=== PATIENT | female | born 1995 | race Caucasian/White ===

== ENCOUNTER 2019-02-20 16:07 | Emergency (ER) | payer SELFPAY ==
[2019-02-20 16:08] VITALS: BP 140/97; PULSE 94; RESP 16; TEMP 36.7; O2SAT 100; BMI 24.7
[2019-02-20] MEDS: MethylPREDNISolone 125 MG/2 ML Vial IV (16:44)
[2019-02-20] MEDS: DiphenhydrAMINE 50 MG/ML Syringe 25 MG IV (16:44)
--- NOTE | 2019-02-20 17:07 | ED.VISSUMM ---
- ER Visit Summary Date of Service: 02/20/19 Chief Complaint: Rash History of Present Illness: The patient is a 24 F presenting with rash. She states she noticed a rash that started on her face this morning. She complains of a burning and itching sensation. She was started on Lamictal 3 weeks ago. She states initially she was on 25 mg once a day. A week ago it was increased to 50 mg once a day. She called her psychiatrist and was advised to discontinue the medication. She was advised to come to the ED for evaluation. She has no sores in her mouth. No difficulty breathing or swallowing. No fever. No other complaints. Physical Examination: Vitals are stable. Patient is afebrile. Alert no acute distress. HEENT exam maculopapular and petechial rash of face. No mucous membrane involvement Neck is supple. No meningismus Lungs are clear and equal bilaterally. Heart is regular rate and rhythm. Abdomen is soft nontender nondistended. Extremities are unremarkable. Skin is warm and dry. No focal neurologic deficit. Remainder of exam is unremarkable. Emergency Department Course and Treatment: Patient was given Solu-Medrol, Benadryl IV. CBC, chemistries unremarkable. Due to concern for Winston-Ricco syndrome, discussed with the hospitalist for observation. Hospitalist feels patient should be transferred to tertiary care center for admission. Discussed with [facility] for transfer. 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 It may contain incorrect words, spelling, and punctuation that were not noted in review of the chart prior to signing ED Disposition - Plan for ED Patient: Referrals: Marta Souza MD [Primary Care Provider] -
[2019-02-20 17:08] LABS: Absolute Neutrophil Count 5.6 X10^3/uL (2.0-7.7); Basophil# 0.02 X10^3/uL; Basophil% 0.3 % (0-1); Eosinophil# 0.11 X10^3/uL; Eosinophils% 1.4 % (0-5); Hematocrit 41.1 % (37-47); Lymphocyte % 19.5 % (19-41); Mean Corp Hgb Conc 34.1 g/gl (32-36); Mean Corpuscular Hgb 27.7 pg (27.0-32.0); Mean Corpuscular Volume 81.2 fL (81-99); Mean Platelet Vol. 11.2 fl (6.2-12.0); Monocyte# 0.42 X10^3/uL; Monocyte% 5.5 % (0-10); Neutrophil # 5.62 X10^3/uL (2.7-7.7); Platelet Count 401 K/mm3 (150-450); RBC Distribution Width CV 13.4 % (11.6-14.6); RBC Distribution Width SD 38.6 fl (35.1-43.9); Red Blood Count 5.06 M/mm3 (4.2-5.4); White Blood Count 7.7 K/mm3 (4.4-11.0)
[2019-02-20 17:10] LABS: POSITIVE COUNT NO; POSITIVE DIFFERENTIAL NO; POSITIVE MORPHOLOGY NO
[2019-02-20 17:11] LABS: Anion Gap 8 (5-15); BUN 6 mg/dL (7-18); Calcium,Total 9.4 mg/dL (8.5-10.1); Chloride 110 mmol/L (98-107); Creatinine, Serum 0.86 mg/dL (0.55-1.02); EST Glomerular Filtration Rate 86 mL/min (>60); Est Glom Filt Rate - Afr Amer 104 mL/min (>60); Estimated Creatinine Clearance 79.78 ml/min; Glucose 98 mg/dL (74-106); Potassium 3.6 mmol/L (3.5-5.1); Sodium Level 141 mmol/L (136-145)
--- NOTE | 2019-02-20 17:11 | ED.DCSUM_ITS ---
- ER Visit Summary Date of Service: 02/20/19 Chief Complaint: Rash History of Present Illness: The patient is a 24 F presenting with rash. She states she noticed a rash that started on her face this morning. She complains of a burning and itching sensation. She was started on Lamictal 3 weeks ago. She states initially she was on 25 mg once a day. A week ago it was increased to 50 mg once a day. She called her psychiatrist and was advised to discontinue the medication. She was advised to come to the ED for evaluation. She has no sores in her mouth. No difficulty breathing or swallowing. No fever. No other complaints. Physical Examination: Vitals are stable. Patient is afebrile. Alert no acute distress. HEENT exam maculopapular and petechial rash of face. No mucous membrane involvement Neck is supple. No meningismus Lungs are clear and equal bilaterally. Heart is regular rate and rhythm. Abdomen is soft nontender nondistended. Extremities are unremarkable. Skin is warm and dry. No focal neurologic deficit. Remainder of exam is unremarkable. Emergency Department Course and Treatment: Patient was given Solu-Medrol, Benadryl IV. CBC, chemistries unremarkable. Due to concern for Winston-Ricco syndrome, discussed with the hospitalist for observation. Hospitalist feels patient should be transferred to tertiary care center for admission. Discussed with [facility] for transfer. 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 It may contain incorrect words, spelling, and punctuation that were not noted in review of the chart prior to signing ED Disposition - Plan for ED Patient: Referrals: Marta Souza MD [Primary Care Provider] -
[2019-02-20 19:16] VITALS: BP 136/71; PULSE 81; RESP 16; O2SAT 98
== END 2019-02-20 19:17 | disposition home or self-care (01) ==
LOC: ED 16:55
PROVIDERS: Emergency Provider Emergency Medicine; Family Provider Internal Medicine; PCP Internal Medicine
DX: R21 Rash and other nonspecific skin eruption (principal)
CPT/HCPCS: 80048; 85025; 96374; 96375; 99285; A4216

== ENCOUNTER → 2019-06-26 | Outpatient (CLI) | payer OTHER, SELFPAY | END | disposition home or self-care (01) | LOC: PSN 08:39 | PROVIDERS: Family Provider Internal Medicine; PCP Internal Medicine; Referring Provider Nurse Practitioner; Visit Provider Nurse Practitioner | DX: R00.2 Palpitations (principal); Z86.79 Personal history of other diseases of the circulatory system | CPT/HCPCS: 93225; 93226 ==

== ENCOUNTER → 2019-10-21 14:49 | Outpatient (CLI) | payer OTHER, SELFPAY ==
[2019-10-21 14:29] VITALS: BMI 24.7
[2019-10-21 15:23] LABS: Basophil% 0.4 % (0-1); Hematocrit 36.9 % (37-47); Hemoglobin 12.2 g/dL (12.0-15.0); Lymphocyte % 24.6 % (19-41); Mean Corp Hgb Conc 33.1 g/dL (32-36); Mean Corpuscular Volume 84.8 fL (81-99); Mean Platelet Vol. 10.6 fl (6.2-12.0); Monocyte% 5.9 % (0-10); Neutrophil % 65.9 % (47-70); Platelet Count 346 K/mm3 (150-450); RBC Distribution Width CV 13.5 % (11.6-14.6); Red Blood Count 4.35 M/mm3 (4.2-5.4); White Blood Count 8.1 K/mm3 (4.4-11.0)
[2019-10-21 15:24] LABS: Absolute Lymphocyte Count 1.99 X10^3/uL (0.83-4.51); Absolute Neutrophil Count 5.3 X10^3/uL (2.0-7.7); Basophil# 0.03 X10^3/uL; Eosinophil# 0.24 X10^3/uL; Lymphocyte # 1.99 X10^3/ul (4.0); Monocyte# 0.48 X10^3/uL; NRBC Flagged by Analyzer 0 % (0-5); Neutrophil # 5.33 X10^3/uL (2.7-7.7)
[2019-10-21 15:54] LABS: Thyroid Stim Hormone (TSH) 2.11 uIU/mL (0.358-3.74)
== END ==
PROVIDERS: PCP Internal Medicine; Referring Provider Nurse Practitioner Women's Health; Visit Provider Nurse Practitioner Women's Health
DX: N92.6 Irregular menstruation, unspecified (principal)
CPT/HCPCS: 36415; 84443; 85025

== ENCOUNTER → 2019-10-30 | Outpatient (CLI) | payer OTHER, SELFPAY ==
[2019-10-21 14:29] VITALS: BMI 24.7
--- NOTE | 2019-10-30 11:09 | US_ITS ---
STUDY: ULTRASOUND OF THE FEMALE PELVIS - COMPLETE REASON FOR EXAM: Female, 24 years old. IUD CHECK, SPOTTING ALL THE TIME, IUD PLACED 8 MO AGO LMP: October 30, 2019. TECHNIQUE: Transabdominal and Transvaginal TECHNICAL QUALITY: Adequate. COMPARISON: None. FINDINGS: The uterus is anteverted and is in a midline position. The uterus measures 6.2 cm x 4.3 cm x 3.4 cm. Normal uterine cervix. The endometrium measures 3.3 mm in thickness, and is hyperechoic. There is no demonstrated endometrial mass. There is no demonstrated myometrial mass. I.U.D. - The patient does have an I.U.D. The right ovary is visualized. The right ovary measures 3 cm x 2.1 cm x 2.0 cm. There is no right ovarian cyst or ovarian mass. There is no visualized right adnexal mass or complex lesion. There is normal arterial and normal venous vascularity. The left ovary is visualized. The left ovary measures 2.7 cm x 2 cm x 1.8 cm. There is no left ovarian cyst or ovarian mass. There is no visualized left adnexal mass or complex lesion. There is normal arterial and normal venous vascularity. There is no fluid in the cul-de-sac. The pre void volume of the bladder was 234 ml. Polycystic ovary disease: No. US/Transvaginal Non- IMPRESSION: The IUD is seen within the endometrium. Electronically Signed: Damion Smith, at 14:04 EST , Service support ,
--- NOTE | 2019-10-30 11:09 | US_ITS ---
STUDY: ULTRASOUND OF THE FEMALE PELVIS - COMPLETE REASON FOR EXAM: Female, 24 years old. IUD CHECK, SPOTTING ALL THE TIME, IUD PLACED 8 MO AGO LMP: October 30, 2019. TECHNIQUE: Transabdominal and Transvaginal TECHNICAL QUALITY: Adequate. COMPARISON: None. FINDINGS: The uterus is anteverted and is in a midline position. The uterus measures 6.2 cm x 4.3 cm x 3.4 cm. Normal uterine cervix. The endometrium measures 3.3 mm in thickness, and is hyperechoic. There is no demonstrated endometrial mass. There is no demonstrated myometrial mass. I.U.D. - The patient does have an I.U.D. The right ovary is visualized. The right ovary measures 3 cm x 2.1 cm x 2.0 cm. There is no right ovarian cyst or ovarian mass. There is no visualized right adnexal mass or complex lesion. There is normal arterial and normal venous vascularity. The left ovary is visualized. The left ovary measures 2.7 cm x 2 cm x 1.8 cm. There is no left ovarian cyst or ovarian mass. There is no visualized left adnexal mass or complex lesion. There is normal arterial and normal venous vascularity. There is no fluid in the cul-de-sac. The pre void volume of the bladder was 234 ml. Polycystic ovary disease: No. US/Pelvic (Non ) IMPRESSION: The IUD is seen within the endometrium. Electronically Signed: Damion Smith, at 14:04 EST , Service support ,
== END | disposition home or self-care (01) ==
PROVIDERS: PCP Internal Medicine; Referring Provider Nurse Practitioner Women's Health; Visit Provider Nurse Practitioner Women's Health
DX: N92.6 Irregular menstruation, unspecified (principal); Z30.431 Encounter for routine checking of intrauterine contraceptive device
CPT/HCPCS: 76830; 76856

== ENCOUNTER 2020-04-06 08:27 | Emergency (ER) | payer OTHER, SELFPAY ==
[2020-01-09 14:32] VITALS: BMI 24.7
[2020-04-06 08:28] VITALS: BP 131/86; PULSE 85; RESP 16; TEMP 36.6; O2SAT 100; BMI 26.5
--- NOTE | 2020-04-06 08:56 | ED.DCSUM_ITS ---
History of Present Illness Chief Complaint: Complaint Informant: Patient Onset: Days - 3 Narrative: Presents for worsening of flank pain with dysuria and frequency. Started 3 days ago. Seen [facility] urgent care yesterday were told she had a UTI started on Bactrim status post 2 doses. States today symptoms worsening. Nausea vomiting x1 today. States had a fever yesterday. Allergy to Augmentin. Took Tylenol last night. Last menstrual period on the 15th of last month. No history of gastric ulcers or kidney injury. Prior similar symptoms: Yes Past Medical History - Allergies and Home Meds Allergies/Adverse Reactions: Allergies lamotrigine [From Lamictal] Allergy (Unknown, Verified 04/06/20 08:30) Unknown montelukast sodium [From Singulair] Allergy (Unknown, Verified 04/06/20 08:30) Unknown pt states she had reaction when she was young and is unsure amoxicillin trihydrate [From Augmentin] Allergy (Verified 04/06/20 08:30) Hives potassium clavulanate [From Augmentin] Allergy (Verified 04/06/20 08:30) Hives fluticasone propionate [From Flonase] Adverse Reaction (Verified 04/06/20 08:30) Other bloody noses and headaches TAPE Allergy (Mild, Uncoded 04/06/20 08:30) Rash Primary Care Physician: Marta Souza MD [Primary Care Provider] - Past Medical History: None Smoking Status: Never smoker Review of Systems General: Reports: Fever. Denies: Chills, Sweats Eyes: Denies: Visual changes - bilaterally, Diplopia ENT: Denies: Rhinorrhea, Sore throat Cardiovascular: Denies: Chest pain, Palpitations Respiratory: Denies: Dyspnea, Cough, Dyspnea on exertion Gastrointestinal: Reports: Nausea, Vomiting. Denies: Abdominal pain, Diarrhea, Melena, Hematochezia Genitourinary: Reports: Dysuria, Frequency. Denies: Hematuria Musculoskeletal: Reports: Back pain. Denies: Extremity Pain Skin: Denies: Rash, Wounds Neurological: Denies: Headache, Weakness, Numbness Physical Exam Vital Signs/Narrative: Vital Signs Temp Pulse Resp BP Pulse Ox 04/06/20 08:28 97.8 F 85 16 131/86 H 100 Inital Vital Signs reviewed: Yes General: Well nourished, Well developed, No Acute Distress, - - Nontoxic Head: Normocephalic, Atraumatic Eyes: Perrl, EOMI ENT: Moist mucous membranes, No rhinorrhea Neck: Supple, Nontender Cardiovascular: Regular rate, Regular rhythm, No murmurs Respiratory: No distress, CTA bilaterally, Chest nontender Abdomen: Soft, Nontender, Nondistended, Normal bowel sounds Back: Nontender, Normal Inspection, CVA tenderness, - - Mild left CVA tenderness. Extremities: Nontender, No edema Skin: Normal color, No rash Neurological: Alert, Oriented x3, Cranial nerves II-XII grossly intact, Normal Strength, Normal Sensation Psychological: Normal affect, Normal Mood Diagnostic/Tx/Re-eval Abnormal Lab Results 04/06/20 04/06/20 09:05 09:05 Urine Color Yellow Urine Clarity Sl. Cloudy Urine pH 7.0 Ur Specific [place] 1.005 Urine Protein Negative Urine Glucose (UA) Normal Urine Ketones Negative Urine Occult Blood Negative Urine Nitrite Negative Urine Bilirubin Negative Urine Urobilinogen Normal Ur Leukocyte Esterase Negative Urine RBC 0 SEEN Urine WBC 0 SEEN Ur Squamous Epith Cells 0-5 SEEN Urine Bacteria RARE Urine Mucus 0 SEEN Urine Test Negative - Medical Decision Making Patient nontoxic, nonsurgical abdomen. Unable to obtain labs from urgent care at this time. Recheck urine and hCG which was normal. Culture was sent with her history. Patient reported worsening symptoms, she was given Motrin and Pyridium initially. Discussed with patient potentially partially treated UTI with symptoms versus other etiologies but she pelvic and vaginal. She denies any vaginal discharge is abnormal. States she is sexually active with single partner with protection each time. 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 Skaggs. She has had ovarian cyst in the past. She states she is prefers to see her document image technician for her pelvic exam. I did send for urine GC and chlamydia for further screening. She will finish her antibiotics, Tylenol Motrin as needed. Signs of discussed return. All questions were answered. ED Disposition - Plan for ED Patient: Disposition: Home or Assisted Living Diagnosis: Dysuria, Pelvic pain, Recent urinary tract infection Instructions: ED Dysuria Uncertain Cause, ED Pelvic Pain [facility] Prescriptions: Phenazopyridine HCl [Pyridium] 200 mg PO TID PRN #6 tab PRN Reason: dysuria Transmission Status: [id number] Referrals: Marta Souza MD [Primary Care Provider] - Tara Skaggs MD [STAFF PHYSICIAN] - 3-5 Days
[2020-04-06] MEDS: Phenazopyridine 95 MG Tablet 190 MG PO (09:02)
[2020-04-06] MEDS: Ibuprofen 600 MG Tablet PO (09:02)
[2020-04-06 09:10] LABS: Mucous, Urine 0 SEEN /hpf (<or=2+); Red Blood Cells-Urine 0 SEEN /hpf (0-5); White Blood Cells 0 SEEN /hpf (0-5)
[2020-04-06 09:11] VITALS: BP 131/86; PULSE 85; RESP 16; TEMP 36.6; O2SAT 100
[2020-04-06 09:12] LABS: Color, Urine Yellow (Yellow); Glucose, Dipstick Normal (Normal); Ketone-Dipstick Negative (Negative); Leukocyte Esterase-Dipstick Negative /ul (Negative); Nitrite-Dipstick Negative (Negative); Occult Blood-Urine Negative /ul (Negative); Protein-Dipstick Negative (Negative); Specific Gravity, Urine 1.005 (1.002-1.030); Urine Bilirubin Dipstick Negative (Negative); Urine Clarity Sl. Cloudy (Clear); Urine Urobilinogen Normal (Normal)
[2020-04-06 09:13] LABS: Internal QC Validated? YES +Cl - CLEAR BKGD; Pregnancy, Urine Negative Negative
[2020-04-06 09:16] LABS: Bacteria RARE /hpf (None Seen); Squamous Epithelial Cells - UA 0-5 SEEN /hpf (5-10)
[2020-04-06 12:33] LABS: Chlamydia Trachomatis by PCR Negative (Negative); Neisserai gonorrhoeae by PCR Negative (Negative); Probe Check PASS; Sample Adequacy Control PASS; Specimen Processing Control PASS
== END 2020-04-06 09:39 | disposition home or self-care (01) ==
PROVIDERS: Emergency Provider Emergency Medicine; PCP Internal Medicine
DX: R30.0 Dysuria (principal); R10.2 Pelvic and perineal pain
CPT/HCPCS: 81001; 81025; 87086; 87088; 87491; 87591; 99283

== ENCOUNTER 2020-06-14 17:09 | Emergency (ER) | payer OTHER, SELFPAY ==
[2020-06-14 17:10] VITALS: BP 122/87; PULSE 80; RESP 18; TEMP 36.6; O2SAT 100; BMI 26.5
--- NOTE | 2020-06-14 17:39 | US_ITS ---
PROCEDURE: ULTRASOUND OF THE FEMALE PELVIS - COMPLETE REASON FOR EXAM: Female, 25 years old. PAIN AFTER INTERCOURSE,, IUD TECHNIQUE: Transabdominal and Transvaginal TECHNICAL QUALITY: Adequate. COMPARISON: Pelvic ultrasound dated October 30, 2019 FINDINGS: The uterus is anteverted and is in a midline position. The uterus measures 7.9 x 4.9 x 3.0 cm. There is no demonstrated myometrial mass. The intrauterine device is present in the fundal and body portion of endometrial cavity. The endometrium measures 2 mm in thickness, and is hyperechoic. There is no demonstrated endometrial mass. Normal uterine cervix. The right ovary is visualized. The right ovary measures 2.1 x 2.2 x 1.4 cm. There is no right ovarian cyst or ovarian mass. There is no visualized right adnexal mass or complex lesion. The left ovary is visualized. The left ovary measures 4.7 x 2.8 x 2.5 cm. A simple 2.4 cm follicular cyst is present requiring no further evaluation. There is no visualized left adnexal mass or complex lesion. Normal color vascular flow and Doppler signal is demonstrated in both ovaries. A small to moderate amount of free fluid is present in the pelvic cul-de-sac. A small amount of debris is seen in the bladder lumen. US/Transvaginal Non- IMPRESSION: 1. A small to moderate amount of free fluid is present in the pelvic cul-de-sac. A small amount of debris is seen in the bladder lumen. Electronically Signed: Ortiz Garcia MD at 19:32 EDT , Service support ,
--- NOTE | 2020-06-14 17:40 | ED.VIS.GEN ---
History of Present Illness Chief Complaint: Abd Pain Informant: Patient Onset: Yesterday Context: Gradual Onset Timing: Waxes and wanes Current Severity: Mild Maximum Severity: Moderate Narrative: Patient presents secondary to severe pelvic cramping that started after intercourse. She reports after intercourse last night she started getting heavy pelvic cramping. She has not had any bleeding or spotting. She been taking Tylenol ibuprofen throughout the day today. She called her HOME CARE PHYSICAL THERAPIST who recommended she come in. Patient does note that she has ParaGard IUD. - Past Medical History (1) Bipolar disorder Status: Chronic Past Medical History - Allergies and Home Meds Allergies/Adverse Reactions: Allergies lamotrigine [From Lamictal] Allergy (Unknown, Verified 06/14/20 17:12) Unknown montelukast sodium [From Singulair] Allergy (Unknown, Verified 06/14/20 17:12) Unknown pt states she had reaction when she was young and is unsure amoxicillin trihydrate [From Augmentin] Allergy (Verified 06/14/20 17:12) Hives potassium clavulanate [From Augmentin] Allergy (Verified 06/14/20 17:12) Hives fluticasone propionate [From Flonase] Adverse Reaction (Verified 06/14/20 17:12) Other bloody noses and headaches TAPE Allergy (Mild, Uncoded 06/14/20 17:12) Rash Primary Care Physician: Marta Souza MD [Primary Care Provider] - 1 Week if not improving Doctors: Dr. Skaggs Prior records reviewed: Yes Lives: With Family Smoking Status: Never smoker Review of Systems General: Denies: Chills, Fever Eyes: Denies: Visual changes - bilaterally ENT: Denies: Bilateral ear pain Cardiovascular: Denies: Chest pain Respiratory: Denies: Dyspnea, Cough Gastrointestinal: Reports: Abdominal pain. Denies: Vomiting, Diarrhea Genitourinary: Denies: Dysuria Musculoskeletal: Denies: Swelling, Extremity Pain Skin: Denies: Rash Hematologic: Denies: Easy bruising, Easy bleeding Allergy: Denies: Uticaria Physical Exam Vital Signs/Narrative: Vital Signs Temp Pulse Resp BP Pulse Ox 06/14/20 17:10 97.9 F 80 18 122/87 H 100 Inital Vital Signs reviewed: Yes General: Well nourished, Well developed Head: Normocephalic ENT: Moist mucous membranes Neck: Supple Cardiovascular: Regular rate, Regular rhythm Respiratory: No distress, CTA bilaterally Abdomen: Soft, Nontender, Normal bowel sounds Skin: Normal color Neurological: Alert, Oriented x3 Psychological: Normal affect Diagnostic/Tx/Re-eval Impressions Transvaginal US 06/14/20 17:39 IMPRESSION: 1. A small to moderate amount of free fluid is present in the pelvic cul-de-sac. A small amount of debris is seen in the bladder lumen. Electronically Signed: Ortiz Garcia MD at 19:32 EDT , Service support , 06/14/20 17:39 Transvaginal Non- [US] Stat Laboratory Results 06/14/20 06/14/20 17:45 17:45 Urine Color Yellow Urine Clarity Cloudy Urine pH 8.0 Ur Specific [place] 1.010 Urine Protein 15 H Urine Glucose (UA) Normal Urine Ketones Negative Urine Occult Blood 10 H Urine Nitrite Positive H Urine Bilirubin Negative Urine Urobilinogen 1 H Ur Leukocyte Esterase 500 H Urine RBC 0-5 SEEN Urine WBC 10-25 SEEN Ur Squamous Epith Cells 0-5 SEEN Amorphous Sediment 2+ Urine Bacteria 3+ Urine Mucus 0 SEEN Urine Test Negative - Medical Decision Making Patient was given ibuprofen on arrival. Urine does return with sign of infection and she was given Azo and Bactrim. Urine culture was sent. Test results discussed with the patient at bedside. She will be given prescription for Bactrim and Pyridium. She is to follow-up with her PCP and/or Dr. Skaggs if not improving. ED Disposition - Plan for ED Patient: Disposition: Home or Assisted Living Diagnosis: Cystitis Instructions: ED CYSTITIS Female Adult Prescriptions: Smz/Tmp Ds [Bactrim Ds] 1 tab PO BID #6 tab Transmission Status: [id number] Phenazopyridine HCl [Pyridium] 200 mg PO BID PRN PRN #10 tab PRN Reason: Pain Transmission Status: Re[id number] Referrals: Marta Souza MD [Primary Care Provider] - 1 Week if not improving
[2020-06-14 17:59] LABS: Mucous, Urine 0 SEEN /hpf (<or=2+)
[2020-06-14 18:01] LABS: Color, Urine Yellow (Yellow); Glucose, Dipstick Normal (Normal); Ketone-Dipstick Negative (Negative); Leukocyte Esterase-Dipstick 500 /ul (Negative); Nitrite-Dipstick Positive (Negative); Occult Blood-Urine 10 /ul (Negative); Protein-Dipstick 15 mg/dl (Negative); Urine Bilirubin Dipstick Negative (Negative); Urine Clarity Cloudy (Clear); Urine Urobilinogen 1 mg/dl (Normal)
[2020-06-14 18:08] LABS: Internal QC Validated? YES +Cl - CLEAR BKGD; Pregnancy, Urine Negative Negative
[2020-06-14 18:22] LABS: Amorphous Sediment 2+; Bacteria 3+ /hpf (None Seen); Red Blood Cells-Urine 0-5 SEEN /hpf (0-5); Squamous Epithelial Cells - UA 0-5 SEEN /hpf (5-10); White Blood Cells 10-25 SEEN /hpf (0-5)
[2020-06-14] MEDS: Ibuprofen 600 MG Tablet PO (18:25)
[2020-06-14] MEDS: Smz/Tmp Ds Tablet 1 TABLET PO (19:20)
[2020-06-14 19:21] VITALS: RESP 16
[2020-06-14] MEDS: Phenazopyridine 95 MG Tablet 190 MG PO (19:21)
[2020-06-14 20:11] VITALS: PULSE 80; RESP 15; O2SAT 98
== END 2020-06-14 20:12 | disposition home or self-care (01) ==
PROVIDERS: Emergency Provider Emergency Medicine; PCP Internal Medicine
DX: N30.90 Cystitis, unspecified without hematuria (principal); F31.9 Bipolar disorder, unspecified; Z79.899 Other long term (current) drug therapy
CPT/HCPCS: 76830; 81001; 81025; 87086; 87088; 87186; 93976; 99284

== ENCOUNTER 2020-08-05 18:16 | Emergency (ER) | payer OTHER, SELFPAY ==
[2020-08-05 18:17] VITALS: BP 125/83; PULSE 83; RESP 14; TEMP 36.2; O2SAT 100; BMI 26.5
--- NOTE | 2020-08-05 18:41 | ED.DCSUM_ITS ---
- ER Visit Summary Date of Service: 08/05/20 Chief Complaint: Headache History of Present Illness: The patient is a 25 F who presents with a headache that has been constant for the past couple days. Patient states it is gradually gotten worse. Patient states this feels similar to prior migraine headaches. Patient states she has not had a migraine in a while. Patient states her headache is over the frontal area. Patient states it is worse with light. Patient admits to nausea but denies any vomiting. Patient denies any preceding aura or scotoma. Patient denies any paresthesias or weakness. Physical Examination: Vital signs are stable. Patient is afebrile. Patient is in no acute distress. Oral mucosa is pink and moist. Neck is supple. Trachea is midline. There is no JVD noted. Heart was regular rate and rhythm. Lungs are clear and equal bilaterally. Abdomen is soft. Bowel sounds are normal. There is no tenderness. There is no rebound or guarding noted. Skin is warm dry. Cranial nerves II through XII are intact. There are no focal motor or sensory deficits noted. Extremities are intact. There is no calf tenderness or edema. Emergency Department Course and Treatment: Patient was given IV fluids, Reglan, Benadryl, and Toradol. Patient is feeling better on reevaluation. Patient was instructed to rest in a dark quiet room. Patient was instructed to follow-up with her primary care physician in 5 to 7 days. Patient understood and was agreeable with the plan. All questions were answered. Disposition: Discharge home Impression: Migraine headache This note was generated with [employer] dictation software. It may contain incorrect words, spelling, and punctuation that were not noted in review of the chart prior to signing ED Disposition - Plan for ED Patient: Disposition: Home or Assisted Living Diagnosis: Migraine headache Instructions: ED, Migraine (Classical) Referrals: Marta Souza MD [Primary Care Provider] - 5-7 Days
[2020-08-05] MEDS: 0.9% Normal Saline 1,000 ML 999 ML IV (18:47)
[2020-08-05] MEDS: DiphenhydrAMINE 50 MG/ML Syringe 25 MG IV (18:51)
[2020-08-05] MEDS: Ketorolac 30 MG/ML Syringe IV (18:51)
[2020-08-05] MEDS: Metoclopramide 10 MG/2 ML Vial IV (18:52)
[2020-08-05 20:33] VITALS: BP 112/60; PULSE 66; RESP 18; O2SAT 100
== END 2020-08-05 20:33 | disposition home or self-care (01) ==
PROVIDERS: Emergency Provider Emergency Medicine; PCP Internal Medicine
DX: G43.909 Migraine, unspecified, not intractable, without status migrainosus (principal)
CPT/HCPCS: 96361; 96374; 96375; 99283; J7030; A4216

== ENCOUNTER 2020-09-23 13:34 | Emergency (ER) | payer OTHER, SELFPAY ==
[2020-09-23 13:34] VITALS: BP 131/73; PULSE 105; RESP 18; TEMP 36.6; O2SAT 100; BMI 27.4
--- NOTE | 2020-09-23 13:52 | ED.VIS.GEN ---
History of Present Illness Chief Complaint: Eye Problem Informant: Patient Onset: Today Current Severity: Moderate Maximum Severity: Moderate Narrative: Patient presents secondary to hazy vision bilaterally. She states she woke this morning and her eyes were slightly hazy and irritated. She put her contacts in but symptoms seem to get worse. She took her contacts out but symptoms have continued to progress. She does report a stinging sensation in her eyes. No discharge. She does wear contacts monthly and states this pair was last changed on the first of the month. She did thoroughly cleanse them before placing them in her eyes today. - Past Medical History (1) Bipolar disorder Status: Chronic Past Medical History - Allergies and Home Meds Allergies/Adverse Reactions: Allergies lamotrigine [From Lamictal] Allergy (Unknown, Verified 09/23/20 13:36) Unknown montelukast sodium [From Singulair] Allergy (Unknown, Verified 09/23/20 13:36) Unknown pt states she had reaction when she was young and is unsure amoxicillin trihydrate [From Augmentin] Allergy (Verified 09/23/20 13:36) Hives potassium clavulanate [From Augmentin] Allergy (Verified 09/23/20 13:36) Hives fluticasone propionate [From Flonase] Adverse Reaction (Verified 09/23/20 13:36) Other bloody noses and headaches TAPE Allergy (Mild, Uncoded 09/23/20 13:36) Rash Primary Care Physician: Marta Souza MD [Primary Care Provider] - Prior records reviewed: Yes Smoking Status: Never smoker Review of Systems General: Denies: Chills, Fever Eyes: Reports: Visual changes - bilaterally. Denies: Diplopia ENT: Denies: Bilateral ear pain Cardiovascular: Denies: Chest pain Respiratory: Denies: Dyspnea, Cough Gastrointestinal: Denies: Abdominal pain, Nausea, Vomiting, Diarrhea Musculoskeletal: Denies: Extremity Pain Skin: Denies: Rash, Wounds Neurological: Denies: Headache Hematologic: Denies: Easy bruising, Easy bleeding Allergy: Denies: Uticaria Physical Exam Vital Signs/Narrative: Vital Signs Temp Pulse Resp BP Pulse Ox 09/23/20 13:34 98 F 105 H 18 131/73 H 100 Inital Vital Signs reviewed: Yes General: Well nourished, Well developed Head: Normocephalic Eyes: Perrl, EOMI, - - No conjunctival injection. No discharge. No periorbital edema or cellulitis. ENT: Moist mucous membranes Neck: Supple Cardiovascular: Regular rate, Regular rhythm Respiratory: No distress, CTA bilaterally Abdomen: Soft, Nontender Extremities: Nontender Skin: Normal color Neurological: Alert, Oriented x3 Psychological: Normal affect Diagnostic/Tx/Re-eval - Medical Decision Making Tetracaine drops were applied to each eye. She did have improvement in her pain with this. Slit-lamp examination is performed that reveals no ulcerations or lesions. Unfortunately there is a shortage of fluorescein and I am unable to stain her eyes. My suspicion is that the patient likely did not have her eyes completely closed when she slept and therefore woke up with irritated dry eyes. This has worsened over the next several hours. Patient will be given prescription for [place] and advised to use cool washcloths to her eyes. She will be given gentamicin eyedrops. She is referred to Dr. Baker, on-call for ophthalmology if not improving. Patient understands plan and agrees. ED Disposition - Plan for ED Patient: Disposition: Home or Assisted Living Diagnosis: Corneal abrasion Instructions: ED Corneal Abrasion Prescriptions: Hydrocodone Bitart/Apap 5-325 [[place] 5MG-325MG] 1 tablet PO Q6H PRN PRN 3 Days #10 tablet PRN Reason: Pain Referrals: Jose Baker MD [STAFF PHYSICIAN] - 3-5 Days if not improving Additional Instructions: Gentamicin eye drops - one drop to each eye every 6 hours while awake for the next 3 days.
[2020-09-23] MEDS: Tetracaine 0.5% Ophthalmic Bottle 1 DRP EACH EYE (13:57)
[2020-09-23] MEDS: HYDROcodone Bitartrate/Apap 5/325 Tablet PO (15:00)
[2020-09-23] MEDS: Gentamicin Sulfate 1 OPTH.BTL 1 DRP EACH EYE (15:01)
[2020-09-23 15:04] VITALS: BP 122/85; PULSE 79; RESP 18; O2SAT 100
== END 2020-09-23 15:06 | disposition home or self-care (01) ==
PROVIDERS: Emergency Provider Emergency Medicine; PCP Internal Medicine
DX: S05.02XA Injury of conjunctiva and corneal abrasion without foreign body, left eye, initial encounter (principal); S05.01XA Injury of conjunctiva and corneal abrasion without foreign body, right eye, initial encounter; F31.9 Bipolar disorder, unspecified; Z79.899 Other long term (current) drug therapy; X58.XXXA Exposure to other specified factors, initial encounter; Y93.89 Activity, other specified; Y92.89 Other specified places as the place of occurrence of the external cause; Y99.8 Other external cause status
CPT/HCPCS: 99283

== ENCOUNTER 2021-02-25 14:01 | Emergency (ER) | payer SELFPAY ==
[2021-02-25 14:02] VITALS: BP 118/76; PULSE 86; RESP 15; TEMP 36.4; O2SAT 100; BMI 26.5
--- NOTE | 2021-02-25 14:35 | US_ITS ---
STUDY: ULTRASOUND TRANSVAGINAL CLINICAL: Female, 26 years old. atypical bleeding TECHNIQUE: Transvaginal COMPARISON: None. FINDINGS: The uterus is anteverted and is in a midline position. The uterus measures 7.3 x 4.2 x 3.6 cm. There is no demonstrated myometrial mass. The endometrium measures 4.6 mm in thickness, and is hyperechoic. There is no demonstrated endometrial mass. The IUD is in the central/fundal portion of the endometrial cavity. Normal uterine cervix. The right ovary is visualized. The right ovary measures 3.0 x 2.1 x 1.6 cm. There is no right ovarian cyst or ovarian mass. There is no visualized right adnexal mass or complex lesion. The left ovary is visualized. The left ovary measures 2.5 x 2.4 x 1.6 cm. There is no left ovarian cyst or ovarian mass. There is no visualized left adnexal mass or complex lesion. Normal color vascular flow and Doppler signal is demonstrated in both ovaries. There is no fluid in the cul-de-sac. US/Transvaginal Non- IMPRESSION: Normal female pelvis. Electronically Signed: Ortiz Garcia MD at 16:28 EDT , Service support ,
--- NOTE | 2021-02-25 14:36 | EDS_ITS ---
HPI HPI - Female History of Present Illness Chief Complaint: Vag Bleeding Narrative Narrative: 26-year-old female presenting with vaginal bleeding for the last couple of days. She states this has been fairly heavy. Today she states she is soaking through 1 pad every hour. She admits to lightheadedness. Patient states she tried to call Dr. Skaggs however she was unable to get an office visit. Patient states she is currently on oral control to help regulate her menstrual cycles. She has talked to her MEDICAID BUSINESS ANALYST in the past regarding changing this however due to her other medications that she is unable to switch to different control. Patient does state that her menstrual cycles have been irregular for at least a year. She denies abdominal pain or pelvic pain. She has no concern for or STD as she states she is not sexually active. PFSH PFSH Home Medications risperidone 1 mg tablet 2 mg PO DAILY 10/21/19 [History Last Taken Unknown] carbamazepine 200 mg PO DAILY 06/14/20 [History Last Taken Unknown] Allergy/AdvReac Type Severity Reaction Status Date / Time lamotrigine [From Lamictal] Allergy Unknown Unknown Verified 02/25/21 14:04 montelukast sodium Allergy Unknown Unknown Verified 02/25/21 14:04 [From Singulair] amoxicillin trihydrate Allergy Hives Verified 02/25/21 14:04 [From Augmentin] potassium clavulanate Allergy Hives Verified 02/25/21 14:04 [From Augmentin] fluticasone propionate AdvReac Other Verified 02/25/21 14:04 [From Flonase] TAPE Allergy Mild Rash Uncoded 02/25/21 14:04 Family History Aunt Non-Hodgkins lymphoma Other Diabetes Surgical History History of placement of ear tubes S/P tonsillectomy Social History Smoking Status: Never smoker alcohol intake: current details: occasionally substance use type: does not use caffeine: Yes what type of physical activity do you participate in: walking frequency: 3-4 times per week seatbelt use: always do you feel safe at home: Yes additional social history: Ilda Lawrence 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[employer] [facility] ED Constitutional Constitutional ED: Denies chills, fever(s) or sweats Eyes Eyes: Denies blurry vision or change in vision ENT ENT ED: Denies ear pain, rhinorrhea or sore throat Cardiovascular Cardiovascular: Reports other Details: Lightheadedness with standing ; Denies chest pain, palpitations or racing heartbeat Respiratory/Chest Respiratory/Chest: Denies cough, dyspnea or sputum Gastrointestinal Gastrointestinal: Denies abdominal pain, constipation, diarrhea or vomiting Genitourinary Genitourinary ED: Denies dysuria, hematuria or urinary frequency Musculoskeletal Musculoskeletal: Denies arthralgias, myalgias or neck pain Integumentary Denies abscess, Abrasions or rash Neurologic Neurologic: Reports headache(s); Denies paresthesias or weakness Psychiatric Psychiatric: Denies anxiety, depression, suicidal ideation or suicidal thoughts Endocrine Endocrinology: Denies polydipsia or polyuria EXAM Physical Exam Const Vital Signs: 02/25/21 14:02 02/25/21 15:13 Temperature 97.5 F L Temperature Source Temporal Pulse Rate 86 Pulse Rate [Lying] 87 Pulse Rate [Sitting] 86 Pulse Rate [Standing] 88 Respiratory Rate 15 Blood Pressure 118/76 Blood Pressure [Lying] 122/75 H Blood Pressure [Sitting] 121/85 H Blood Pressure [Standing] 127/93 H Blood Pressure Mean 90 Blood Pressure Mean [Lying] 90 Blood Pressure Mean [Sitting] 97 Blood Pressure Mean [Standing] 104 Pulse Ox 100 Oxygen Delivery Method Room Air Positive well nourished General Appearance ED: NAD; Negative for pallor HEENT Reports normocephalic, head/scalp atraumatic and moist mucous membranes Negative for trauma Eyes PERRL and EOMs intact bilaterally Neck no lymphadenopathy and supple Chest Wall inspection of chest normal and palpation of chest normal Resp normal respiratory effort and clear to auscultation bilaterally Auscultation: Negative for rales, rhonchi or wheezes Cardio regular rate and regular rhythm GI normal to inspection, nondistended, normoactive bowel sounds and non-distended Auscultation: normoactive bowel sounds Palpation: soft Narrative: Deferred Back/Spine General Back: Negative for CVA tenderness Cervical Spine: Negative for cervical spine tenderness Extremity normal to inspection General Extremety ED: Negative for edema or tenderness General Extremity: Negative for edema Neuro oriented x3 and CN's II-XII intact bilaterally Sensorium / Orientation: alert Motor Exam: strength 5/5 throughout Psych mental status grossly normal Attitude: No agitated Skin no rashes or lesions noted and no wounds General Skin Exam: Negative for jaundice or pallor MDM MDM MDM Narrative Medical decision making narrative: Patient presenting with irregular uterine bleeding. She states he has a history of this. She states it cannot be controlled by her control however she was concerned about the how much she had been bleeding today she states she felt a little lightheaded although she is not orthostatic. Her hemoglobin is stable at 12.1. Platelets normal at 365. Renal function electrolytes are normal. Urinalysis has blood in it which is likely contamination as she has no urinary symptoms. Transvaginal ultrasound finds no abnormalities. Patient counseled she will need to follow-up with her MEDICAID BUSINESS ANALYST for further treatment. Impression: 1. Dysfunctional uterine bleeding Lab Data Labs: Laboratory Results - last 24 hr 02/25/21 02/25/21 02/25/21 15:00 15:00 15:25 WBC 5.0 RBC 4.23 Hgb 12.1 Hct 36.8 L MCV 87.0 MCH 28.6 MCHC 32.9 RDW Std Deviation 40.6 RDW Coeff of Abiodun 12.8 Plt Count 365 MPV 10.2 Immature Gran % (Auto) 0.200 Neut % (Auto) 56.5 Lymph % (Auto) 28.9 [place] % (Auto) 8.0 Eos % (Auto) 6.0 H Baso % (Auto) 0.4 Absolute Neuts (auto) 2.8 Absolute Lymphs (auto) 1.45 Nucleated RBC % 0 Sodium 139 Potassium 3.8 Chloride 109 H Carbon Dioxide 24.0 Anion Gap 6 BUN 8 Creatinine 0.73 Estim Creat Clear Calc 96.61 Est GFR (MDRD) Af Amer 124 Est GFR (MDRD) Non-Af 103 BUN/Creatinine Ratio 11.0 Glucose 99 Calcium 9.1 Urine Color Straw Urine Clarity Clear Urine pH 8.0 Ur Specific [place] 1.015 Urine Protein Negative Urine Glucose (UA) Normal Urine Ketones Negative Urine Occult Blood 250 H Urine Nitrite Negative Urine Bilirubin Negative Urine Urobilinogen Normal Ur Leukocyte Esterase Negative Urine RBC 0-5 SEEN Urine WBC 0-5 SEEN Ur Squamous Epith Cells 5-10 SEEN Urine Bacteria 1+ Urine Mucus 0 SEEN Urine Test Negative Radiography Diagnostic Testing: Radiology Impression Transvaginal US 02/25/21 14:35 IMPRESSION: Normal female pelvis. Electronically Signed: Ortiz Garcia MD at 16:28 EDT , Service support , Discharge Plan Triage Chief Complaint: Vag Bleeding ED Provider: Donnell Bowman Dx/Rx/DC Orders Prescriptions: No Action risperidone [Risperdal] 1 mg tablet 2 mg PO DAILY RF: 0 carbamazepine 200 MG tablet 200 mg PO DAILY RF: 0 Primary Care Provider: Marta Souza Referrals: Marta Souza MD [Primary Care Provider] - Tara Skaggs MD [STAFF PHYSICIAN] - As soon as possible Disposition Disposition: Home, self care
[2021-02-25 15:12] LABS: Absolute Lymphocyte Count 1.45 X10^3/uL (0.83-4.51); Absolute Neutrophil Count 2.8 X10^3/uL (2.0-7.7); Basophil# 0.02 X10^3/uL; Basophil% 0.4 % (0-1); Hematocrit 36.8 % (37-47); Hemoglobin 12.1 g/dL (12.0-15.0); Lymphocyte # 1.45 X10^3/ul (0.83-4.51); Lymphocyte % 28.9 % (19-41); Mean Corp Hgb Conc 32.9 g/dL (32-36); Mean Corpuscular Hgb 28.6 pg (27.0-32.0); Mean Platelet Vol. 10.2 fl (6.2-12.0); NRBC Flagged by Analyzer 0 % (0-5); Neutrophil # 2.84 X10^3/uL (2.7-7.7); Neutrophil % 56.5 % (47-70); Platelet Count 365 K/mm3 (150-450); RBC Distribution Width CV 12.8 % (11.6-14.6); RBC Distribution Width SD 40.6 fl (35.1-43.9); Red Blood Count 4.23 M/mm3 (4.2-5.4)
[2021-02-25 15:13] VITALS: BP 121/85; BP 122/75; BP 127/93; PULSE 86; PULSE 87; PULSE 88
[2021-02-25 15:25] LABS: Anion Gap 6 (5-15); BUN 8 mg/dL (7-18); Calcium,Total 9.1 mg/dL (8.5-10.1); Chloride 109 mmol/L (98-107); Creatinine, Serum 0.73 mg/dL (0.55-1.02); EST Glomerular Filtration Rate 103 mL/min (>60); Est Glom Filt Rate - Afr Amer 124 mL/min (>60); Estimated Creatinine Clearance 96.61 ml/min; Glucose 99 mg/dL (74-106); Potassium 3.8 mmol/L (3.5-5.1); Sodium Level 139 mmol/L (136-145)
[2021-02-25 15:38] LABS: Mucous, Urine 0 SEEN /hpf (<or=2+)
[2021-02-25 15:53] LABS: Color, Urine Straw (Yellow); Glucose, Dipstick Normal (Normal); Ketone-Dipstick Negative (Negative); Leukocyte Esterase-Dipstick Negative /ul (Negative); Nitrite-Dipstick Negative (Negative); Occult Blood-Urine 250 /ul (Negative); Protein-Dipstick Negative (Negative); Specific Gravity, Urine 1.015 (1.002-1.030); Urine Bilirubin Dipstick Negative (Negative); Urine Clarity Clear (Clear); Urine Urobilinogen Normal (Normal)
[2021-02-25 16:06] LABS: White Blood Cells 0-5 SEEN /hpf (0-5)
[2021-02-25 16:07] LABS: Bacteria 1+ /hpf (None Seen); Internal QC Validated? YES +Cl - CLEAR BKGD; Pregnancy, Urine Negative Negative; Red Blood Cells-Urine 0-5 SEEN /hpf (0-5); Squamous Epithelial Cells - UA 5-10 SEEN /hpf (5-10)
== END 2021-02-25 17:15 | disposition home or self-care (01) ==
PROVIDERS: Emergency Provider Student in an Organized Health Care Education/Training Program; PCP Internal Medicine
DX: N93.8 Other specified abnormal uterine and vaginal bleeding (principal)
CPT/HCPCS: 76830; 80048; 81001; 81025; 85025; 99284

== ENCOUNTER 2021-05-30 20:10 | Emergency (ER) | payer BC, SELFPAY ==
[2021-05-30 20:10] VITALS: BP 146/99; PULSE 97; RESP 16; TEMP 36.4; O2SAT 100; BMI 25.6
[2021-05-30 21:57] LABS: Mucous, Urine 0 SEEN /hpf (<or=2+)
--- NOTE | 2021-05-30 22:01 | EDS_ITS ---
HPI HPI - GI History of Present Illness Chief Complaint: Abd Pain Detail of Chief Complaint: Pelvic pain vaginal bleeding Informant: patient Abdominal Pain/Flank Pain Onset: Days Context: Gradual Onset Quality: Cramping Current Severity: Mild Maximum Severity: Mild Nausea/Vomiting/Emesis GI Symptom: Negative for Nausea and Vomiting Diarrhea/Melena/Hematochezia GI Symptom: Negative for Diarrhea Associated Symptoms Associated Symptoms: Negative for Dysuria, Frequency, Hematuria and Urgency LMP: Around May 03. Narrative Narrative: 26-year-old female recently diagnosed with endometriosis. She had vaginal bleeding last 4 days. Last menstrual period was around May 03. She complaining of cramping. Denies any dysuria. No fever. Believes she has bled a significant amount. Said at times she feels lightheaded. She is on no blood thinners. She is a history of seizure disorder. Ab0. Both vaginal deliveries. No prior history of heavy bleeding. Prior similar symptoms: No Recent Illness/Hospitalization: No PFSH PFSH Medical History Endometriosis Home Medications risperidone 1 mg tablet 2 mg PO DAILY 10/21/19 [History Last Taken Unknown] carbamazepine 200 mg PO DAILY 06/14/20 [History Last Taken Unknown] copper 380 square mm intrauterine device 1 device INTRAUTERINE ONCE 05/25/21 [History Last Taken Unknown] oxcarbazepine 150 mg tablet 150 mg PO DAILY 05/25/21 [History Last Taken Unknown] cephalexin 500 mg PO Q6H 7 Days #28 cap 05/30/21 [Rx Last Taken Unknown] Allergy/AdvReac Type Severity Reaction Status Date / Time lamotrigine [From Lamictal] Allergy Unknown Unknown Verified 05/30/21 20:13 montelukast sodium Allergy Unknown Unknown Verified 05/30/21 20:13 [From Singulair] amoxicillin trihydrate Allergy Hives Verified 05/30/21 20:13 [From Augmentin] potassium clavulanate Allergy Hives Verified 05/30/21 20:13 [From Augmentin] fluticasone propionate AdvReac Other Verified 05/30/21 20:13 [From Flonase] TAPE Allergy Mild Rash Uncoded 02/25/21 14:04 Family History Aunt Non-Hodgkins lymphoma Other Diabetes Surgical History History of placement of ear tubes S/P tonsillectomy Social History Smoking Status: Never smoker alcohol intake: current details: occasionally substance use type: does not use caffeine: Yes what type of physical activity do you participate in: walking frequency: 3-4 times per week seatbelt use: always do you feel safe at home: Yes additional social history: Engaged- Agata Lawrence 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 Vaginal bleeding. Pelvic cramping. No discharge. No dysuria. Review of Systems ROS Unobtainable: Denies due to encephalopathy Constitutional Constitutional ED: Denies chills or fever(s) ENT ENT ED: Denies ear pain or sore throat Cardiovascular Cardiovascular: Denies chest pain Respiratory/Chest Respiratory/Chest: Denies cough or dyspnea Gastrointestinal Gastrointestinal: Reports abdominal pain; Denies diarrhea, nausea or vomiting Genitourinary Genitourinary ED: Denies dysuria or hematuria Musculoskeletal Musculoskeletal: Denies arthralgias or myalgias Integumentary Denies rash Neurologic Neurologic: Denies headache(s) Psychiatric Psychiatric: Denies depression Endocrine Endocrinology: Denies polyuria Hematologic/Lymphatic Hematologic/Lymphatic: Denies easy bruising Allergic/Immunologic Allergic/Immunologic ED: Denies urticaria EXAM Physical Exam Narrative Exam Narrative: Well-appearing young female. Vital signs stable afebrile. Initial blood pressure 146/99. Heart rate 97. No distress. HEENT exam normal. Neck normal. Lungs are clear. Heart regular rhythm. Abdomen soft. Nondistended normal bowel sounds no peritoneal signs. Mild suprapubic tenderness. No organomegaly or masses. Moving all 4 extremities. No edema. Back nontender. Neurologically awake alert. Const Vital Signs: 05/30/21 20:10 Temperature 97.6 F L Temperature Source Temporal Pulse Rate 97 Respiratory Rate 16 Blood Pressure 146/99 H Blood Pressure Mean 114 Pulse Ox 100 Oxygen Delivery Method Room Air Positive well nourished and well developed General Appearance ED: well developed and NAD HEENT Reports moist mucous membranes normocephalic and atraumatic Eyes PERRL and EOMs intact bilaterally Neck no lymphadenopathy, supple and no JVD General: Negative for tenderness Resp normal respiratory effort and clear to auscultation bilaterally Auscultation: Negative for rales, rhonchi or wheezes Cardio regular rate, regular rhythm, S1 normal heart sound, S2 normal heart sound and no murmurs GI non-distended and no masses; Negative for non-tender GI Narrative: Mild suprapubic tenderness. Auscultation: normoactive bowel sounds Palpation: soft and tender; Negative for guarding, rigid or rebound tenderness present Back/Spine no CVA tenderness General Back: Negative for CVA tenderness Cervical Spine: Negative for cervical spine tenderness Extremity full ROM General Extremety ED: Negative for edema or tenderness General Extremity: Negative for edema Neuro moves all extremities Sensorium / Orientation: alert, oriented to person, oriented to place and oriented to time; Negative for orientation impaired Psych mental status grossly normal Skin Lesions: no lesions Rashes: no rashes MDM MDM MDM Narrative Medical decision making narrative: Young female recent diagnosis of endometriosis with vaginal bleeding. Blood cannot be obtained see if she has become anemic. Also check a test and urinalysis. She will be given morphine for pain. Repeat exam at 1130 patient doing well be discharged home. We discussed all test results. She will be given a dose of Keflex here prior to discharge. A culture will be sent. Lab Data Attestation: I reviewed the patient's lab results. Lab results narrative: CBC shows a normal white count of 7. Hemoglobin 11.8. test negative. Both serum and urine I canceled the urine but they were already running it. UA shows blood positive nitrites 10-25 red cells and 10-25 white cells with 2+ bacteria insistent with a UTI. A culture also be sent. Labs: Laboratory Results - last 24 hr 05/30/21 05/30/21 05/30/21 21:50 22:30 22:30 WBC 7.8 RBC 4.18 L Hgb 11.8 L Hct 36.5 L MCV 87.3 MCH 28.2 MCHC 32.3 RDW Std Deviation 41.5 RDW Coeff of Abiodun 13.1 Plt Count 403 MPV 10.5 Serum , Qual NEGATIVE Urine Color Yellow Urine Clarity Sl. Cloudy Urine pH 7.0 Ur Specific [place] 1.010 Urine Protein Negative Urine Glucose (UA) Normal Urine Ketones Negative Urine Occult Blood 250 H Urine Nitrite Positive H Urine Bilirubin Negative Urine Urobilinogen Normal Ur Leukocyte Esterase 100 H Urine RBC 10-25 SEEN Urine WBC 10-25 SEEN Ur Squamous Epith Cells 0-5 SEEN Urine Bacteria 2+ Urine Mucus 0 SEEN Urine Test Negative Discharge Plan Triage Chief Complaint: Abd Pain ED Provider: Jus Britt Dx/Rx/DC Orders Clinical Impression: Dysmenorrhea, UTI (urinary tract infection) Instructions: ED Dysfunctional Uterine Bleeding, ED CYSTITIS Female Adult Prescriptions: New cephalexin 500 mg capsule 500 mg PO Q6H 7 Days Qty: 28 RF: 0 No Action risperidone [Risperdal] 1 mg tablet 2 mg PO DAILY RF: 0 ParaGard T 380A 380 square mm intrauterine device 1 device intrauterine ONCE RF: 0 oxcarbazepine [Trileptal] 150 mg tablet 150 mg PO DAILY RF: 0 carbamazepine 200 MG tablet 200 mg PO DAILY RF: 0 Primary Care Provider: Marta Souza Referrals: Marta Souza MD [Primary Care Provider] - Activity Restrictions/Additional Instructions: Motrin and Tylenol for pain. Plenty of fluids and rest. He will be started on antibiotic Keflex 1 pill 4 times a day for a week for the UTI. Urine cultures been sent. Follow-up with your FAMILY PRACTICE DOCTOR. Return if you are feeling worse. Disposition Disposition: Home, Self Care
[2021-05-30 22:03] LABS: Color, Urine Yellow (Yellow); Glucose, Dipstick Normal (Normal); Ketone-Dipstick Negative (Negative); Leukocyte Esterase-Dipstick 100 /ul (Negative); Nitrite-Dipstick Positive (Negative); Occult Blood-Urine 250 /ul (Negative); Protein-Dipstick Negative (Negative); Urine Bilirubin Dipstick Negative (Negative); Urine Clarity Sl. Cloudy (Clear); Urine Urobilinogen Normal (Normal)
[2021-05-30 22:04] LABS: Internal QC Validated? YES +Cl - CLEAR BKGD; Pregnancy, Urine Negative Negative
[2021-05-30 22:09] LABS: Red Blood Cells-Urine 10-25 SEEN /hpf (0-5); Squamous Epithelial Cells - UA 0-5 SEEN /hpf (5-10); White Blood Cells 10-25 SEEN /hpf (0-5)
[2021-05-30 22:10] LABS: Bacteria 2+ /hpf (None Seen)
[2021-05-30] MEDS: morphine 8 MG/ML Syringe IV (22:25)
[2021-05-30] MEDS: Ondansetron 4 MG/2 ML Vial IV (22:26)
[2021-05-30 22:35] LABS: Hematocrit 36.5 % (37-47); Hemoglobin 11.8 g/dL (12.0-15.0); Mean Corp Hgb Conc 32.3 g/dL (32-36); Mean Corpuscular Hgb 28.2 pg (27.0-32.0); Mean Corpuscular Volume 87.3 fL (81-99); Mean Platelet Vol. 10.5 fl (6.2-12.0); Platelet Count 403 K/mm3 (150-450); RBC Distribution Width CV 13.1 % (11.6-14.6); RBC Distribution Width SD 41.5 fl (35.1-43.9); Red Blood Count 4.18 M/mm3 (4.2-5.4); White Blood Count 7.8 K/mm3 (4.4-11.0)
[2021-05-30 22:46] LABS: Internal QC Validated? YES +Cl - CLEAR BKGD; Pregnancy, Serum, hCG Quali. NEGATIVE Negative
[2021-05-30] MEDS: Cephalexin 250 MG Capsule 500 MG PO (23:44)
[2021-05-30 23:47] VITALS: PULSE 71; RESP 14; O2SAT 99
== END 2021-05-30 23:47 | disposition home or self-care (01) ==
PROVIDERS: Emergency Provider Emergency Medicine; PCP Internal Medicine
DX: N39.0 Urinary tract infection, site not specified (principal); N94.6 Dysmenorrhea, unspecified
CPT/HCPCS: 81001; 81025; 84703; 85027; 87077; 87086; 87088; 87186; 96374; 96375; 99282; J7030; A4216; J2405

== ENCOUNTER 2021-11-17 10:40 | Emergency (ER) | payer SELFPAY ==
[2021-11-17 10:41] VITALS: BP 140/97; PULSE 100; RESP 16; TEMP 36.4; O2SAT 100; BMI 28.3
--- NOTE | 2021-11-17 10:56 | US_ITS ---
STUDY: ULTRASOUND OF THE FEMALE PELVIS - COMPLETE REASON FOR EXAM: Female, 26 years old. Left pelvic pain. LMP: 10/24/2021. TECHNIQUE: Transvaginal TECHNICAL QUALITY: Adequate. COMPARISON: Comparison is made with prior study dated 02/25/2021. FINDINGS: The uterus is anteverted and is in a midline position. The uterus measures 6 cm x 4 cm x 3.2 cm. Normal uterine cervix. The endometrium measures 4.9 mm in thickness, and is hyperechoic. There is no demonstrated endometrial mass. There is no demonstrated myometrial mass. I.U.D. - The patient does have an I.U.D. The right ovary is visualized. The right ovary measures 2.8 cm x 2.5 cm x 1.7 cm. Small follicles are seen within the ovary. There is no visualized right adnexal mass or complex lesion. There is normal arterial and normal venous vascularity. The left ovary is visualized. The left ovary measures 2.9 cm x 2.5 cm x 1.8 cm. Small follicles are seen within the ovary. There is no visualized left adnexal mass or complex lesion. There is normal arterial and normal venous vascularity. There is no fluid in the cul-de-sac. US/Transvaginal Non- IMPRESSION: Normal female pelvis. Electronically Signed: Damion Smith MD at 13:21 EST ,
--- NOTE | 2021-11-17 11:00 | EX.ED.DYSGE1 ---
HPI <DILMA Mariano - Last Filed: 11/17/21 14:19> History of Present Illness Chief Complaint: Abd Pain Narrative Narrative: 26-year-old female presents with left-sided pelvic pain x3 days. She states she has a cramping pain and light vaginal spotting. She has had intermittent pain and is being worked up for endometriosis with her [facility]. They trialed a hormonal IUD that was placed 8 months ago. She has an appointment with them on November 29 to discuss an ex lap. She denies fever, chills, vomiting, flank pain, or urinary or bowel symptoms. Denies vaginal discharge. No abdominal surgical history. PFSH <DILMA Mariano - Last Filed: 11/17/21 14:19> [facility] Medical History Endometriosis Home Medications risperidone 1 mg tablet 2 mg PO DAILY 10/21/19 [History Last Taken Unknown] carbamazepine 200 mg PO DAILY 06/14/20 [History Last Taken Unknown] oxcarbazepine 150 mg tablet 150 mg PO DAILY 05/25/21 [History Last Taken Unknown] levonorgestrel [Liletta] 20.1 mcg INTRAUTERINE DAILY 11/17/21 [History Last Taken Unknown] naproxen 500 mg PO BID #14 tab 11/17/21 [Rx Last Taken Unknown] Allergy/AdvReac Type Severity Reaction Status Date / Time lamotrigine [From Lamictal] Allergy Unknown Unknown Verified 11/17/21 10:42 montelukast sodium Allergy Unknown Unknown Verified 11/17/21 10:42 [From Singulair] amoxicillin trihydrate Allergy Hives Verified 11/17/21 10:42 [From Augmentin] potassium clavulanate Allergy Hives Verified 11/17/21 10:42 [From Augmentin] fluticasone propionate AdvReac Other Verified 11/17/21 10:42 [From Flonase] TAPE Allergy Mild Rash Uncoded 11/17/21 10:42 Family History Aunt Non-Hodgkins lymphoma Other Diabetes Surgical History History of placement of ear tubes S/P tonsillectomy Social History Smoking Status: Never smoker alcohol intake: current details: occasionally substance use type: does not use caffeine: Yes what type of physical activity do you participate in: walking frequency: 3-4 times per week seatbelt use: always do you feel safe at home: Yes additional social history: Engaged- Agata Lawrence 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 Eyes: Negative for visual change. ENT: Negative for sore throat, ear pain, rhinorrhea. CVS: Negative for palpitations, chest pain, syncope. Respiratory: Negative for shortness of breath, cough, orthopnea. GI: Positive for abdominal pain, nausea. Negative for vomiting, diarrhea, constipation, melena, hematochezia. : Negative for dysuria, hematuria or frequency. Neuro: Negative for headache, motor/sensory dysfunction. Skin: Negative for rash, abscess, or wound. Musc: Negative for joint pain, swelling, trauma. Heme: Negative for easy bruising, bleeding, lymphadenopathy. EXAM <DILMA Mariano - Last Filed: 11/17/21 14:19> Physical Exam Narrative Exam Narrative: CONST: Patient sitting in no acute distress. EYES: Normal inspection. ENT: Normal inspection, moist mucous membranes. NECK: Normal inspection. RESP: No respiratory distress, CTAB. CVS: Regular rate and rhythm, no murmur, no gallop. ABD: Soft with tenderness in lower left pelvic region, no guarding or rebound, nondistended. Back: Normal inspection, no CVA tenderness. SKIN: Color normal, no rash, warm, dry, intact. EXTREMITIES: Normal appearance, no pedal edema. NEURO: Oriented x4. PSYCH: Normal affect. Const Vital Signs: 11/17/21 10:41 11/17/21 13:09 11/17/21 13:41 Temperature 97.5 F L 98.0 F Temperature Source Temporal Oral Pulse Rate 100 86 92 Respiratory Rate 16 16 18 Blood Pressure 140/97 H 115/73 138/84 H Blood Pressure Mean 111 87 Pulse Ox 100 100 98 Oxygen Delivery Method Room Air Room Air <John Ding MD - Last Filed: 11/17/21 15:07> Physical Exam Const Vital Signs: 11/17/21 10:41 11/17/21 13:09 11/17/21 13:41 Temperature 97.5 F L 98.0 F Temperature Source Temporal Oral Pulse Rate 100 86 92 Respiratory Rate 16 16 18 Blood Pressure 140/97 H 115/73 138/84 H Blood Pressure Mean 111 87 Pulse Ox 100 100 98 Oxygen Delivery Method Room Air Room Air [facility] <DILMA Mariano - Last Filed: 11/17/21 14:19> [facility] Narrative Medical decision making narrative: Patient presents with left-sided pelvic pain and light vaginal spotting. She appears well nontoxic. Vital signs are within normal limits. She has left lower pelvic tenderness. Abdomen is soft with no peritoneal signs. There is no CVA tenderness. Her cardiopulmonary exam is within normal limits. Basic labs are normal. Urinalysis and hCG are negative. Pelvic ultrasound shows no acute findings. Patient had some improvement after IV analgesia and will be discharged home to follow-up with her [employer] [employer] as scheduled. She was counseled on symptoms that would warrant return and was discharged in stable condition. Diagnosis 1. Abdominal pain of unknown etiology Lab Data Labs: Laboratory Results - last 24 hr 11/17/21 11/17/21 11/17/21 10:55 11:45 11:45 WBC 7.7 RBC 4.53 Hgb 13.0 Hct 39.1 MCV 86.3 MCH 28.7 MCHC 33.2 RDW Std Deviation 42.5 RDW Coeff of Abiodun 13.7 Plt Count 395 MPV 10.4 Immature Gran % (Auto) 0.300 Neut % (Auto) 67.4 Lymph % (Auto) 22.0 [place] % (Auto) 4.0 Eos % (Auto) 5.7 H Baso % (Auto) 0.6 Absolute Neuts (auto) 5.2 Absolute Lymphs (auto) 1.70 Nucleated RBC % 0 Sodium 139 Potassium 3.7 Chloride 109 H Carbon Dioxide 26.0 Anion Gap 4 L BUN 7 Creatinine 0.87 Estim Creat Clear Calc 81.06 Est GFR (MDRD) Af Amer 101 Est GFR (MDRD) Non-Af 83 BUN/Creatinine Ratio 8.1 L Glucose 93 Calcium 9.1 Urine Color Straw Urine Clarity Clear Urine pH 8.0 Ur Specific [place] 1.010 Urine Protein Negative Urine Glucose (UA) Normal Urine Ketones Negative Urine Occult Blood Negative Urine Nitrite Negative Urine Bilirubin Negative Urine Urobilinogen Normal Ur Leukocyte Esterase 100 H Urine RBC 0 SEEN Urine WBC 0 SEEN Ur Squamous Epith Cells 0-5 SEEN Urine Bacteria 1+ Urine Mucus 0 SEEN Urine Test Negative Radiography Diagnostic Testing: Clinical Impression(s) from Imaging Studies Transvaginal US 11/17/21 10:56 IMPRESSION: Normal female pelvis. Electronically Signed: Damion Smith MD at 13:21 EST , <John Ding MD - Last Filed: 11/17/21 15:07> MDM MDM Narrative Medical decision making narrative: ATTENDING NOTE: Dr. Ding: The patient was seen in conjunction with the PA-C/nurse practitioner. I performed a history and physical, and agree with the management of this patient. I agree with noted documentation and plan. I discussed the plan of care and final disposition with the physician associate/nurse practitioner. Left-sided pelvic pain. Afebrile. Vital signs noted. Regular rate and rhythm. Lungs clear to auscultation bilaterally. Abdomen soft with minimal tenderness to palpation left pelvic area. Check labs. Check ultrasound. Follow-up [facility] [employer] [employer]. Discharge. Lab Data Labs: Laboratory Results - last 24 hr 11/17/21 11/17/21 11/17/21 10:55 11:45 11:45 WBC 7.7 RBC 4.53 Hgb 13.0 Hct 39.1 MCV 86.3 MCH 28.7 MCHC 33.2 RDW Std Deviation 42.5 RDW Coeff of Abiodun 13.7 Plt Count 395 MPV 10.4 Immature Gran % (Auto) 0.300 Neut % (Auto) 67.4 Lymph % (Auto) 22.0 [place] % (Auto) 4.0 Eos % (Auto) 5.7 H Baso % (Auto) 0.6 Absolute Neuts (auto) 5.2 Absolute Lymphs (auto) 1.70 Nucleated RBC % 0 Sodium 139 Potassium 3.7 Chloride 109 H Carbon Dioxide 26.0 Anion Gap 4 L BUN 7 Creatinine 0.87 Estim Creat Clear Calc 81.06 Est GFR (MDRD) Af Amer 101 Est GFR (MDRD) Non-Af 83 BUN/Creatinine Ratio 8.1 L Glucose 93 Calcium 9.1 Urine Color Straw Urine Clarity Clear Urine pH 8.0 Ur Specific [place] 1.010 Urine Protein Negative Urine Glucose (UA) Normal Urine Ketones Negative Urine Occult Blood Negative Urine Nitrite Negative Urine Bilirubin Negative Urine Urobilinogen Normal Ur Leukocyte Esterase 100 H Urine RBC 0 SEEN Urine WBC 0 SEEN Ur Squamous Epith Cells 0-5 SEEN Urine Bacteria 1+ Urine Mucus 0 SEEN Urine Test Negative Radiography Diagnostic Testing: Clinical Impression(s) from Imaging Studies Transvaginal US 11/17/21 10:56 IMPRESSION: Normal female pelvis. Electronically Signed: Damion Smith MD at 13:21 EST , Discharge Plan Triage Chief Complaint: Abd Pain ED Provider: Emeli To Dx/Rx/DC Orders Clinical Impression: Pelvic pain Instructions: ED Pelvic Pain, Unknown Cause Prescriptions: New naproxen 500 mg tablet 500 mg PO BID Qty: 14 RF: 0 No Action risperidone [Risperdal] 1 mg tablet 2 mg PO DAILY RF: 0 oxcarbazepine [Trileptal] 150 mg tablet 150 mg PO DAILY RF: 0 carbamazepine 200 MG tablet 200 mg PO DAILY RF: 0 Liletta 20.1 mcg/24 hrs (6 yrs) 52 mg Intrauterine Device 20.1 mcg INTRAUTERINE DAILY RF: 0 Primary Care Provider: Marta Souza Referrals: Marta Souza MD [Primary Care Provider] - Activity Restrictions/Additional Instructions: Today your blood work looks normal. Your urine showed no infection. Your test is negative. The ultrasound showed nothing abnormal?the ovaries and uterus appeared normal. At this time the cause of your pain is unknown. Please follow-up with your MAIL [employer] DELIVERY and take Tylenol ibuprofen as needed Disposition Disposition: Home, Self Care Discharge Date/Time: 11/17/21 13:42
[2021-11-17 11:16] LABS: Mucous, Urine 0 SEEN /hpf (<or=2+); Red Blood Cells-Urine 0 SEEN /hpf (0-5); White Blood Cells 0 SEEN /hpf (0-5)
[2021-11-17 11:17] LABS: Color, Urine Straw (Yellow); Glucose, Dipstick Normal (Normal); Ketone-Dipstick Negative (Negative); Leukocyte Esterase-Dipstick 100 /ul (Negative); Nitrite-Dipstick Negative (Negative); Occult Blood-Urine Negative /ul (Negative); Protein-Dipstick Negative (Negative); Urine Bilirubin Dipstick Negative (Negative); Urine Clarity Clear (Clear); Urine Urobilinogen Normal (Normal)
[2021-11-17 11:24] LABS: Bacteria 1+ /hpf (None Seen); Squamous Epithelial Cells - UA 0-5 SEEN /hpf (5-10)
[2021-11-17 11:25] LABS: Internal QC Validated? YES +Cl - CLEAR BKGD; Pregnancy, Urine Negative Negative
[2021-11-17] MEDS: Ondansetron 4 MG/2 ML Vial IV (11:25)
[2021-11-17] MEDS: Morphine 4 MG/ML Syringe IV (11:26)
[2021-11-17 12:00] LABS: Absolute Neutrophil Count 5.2 X10^3/uL (2.0-7.7); Basophil# 0.05 X10^3/uL; Basophil% 0.6 % (0-1); Eosinophil# 0.44 X10^3/uL; Eosinophils% 5.7 % (0-5); Hematocrit 39.1 % (37-47); Mean Corp Hgb Conc 33.2 g/dL (32-36); Mean Corpuscular Hgb 28.7 pg (27.0-32.0); Mean Corpuscular Volume 86.3 fL (81-99); Mean Platelet Vol. 10.4 fl (6.2-12.0); Monocyte# 0.31 X10^3/uL; NRBC Flagged by Analyzer 0 % (0-5); Neutrophil # 5.19 X10^3/uL (2.7-7.7); Neutrophil % 67.4 % (47-70); Platelet Count 395 K/mm3 (150-450); RBC Distribution Width CV 13.7 % (11.6-14.6); RBC Distribution Width SD 42.5 fl (35.1-43.9); Red Blood Count 4.53 M/mm3 (4.2-5.4); White Blood Count 7.7 K/mm3 (4.4-11.0)
[2021-11-17 12:12] LABS: Anion Gap 4 (5-15); BUN 7 mg/dL (7-18); BUN/Creat Ratio 8.1 RATIO (10-20); Calcium,Total 9.1 mg/dL (8.5-10.1); Chloride 109 mmol/L (98-107); Creatinine, Serum 0.87 mg/dL (0.55-1.02); EST Glomerular Filtration Rate 83 mL/min (>60); Est Glom Filt Rate - Afr Amer 101 mL/min (>60); Estimated Creatinine Clearance 81.06 ml/min; Glucose 93 mg/dL (74-106); Potassium 3.7 mmol/L (3.5-5.1); Sodium Level 139 mmol/L (136-145)
[2021-11-17 13:09] VITALS: BP 115/73; PULSE 86; RESP 16; TEMP 36.7; O2SAT 100
[2021-11-17 13:41] VITALS: BP 138/84; PULSE 92; RESP 18; O2SAT 98
== END 2021-11-17 13:42 | disposition home or self-care (01) ==
PROVIDERS: Emergency Provider Physician Assistant; PCP Internal Medicine; Visit Provider Physician Assistant
DX: R10.2 Pelvic and perineal pain (principal)
CPT/HCPCS: 76830; 80048; 81001; 81025; 85025; 96361; 96374; 96375; 99285; J7030; A4216; J2405

== ENCOUNTER 2022-01-24 08:04 | Day surgery (SDC) | payer OTHER, SELFPAY ==
[2022-01-19 08:32] LABS: Magnesium 2.1 mg/dL (1.6-2.6)
--- NOTE | 2022-01-23 20:00 | HP.PCM_ITS ---
History and Physical Date of Admission: 01/24/22 MR#:[id number]:[id number]: MICHELLE BETH #:[id number] Provider:Dr. Kenyatta Jacobs, DOAge/Sex: 26/F [facility] Int[facility] Vital Signs 01/11/22 14:16 Height 5 ft 3 in Weight: 172 lb 2 oz BMI 30.4 BP 110/88 H Intake Visit Reasons: LAVHBS possible cysto Tax Form Preparer Required: No Is patient in pain?: No Allergies lamotrigine [From Lamictal] Allergy (Unknown, Verified 01/11/22 14:15) Unknown montelukast sodium [From Singulair] Allergy (Unknown, Verified 01/11/22 14:15) Unknown amoxicillin trihydrate [From Augmentin] Allergy (Verified 01/11/22 14:15) Hives potassium clavulanate [From Augmentin] Allergy (Verified 01/11/22 14:15) Hives fluticasone propionate [From Flonase] Adverse Reaction (Verified 01/11/22 14:15) Other TAPE Allergy (Mild, Uncoded 01/11/22 14:15) Rash Medications carbamazepine 200 mg PO DAILY 06/14/20 [History Confirmed 01/11/22] levonorgestrel [Liletta] 20.1 mcg INTRAUTERINE DAILY 11/17/21 [History Confirmed 01/11/22] Post menopausal: No Patient : No : No PFSH Medical History Endometriosis Surgical History History of placement of ear tubes S/P tonsillectomy Family History Aunt Non-Hodgkins lymphoma Other Diabetes Social History Smoking Status: Never smoker alcohol intake: current details: occasionally substance use type: does not use caffeine: Yes what type of physical activity do you participate in: walking frequency: 3-4 times per week seatbelt use: always do you feel safe at home: Yes additional social history: Engaged- Agata Lawrence 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 Date Name GA/Weeks Outcome Route Bth Weight Infant Gen Labor Lgth Anesthesia Del Locatn Provider FOB 01/21/13 Hussain 39 live - full term [facility] 10/18/15 Lisette 37 live - full term [facility] Dr. Sharifa MURCIA Const ROS Unobtainable: All systems reviewed & are unremarkable except as noted in H Resp Resp: Reports system reviewed and no additional complaints, except as documented; Denies cough GI GI: Reports as per HPI Psych Psych: Reports system reviewed and no additional complaints, except as documented Exam Const General: cooperative, healthy appearing, comfortable and no acute distress Resp Effort & Inspection: normal respiratory effort Skin General: no rashes or lesions noted Psych Appearance: grossly normal Speech and Movement: speech and movement normal Coding Level of Care Code Off vis,est,level 3 Diagnoses Dysmenorrhea N94.6 Assessment and Plan Assessment and Plan (1) Dysmenorrhea: Status: Acute Plan - Dr. Kenyatta Jacobs, : likely secondary to endometriosis. pt is no longer interested in conservative therapy. She has not wanted children now for 6 years and is marrying a man that is sterile. She would like to proceed with a hysterectomy for management of her painful cycles that are debilitating despite use of a mirena IUD and h/o use with OCPs plan for LAVH, bilateral salpingectomy, possible cystocopy. SHe has a severe fear of vomiting and is requesting zofran for home. After discussing the patient's diagnosis and treatment plan options, patient wishes to proceed with surgical management. I have discussed with the patient the risks, benefits, and alternatives of the procedure which include but are not limited to risks of anesthesia, bleeding, infection, possible damage to bowel, bladder, or surrounding vasculature which could lead to additional surgery to evaluate any complications. Patient agrees to procedure and wishes to proceed. ACOG/uptodate references given for additional information regarding procedure. 01/11/22 8802<Electronically signed by Kenyatta Vande Velde DO>Date Kenyatta Jacobs DO UPDATE- I have seen the patient and performed any clinically relevant updates to the history and physical exam. Kenyatta Jacobs, DO
[2022-01-24] VITALS (7 sets, daily range): BP systolic 98–131; BP diastolic 63–78; PULSE 66–86; RESP 15–18; TEMP 35.9–36.9; O2SAT 99–100; BMI 30.8
--- NOTE | 2022-01-24 | HYST_PTH ---
PATIENT: MICHELLE BETH [place] [facility] [id number] AGE/SX: ROOM: RE01/24/[address]: Dr. Kenyatta Jacobs DO : 1995 BED: DIS: 01/24/2022 SPEC #: [id number] RECD: 01/24/22 12:37 STATUS: PASCUAL RODGERS #: [id number] KAROLINE: 01/24/22 00:[address]: Kenyatta Jacobs DEPT: SURGICAL PATHOLOGY RECD BY: Lencho Alexandra ENTERED: 01/24/22 12:46 SP TYPE: HYSTERECT OTHR DR: Dr. Marta Souza MD Tissues: Uterus, NOS Procedures: Surgery Specimen Level V HEADER OPERATION: ERAS, hysterectomy, LAVH, salpingectomy, cysto PRE-OP DIAGNOSIS: Dysmenorrhea TISSUE SUBMITTED: Cervix, bilateral fallopian tubes, uterus MICROSCOPIC DIAGNOSIS Cervix, bilateral fallopian tubes and uterus, hysterectomy and bilateral salpingectomy: Cervix ? chronic inflammation. Endometrium ? consistent with exogenous hormone effect. Myometrium - no pathologic diagnosis. Bilateral fallopian tube - no pathologic diagnosis. SJ:anni 01/25/2022 MICROSCOPIC DESCRIPTION Slides are reviewed. GROSS DESCRIPTION Received in fixative is one container labeled with the patient's name and designated cervix, bilateral fallopian tubes and uterus. The specimen consists of a hysterectomy specimen consisting of uterus with cervix and attached bilateral fallopian tubes. The uterus with cervix weighs 46 gm and measures 7.5 x 4 x 3 cm. The serosal surface is stark, glistening. The ectocervical mucosa is unremarkable. The external os is oval in contour. The endocervical canal measures 2.5 cm in length and the endocervical mucosa is stark, glistening and unremarkable. The triangular endometrial cavity measures 4 cm in length and up to 2 cm in width. The endometrium is stark, glistening without any mass lesion and measures 0.2 cm in thickness. Sections of the uterine wall do not reveal any mass lesion and it measures 1.5 cm in thickness. The right fallopian tube measures 7 cm in length and 0.5 cm in diameter. The fimbrial end is identified. Sections reveal unremarkable cut surfaces. The left fallopian tube is similar appearance to right and measures 6.5 cm in length and 0.5 cm in diameter. Local Coordinator sections are submitted in eight cassettes as follows: 1 - anterior cervix, 2 - posterior cervix, 3 & 4 - anterior uterine wall, 5 & 6 - posterior uterine wall, 7 - right fallopian tube, 8 - left fallopian tube. / LITA:anni 01/24/2022 TC:3 CPT: 43974
[2022-01-24 08:45] LABS: Internal QC Validated? YES +Cl - CLEAR BKGD; Pregnancy, Urine Negative Negative
[2022-01-24] MEDS: Gabapentin 600 MG Tablet PO (08:49)
[2022-01-24] MEDS: Celecoxib 200 MG Capsule 400 MG PO (08:49)
[2022-01-24] MEDS: Acetaminophen 500 MG Tablet 1000 MG PO (08:49)
[2022-01-24] MEDS: Lactated Ringers 1,000 ML 15 ML IV (08:58)
[2022-01-24 09:16] LABS: Bedside Glucose 83 mg/dL (74-106)
--- NOTE | 2022-01-24 10:07 | PCM.DC ---
Discharge Instructions Diet Discharge Diet: No restrictions Activity May resume sexual activity in: 6 weeks Weight Bearing Status: Full weight bearing Dressing / Incision Call your doctor if your incision/area has: Continuous Slow Oozing, Sudden Increased Bleeding, Increased Pain/ Swelling, Increased Redness and Foul Smelling Discharge Call your doctor if you observe: Fever of 101 or Higher, Using more than 1 pad per hour, Shortness of breath, Chest pain and Uncontrolled pain Suture Line Care: Avoid Pulling/Pushing and Avoid Pinching/Bending Remove Dressing in: 1 week (if present) Cleanse incision/area with: Soap & Water and Keep Dressing Clean & Dry Follow Up Care Please Follow Up With: Kenyatta Jacobs DO When: Call to make an appointment with your doctor for a postop visit in 2 and 6 weeks Test Results: Test results from this visit will be discussed in further detail at your follow-up appointment, if applicable. Discharge Plan Admission Primary Reason for Your Visit: hysterectomy Attending Provider: Kenyatta Jacobs Primary Care Provider: Marta Souza Instructions Patient Instructions: Laparoscopic Hysterectomy Your ..., After Laparoscopic ... Discharge Orders/Prescriptions Prescriptions: New ibuprofen 600 mg tablet 600 mg PO Q6H PRN (Reason: pain) 7 Days Qty: 30 RF: 0 oxycodone-acetaminophen [Percocet] 5-325 mg tablet 1 tab PO Q4H PRN (Reason: pain) 7 Days Qty: 30 RF: 0 ondansetron 4 mg tablet,disintegrating 4 mg PO Q6H PRN (Reason: nausea) 10 Days Qty: 30 RF: 0 Continued trazodone 50 mg tablet 50 mg PO QHS RF: 0 risperidone 3 mg tablet 1 mg PO BID RF: 0 Discontinued Liletta 20.1 mcg/24 hrs (6 yrs) 52 mg Intrauterine Device 20.1 mcg INTRAUTERINE DAILY RF: 0 Referrals / Follow Up: Marta Souza MD [Primary Care Provider] - Disposition Disposition (needs filled in before D/C Order can be placed): Home, Self Care
[2022-01-24] MEDS: Cefazolin 2 GM in 0.9% Normal Saline 100 ML IV (10:11)
[2022-01-24] MEDS: Lubricating Jelly 60 GM Tube 30 GM (10:26)
[2022-01-24] MEDS: 0.9% Normal Saline (Pres. free 10 ML Vial (10:58)
[2022-01-24] MEDS: Lactated Ringers 1,000 ML 100 ML IV (12:31)
--- NOTE | 2022-01-24 13:24 | PCM.OPRPT ---
Problems Associated Problem List Diagnoses (1) Bipolar disorder: (2) Dysmenorrhea: Report of Operation Date of Procedure: 01/24/22 Pre-Operative Diagnosis: dysmenorrhea, menorrhagia, failed conservative therapy Post-Operative Diagnosis: dysmenorrhea, menorrhagia, failed conservative therapy Surgery/Procedure Performed:: laparoscopic assisted vaginal hysterectomy, bilateral salpingectomy, cystoscopy Description of Surgical Findings:: normal uterus, fallopian tubes, and ovaries. the bladder showed some areas of possible ulceration and hyperpigmentation throughout. + ureteral jets were seen from both ureters and no suture material was seen in the bladder. Surgeon: Kenyatta Jacobs exceptional needs teacher: Lelo Grullon Type of Anesthesia: General Specimen's removed: uterus, fallopian tubes, and ovaries Drains: none Estimated Blood Loss (mL): 100cc Fluids Replaced: 1000cc Description of Procedure: Patient received preoperative antibiotics and SCDs were on preoperatively. Patient was taken back to the operating room and placed in the dorsal lithotomy position. General anesthesia was induced and patient was prepped and draped in normal sterile fashion. Uterine manipulator was placed inside the uterus and James catheter placed in the bladder. The umbilicus was grasped with towel clamps and an intraumbilical incision was made after injecting with quarter percent Marcaine and a 5mm incision was made and a 5 mm trocar was inserted into the abdomen with direct visualization using the laparoscope. A a left upper quadrant 5 mm incsion was made and a 5 mm trocar was inerted, next the lower quadrant was transilluminated and injected with quarter percent Marcaine and 5 mm port placed under direct visualization. Pelvis was well visualized see operative findings for additional information. Bilateral fallopian tubes were identified and transected with the LigaSure device across the mesosalpinx to the level of the utero-ovarian ligament which was also transected with the LigaSure device. The broad ligament was opened up by transecting the round ligament bilaterally and skeletonizing the uterine vessels bilaterally and creating a bladder flap using the LigaSure device. The uterine arteries were transected bilaterally with good visualization of the bladder and the ureters were seen to be inferior lateral to the operative area. Attention was then paid to the vaginal portion of the procedure and the cervix was grasped with Jose clamps and circumferentially injected with dilute 0.75% marcaine. A circumferential incision was made and the vaginal mucosa was mobilized off posteriorly and the cul-de-sac entered into sharply and a longneck speculum placed. The anterior cul-de-sac was then identified and entered into sharply. The uterosacral ligaments were clamped cut and suture ligated with 0 Monocryl bilaterally followed by the cardinal ligaments which were clamped cut and suture ligated bilaterally with 0 vicryl. The uterus serially descended and was removed without difficulty with minimal morcellation. Pelvic sidewall pedicles were checked and noted to have excellent hemostasis. The vaginal mucosa was reapproximated incorporating the posterior peritoneum. This was reapproximated using 0 Vicryl [id number] sutures. Excellent hemostasis was noted. The cystoscopy was then performed and bilateral ureteral strong spray was noted and the bladder was noted to have no abnormality or lesions seen. James catheter was replaced and then attention paid to the abdominal portion of the procedure again. The pelvis and cul-de-sac was well visualized and no significant active bleeding noted but some raw areas were seen on the peritoneum and therefore Akira was applied. Pressure was taken down and the areas visualized and noted of excellent hemostasis. All ports were removed under direct visualization without complication and the abdomen was desufflated of air. The instruments removed from the abdomen and the vagina vaginal sweep was negative. Port sites on the abdomen were closed with 4-0 Monocryl interrupted sutures and Steri's and windows were applied. She was awoken and taken recovery in stable condition. Complications none Admit VTE Documentation VTE Present on Admission: Yes VTE Mechan Device Prophylaxis: SCD's VTE Pharm Prophylaxis ordered?: No Reason prophylaxis not ordered:: Procedure Not Indicated Multi Select Codes Urinary/Genital Urinary/Genital CPT Codes: 28420 LAVH+BS/O <250gr Uterus
== END 2022-01-24 14:32 | disposition home or self-care (01) ==
LOC: SDC 08:07 → AC 08:08
PROVIDERS: Anesthesiology; PCP Internal Medicine; Referring Provider Obstetrics & Gynecology; Visit Provider Obstetrics & Gynecology
PROC: 0UT9FZZ Resection of Uterus, Via Natural or Artificial Opening With Percutaneous Endoscopic Assistance (ICD-10-PCS; CPT 58552; principal; 2022-01-24 09:50)
DX: N94.6 Dysmenorrhea, unspecified (principal); F31.9 Bipolar disorder, unspecified; N92.0 Excessive and frequent menstruation with regular cycle; N72 Inflammatory disease of cervix uteri; Z79.899 Other long term (current) drug therapy
CPT/HCPCS: 58552; 00840; 36415; 81025; 82962; 83735; 88307; J7120; J2405; J3475; J3490

== ENCOUNTER → 2022-01-31 | Outpatient (CLI) | payer OTHER, SELFPAY | END | disposition home or self-care (01) | LOC: LABSPEC 16:02 | PROVIDERS: PCP Internal Medicine; Visit Provider Obstetrics & Gynecology | DX: R30.9 Painful micturition, unspecified (principal) | CPT/HCPCS: 87077; 87086; 87088; 87186 ==

== ENCOUNTER 2022-07-20 18:23 | Emergency (ER) | payer SELFPAY ==
[2022-07-20 18:24] VITALS: BP 113/90; PULSE 74; RESP 16; TEMP 36.6; O2SAT 100; BMI 29.2
[2022-07-20 19:21] LABS: Mucous, Urine 0 SEEN /hpf (<or=2+); Red Blood Cells-Urine 0 SEEN /hpf (0-5)
[2022-07-20 19:26] LABS: Color, Urine Straw (Yellow); Glucose, Dipstick Normal (Normal); Ketone-Dipstick Negative (Negative); Leukocyte Esterase-Dipstick Negative /ul (Negative); Nitrite-Dipstick Negative (Negative); Occult Blood-Urine Negative /ul (Negative); Protein-Dipstick Negative (Negative); Urine Bilirubin Dipstick Negative (Negative); Urine Clarity Clear (Clear); Urine Urobilinogen Normal (Normal)
[2022-07-20 19:37] LABS: Bacteria 3+ /hpf (None Seen); Squamous Epithelial Cells - UA 5-10 SEEN /hpf (5-10); White Blood Cells 0-5 SEEN /hpf (0-5)
[2022-07-20 19:38] LABS: Internal QC Validated? YES +Cl - CLEAR BKGD; Pregnancy, Urine Negative Negative
[2022-07-20] MEDS: Acetaminophen 325 MG Tablet 650 MG PO (20:37)
--- NOTE | 2022-07-20 20:41 | ED.VIS.GI ---
HPI HPI - GI History of Present Illness Chief Complaint: Abd Pain Informant: patient Narrative Narrative: Patient is a 27-year-old female presenting with worsening epigastric abdominal pain. She states it radiates to her back. She been having pain for about 2 weeks but initially attributed to stress that she was recently . She notes the pain is worse after eating approximately 15 minutes afterwards. It does really matter what she eats. Pain radiates to her back. Tums and Pepcid do seem to help. She had 1 dose of Pepcid yesterday. Denies using nausea, vomiting, diarrhea or constipation. Notes her stools been darker in color but they are not black and she denies any bright red blood per rectum. Has had chills but no fever. Has had a prior hysterectomy due to endometriosis. Denies any known history of ulcers or stomach problems. No other complaints at this time. [facility] Medical History Bipolar disorder Endometriosis Wears contact lenses Home Medications risperidone 3 mg tablet 1 mg PO BID 01/17/22 [History Last Taken Unknown] trazodone 50 mg tablet 50 mg PO QHS 01/17/22 [History Last Taken Unknown] famotidine 20 mg tablet (Pepcid) 20 mg PO BID #30 tabs 07/20/22 [Rx Last Taken Unknown] Allergy/AdvReac Type Severity Reaction Status Date / Time lamotrigine [From Lamictal] Allergy Unknown Unknown Verified 07/20/22 18:25 montelukast sodium Allergy Unknown Unknown Verified 07/20/22 18:25 [From Singulair] amoxicillin trihydrate Allergy Hives Verified 07/20/22 18:25 [From Augmentin] potassium clavulanate Allergy Hives Verified 07/20/22 18:25 [From Augmentin] fluticasone propionate AdvReac Other Verified 07/20/22 18:25 [From Flonase] tramadol AdvReac Vomiting Verified 07/20/22 18:25 TAPE Allergy Mild Rash Uncoded 07/20/22 18:25 Family History Aunt Non-Hodgkins lymphoma Other Diabetes Surgical History History of placement of ear tubes S/P laparoscopic assisted vaginal hysterectomy (LAVH) S/P tonsillectomy Social History Smoking Status: Never smoker alcohol intake: current details: occasionally substance use type: does not use caffeine: Yes what type of physical activity do you participate in: walking frequency: 3-4 times per week seatbelt use: always do you feel safe at home: Yes additional social history: [employer]- [employer] 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 ROS ROS ED Constitutional Constitutional ED: Reports chills; Denies fever(s) or sweats ENT ENT ED: Denies rhinorrhea or sore throat Cardiovascular Cardiovascular: Denies chest pain or palpitations Respiratory/Chest Respiratory/Chest: Denies cough Gastrointestinal Gastrointestinal: Reports abdominal pain; Denies constipation, diarrhea, melena, nausea or vomiting Genitourinary Genitourinary ED: Denies dysuria or hematuria Musculoskeletal Musculoskeletal: Denies arthralgias or myalgias Neurologic Neurologic: Denies headache(s) or paresthesias Hematologic/Lymphatic Hematologic/Lymphatic: Denies easy bleeding or easy bruising EXAM Physical Exam Const Vital Signs: 07/20/22 18:24 07/20/22 21:19 Temperature 98 F Temperature Source Temporal Pulse Rate 74 76 Respiratory Rate 16 18 Blood Pressure 113/90 H 122/90 H Blood Pressure Mean 97 100 Pulse Ox 100 100 Oxygen Delivery Method Room Air Room Air Positive well nourished and well developed General Appearance ED: well developed and NAD; Negative for pallor HEENT Reports moist mucous membranes normocephalic and atraumatic Eyes PERRL and EOMs intact bilaterally Neck no lymphadenopathy and supple Resp normal respiratory effort and clear to auscultation bilaterally Cardio regular rate, regular rhythm and no murmurs GI non-tender GI Narrative: Negative Vincent sign. Tenderness in the epigastric region. No guarding or rigidity appreciated. Inspection: Negative for abdominal distention Auscultation: normoactive bowel sounds Back/Spine no CVA tenderness Extremity full ROM General Extremety ED: Negative for edema or tenderness General Extremity: Negative for edema Neuro moves all extremities and no sensory deficits noted Motor Exam: Negative for general weakness Psych mental status grossly normal and thought process normal Skin no wounds General Skin Exam: Negative for jaundice or pallor MDM MDM MDM Narrative Medical decision making narrative: Patient is evaluated for 2 weeks of intermittent epigastric pain. Urine is negative. Urinalysis consistent with contamination. She not having urinary symptoms. Presentation is most consistent with peptic ulcer disease versus duodenal ulcer disease versus some type of gastritis. Will check labs including CBC, CMP and lipase. Patient is given IV Pepcid and a GI cocktail in the ER for symptom control. She is also given IV fluids. Repeat evaluation patient feels better. She remains hemodynamically stable. CBC, CMP and lipase are largely unremarkable. No signs of anemia, pancreatitis, DEDRICK or transaminitis. I do not think imaging is indicated at this time. Patient is given referral for GI and started on Pepcid twice a day. Counseled on low acid diet. She verbalizes agreement understands plan. Discharged home in stable improved condition. Lab Data Labs: Laboratory Results - last 24 hr 07/20/22 07/20/22 07/20/22 19:08 20:45 20:45 WBC 9.8 RBC 4.47 Hgb 12.2 Hct 37.9 MCV 84.8 MCH 27.3 MCHC 32.2 RDW Std Deviation 42.4 RDW Coeff of Abiodun 13.8 Plt Count 399 MPV 10.9 Immature Gran % (Auto) 0.300 Neut % (Auto) 55.1 Lymph % (Auto) 21.3 [place] % (Auto) 5.1 Eos % (Auto) 17.8 H Baso % (Auto) 0.4 Absolute Neuts (auto) 5.4 Absolute Lymphs (auto) 2.09 Nucleated RBC % 0 Sodium 141 Potassium 3.6 Chloride 108 H Carbon Dioxide 27.0 Anion Gap 6 BUN 6 L Creatinine 0.72 Estim Creat Clear Calc 92.83 Est GFR (MDRD) Af Amer 125 Est GFR (MDRD) Non-Af 104 BUN/Creatinine Ratio 8.4 L Glucose 92 Calcium 9.0 Total Bilirubin 0.50 AST 23 ALT 42 Alkaline Phosphatase 68 Total Protein 7.2 Albumin 3.9 Globulin 3.3 Albumin/Globulin Ratio 1.2 Lipase 144 Urine Color Straw Urine Clarity Clear Urine pH 8.0 Ur Specific [place] 1.010 Urine Protein Negative Urine Glucose (UA) Normal Urine Ketones Negative Urine Occult Blood Negative Urine Nitrite Negative Urine Bilirubin Negative Urine Urobilinogen Normal Ur Leukocyte Esterase Negative Urine RBC 0 SEEN Urine WBC 0-5 SEEN Ur Squamous Epith Cells 5-10 SEEN Urine Bacteria 3+ Urine Mucus 0 SEEN Urine Test Negative Discharge Plan Triage Chief Complaint: Abd Pain ED Provider: Dixie Roblero Dx/Rx/DC Orders Clinical Impression: Abdominal pain, epigastric Instructions: Tips to Control Acid Reflux, ED Epigastric Pain Uncertain Cause Prescriptions: New famotidine [Pepcid] 20 mg tablet 20 mg PO BID Qty: 30 0RF No Action trazodone 50 mg tablet 50 mg PO QHS Label Comments: Take 1 Tablet By Oral Route 1 time per day at bedtime as needed. risperidone 3 mg tablet 1 mg PO BID Label Comments: TAKE 1/2 (ONE-HALF) OF A TABLET BY MOUTH TWICE DAILY Primary Care Provider: Marta Souza Referrals: Marta Souza MD [Primary Care Provider] - Friend,DO Ho [Med Staff - Active Staff] - As soon as possible Activity Restrictions/Additional Instructions: I suspect your pain is coming from your stomach. This could be an ulcer, inflammation of the stomach or an infection from H. pylori. This needs to follow-up further with GI doctor. Please follow-up with your primary care doctor in the meantime. Adhere to a low acid diet and take antacid as prescribed. Disposition Disposition: Home, Self Care
[2022-07-20] MEDS: Famotidine 200 MG/20 ML MDV 20 MG in 0.9% Normal Saline (Pres. free 8 ML 300 MG IV (20:43)
[2022-07-20] MEDS: Mag Hydrox/Al Hydrox/Simeth 30 ML UDC PO (20:43)
[2022-07-20] MEDS: 0.9% Normal Saline 1,000 ML 1000 ML IV (20:43)
[2022-07-20 21:02] LABS: Absolute Lymphocyte Count 2.09 X10^3/uL (0.83-4.51); Absolute Neutrophil Count 5.4 X10^3/uL (2.0-7.7); Basophil# 0.04 X10^3/uL; Basophil% 0.4 % (0-1); Eosinophil# 1.75 X10^3/uL; Eosinophils% 17.8 % (0-5); Hematocrit 37.9 % (37-47); Hemoglobin 12.2 g/dL (12.0-15.0); Lymphocyte # 2.09 X10^3/ul (0.83-4.51); Lymphocyte % 21.3 % (19-41); Mean Corp Hgb Conc 32.2 g/dL (32-36); Mean Corpuscular Hgb 27.3 pg (27.0-32.0); Mean Corpuscular Volume 84.8 fL (81-99); Mean Platelet Vol. 10.9 fl (6.2-12.0); Monocyte% 5.1 % (0-10); NRBC Flagged by Analyzer 0 % (0-5); Neutrophil # 5.41 X10^3/uL (2.7-7.7); Neutrophil % 55.1 % (47-70); Platelet Count 399 K/mm3 (150-450); RBC Distribution Width CV 13.8 % (11.6-14.6); RBC Distribution Width SD 42.4 fl (35.1-43.9); Red Blood Count 4.47 M/mm3 (4.2-5.4); White Blood Count 9.8 K/mm3 (4.4-11.0)
[2022-07-20 21:16] LABS: ALB/GLOB Ratio 1.2 RATIO (0.9-2.4); AST(SGOT) 23 U/L (15-37); Alanine Aminotransfer ALT/SGPT 42 U/L (13-56); Albumin, Serum 3.9 g/dL (3.2-5.0); Alkaline Phosphatase 68 U/L (45-117); Anion Gap 6 (5-15); BUN 6 mg/dL (7-18); BUN/Creat Ratio 8.4 RATIO (10-20); Chloride 108 mmol/L (98-107); Creatinine, Serum 0.72 mg/dL (0.55-1.02); EST Glomerular Filtration Rate 104 mL/min (>60); Est Glom Filt Rate - Afr Amer 125 mL/min (>60); Estimated Creatinine Clearance 92.83 ml/min; Globulin 3.3 g/dL (2.2-4.2); Glucose 92 mg/dL (74-106); Lipase 144 U/L (73-393); Potassium 3.6 mmol/L (3.5-5.1); Protein, Total 7.2 g/dL (6.4-8.2); Sodium Level 141 mmol/L (136-145)
[2022-07-20 21:19] VITALS: BP 122/90; PULSE 76; RESP 18; O2SAT 100
== END 2022-07-20 21:46 | disposition home or self-care (01) ==
PROVIDERS: Emergency Provider Emergency Medicine; PCP Internal Medicine; Visit Provider Emergency Medicine
DX: R10.13 Epigastric pain (principal); R68.83 Chills (without fever)
CPT/HCPCS: 80053; 81001; 81025; 83690; 85025; 96361; 96374; 99284; A4216; J3490

== ENCOUNTER → 2022-12-18 | Outpatient (CLI) | payer BC, SELFPAY ==
[2022-12-18 15:33] LABS: EXAGEN MAILED SPECIMEN
[2022-12-18 17:35] LABS: Absolute Lymphocyte Count 1.94 X10^3/uL (0.83-4.51); Absolute Neutrophil Count 7.9 X10^3/uL (2.0-7.7); Basophil# 0.04 X10^3/uL; Basophil% 0.4 % (0-1); Eosinophil# 0.17 X10^3/uL; Eosinophils% 1.6 % (0-5); Hemoglobin 12.6 g/dL (12.0-15.0); Lymphocyte # 1.94 X10^3/ul (0.83-4.51); Lymphocyte % 18.7 % (19-41); Mean Corp Hgb Conc 32.3 g/dL (32-36); Mean Corpuscular Hgb 28.3 pg (27.0-32.0); Mean Corpuscular Volume 87.4 fL (81-99); Mean Platelet Vol. 10.7 fl (6.2-12.0); Monocyte# 0.28 X10^3/uL; Monocyte% 2.7 % (0-10); NRBC Flagged by Analyzer 0 % (0-5); Neutrophil # 7.89 X10^3/uL (2.7-7.7); Neutrophil % 76.3 % (47-70); Platelet Count 459 K/mm3 (150-450); RBC Distribution Width CV 13.7 % (11.6-14.6); RBC Distribution Width SD 43.8 fl (35.1-43.9); Red Blood Count 4.46 M/mm3 (4.2-5.4); White Blood Count 10.4 K/mm3 (4.4-11.0)
[2022-12-18 17:39] LABS: International Normalized Ratio 1.1; Prothrombin Time (Protime)PT. 13.7 SECONDS (11.7-14.9)
[2022-12-18 17:40] LABS: Partial Thromboplast Time 28.8 Seconds (24.1-36.2)
[2022-12-18 17:59] LABS: ALB/GLOB Ratio 1.2 RATIO (0.9-2.4); AST(SGOT) 16 U/L (15-37); Alanine Aminotransfer ALT/SGPT 23 U/L (13-56); Alkaline Phosphatase 60 U/L (45-117); Anion Gap 10 (5-15); BUN 8 mg/dL (7-18); BUN/Creat Ratio 10.6 RATIO (10-20); Calcium,Total 9.1 mg/dL (8.5-10.1); Chloride 108 mmol/L (98-107); Creatinine, Serum 0.75 mg/dL (0.55-1.02); EST Glomerular Filtration Rate 97 mL/min (>60); Est Glom Filt Rate - Afr Amer 118 mL/min (>60); Globulin 3.4 g/dL (2.2-4.2); Glucose 85 mg/dL (74-106); Potassium 3.3 mmol/L (3.5-5.1); Protein, Total 7.4 g/dL (6.4-8.2); Sodium Level 140 mmol/L (136-145)
[2022-12-18 18:02] LABS: Color, Urine Yellow (Yellow); Glucose, Dipstick Normal (Normal); Ketone-Dipstick 5 mg/dl (Negative); Leukocyte Esterase-Dipstick 100 /ul (Negative); Nitrite-Dipstick Positive (Negative); Occult Blood-Urine 10 /ul (Negative); Protein-Dipstick Negative (Negative); Specific Gravity, Urine 1.025 (1.002-1.030); Urine Bilirubin Dipstick Negative (Negative); Urine Clarity Cloudy (Clear); Urine Urobilinogen Normal (Normal)
[2022-12-18 18:17] LABS: Protein, Urine (Random) 16.7 mg/dL (<11.9); Protein:Creat Ratio 119 mg/g CRE (0-200)
[2022-12-18 18:37] LABS: Hepatitis B Surface Antibody Reactive; Hepatitis B Surface Antigen Non-Reactive (Nonreactive); Hepatitis C Antibody Non-Reactive (Nonreactive)
[2022-12-21 07:08] LABS: Dilute Prothrombin Time (dPT) 38.9 sec (0.0-47.6); Dilute Russell Viper Venom 43.6 sec (0.0-47.0); Hexagonal Phase Phospholipid 5 sec (0-11); PTT-LA 37.1 sec (0.0-43.5); Thrombin Time 16.7 sec (0.0-23.0); dPT Confirm Ratio 1.12 Ratio (0.00-1.34)
[2022-12-21 13:05] LABS: Interpretation Comment: (.); Thrombin Time 19.4 sec (0.0-23.0)
== END | disposition home or self-care (01) ==
PROVIDERS: PCP Physician Assistant; Referring Provider Internal Medicine Rheumatology; Visit Provider Internal Medicine Rheumatology
DX: M06.4 Inflammatory polyarthropathy (principal); R76.8 Other specified abnormal immunological findings in serum
CPT/HCPCS: 36415; 80053; 81002; 82570; 84156; 85025; 85598; 85610; 85670; 85730; 86706; 86803; 87340

== ENCOUNTER → 2023-04-16 | Outpatient (CLI) | payer BC, SELFPAY ==
[2023-04-16 10:11] LABS: Absolute Neutrophil Count 2.9 X10^3/uL (2.0-7.7); Basophil# 0.05 X10^3/uL; Basophil% 0.9 % (0-1); Eosinophil# 0.23 X10^3/uL; Eosinophils% 4.3 % (0-5); Hematocrit 38.6 % (37-47); Hemoglobin 12.4 g/dL (12.0-15.0); Lymphocyte % 33.9 % (19-41); Mean Corp Hgb Conc 32.1 g/dL (32-36); Mean Corpuscular Hgb 28.4 pg (27.0-32.0); Mean Corpuscular Volume 88.3 fL (81-99); Mean Platelet Vol. 10.5 fl (6.2-12.0); Monocyte# 0.31 X10^3/uL; Monocyte% 5.8 % (0-10); NRBC Flagged by Analyzer 0 % (0-5); Neutrophil # 2.91 X10^3/uL (2.7-7.7); Neutrophil % 54.9 % (47-70); Platelet Count 422 K/mm3 (150-450); RBC Distribution Width CV 13.8 % (11.6-14.6); RBC Distribution Width SD 44.4 fl (35.1-43.9); Red Blood Count 4.37 M/mm3 (4.2-5.4); White Blood Count 5.3 K/mm3 (4.4-11.0)
[2023-04-16 10:42] LABS: ALB/GLOB Ratio 1.2 RATIO (0.9-2.4); AST(SGOT) 13 U/L (15-37); Alanine Aminotransfer ALT/SGPT 18 U/L (13-56); Albumin, Serum 3.8 g/dL (3.2-5.0); Alkaline Phosphatase 54 U/L (45-117); Anion Gap 5 (5-15); BUN 11 mg/dL (7-18); BUN/Creat Ratio 13.3 RATIO (10-20); Calcium,Total 8.7 mg/dL (8.5-10.1); Chloride 107 mmol/L (98-107); Creatinine, Serum 0.83 mg/dL (0.55-1.02); EST Glomerular Filtration Rate 87 mL/min (>60); Est Glom Filt Rate - Afr Amer 105 mL/min (>60); Globulin 3.3 g/dL (2.2-4.2); Glucose 89 mg/dL (74-106); Potassium 3.9 mmol/L (3.5-5.1); Protein, Total 7.1 g/dL (6.4-8.2); Sodium Level 138 mmol/L (136-145)
== END | disposition home or self-care (01) ==
PROVIDERS: PCP Physician Assistant; Referring Provider Internal Medicine Rheumatology; Visit Provider Internal Medicine Rheumatology
DX: M06.4 Inflammatory polyarthropathy (principal); R76.8 Other specified abnormal immunological findings in serum; Z79.899 Other long term (current) drug therapy
CPT/HCPCS: 36415; 80053; 85025

== ENCOUNTER → 2023-07-17 | Outpatient (CLI) | payer BC, SELFPAY ==
[2023-07-17 10:16] LABS: Absolute Lymphocyte Count 1.84 X10^3/uL (0.83-4.51); Absolute Neutrophil Count 4.5 X10^3/uL (2.0-7.7); Basophil# 0.04 X10^3/uL; Basophil% 0.6 % (0-1); Eosinophil# 0.22 X10^3/uL; Eosinophils% 3.1 % (0-5); Hematocrit 39.2 % (37-47); Hemoglobin 12.4 g/dL (12.0-15.0); Lymphocyte # 1.84 X10^3/ul (0.83-4.51); Lymphocyte % 26.1 % (19-41); Mean Corp Hgb Conc 31.6 g/dL (32-36); Mean Corpuscular Hgb 27.5 pg (27.0-32.0); Mean Corpuscular Volume 86.9 fL (81-99); Mean Platelet Vol. 10.6 fl (6.2-12.0); Monocyte# 0.41 X10^3/uL; Monocyte% 5.8 % (0-10); NRBC Flagged by Analyzer 0 % (0-5); Neutrophil # 4.51 X10^3/uL (2.7-7.7); Neutrophil % 64.1 % (47-70); Platelet Count 404 K/mm3 (150-450); RBC Distribution Width CV 13.2 % (11.6-14.6); RBC Distribution Width SD 41.6 fl (35.1-43.9); Red Blood Count 4.51 M/mm3 (4.2-5.4)
[2023-07-17 10:57] LABS: ALB/GLOB Ratio 1.1 RATIO (0.9-2.4); AST(SGOT) 9 U/L (15-37); Alanine Aminotransfer ALT/SGPT 18 U/L (13-56); Albumin, Serum 3.9 g/dL (3.2-5.0); Alkaline Phosphatase 54 U/L (45-117); Anion Gap 7 (5-15); BUN 11 mg/dL (7-18); BUN/Creat Ratio 14.2 RATIO (10-20); Calcium,Total 8.9 mg/dL (8.5-10.1); Chloride 110 mmol/L (98-107); Creatinine, Serum 0.78 mg/dL (0.55-1.02); EST Glomerular Filtration Rate 94 mL/min (>60); Est Glom Filt Rate - Afr Amer 113 mL/min (>60); Globulin 3.5 g/dL (2.2-4.2); Glucose 103 mg/dL (74-106); Protein, Total 7.4 g/dL (6.4-8.2); Sodium Level 138 mmol/L (136-145)
== END | disposition home or self-care (01) ==
PROVIDERS: PCP Physician Assistant; Referring Provider Internal Medicine Rheumatology; Visit Provider Internal Medicine Rheumatology
DX: M06.4 Inflammatory polyarthropathy (principal); R76.8 Other specified abnormal immunological findings in serum; G43.909 Migraine, unspecified, not intractable, without status migrainosus; Z79.899 Other long term (current) drug therapy
CPT/HCPCS: 36415; 80053; 85025

== ENCOUNTER → 2025-05-13 | Outpatient (CLI) | payer BC, SELFPAY ==
[2025-05-13 18:11] LABS: Hematocrit 39.0 % (37-47); Hemoglobin 13.3 g/dL (12.0-15.0); Immature Granulocytes Count 0.030 X10^3/uL (0.0-0.0); Mean Corp Hgb Conc 34.1 g/dL (32-36); Mean Corpuscular Volume 86.3 fL (81-99); Mean Platelet Vol. 10.9 fl (6.2-12.0); NRBC Flagged by Analyzer 0 % (0-5); Platelet Count 423 K/mm3 (150-450); RBC Distribution Width CV 13.0 % (11.6-14.6); RBC Distribution Width SD 40.7 fl (35.1-43.9); Red Blood Count 4.52 M/mm3 (4.2-5.4); White Blood Count 9.2 K/mm3 (4.4-11.0)
[2025-05-13 18:18] LABS: Color, Urine Yellow (Yellow); Glucose, Dipstick Normal (Normal); Ketone-Dipstick Negative (Negative); Leukocyte Esterase-Dipstick 25 /ul (Negative); Nitrite-Dipstick Positive (Negative); Occult Blood-Urine 25 /ul (Negative); Protein-Dipstick 30 mg/dl (Negative); Specific Gravity, Urine 1.010 (1.002-1.030); Urine Bilirubin Dipstick Negative (Negative)
[2025-05-13 18:37] LABS: AST(SGOT) 19 U/L (<=31); Alanine Aminotransfer ALT/SGPT 15 U/L (<=34); Albumin, Serum 4.9 g/dL (3.5-5.0); Alkaline Phosphatase 56 U/L (35-104); Anion Gap 14 (5-15); BUN 8 mg/dL (4-19); BUN/Creat Ratio 10.2 RATIO (10-20); CRP < 3.00 mg/L (0.0-3.0); Calcium,Total 9.5 mg/dL (7.6-11.0); Carbon Dioxide 22.4 mmol/L (21.0-32.0); Chloride 103 mmol/L (98-108); Globulin 2.8 g/dL (2.2-4.2); Glucose 106 mg/dL (70-99); Hepatitis B Surface Antigen Nonreactive (Nonreactive); Hepatitis C Antibody Nonreactive (Nonreactive); Potassium 3.4 mmol/L (3.3-5.1)
[2025-05-13 18:41] LABS: Creatinine, Urine (random) 156.00 mg/dL (28.00-217.00); Protein, Urine (Random) 11.5 mg/dL (0.0-12.0); Protein:Creat Ratio 74 mg/g CRE (0-200)
== END | disposition home or self-care (01) ==
LOC: MTLAB 16:18
PROVIDERS: PCP Physician Assistant; Referring Provider Internal Medicine Rheumatology; Visit Provider Internal Medicine Rheumatology
DX: M06.4 Inflammatory polyarthropathy (principal); R76.8 Other specified abnormal immunological findings in serum; Z79.899 Other long term (current) drug therapy
CPT/HCPCS: 36415; 80053; 81002; 82570; 84156; 85025; 85652; 86140; 86200; 86431; 86706; 86803; 87340

== ENCOUNTER → 2025-09-11 | Outpatient (CLI) | payer OTHER, SELFPAY ==
--- OUTSIDE RECORDS SUMMARY | 2025-09-11 16:56 | XMS RPT_ITS | CCD ---
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 12-14-2011 Resolved: 03-19-2013 09-26-2021 Chronic Headache; including migraine (2 sources) Headache; Translations: [Headache] Onset: 10-24-2007 Resolved: 03-19-2015 08-12-2012 Episodic Immunizations and screening for infectious disease (3 sources) Anti-nuclear factor positive; Translations: [Other specified abnormal immunological findings in serum] Onset: 11-07-2022 Episodic Intracranial injury (1 source) Concussion injury of body structure; Translations: [Concussion] Onset: 12-14-2011 Resolved: 08-12-2012 08-12-2012 Episodic Malaise and fatigue (7 sources) Malaise and fatigue; Translations: [Other malaise] Onset: 11-07-2022 Episodic Other complications of ; puerperium affecting management of mother (1 source) Teenage ; Translations: [Teen ] Onset: 07-30-2012 Resolved: 03-19-2013 03-19-2013 Episodic Other complications of (17 sources) Urinary tract infection in ; Translations: [Unspecified infection of urinary tract in , unspecified trimester] Onset: 05-17-2015 09-26-2021 Episodic Other complications of (1 source) Backache; Translations: [Back pain in ] Onset: 07-30-2012 Resolved: 03-19-2013 09-26-2021 Episodic Other complications of (1 source) High risk ; Translations: [Supervision of high risk , unspecified, unspecified trimester] Onset: 12-30-2012 Resolved: 03-19-2013 09-26-2021 Episodic Other congenital anomalies (1 source) Congenital pes planus; Translations: [Congenital pes planus, unspecified foot] Onset: 07-22-2006 Resolved: 08-12-2012 08-12-2012 Chronic Other connective tissue disease (1 source) Tenosynovitis; Translations: [Synovitis and tenosynovitis, unspecified] Onset: 10-29-2006 Resolved: 08-12-2012 08-12-2012 Episodic Other injuries and conditions due to external causes (1 source) Injury of left knee; Translations: [Unspecified injury of left lower leg, initial encounter] Onset: 2012 Resolved: 08-12-2012 08-12-2012 Episodic Other non-traumatic joint disorders (5 sources) Pain in unspecified joint; Translations: [Pain in unspecified joint] Onset: 11-07-2022 Episodic Other non-traumatic joint disorders (1 source) Stiffness of unspecified joint, not elsewhere classified; Translations: [Stiffness in joint] Onset: 10-12-2022 Episodic Other nutritional; endocrine; and metabolic disorders (1 source) Weight loss; Translations: [Abnormal weight loss] Onset: 12-14-2011 Resolved: 08-12-2012 08-12-2012 Episodic Other and delivery including normal (18 sources) Normal ; Translations: [Encounter for supervision of normal , unspecified, unspecified trimester] Onset: 07-30-2012 Resolved: 08-28-2012 03-19-2015 Episodic Other skin disorders (2 sources) Rash and other nonspecific skin eruption; Translations: [Facial rash] Onset: 10-12-2022 Episodic Other upper respiratory infections (1 source) Sore throat symptom; Translations: [Acute pharyngitis, unspecified] Onset: 08-04-2013 Resolved: 03-19-2015 03-19-2015 Episodic Residual codes; unclassified (1 source) Disturbance in sleep behavior; Translations: [Sleep disorder, unspecified] Onset: 06-30-2011 Resolved: 08-12-2012 08-12-2012 Episodic Short gestation; low weight; and growth retardation (1 source) growth restriction; Translations: [IUGR (intrauterine growth restriction)] Onset: 12-30-2012 Resolved: 03-19-2013 09-26-2021 Episodic Sprains and strains (1 source) Sprain of ankle; Translations: [Sprain of unspecified ligament of unspecified ankle, initial encounter] Onset: 05-03-2007 Resolved: 08-12-2012 08-12-2012 Episodic Unclassified (2 sources) Onset: 03-01-2023 03-01-2023 Results Test Name Value Interpretation Reference Range Facility CCP IgG Antibodieson 025 CCP IgG Ab. 6 units Normal 0-19 [facility] Comment on above: Result Comment: Nega tive <20 Weak positive 20 - 39 Moderate positive 40 - 59 Strong positive >59 Performed at: [facility] [id number] Brief Writer: Dustin Luz PhD, Phone: [phone] Performed By: #### L 3890.6202, L500.4050, L3890.6102, L101.9900, L3890.6301, L501.0900, L501.6710, L100.0100, L505.7010, L4600.0100, L400.2010 #### [facility] [address] [place], [address] Absolute lymphocyte countOrd ered By: Imelda Lemon on 05-13-2025 Lymphocytes Auto (Unsp spec) [#/Vol] 2.02 10*3/uL 0.83-4.51 [facility] Absolute neutrophil countOrd ered By: Imelda Lemon on 05-13-2025 Neutrophils (Bld) [#/Vol] 6.5 10*3/uL 2.0-7.7 [facility] Anion gap in Serum or Plasma Ordered By: Imelda Lemon on 05-13-2025 Anion gap [Moles/Vol] 14 mmol/L 5-15 [facility] Automated lymphocyte count a s percentage of total leukocytesOrdered By: Imelda Lemon on 05-13-2025 Lymphocytes/100 WBC Auto (Unsp spec) 22.0 % 19-41 [facility] BUN/creatinine ratioOrdered By: Imelda Lemon on 05-13-2025 Urea nitrogen/Creatinine [Mass ratio] 10.2 mg/mg 10-20 [facility] Basophil percentageOrdered B y: Imelda Lemon on 05-13-2025 Basophils/100 WBC (Bld) 0.3 % 0-1 [facility] Bilirubin Test strip Ql (U)O rdered By: Imelda Lemon on 05-13-2025 Bilirubin Ql (U) Negative Negative [facility] Bilirubin, totalOrdered By: Imelda Lemon on 05-13-2025 Bilirubin [Mass/Vol] 0.41 mg/dL 0.00-1.30 [facility] CBC W/Diff, Automatedon 05-01 Absolute Lymph 2.02 X10 3/uL Normal 0.83-4.51 [facility] Comment on above: Performed By: #### L 3890.6202, L500.4050, L3890.6102, L101.9900, L3890.6301, L501.0900, L501.6710, L100.0100, L505.7010, L4600.0100, L400.2010 #### [facility] [address] [place] [address]. [place], [place], [address] Absolute Neut 6.5 X10 3/uL Normal 2.0-7.7 [facility] Comment on above: Performed By: #### L 3890.6202, L500.4050, L3890.6102, L101.9900, L3890.6301, L501.0900, L501.6710, L100.0100, L505.7010, L4600.0100, L400.2010 #### [facility] [address] [place], [address] Basophils/100 WBC (Bld) 0.3 % Normal 0-1 [facility] Comment on above: Performed By: #### L 3890.6202, L500.4050, L3890.6102, L101.9900, L3890.6301, L501.0900, L501.6710, L100.0100, L505.7010, L4600.0100, L400.2010 #### [facility] [address] [place], [place], [id number] (164) Eosinophils/100 WBC (Bld) 2.6 % Normal 0-5 [facility] Comment on above: Performed By: #### L 3890.6202, L500.4050, L3890.6102, L101.9900, L3890.6301, L501.0900, L501.6710, L100.0100, L505.7010, L4600.0100, L400.2010 #### [facility] [address] [place], [address] Erythrocyte distribution width (RBC) [Ratio] 13.0 % Normal 11.6-14.6 [facility] Comment on above: Performed By: #### L 3890.6202, L500.4050, L3890.6102, L101.9900, L3890.6301, L501.0900, L501.6710, L100.0100, L505.7010, L4600.0100, L400.2010 #### [facility] [address] [place], [address] Hematocrit (Bld) [Volume fraction] 39.0 % Normal 37-47 [facility] Comment on above: Performed By: #### L 3890.6202, L500.4050, L3890.6102, L101.9900, L3890.6301, L501.0900, L501.6710, L100.0100, L505.7010, L4600.0100, L400.2010 #### [facility] [address] [place], [address] Hemoglobin (Bld) [Mass/Vol] 13.3 g/dL Normal 12.0-15.0 [facility] Comment on above: Performed By: #### L 3890.6202, L500.4050, L3890.6102, L101.9900, L3890.6301, L501.0900, L501.6710, L100.0100, L505.7010, L4600.0100, L400.2010 #### [facility] [address] [place], [address] IG% 0.300 Normal 0.0-0.9 [facility] Comment on above: Result Comment: IG% - Immature Granulocytes (promyelocytes, myelocytes and metamyelocytes) > 1% indicates that a LEFT SHIFT is Present. Performed By: #### L 3890.6202, L500.4050, L3890.6102, L101.9900, L3890.6301, L501.0900, L501.6710, L100.0100, L505.7010, L4600.0100, L400.2010 #### [facility] [address] [place], [address] Lymphocytes/100 WBC (Bld) 22.0 % Normal 19-41 [facility] Comment on above: Performed By: #### L 3890.6202, L500.4050, L3890.6102, L101.9900, L3890.6301, L501.0900, L501.6710, L100.0100, L505.7010, L4600.0100, L400.2010 #### [facility] [address] [place], [address] MCH (RBC) [Entitic mass] 29.4 pg Normal 27.0-32.0 [facility] Comment on above: Performed By: #### L 3890.6202, L500.4050, L3890.6102, L101.9900, L3890.6301, L501.0900, L501.6710, L100.0100, L505.7010, L4600.0100, L400.2010 #### [facility] [address] [place], [address] MCHC (RBC) [Mass/Vol] 34.1 g/dL Normal 32-36 [facility] Comment on above: Performed By: #### L 3890.6202, L500.4050, L3890.6102, L101.9900, L3890.6301, L501.0900, L501.6710, L100.0100, L505.7010, L4600.0100, L400.2010 #### [facility] [address] [place], [address] MCV (RBC) [Entitic vol] 86.3 fL Normal 81-99 [facility] Comment on above: Performed By: #### L 3890.6202, L500.4050, L3890.6102, L101.9900, L3890.6301, L501.0900, L501.6710, L100.0100, L505.7010, L4600.0100, L400.2010 #### [facility] [address] [place], [address] Monocytes/100 WBC (Bld) 4.1 % Normal 0-10 [facility] Comment on above: Performed By: #### L 3890.6202, L500.4050, L3890.6102, L101.9900, L3890.6301, L501.0900, L501.6710, L100.0100, L505.7010, L4600.0100, L400.2010 #### [facility] [address] [place], [address] Neutrophils/100 WBC (Bld) 70.7 % High 47-70 [facility] Comment on above: Performed By: #### L 3890.6202, L500.4050, L3890.6102, L101.9900, L3890.6301, L501.0900, L501.6710, L100.0100, L505.7010, L4600.0100, L400.2010 #### [facility] [address] [place], [address] Nucleated RBC (Bld) [#/Vol] 0 10*3/uL Normal 0-5 [facility] Comment on above: Performed By: #### L 3890.6202, L500.4050, L3890.6102, L101.9900, L3890.6301, L501.0900, L501.6710, L100.0100, L505.7010, L4600.0100, L400.2010 #### [facility] [address] [place], [address] Platelet mean volume (Bld) [Entitic vol] 10.9 fL Normal 6.2-12.0 [facility] Comment on above: Performed By: #### L 3890.6202, L500.4050, L3890.6102, L101.9900, L3890.6301, L501.0900, L501.6710, L100.0100, L505.7010, L4600.0100, L400.2010 #### [facility] [address] [place], [address] Platelets (Bld) [#/Vol] 423 10*3/uL Normal 150-450 [facility] Comment on above: Performed By: #### L 3890.6202, L500.4050, L3890.6102, L101.9900, L3890.6301, L501.0900, L501.6710, L100.0100, L505.7010, L4600.0100, L400.2010 #### [facility] [address] [place], [address] RBC (Bld) [#/Vol] 4.52 10*6/uL Normal 4.2-5.4 [facility] Comment on above: Performed By: #### L 3890.6202, L500.4050, L3890.6102, L101.9900, L3890.6301, L501.0900, L501.6710, L100.0100, L505.7010, L4600.0100, L400.2010 #### [facility] [address] [place], [address] RDW SD 40.7 fl Normal 35.1-43.9 [facility] Comment on above: Performed By: #### L 3890.6202, L500.4050, L3890.6102, L101.9900, L3890.6301, L501.0900, L501.6710, L100.0100, L505.7010, L4600.0100, L400.2010 #### [facility] [address] [place], [place], [id number] WBC (Bld) [#/Vol] 9.2 10*3/uL Normal 4.4-11.0 [facility] Comment on above: Performed By: #### L 3890.6202, L500.4050, L3890.6102, L101.9900, L3890.6301, L501.0900, L501.6710, L100.0100, L505.7010, L4600.0100, L400.2010 #### [facility] [address] [place], [address] CRPon 05-13-2025 C-REACTIVE PROT < 3.00 Normal 0.0-3.0 [facility] Comment on above: Performed By: #### L 3890.6202, L500.4050, L3890.6102, L101.9900, L3890.6301, L501.0900, L501.6710, L100.0100, L505.7010, L4600.0100, L400.2010 #### [facility] [address] [place], [place], [id number] (238) Carbon dioxide, total [Moles /volume] in Central venous bloodOrdered By: Imelda Lemon on 05-13-2025 CO2 [Moles/Vol] 22.4 mmol/L 21.0-32.0 [facility] Chloride assayOrdered By: Dilma Lemon on 05-13-2025 Chloride [Moles/Vol] 103 mmol/L 98-108 [facility] Comprehensive Metabolic Prof ilon 05-13-2025 Albumin [Mass/Vol] 4.9 g/dL Normal 3.5-5.0 [facility] Comment on above: Performed By: #### L 3890.6202, L500.4050, L3890.6102, L101.9900, L3890.6301, L501.0900, L501.6710, L100.0100, L505.7010, L4600.0100, L400.2010 #### [facility] [address] [place], [address] Albumin/Globulin [Mass ratio] 1.8 {ratio} Normal 0.9-2.4 [facility] Comment on above: Performed By: #### L 3890.6202, L500.4050, L3890.6102, L101.9900, L3890.6301, L501.0900, L501.6710, L100.0100, L505.7010, L4600.0100, L400.2010 #### [facility] [address] [place], [address] ALK PHOS 56 U/L Normal 35-104 [facility] Comment on above: Performed By: #### L 3890.6202, L500.4050, L3890.6102, L101.9900, L3890.6301, L501.0900, L501.6710, L100.0100, L505.7010, L4600.0100, L400.2010 #### [facility] [address] [place], [address] ALT [Catalytic activity/Vol] 15 U/L Normal <=34 [facility] Comment on above: Performed By: #### L 3890.6202, L500.4050, L3890.6102, L101.9900, L3890.6301, L501.0900, L501.6710, L100.0100, L505.7010, L4600.0100, L400.2010 #### [facility] [address] [place], [address] AST [Catalytic activity/Vol] 19 U/L Normal <=31 [facility] Comment on above: Performed By: #### L 3890.6202, L500.4050, L3890.6102, L101.9900, L3890.6301, L501.0900, L501.6710, L100.0100, L505.7010, L4600.0100, L400.2010 #### [facility] [address] [place], [place], [id number] Bilirubin [Mass/Vol] 0.41 mg/dL Normal 0.00-1.30 [facility] Comment on above: Performed By: #### L 3890.6202, L500.4050, L3890.6102, L101.9900, L3890.6301, L501.0900, L501.6710, L100.0100, L505.7010, L4600.0100, L400.2010 #### [facility] [address] [place], [place], [id number] BUN/CRE 10.2 RATIO Normal 10-20 [facility] Comment on above: Performed By: #### L 3890.6202, L500.4050, L3890.6102, L101.9900, L3890.6301, L501.0900, L501.6710, L100.0100, L505.7010, L4600.0100, L400.2010 #### [facility] [address] [place], [address] Calcium [Mass/Vol] 9.5 mg/dL Normal 7.6-11.0 [facility] Comment on above: Performed By: #### L 3890.6202, L500.4050, L3890.6102, L101.9900, L3890.6301, L501.0900, L501.6710, L100.0100, L505.7010, L4600.0100, L400.2010 #### [facility] [address] [place], [address] Chloride [Moles/Vol] 103 mmol/L Normal 98-108 [facility] Comment on above: Performed By: #### L 3890.6202, L500.4050, L3890.6102, L101.9900, L3890.6301, L501.0900, L501.6710, L100.0100, L505.7010, L4600.0100, L400.2010 #### [facility] [address] [place], [address] CO2 [Moles/Vol] 22.4 mmol/L Normal 21.0-32.0 [facility] Comment on above: Performed By: #### L 3890.6202, L500.4050, L3890.6102, L101.9900, L3890.6301, L501.0900, L501.6710, L100.0100, L505.7010, L4600.0100, L400.2010 #### [facility] [address] [place], [address] Creatinine [Mass/Vol] 0.80 mg/dL Normal 0.70-1.20 [facility] Comment on above: Performed By: #### L 3890.6202, L500.4050, L3890.6102, L101.9900, L3890.6301, L501.0900, L501.6710, L100.0100, L505.7010, L4600.0100, L400.2010 #### [facility] [address] [place], [address] GAP 14 Normal 5-15 [facility] Comment on above: Performed By: #### L 3890.6202, L500.4050, L3890.6102, L101.9900, L3890.6301, L501.0900, L501.6710, L100.0100, L505.7010, L4600.0100, L400.2010 #### [facility] [address] [place], [address] GFR/1.73 sq M.predicted among non-blacks MDRD (S/P/Bld) [Vol rate/Area] 101 mL/min/{1.73_m2} Normal >60 [facility] Comment on above: Result Comment: mL/m in/1.73m2 CKD-EPI Creatinine Equation (2020) Performed By: #### L 3890.6202, L500.4050, L3890.6102, L101.9900, L3890.6301, L501.0900, L501.6710, L100.0100, L505.7010, L4600.0100, L400.2010 #### [facility] [address] [place], [place], [id number] Globulin (S) [Mass/Vol] 2.8 g/dL Normal 2.2-4.2 [facility] Comment on above: Performed By: #### L 3890.6202, L500.4050, L3890.6102, L101.9900, L3890.6301, L501.0900, L501.6710, L100.0100, L505.7010, L4600.0100, L400.2010 #### [facility] [address] [place], [address] Glucose [Mass/Vol] 106 mg/dL High 70-99 [facility] Comment on above: Performed By: #### L 3890.6202, L500.4050, L3890.6102, L101.9900, L3890.6301, L501.0900, L501.6710, L100.0100, L505.7010, L4600.0100, L400.2010 #### [facility] [address] [place], [address] Potassium [Moles/Vol] 3.4 mmol/L Normal 3.3-5.1 [facility] Comment on above: Performed By: #### L 3890.6202, L500.4050, L3890.6102, L101.9900, L3890.6301, L501.0900, L501.6710, L100.0100, L505.7010, L4600.0100, L400.2010 #### [facility] [address] [place], [address] Sodium [Moles/Vol] 140 mmol/L Normal 133-145 [facility] Comment on above: Performed By: #### L 3890.6202, L500.4050, L3890.6102, L101.9900, L3890.6301, L501.0900, L501.6710, L100.0100, L505.7010, L4600.0100, L400.2010 #### [facility] [address] [place], [address] T PROT 7.6 g/dL Normal 5.9-8.4 [facility] Comment on above: Performed By: #### L 3890.6202, L500.4050, L3890.6102, L101.9900, L3890.6301, L501.0900, L501.6710, L100.0100, L505.7010, L4600.0100, L400.2010 #### [facility] [address] [place], [place], [id number] Urea nitrogen [Mass/Vol] 8 mg/dL Normal 4-19 [facility] Comment on above: Performed By: #### L 3890.6202, L500.4050, L3890.6102, L101.9900, L3890.6301, L501.0900, L501.6710, L100.0100, L505.7010, L4600.0100, L400.2010 #### [facility] [address] [facility] [place], [address] Eosinophil percentageOrdered By: Imelda Lemon on 05-13-2025 Eosinophils/100 WBC (Bld) 2.6 % 0-5 [facility] Erythrocyte Sed Rateon 05-13 SED RATE 2 mm/hr Normal 0-30 [facility] Comment on above: Performed By: #### L 3890.6202, L500.4050, L3890.6102, L101.9900, L3890.6301, L501.0900, L501.6710, L100.0100, L505.7010, L4600.0100, L400.2010 #### [facility] [address] [facility] [place], [address] Erythrocyte distribution wid th ratioOrdered By: Imelda Lemon on 05-13-2025 Erythrocyte distribution width (RBC) [Ratio] 13.0 % 11.6-14.6 [facility] Erythrocyte distribution wid th standard deviationOrdered By: Imelda Lemon on 05-13-2025 Erythrocyte distribution width (RBC) [Ratio] 40.7 fl 35.1-43.9 [facility] Erythrocyte sedimentation ra teOrdered By: Imelda Lemon on 05-13-2025 ESR (Bld) [Velocity] 2 mm/h 0-30 [facility] Glomerular filtration rate ( GFR) estimation/1.73 sq m using serum, plasma, or whole bOrdered By: Imelda Lemon on 05-13-2025 GFR/1.73 sq M.predicted among non-blacks MDRD (S/P/Bld) [Vol rate/Area] 101 mL/min/{1.73_m2} >60 [facility] Comment on above: mL/min/1.73m2 CKD-EP I Creatinine Equation (2020) Hematocrit Auto (Bld) [Volum e fraction]Ordered By: Imelda Lemon on 05-13-2025 Hematocrit (Bld) [Volume fraction] 39.0 % 37-47 [facility] Hemoglobin measurementOrdere d By: Imelda Lemon on 05-13-2025 Hemoglobin (Bld) [Mass/Vol] 13.3 g/dL 12.0-15.0 [facility] Hepatitis B Surface Antibody on 05-13-2025 HEP B Surf Ab REAC Normal [facility] Comment on above: Result Comment: <8.5 mIU/mL: Non-Reactive 8.5<= x <11.5 mIU/mL: Indeterminate >=11.5 mIU/mL: Reactive Non Reactive: Inconsistent with immunity less than <10 mIU/mL Reactive: Consistent with immunity greater than or equal to 10 mIU/mL Performed By: #### L 3890.6202, L500.4050, L3890.6102, L101.9900, L3890.6301, L501.0900, L501.6710, L100.0100, L505.7010, L4600.0100, L400.2010 #### [facility] [address] [place], [place], [id number] Hepatitis C Antibodyon 05-13 Hepatitis C Ab Non-Reactive Normal Nonreactive [facility] Comment on above: Result Comment: Reac tive: Presumptive evidence of antibodies to HCV. Follow CDC recommendations for supplemental testing. Non-Reactive: Antibodies to HCV were not detected; does not exclude the possibility of exposure to HCV Reactive Results are presumptive evidence of antibodies to HCV. Follow CDC recommendations for supplemental testing. Order confirmation testing: HCV Quant by PCR testing - HCVPCR #[id number] Non Reactive: < 0.8 Equivocal: >/= 0.8 to < 1.0 Reactive: >/= 1.0 The CDC requires that a reactive/equivocal HCV antibody result be sent out for confirmation. HCV Quant by PCR testing. Performed By: #### L 3890.6202, L500.4050, L3890.6102, L101.9900, L3890.6301, L501.0900, L501.6710, L100.0100, L505.7010, L4600.0100, L400.2010 #### [facility] [address] [facility] [place], [address] Immature granulocytes/100 WB C Auto (Bld)Ordered By: Imelda Lemon on 05-13-2025 Immature granulocytes/100 WBC (Bld) 0.300 % 0.0-0.9 [facility] Comment on above: IG% - Immature Granu locytes (promyelocytes, myelocytes and metamyelocytes) > 1% indicates that a LEFT SHIFT is Present. Ketones Test strip Ql (U)Ord ered By: Imelda Lemon on 05-13-2025 Ketones Ql (U) Negative Negative [facility] L3890.6102on 05-13-2025 HEP B Surf Ag Non-Reactive Normal Nonreactive [facility] Comment on above: Result Comment: Reac tive: Presumptive evidence of HBV. Repeatedly reactive samples must be confirmed using a neutralization test ([employer] HBsAg Confirmatory Test) Non-Reactive: HBsAg not detected; does not exclude the possibility of exposure to HBV Performed By: #### L 3890.6202, L500.4050, L3890.6102, L101.9900, L3890.6301, L501.0900, L501.6710, L100.0100, L505.7010, L4600.0100, L400.2010 #### [facility] [address] [place], [place], [id number] Laboratory - Chemistry and C hemistry - challengeOrdered By: Imelda Lemon on 05-13-2025 AST [Catalytic activity/Vol] 19 U/L <32 [facility] Laboratory - Microbiology an d Antimicrobial susceptibilityOrdered By: Imelda Lemon on 05-13-2025 HBV surface Ag Ql (S) Non-Reactive Nonreactive [facility] Comment on above: Reactive: Presumptiv e evidence of HBV. Repeatedly reactive samples must be confirmed using a neutralization test ([employer] HBsAg Confirmatory Test)Non-Reactive: HBsAg not detected; does not exclude the possibility of exposure to HBV MCV (mean corpuscular volume ) determinationOrdered By: Imelda Lemon on 05-13-2025 MCV (RBC) [Entitic vol] 86.3 fL 81-99 [facility] Mean corpuscular hemoglobin (MCH) determinationOrdered By: Imelda Lemon on 05-13-2025 MCH (RBC) [Entitic mass] 29.4 pg 27.0-32.0 [facility] Mean corpuscular hemoglobin concentration (MCHC) determinationOrdered By: Imelda Lemon on 05-13-2025 MCHC (RBC) [Mass/Vol] 34.1 g/dL 32-36 [facility] Mean platelet volume determi nationOrdered By: Imelda Lemon on 05-13-2025 Platelet mean volume (Bld) [Entitic vol] 10.9 fL 6.2-12.0 [facility] Monocyte percentageOrdered B y: Imelda Lemon on 05-13-2025 Monocytes/100 WBC (Bld) 4.1 % 0-10 [facility] Neutrophil percentageOrdered By: Imelda Lemon on 05-13-2025 Neutrophils/100 WBC (Bld) 70.7 % High 47-70 [facility] Nitrite Test strip Ql (U)Ord ered By: Imelda Lemon on 05-13-2025 Nitrite Ql (U) Positive High Negative [facility] Nucleated red blood cell per centageOrdered By: Imelda Lemon on 05-13-2025 Nucleated RBC/100 WBC (Bld) [Ratio] 0 % 0-5 [facility] Platelet countOrdered By: Dilma Lemon on 05-13-2025 Platelets (Bld) [#/Vol] 423 10*3/uL 150-450 [facility] Potassium measurement (mass/ volume)Ordered By: Imelda Lemon on 05-13-2025 Potassium (Unsp spec) [Mass/Vol] 3.4 mmol/L 3.3-5.1 [facility] Protein Test strip Ql (U)Ord ered By: Imelda Lemon on 05-13-2025 Protein Ql (U) 30 mg/dl High Negative [facility] Protein+Creatinine Ratio,Uri neon 05-13-2025 PROT:CRE RATIO 74 mg/g CRE Normal 0-200 [facility] Comment on above: Performed By: #### L 3890.6202, L500.4050, L3890.6102, L101.9900, L3890.6301, L501.0900, L501.6710, L100.0100, L505.7010, L4600.0100, L400.2010 #### [facility] [address] [place], [address] (954) Protein (U) [Mass/Vol] 11.5 mg/dL Normal 0.0-12.0 [facility] Comment on above: Performed By: #### L 3890.6202, L500.4050, L3890.6102, L101.9900, L3890.6301, L501.0900, L501.6710, L100.0100, L505.7010, L4600.0100, L400.2010 #### [facility] [address] [place], [address] (155) UR CREAT 156.00 mg/dL Normal 28.00-217.00 [facility] Comment on above: Performed By: #### L 3890.6202, L500.4050, L3890.6102, L101.9900, L3890.6301, L501.0900, L501.6710, L100.0100, L505.7010, L4600.0100, L400.2010 #### [facility] [address] [place], [address] (306) RBC Auto (Bld) [#/Vol]Ordere d By: Imelda Lemon on 05-13-2025 RBC (Bld) [#/Vol] 4.52 10*6/uL 4.2-5.4 [facility] Random urine creatinine estrellita urement (mass/volume)Ordered By: Imelda Lemon on 05-13-2025 Creatinine Unsp time (U) [Mass/Vol] 156.00 mg/dL 28.00-217.00 [facility] Rheumatoid Factoron 05-13-20 25 RHEUMATOID FAC < 10.0 Normal <15 [facility] Comment on above: Performed By: #### L 3890.6202, L500.4050, L3890.6102, L101.9900, L3890.6301, L501.0900, L501.6710, L100.0100, L505.7010, L4600.0100, L400.2010 #### [facility] [address] [place], [address] Serum creatinine measurement (mass/volume)Ordered By: Imelda Lemon on 05-13-2025 Creatinine [Mass/Vol] 0.80 mg/dL 0.70-1.20 [facility] Serum globulin measurementOr dered By: Imelda Lemon on 05-13-2025 Globulin (S) [Mass/Vol] 2.8 g/dL 2.2-4.2 [facility] Serum glucose measurement (m ass/volume)Ordered By: Imelda Lemon on 05-13-2025 Glucose [Mass/Vol] 106 mg/dL High 70-99 [facility] Serum hepatitis B virus surf mojgan antibody detectionOrdered By: Imelda Lemon on 05-13-2025 HBV surface Ab Ql (S) REAC [facility] Comment on above: <8.5 mIU/mL: Non-Chelsea ctive8.5<= x <11.5 mIU/mL: Indeterminate>=11.5 mIU/mL: Reactive Non Reactive: Inconsistent with immunity less than <10 mIU/mL Reactive: Consistent with immunity greater than or equal to 10 mIU/mL Serum or plasma C reactive p rotein measurement (mass/volume)Ordered By: Imelda Lemon on 05-13-2025 CRP [Mass/Vol] mg/L 0.0-3.0 [facility] Serum or plasma alanine rick otransferase (ALT) measurementOrdered By: Imelda Lemon on 05-13-2025 ALT [Catalytic activity/Vol] 15 U/L <35 [facility] Serum or plasma albumin estrellita urement (mass/volume)Ordered By: Imelda Lemon on 05-13-2025 Albumin [Mass/Vol] 4.9 g/dL 3.5-5.0 [facility] Serum or plasma albumin/glob ulin mass ratioOrdered By: Imelda Lemon on 05-13-2025 Albumin/Globulin [Mass ratio] 1.8 {ratio} 0.9-2.4 [facility] Serum or plasma alkaline marietta sphatase measurementOrdered By: Imelda Lemon on 05-13-2025 ALP [Catalytic activity/Vol] 56 U/L 35-104 [facility] Serum or plasma calcium estrellita urement (mass/volume)Ordered By: Imelda Lemon on 05-13-2025 Calcium [Mass/Vol] 9.5 mg/dL 7.6-11.0 [facility] Serum or plasma cyclic citru llinated peptide IgG antibody assay (units/volume)Ordered By: Imelda Lemon on 05-13-2025 Cyclic citrullinated peptide IgG Qn 6 units 0-19 [facility] Comment on above: Negative <20 Weak po sitive 20 - 39 Moderate positive 40 - 59 Strong positive >59Performed at: [facility] [id number] Director: Dustin Luz PhD, Phone: [phone] Serum or plasma urea nitroge n measurement (mass/volume)Ordered By: Imelda Lemon on 05-13-2025 Urea nitrogen [Mass/Vol] 8 mg/dL 4-19 [facility] Serum rheumatoid factor dete ctionOrdered By: Imelda Lemon on 05-13-2025 Rheumatoid factor Ql (S) < 10.0 IU/mL <15 [facility] Sodium levelOrdered By: Jaylin Lemon on 05-13-2025 Sodium [Moles/Vol] 140 mmol/L 133-145 [facility] Total proteinOrdered By: Angelica willard Lemon on 05-13-2025 Protein [Mass/Vol] 7.6 g/dL 5.9-8.4 [facility] Urinalysis, Routine (Dipstic k)on 05-13-2025 BILIRUBIN URINE Negative Normal Negative [facility] Comment on above: Order Comment: CLEAN CATCH Performed By: #### L 3890.6202, L500.4050, L3890.6102, L101.9900, L3890.6301, L501.0900, L501.6710, L100.0100, L505.7010, L4600.0100, L400.2010 #### [facility] [address] [place], [place], [id number] Clarity (U) Cloudy Normal Clear [facility] Comment on above: Order Comment: CLEAN CATCH Performed By: #### L 3890.6202, L500.4050, L3890.6102, L101.9900, L3890.6301, L501.0900, L501.6710, L100.0100, L505.7010, L4600.0100, L400.2010 #### [facility] [address] [place], [place], [id number] Color (U) Yellow Normal Yellow [facility] Comment on above: Order Comment: CLEAN CATCH Performed By: #### L 3890.6202, L500.4050, L3890.6102, L101.9900, L3890.6301, L501.0900, L501.6710, L100.0100, L505.7010, L4600.0100, L400.2010 #### [facility] [address] [place], [place], [id number] GLUCOSE, UR Normal Normal Normal [facility] Comment on above: Order Comment: CLEAN CATCH Performed By: #### L 3890.6202, L500.4050, L3890.6102, L101.9900, L3890.6301, L501.0900, L501.6710, L100.0100, L505.7010, L4600.0100, L400.2010 #### [facility] [address] [place], [place], [id number] KETONE UR Negative Normal Negative [facility] Comment on above: Order Comment: CLEAN CATCH Performed By: #### L 3890.6202, L500.4050, L3890.6102, L101.9900, L3890.6301, L501.0900, L501.6710, L100.0100, L505.7010, L4600.0100, L400.2010 #### [facility] [address] [place], [place], [id number] LEUK ESTERASE 25 /ul Abnormal Negative [facility] Comment on above: Order Comment: CLEAN CATCH Performed By: #### L 3890.6202, L500.4050, L3890.6102, L101.9900, L3890.6301, L501.0900, L501.6710, L100.0100, L505.7010, L4600.0100, L400.2010 #### [facility] [address] [place], [address] Nitrite Ql (U) Positive Abnormal Negative [facility] Comment on above: Order Comment: CLEAN CATCH Performed By: #### L 3890.6202, L500.4050, L3890.6102, L101.9900, L3890.6301, L501.0900, L501.6710, L100.0100, L505.7010, L4600.0100, L400.2010 #### [facility] [address] [place], [address] OCCULT BLOOD-UR 25 /ul Abnormal Negative [facility] Comment on above: Order Comment: CLEAN CATCH Performed By: #### L 3890.6202, L500.4050, L3890.6102, L101.9900, L3890.6301, L501.0900, L501.6710, L100.0100, L505.7010, L4600.0100, L400.2010 #### [facility] [address] [place], [address] pH UR 7.0 Normal 5.0 - 8.0 [facility] Comment on above: Order Comment: CLEAN CATCH Performed By: #### L 3890.6202, L500.4050, L3890.6102, L101.9900, L3890.6301, L501.0900, L501.6710, L100.0100, L505.7010, L4600.0100, L400.2010 #### [facility] [address] [place], [address] PROT DIPSTX 30 mg/dl Abnormal Negative [facility] Comment on above: Order Comment: CLEAN CATCH Performed By: #### L 3890.6202, L500.4050, L3890.6102, L101.9900, L3890.6301, L501.0900, L501.6710, L100.0100, L505.7010, L4600.0100, L400.2010 #### [facility] [address] [place], [address] SP.GR. DIPSTX 1.010 Normal 1.002-1.030 [facility] Comment on above: Order Comment: CLEAN CATCH Performed By: #### L 3890.6202, L500.4050, L3890.6102, L101.9900, L3890.6301, L501.0900, L501.6710, L100.0100, L505.7010, L4600.0100, L400.2010 #### [facility] [address] [place], [address] UROBILI Normal Normal Normal [facility] Comment on above: Order Comment: CLEAN CATCH Performed By: #### L 3890.6202, L500.4050, L3890.6102, L101.9900, L3890.6301, L501.0900, L501.6710, L100.0100, L505.7010, L4600.0100, L400.2010 #### [facility] [place], [address] Urine clarityOrdered By: Angelica Lemon on 05-13-2025 Clarity (U) Cloudy Clear [facility] Urine color determinationOrd ered By: Imelda Lemon on 05-13-2025 Color (U) Yellow Yellow [facility] Urine glucose detectionOrder ed By: Imelda Lemon on 05-13-2025 Glucose Ql (U) Normal mg/dl Normal [facility] Urine leukocyte esterase det ection by dipstickOrdered By: Imelda Lemon on 05-13-2025 Leukocyte esterase Test strip Ql (U) 25 /ul High Negative [facility] Urine pHOrdered By: Imelda edwards on 05-13-2025 pH (U) 7.0 [pH] 5.0 - 8.0 [facility] Urine protein measurement (m ass/volume)Ordered By: Imelda Lemon on 05-13-2025 Protein (U) [Mass/Vol] 11.5 mg/dL 0.0-12.0 [facility] Urine protein/creatinine mas s ratioOrdered By: Imelda Lemon on 05-13-2025 Protein/Creatinine (U) [Mass ratio] 74 mg/g CRE 0-200 [facility] Urine specific gravity measu rementOrdered By: Imelda Lemon on 05-13-2025 Specific gravity (U) [Rel density] 1.010 1.002-1.030 [facility] Urine urobilinogen measureme ntOrdered By: Imelda Lemon on 05-13-2025 Urobilinogen Ql (U) Normal mg/dl Normal [facility] White blood cell (WBC) count Ordered By: Imelda Lemon on 05-13-2025 WBC (Bld) [#/Vol] 9.2 10*3/uL 4.4-11.0 [facility] ED Prov Noteon 03-23-2025 ED Prov Note ED PROVIDER NOTE [facility] EM[facility]ENCY [facility] NAME: Michelle Beth AGE: 30 y.o. : 1995 VISIT DATE: 03/23/2025 CSN: [id number] PCP: No, Physician Chief Complaint Patient presents with Migraine Shortness of Breath Dizziness Fatigue Chief complaint dizziness History of present illness 30-year-old female with history of lupus today developed tachycardia heart rate was about 150 she felt dizziness weakness. She has a past history of arrhythmia. As a child. In addition to this she started to develop headache very typical of a migraine with photosensitivity and phono/sensitivity with nausea vomiting bifrontal. She denies any neurologic symptoms denies any chest pain chest pressure history of pulmonary embolus DVT denies hypertension diabetes or smoking. She was told she had an arrhythmia as a child had a Holter monitor at that time. Past Medical History: Diagnosis Date Bipolar disorder (HCC) Connective tissue disease (HCC) Endometriosis Lupus (systemic lupus erythematosus) (HCC) Migraines Past Surgical History: Procedure Laterality Date PARTIAL HYSTERECTOMY History reviewed. No pertinent family history. Social History [1] Previous Medications Medication Sig hydroxychloroquine (PLAQUENIL) 200 mg tablet Take 0.5 (one-half) tablet (100 mg total) by mouth 2 (two) times a day . lamoTRIgine (LAMICTAL) 100 MG tablet Take 0.5 (one-half) tablet (50 mg total) by mouth daily . Allergies[2] Review of Systems Constitutional: Positive for fatigue. All other systems reviewed and are negative. No data found. Physical Exam Vitals and nursing note reviewed. Constitutional: General: She is in acute distress. Appearance: She is normal weight. HENT: Head: Normocephalic and atraumatic. Eyes: Extraocular Movements: Extraocular movements intact. Pupils: Pupils are equal, round, and reactive to light. Cardiovascular: Rate and Rhythm: Normal rate and regular rhythm. Musculoskeletal: General: Normal range of motion. Cervical back: Normal range of motion and neck supple. Pulmonary: Effort: Pulmonary effort is normal. Breath sounds: Normal breath sounds. Skin: General: Skin is dry. Capillary Refill: Capillary refill takes 2 to 3 seconds. Neurological: General: No focal deficit present. Mental Status: She is alert. She is disoriented. Laboratory & Radiographic Imaging (if done): Results for orders placed or performed during the hospital encounter of 03/23/25 POC CBC and Differential Result Value Ref Range WBC 10.45 4.50 - 11.00 K/mcL RBC 4.61 4.00 - 5.20 M/mcL Hemoglobin 13.7 12.0 - 16.0 g/dL Hematocrit 39.8 36.0 - 46.0 % MCV 86.3 80.0 - 100.0 fL MCH 29.7 26.0 - 34.0 pg MCHC 34.4 31.0 - 37.0 g/dL RDW - CV 13.1 11.6 - 14.8 % Platelets 363 150 - 400 K/mcL MPV 10.5 9.4 - 12.4 fL Neutrophils 65.1 % Lymphocytes 23.8 % Monocytes 6.1 % Eosinophils 4.3 % Basophils 0.5 % IG Percent 0.20 % Neutrophils Abs 6.80 1.70 - 7.00 K/mcL Lymphocytes Abs 2.49 0.90 - 4.00 K/mcL Monocytes Abs 0.64 0.30 - 0.90 K/mcL Eosinophils Abs 0.45 0.00 - 0.50 K/mcL Basophils Abs 0.05 0.00 - 0.30 K/mcL IG Absolute 0.02 0.00 - 0.30 K/mcL EKG 12-lead Result Value Ref Range Ventricular Rate 68 BPM Atrial Rate 68 BPM P-R Interval 120 ms QRS Duration 86 ms Q-T Interval 412 ms QTC Calculation (Bezet) 438 ms P [place] 71 degrees R [place] 60 degrees T [place] 51 degrees POC Basic Metabolic Panel Result Value Ref Range Glucose 98 65 - 99 mg/dL BUN 11 8 - 25 mg/dL Creatinine 0.75 0.40 - 1.10 mg/dL GFR 110 >=60 mL/min/1.73 m2 Sodium 141 135 - 145 mmol/L Potassium 3.4 (L) 3.5 - 5.1 mmol/L Chloride 108 98 - 108 mmol/L TCO2 21 21 - 32 mmol/L Ionized Calcium 4.7 4.5 - 5.3 mg/dL No orders to display EKG 12-lead Date/Time: 03/23/2025 11:25 AM Performed by: Radha Henry MD Authorized by: Radha Henry MD Interpreted by ED attending physician Rhythm: sinus rhythm BPM: 68 Conduction: conduction normal ST Segments: ST segments normal T Waves: T waves normal normal DC interval normal QRS interval normal QT interval Clinical impression: normal ECG Medical Decision Making Differential diagnosis SVT Atrial fibrillation Dehydration Reentrant arrhythmia or Ventricular tachycardia Migraine headache Tension headache Cluster headache Ocular migraine With shared decision making here patient was placed on awake overnight monitor EKG and routine blood work was done IV fluids was given IV Toradol IV magnesium IV Zofran Amount and/or Complexity of Data Reviewed Labs: ordered. Decision-making details documented in ED Course. Details: Labs improved Discussion of management or test interpretation with external provider(s): Patient remained hemodynamically stable here with improvement of headache recommended follow-up with cardiology for arrhythmia, significant other was at the (more content not included)... Normal [facility] POC BASIC METABOLIC PANEL - [facility] 03-23-2025 Chloride [Moles/Vol] 108 mmol/L Normal 98-108 [facility] Comment on above: Order Comment: [facility] has implemented the eGFR calculation approach that does not have a coefficient for race that conforms to the NKF-ASN Task Force Recommendations. CO2 [Moles/Vol] 21 mmol/L Normal 21-32 [facility] Comment on above: Order Comment: [facility] has implemented the eGFR calculation approach that does not have a coefficient for race that conforms to the NKF-ASN Task Force Recommendations. Creatinine [Mass/Vol] 0.75 mg/dL Normal 0.40-1.10 [facility] Comment on above: Order Comment: [facility] has implemented the eGFR calculation approach that does not have a coefficient for race that conforms to the NKF-ASN Task Force Recommendations. Glucose [Mass/Vol] 98 mg/dL Normal 65-99 [facility] Comment on above: Order Comment: [facility] has implemented the eGFR calculation approach that does not have a coefficient for race that conforms to the NKF-ASN Task Force Recommendations. POC GFR 110 mL/min/1.73 m2 Normal >=60 [facility] Comment on above: Order Comment: [facility] has implemented the eGFR calculation approach that does not have a coefficient for race that conforms to the NKF-ASN Task Force Recommendations. Result Comment: Ashley mated GFR was calculated using the 2020 CKD-EPI creatinine equation. POC IONIZED CALCIUM 4.7 mg/dL Normal 4.5-5.3 [facility] Comment on above: Order Comment: [facility] has implemented the eGFR calculation approach that does not have a coefficient for race that conforms to the NKF-ASN Task Force Recommendations. Potassium [Moles/Vol] 3.4 mmol/L Low 3.5-5.1 [facility] Comment on above: Order Comment: [facility] has implemented the eGFR calculation approach that does not have a coefficient for race that conforms to the NKF-ASN Task Force Recommendations. Sodium [Moles/Vol] 141 mmol/L Normal 135-145 [facility] Comment on above: Order Comment: [facility] has implemented the eGFR calculation approach that does not have a coefficient for race that conforms to the NKF-ASN Task Force Recommendations. Urea nitrogen [Mass/Vol] 11 mg/dL Normal 8-25 [facility] Comment on above: Order Comment: [facility] has implemented the eGFR calculation approach that does not have a coefficient for race that conforms to the NKF-ASN Task Force Recommendations. POC CBC AND DIFFERENTIALon 0 03-23-2025 BASOPHILS ABSOLUTE COUNT 0.05 K/mcL Normal 0.00-0.30 [facility] Basophils/100 WBC (Bld) 0.5 % Normal [facility] Eosinophils (Bld) [#/Vol] 0.45 10*3/uL Normal 0.00-0.50 [facility] Eosinophils/100 WBC (Bld) 4.3 % Normal [facility] Erythrocyte distribution width (RBC) [Ratio] 13.1 % Normal 11.6-14.8 [facility] Hematocrit (Bld) [Volume fraction] 39.8 % Normal 36.0-46.0 [facility] Hemoglobin (Bld) [Mass/Vol] 13.7 g/dL Normal 12.0-16.0 [facility] IG ABSOLUTE 0.02 K/mcL Normal 0.00-0.30 [facility] IG PERCENT 0.20 % Normal [facility] Comment on above: Result Comment: The IG parameter is the percentage of metamyelocytes, myelocytes and promyelocytes. An immature granulocyte count (IG) of 1% or more suggests the possibility of infection, an IG count of 3% is very likely related to an infection. Lymphocytes (Bld) [#/Vol] 2.49 10*3/uL Normal 0.90-4.00 [facility] Lymphocytes/100 WBC (Bld) 23.8 % Normal [facility] MCH (RBC) [Entitic mass] 29.7 pg Normal 26.0-34.0 [facility] MCV (RBC) [Entitic vol] 86.3 fL Normal 80.0-100.0 [facility] MEAN CORPUSCULAR HEMOGLOBIN CONC 34.4 g/dL Normal 31.0-37.0 [facility] Monocytes (Bld) [#/Vol] 0.64 10*3/uL Normal 0.30-0.90 [facility] Monocytes/100 WBC (Bld) 6.1 % Normal [facility] NEUTROPHILS ABSOLUTE COUNT 6.80 K/mcL Normal 1.70-7.00 [facility] Neutrophils/100 WBC (Bld) 65.1 % Normal [facility] Platelet mean volume (Bld) [Entitic vol] 10.5 fL Normal 9.4-12.4 [facility] Platelets (Bld) [#/Vol] 363 10*3/uL Normal 150-400 [facility] RBC (Bld) [#/Vol] 4.61 10*6/uL Normal 4.00-5.20 [facility] WBC (Bld) [#/Vol] 10.45 10*3/uL Normal 4.50-11.00 [facility] 08-20-2023 [facility] Telephone ([facility]) MICHELLE BETH ([id number]) 1995 F Date Time Provider Department 08/20/23 [facility] [facility] During your visit today, we recorded the following information about you: Chayo Teixeira PA-C 08/20/2023 1:06 PM Signed This call and let patient know she was positive for an infection on her urine culture. I did send an antibiotic to treat this. Follow-up with PCP if symptoms are not improving. La Arenas LPN 08/20/2023 1:10 PM Signed TC to pt. LM to call office, ask for triage nurse to get results. AUDELIA Borrero Laurie Lynn LPN 08/21/2023 4:13 PM Signed Left a message for pt to call the office and ask to speak to a nurse. Clarissa Emmanuel LPN, LPN 08/22/2023 9:17 AM Signed Still unable to reach patient-she did review her results on my chart but uncertain if she got the message to cotton picker operator the antibiotic-left another message for her to call us back! .Chayo Kim LPN, PA-C 08/22/2023 9:30 AM Signed At this point, just send her a letter letting her know. Walter Valencia MA 08/22/2023 4:46 PM Signed Confirmed with MARTIN Gamboa patient picked up antibiotic 08/20/23. Will close TE at this time as patient also reviewed results via MyChart. Walter Valencia MA Allergies As of Date: 08/20/2023 Noted Allergy Reaction AMOXICILLIN-POT CLAVULANATE 05/30/2005 4 - Hives Comments: Hives AMOXICILLIN 02/20/2019 4 - Hives FLONASE (FLUTICASONE PROPIONATE) 11/02/2011 2 - Rash Comments: rash, bloody noses LAMICTAL (LAMOTRIGINE) 07/06/2019 2 - Rash medical tape [Other] 04/16/2008 2 - Rash SINGULAIR (MONTELUKAST SODIUM) 05/03/2007 4 - Hives Comments: Headaches ADHESIVE TAPE-SILICONES 02/20/2019 2 - Rash Date Reviewed: 08/18/2023 Reviewed by: Hilary Portillo LPN - Fully Assessed Reason for Visit: Results [95] Order(s):nitrofuranto in monohydrate and macrocrystal (MACROBID) 100 mg capsuleTake 1 capsule by mouth two times a day with meals for 5 days.Disp: 10 capsuleRfl: 0 Prescriptions as of 08/22/2023 - nitrofurantoin monohydrate and macrocrystal (MACROBID) 100 mg capsule Take 1 capsule by mouth two times a day with meals for 5 days. - lamoTRIgine (LAMICTAL) 25 mg tablet Take 1 tablet by mouth every afternoon. - methotrexate 2.5 mg tablet TAKE 6 TABLETS BY MOUTH once weekly - ondansetron (ZOFRAN) 4 mg tablet Take 1 tablet by mouth every 8 hours as needed for nausea/vomiting. - ergocalciferol 50,000 unit capsule (VITAMIN D2, DRISDOL) Take 1 capsule by mouth two times a week. TO BE TAKEN ORALLY DIRECTED. Take 1 tablet by mouth twice weekly [id number], then decrease to 1 tablet weekly. - topiramate (TOPAMAX) 25 mg tablet Take 1 tablet by mouth daily at bedtime. For a couple weeks and then increase to 1 pill 2 times a day - rizatriptan (MAXALT-MANAGER HELPDESK) 10 mg disintegrating tablet Take 1 tablet by mouth as needed. May repeat in 2 hours if needed. Problem List As Of Date 08/20/2023 Noted Resolved Congenital pes planus [Q66.50] 07/22/2006 08/12/2012 Equinus deformity of foot, acquired [M21.6X9] 07/23/2006 08/12/2012 Tenosynovitis of foot and ankle [M65.9] 10/29/2006 08/12/2012 Sprain of ankle, unspecified site [S93.409A] 05/03/2007 08/12/2012 Headache [R51] 10/24/2007 08/12/2012 Migraine, unspecified, without mention of intra*11/14/2007 08/12/2012 Sleep disturbance [G47.9] 06/30/2011 08/12/2012 Asthma, exercise induced [J45.990] 12/14/2011 03/19/2013 Concussion [S06.0XAA] 12/14/2011 08/12/2012 Weight loss [R63.4] 12/14/2011 08/12/2012 Left knee injury [S89.92XA] 2012 08/12/2012 Dysmenorrhea [N94.6] 04/30/2012 08/12/2012 Teen [WMT1006] 07/30/2012 03/19/2013 Back pain in [O99.891, M54.9] 07/30/2012 03/19/2013 with uncertain dates [Z34.90] 07/30/2012 08/28/2012 Patient requested diagnostic testing [Z01.89] 07/30/2012 03/19/2013 IUGR (intrauterine growth restriction) [UOR2917]12/30/2012 03/19/2013 High-risk supervision [O09.90] 12/30/2012 03/19/2013 Sore throat [J02.9] 08/04/2013 03/19/2015 Headache [R51] 09/19/2013 03/19/2015 Supervision of normal [Z34.90] 03/19/2015 Recurrent UTI (urinary tract infection) complic*05/17/2015 Generalized anxiety disorder [F41.1] 06/11/2019 Depressive disorder [F32.A] 06/11/2019 Prescriptions ordered this encounter Disp Refills Start End NITROFURANTOIN MONOHYDRATE AND MACROCR* 10 c* 0 08/20/2023 08/25/2023 Route: ORAL Sig: Take 1 capsule by mouth two times a day with meals for 5 days. Encounter Status:Closed by WALTER VALENCIA on 08/22/23 [facility] Bacteria Culton 3 Bacteria identified Cx Nom (U) ORGANISM ID: 1 >=100,000 CFU/ml Escherichia coli ORGANISM ID: 1 (ESCHERICHIA COLI) ------ ANTIBIOTIC INTERPRETATION [place] STATUS REFERENCE RANGE ------ Ampicillin R >=32 F Susceptible <=8 , Intermediate >8 , Resistant >16 Cefazolin S <=4 F Susceptible 0-16 , Intermediate <0 or >16 , Resistant >16 For uncomplicated urinary tract infections, cefazolin results can be used to predict susceptibility or resistance to cephalexin. Ceftriaxone S <=1 F Susceptible <=1 , Intermediate >1 , Resistant >=4 Cefepime S <=1 F Susceptible <=2 , Susceptible-Dose Dependent >2 , Resistant >=16 Ertapenem S <=0.5 F Susceptible <=0.5 , Intermediate >.5 , Resistant >1 Meropenem S <=0.25 F Susceptible <=1 , Intermediate >1 , Resistant >2 Ampicillin/Sulbact I 16 F Susceptible <=8 , Intermediate >8 , Resistant >16 Piperacillin/Tazobac S <=4 F Susceptible <=16 , Intermediate >16 , Resistant >64 Gentamicin S <=1 F Susceptible <=4 , Intermediate >4 , Resistant >8 Tobramycin S <=1 F Susceptible <=4 , Intermediate >4 , Resistant >8 Trimeth sulfameth R >=320 F Susceptible <=40 , Resistant >40 Ciprofloxacin S <=0.25 F Susceptible <0.5 , Intermediate >=.5 , Resistant >=1 Nitrofurantoin S <=16 F Susceptible <=32 , Intermediate >32 , Resistant >64 Abnormal [facility] Comment on above: Performed By: #### 6 30-4 ####[facility] [id number] [address] [place] CNOVsteven 08-18-2023 CNOV Office Visit (UCWSTR ) MICHELLE BETH ([id number]) 1995 F Date Time Provider Department 08/18/23 2:30 PM ADELAIDE [facility]UDDLESTON[facility] During your visit today, we recorded the following information about you: Temperature Pulse Respiration Blood pressure 99.1 degrees 88/minute 16/minute 100/72 Weight 64.4 kg Adelaide Huddleston APRN.CNP 08/18/2023 3:02 PM Signed This note was created using NoteWriter. Subjective Michelle Beth is a 28 year old female. 28 year old female with PMH anxiety presents for complaints of possible UTI. Acute onset this morning Endorses pink tinged urine noted. +frequency +lower left back pain Denies burning Denies urgency Denies abdominal pain. Denies N/V/D Denies vaginal bleeding Denies vaginal discharge Hx: partial hysterectomy December 2021 The history is provided by the patient. No exhaust emissions inspector was used. Hematuria This is a new problem. The current episode started today. The problem is unchanged. She describes the hematuria as gross hematuria. The hematuria occurs during the initial portion of her urinary stream. She reports no clotting in her urine stream. Her pain is at a severity of 0/10. She is experiencing no pain. She describes her urine color as light pink. Irritative symptoms include frequency. Irritative symptoms do not include nocturia or urgency. Obstructive symptoms do not include dribbling, incomplete emptying, an intermittent stream, a slower stream, straining or a weak stream. Pertinent negatives include no abdominal pain, bladder pain, bone pain, chills, dysuria, facial swelling, fever, flank pain, genital pain, hesitancy, inability to urinate, nausea, urinary retention, vomiting or weight loss. She is not sexually active. There is no history of trauma, hypertension, kidney stones, recent infection, STDs or tobacco use. PAST MEDICAL HISTORY Diagnosis Date Abnormal electrocardiogram Allergy, unspecified not elsewhere classified Anemia AGE 16 Asthma, exercise induced 12/14/2011 Concussion 12/14/2011 (1) 5th grade (2) 2010 Dizziness Generalized anxiety disorder 06/11/2019 Left knee injury 2012 Migraine Paroxysmal tachycardia (HCC) PMH - PAST MEDICAL HISTORY OF 01/2000 normal color vision PMH - PAST MEDICAL HISTORY OF 2001 right arm fracture Precocious sexual development and puberty, not elsewhere classified 2005 end of the year sometime Syncope and collapse Unspecified asthma(493.90) exercise induced, NO ATTACKS SONCE 2006 Weight loss 12/14/2011 PAST SURGICAL HISTORY Procedure Laterality Date ECHO 12/18/14 [facility] TONSILLECTOMY AND ADENOIDECTOMY TYMPANOSTOMY LOCAL/TOPICAL ANESTHESIA ALLERGIES Amoxicillin-Pot Clavulanate, Amoxicillin, Flonase [Fluticasone Propionate], Lamictal [Lamotrigine], Medical Tape [Other], Singulair [Montelukast Sodium], and Adhesive Tape-Silicones MEDICATIONS ondansetron (ZOFRAN) 4 mg tablet Take 1 tablet by mouth every 8 hours as needed for nausea/vomiting. ergocalciferol 50,000 unit capsule (VITAMIN D2, DRISDOL) Take 1 capsule by mouth two times a week. TO BE TAKEN ORALLY DIRECTED. Take 1 tablet by mouth twice weekly [id number], then decrease to 1 tablet weekly. lamoTRIgine (LAMICTAL) 25 mg tablet Take 1 tablet by mouth every afternoon. methotrexate 2.5 mg tablet TAKE 6 TABLETS BY MOUTH once weekly topiramate (TOPAMAX) 25 mg tablet Take 1 tablet by mouth daily at bedtime. For a couple weeks and then increase to 1 pill 2 times a day (Patient not taking: Reported on 08/18/2023) rizatriptan (MAXALT-MANAGER HELPDESK) 10 mg disintegrating tablet Take 1 tablet by mouth as needed. May repeat in 2 hours if needed. (Patient not taking: Reported on 08/18/2023) FAMILY HISTORY Problem Relation Age of Onset other (rheumatoid arthritis) Mother Thyroid Mother Alcohol/Drug Father alcoholic Emphysema Father Heart Father Hypertension Father Lipids Father Diabetes Maternal Grandmother Emphysema Maternal Grandfather Heart Paternal Grandfather Diabetes Maternal Aunt other (sjogren's syndrome) Maternal Aunt Social History Tobacco Use Smoking status: Never Smokeless tobacco: Never Substance Use Topics Alcohol use: Yes Comment: rare social use Drug use: No Review of Systems Constitutional: Negative for chills, fever and weight loss. HENT: Negative for facial swelling. Eyes: Negative for photophobia, pain, discharge, redness, itching and visual disturbance. Respiratory: Negative for apnea, cough, choking and chest tightness. Cardiovascular: Negative for chest pain, palpitations and leg swelling. Gastrointestinal: Negative for abdominal pain, nausea and vomiting. Genitourinary: Positive for frequency and hematuria. Negative for dysuria, flank pain, hesitancy, incomplete emptying, nocturia and urgency. Musculoskeletal: Positive for back pain. Negative for arthralg (more content not included)... Normal [facility] UA DIP, URINE (POC)on 2022 BILIRUBIN UA (POCT) Negative Negative [facility] CLARITY UA (POCT) Cloudy [facility] COLOR UA (POCT) Yellow [facility] GLUCOSE UA (POCT) Negative Negative mg/dL [facility] Hemoglobin Ql (U) Negative Negative [facility] KETONE UA (POCT) Negative Negative mg/dL [facility] LEUKOCYTES UA (POCT) Trace Abnormal Negative [facility] NITRITE UA (POCT) Negative Negative [facility] PH UA (POCT) 6.0 4.5 - 8.0 [facility] Protein Ql (U) Negative Negative mg/dL [facility] SPECIFIC GRAVITY UA (POCT) 1.020 1.005 - 1.030 [facility] UROBILINOGEN UA (POCT) 0.2 E.U./dL Hannah l E.U./dL [facility] Absolute lymphocyte countOrd ered By: Imelda Lemon on 04-16-2023 Lymphocytes Auto (Unsp spec) [#/Vol] 1.80 10*3/uL 0.83-4.51 [facility] Basophil percentageOrdered B y: Imelda Lemon on 04-16-2023 Basophils/100 WBC (Bld) 0.9 % 0-1 [facility] Bilirubin [Mass/Vol] 0.50 mg/dL 0.20-1.00 [facility] Comment on above: For patients on eltr ombopag therapy, use of Dimension Jenkins TBIL is not recommended. Chloride [Moles/Vol] 107 mmol/L 98-107 [facility] Eosinophils/100 WBC (Bld) 4.3 % 0-5 [facility] Glucose [Mass/Vol] 89 mg/dL 74-106 [facility] Neutrophils (Bld) [#/Vol] 2.9 10*3/uL 2.0-7.7 [facility] Neutrophils/100 WBC (Bld) 54.9 % 47-70 [facility] Potassium [Moles/Vol] 3.9 mmol/L 3.5-5.1 [facility] Protein [Mass/Vol] 7.1 g/dL 6.4-8.2 [facility] Sodium [Moles/Vol] 138 mmol/L 136-145 [facility] WBC (Bld) [#/Vol] 5.3 10*3/uL 4.4-11.0 [facility] Blood erythrocytes count (nu mber/volume)Ordered By: Imelda Lemon on 04-16-2023 RBC (Bld) [#/Vol] 4.37 10*6/uL 4.2-5.4 [facility] Blood hemoglobin measurement (mass/volume)Ordered By: Imelda Lemon on 04-16-2023 Hemoglobin (Bld) [Mass/Vol] 12.4 g/dL 12.0-15.0 [facility] Blood lymphocytes/100 leukoc ytesOrdered By: Imeldawillard Lemon on 04-16-2023 Lymphocytes/100 WBC (Bld) 33.9 % 19-41 [facility] Blood monocytes/100 leukocyt esOrdered By: [facility] Ion on 04-16-2023 Monocytes/100 WBC (Bld) 5.8 % 0-10 [facility] Blood platelet mean volumeOr dered By: Imelda Ion on 04-16-2023 Platelet mean volume (Bld) [Entitic vol] 10.5 fL 6.2-12.0 [facility] Determination of erythrocyte mean corpuscular volume (MCV)Ordered By: Imelda Lemon on 04-16-2023 MCV (RBC) [Entitic vol] 88.3 fL 81-99 [facility] Hematocrit Auto (Bld) [Volum e fraction]Ordered By: [facility] Ion on 04-16-2023 Hematocrit (Bld) [Volume fraction] 38.6 % 37-47 [facility] Laboratory - Chemistry and C hemistry - challengeOrdered By: [facility] Ion on 04-16-2023 ALP [Catalytic activity/Vol] 54 U/L 45-117 [facility] ALT [Catalytic activity/Vol] 18 U/L 13-56 [facility] CO2 [Moles/Vol] 26.0 mmol/L 21.0-32.0 [facility] Globulin (S) [Mass/Vol] 3.3 g/dL 2.2-4.2 [facility] Urea nitrogen/Creatinine [Mass ratio] 13.3 mg/mg 10-20 [facility] Laboratory - Hematology and Cell countsOrdered By: Imelda Lemon on 04-16-2023 Erythrocyte distribution width (RBC) [Entitic vol] 44.4 fL 35.1-43.9 [facility] Erythrocyte distribution width (RBC) [Ratio] 13.8 % 11.6-14.6 [facility] Immature granulocytes/100 WBC (Bld) 0.200 % 0.0-0.9 [facility] Comment on above: IG% - Immature Granu locytes (promyelocytes, myelocytes and metamyelocytes) > 1% indicates that a LEFT SHIFT is Present. MCH (RBC) [Entitic mass] 28.4 pg 27.0-32.0 [facility] Nucleated RBC/100 WBC (Bld) [Ratio] 0 % 0-5 [facility] MCHC Auto (RBC) [Mass/Vol]Or dered By: Imelda Lemon on 04-16-2023 MCHC (RBC) [Mass/Vol] 32.1 g/dL 32-36 [facility] No Panel InformationOrdered By: Imelda Lemon on 04-16-2023 Estimated GFR (MDRD) Amer 105 mL/min >60 [facility] Comment on above: GFR Calc Estimated GFR (MDRD) Non-Af Amer 87 mL/min >60 [facility] Comment on above: Non- GFR Calc Platelets bldOrdered By: Angelica Lemon on 04-16-2023 Platelets (Bld) [#/Vol] 422 10*3/uL 150-450 [facility] Serum or plasma albumin estrellita urement (mass/volume)Ordered By: Imelda Lemon on 04-16-2023 Albumin [Mass/Vol] 3.8 g/dL 3.2-5.0 [facility] Serum or plasma albumin/glob ulin mass ratioOrdered By: Imelda Lemon on 04-16-2023 Albumin/Globulin [Mass ratio] 1.2 {ratio} 0.9-2.4 [facility] Serum or plasma calcium estrellita urement (mass/volume)Ordered By: Imelda Lemon on 04-16-2023 Calcium [Mass/Vol] 8.7 mg/dL 8.5-10.1 [facility] Serum or plasma creatinine m easurement (mass/volume)Ordered By: Imelda Lemon on 04-16-2023 Creatinine [Mass/Vol] 0.83 mg/dL 0.55-1.02 [facility] Comment on above: The validity of the calculated GFR & GFRAA in patients over 70 years has not been determined. Clinical correlation is essential. Serum or plasma urea nitroge n measurement (mass/volume)Ordered By: Imelda Lemon on 04-16-2023 Urea nitrogen [Mass/Vol] 11 mg/dL 7-18 [facility] Thin prep Papanicolaou smear with manual screeningOrdered By: Imeldawillard Lemon on 04-16-2023 Thin prep Papanicolaou smear with manual screening 13 U/L 15-37 [facility] Thin prep Papanicolaou smear with manual screening 5 5-15 [facility] Clinical Event Note-ED Post Discharge Result Follow Up: Atteon 02-05-2023 Clinical Event Note-ED Post Discharge Result Follow Up: Atte Clinical Event: Clinical Event Note: TopicED Post Discharge Result Follow Up: Attempt # 1, Complete : Bacterial Urine Culture: E. coli Details Pharmacist Name: Christie Jean Date: 02/05/2023 Time: 1336 Number Called: [phone] Spoke With: Michelle Beth Patient contacted in regards to a positive urine culture. Spoke with patient who stated that they are not feeling better since being seen in the emergency department, despite being on proper treatment. I advised the patient that they should seek additional treatment at the nearest emergency department or call 911, if necessary. The patient understood these instructions and had no further questions at this time. If there are any other questions for the ED Post-Discharge Culture Follow Up Team, please contact [phone]. . Christie Jean, PharmD PGY1 [facility] Electronic Signatures: Christie Jean ([facility]) (Signed 05-Feb-2023 13:37) Authored: Clinical Event Note Erika Irving ([facility]) (Signed 06-Feb-2023 08:55) Co-Signer: Clinical Event Note Last Updated: 06-Feb-2023 08:55 by Erika Irving ([facility]) Normal [facility] BASIC METABOLIC PANELon 05-0 Anion gap [Moles/Vol] 11 mmol/L Normal 10 - 20 [facility] Comment on above: Performed By: #### B MP #### [address] [address] Calcium [Mass/Vol] 8.5 mg/dL Low 8.6 - 10.3 [facility] Comment on above: Performed By: #### B MP #### [address] [address] Chloride [Moles/Vol] 107 mmol/L Normal 98 - 107 [facility] Comment on above: Performed By: #### B MP #### [address] [address] Creatinine [Mass/Vol] 0.89 mg/dL Normal 0.50 - 1.05 [facility] Comment on above: Performed By: #### B MP #### [address] [address] eGFR FEMALE >90 Normal >90 [facility] Comment on above: Result Comment: CALC ULATIONS OF ESTIMATED GFR ARE PERFORMED USING THE 2020 CKD-EPI STUDY REFIT EQUATION WITHOUT THE RACE VARIABLE FOR THE IDMS-TRACEABLE CREATININE METHODS. https://jasn.asnjournals.org/content//ASN.017 5948612 Performed By: #### B MP #### [address] [address] Glucose [Mass/Vol] 95 mg/dL Normal 74 - 99 [facility] Comment on above: Performed By: #### B MP #### [address] [address] HCO3 (Bld) [Moles/Vol] 22 mmol/L Normal 21 - 32 [facility] Comment on above: Performed By: #### B MP #### [address] [address] Potassium [Moles/Vol] 3.7 mmol/L Normal 3.5 - 5.3 [facility] Comment on above: Performed By: #### B MP #### [address] [address] Sodium [Moles/Vol] 136 mmol/L Normal 136 - 145 [facility] Comment on above: Performed By: #### B MP #### [address] [address] Urea nitrogen [Mass/Vol] 8 mg/dL Normal 6 - 23 [facility] Comment on above: Performed By: #### B MP #### [address] [address] CBC AND DIFFERENTIALon 01-31 % AUTOMATED IMMATURE GRAN 0.3 % Normal 0.0 - 0.9 [facility] Comment on above: Result Comment: Jerilyn ture Granulocyte Count (IG) includes promyelocytes, myelocytes and metamyelocytes but does not include bands. Percent differential counts (%) should be interpreted in the context of the absolute cell counts (cells/L). Performed By: #### C BCDF ####[address] [address] Basophils (Bld) [#/Vol] 0.03 10*3/uL Normal 0.00 - 0.1 0 [facility] Comment on above: Performed By: #### C BCDF ####[address] [address] Basophils/100 WBC (Bld) 0.2 % Normal 0.0 - 2.0 [facility] Comment on above: Performed By: #### C BCDF ####[address] [address] Eosinophils (Bld) [#/Vol] 0.10 10*3/uL Normal 0.00 - 0.70 [facility] Comment on above: Performed By: #### C BCDF ####[address] [address] Eosinophils/100 WBC (Bld) 0.8 % Normal 0.0 - 6.0 [facility] Comment on above: Performed By: #### C BCDF ####[address] [address] Erythrocyte distribution width (RBC) [Ratio] 13.2 % Normal 11.5 - 14.5 [facility] Comment on above: Performed By: #### C BCDF ####[address] [address] Hematocrit (Bld) [Volume fraction] 34.4 % Low 36.0 - 46.0 [facility] Comment on above: Performed By: #### C BCDF ####[address] [address] Hemoglobin (Bld) [Mass/Vol] 11.3 g/dL Low 12.0 - 16.0 [facility] Comment on above: Performed By: #### C BCDF ####[address] [address] Lymphocytes (Bld) [#/Vol] 1.25 10*3/uL Normal 1.20 - 4.80 [facility] Comment on above: Performed By: #### C BCDF ####[address] [address] Lymphocytes/100 WBC (Bld) 10.1 % Normal 13.0 - 44.0 [facility] Comment on above: Performed By: #### C BCDF ####[address] [address] MCHC (RBC) [Mass/Vol] 32.8 g/dL Normal 32.0 - 36.0 [facility] Comment on above: Performed By: #### C BCDF ####[address] [address] MCV (RBC) [Entitic vol] 85 fL Normal 80 - 100 [facility] Comment on above: Performed By: #### C BCDF ####[address] [address] Monocytes (Bld) [#/Vol] 0.72 10*3/uL Normal 0.10 - 1.0 0 [facility] Comment on above: Performed By: #### C BCDF ####[address] [address] Monocytes/100 WBC (Bld) 5.8 % Normal 2.0 - 10.0 [facility] Comment on above: Performed By: #### C BCDF ####[address] [address] Neutrophils (Bld) [#/Vol] 10.22 10*3/uL High 1.20 - 7.70 [facility] Comment on above: Result Comment: Perc ent differential counts (%) should be interpreted in the context of the absolute cell counts (cells/L). Performed By: #### C BCDF ####[address] [address] Neutrophils/100 WBC (Bld) 82.8 % Normal 40.0 - 80.0 [facility] Comment on above: Performed By: #### C BCDF ####[address] [address] Platelets (Bld) [#/Vol] 335 10*3/uL Normal 150 - 450 [facility] Comment on above: Performed By: #### C BCDF ####[address] [address] RBC 4.05 x10E12/L Normal 4.00 - 5.20 [facility] Comment on above: Performed By: #### C BCDF ####[address] [address] WBC (Bld) [#/Vol] 12.4 10*3/uL High 4.4 - 11.3 [facility] Comment on above: Performed By: #### C BCDF ####[address] [address] CORONAVIRUS 2019 BY PCRon Lab Specimen Source Nasal, Nasopharyngeal Normal [facility] Comment on above: Performed By: #### C OV19 #### [address] [address] SARS-CoV-2 (COVID-19) RNA NINA+probe Ql (Unsp spec) Not detected Normal Not Detected [facility] Comment on above: Result Comment: . This test has received FDA Emergency Use Authorization (EUA) and has been verified by [facility]. This test is only authorized for the duration of time that circumstances exist to justify the authorization of the emergency use of in vitro diagnostic tests for the detection of SARS-CoV-2 virus and/or diagnosis of COVID-19 infection under section 564(b)(1) of the Act, 21 U.S.C. 360bbb-3(b)(1), unless the authorization is terminated or revoked sooner. [facility] is certified under CLIA-88 as qualified to perform high complexity testing. Testing is performed in the [place] [facility] laboratory located at [address] [place] [address]. SARS-CoV-2/Flu/RSV Multiplex Test: Fact sheet for providers: https://www.fda.gov/media/333542/download Fact sheet for patients: https://www.fda.gov/media/738274/download Performed By: #### C OV19 #### [place] [address] Covid 19 Resultson 3 SARS-CoV-2 (COVID-19) RNA NINA+probe Ql (Unsp spec) NEGATIVE COVID-19 Test Coronaviruses are common world-wide and are the cause of many common colds. SARS-COV2 is a new coronavirus that began circulating worldwide in 2019 so we are calling it COVID-19. It has been estimated that four out of five patients with COVID-19 will recover at home without the need for medical attention. Symptoms of COVID-19 may include cough, fever, shortness of breath, loss of taste or smell and other flu-like symptoms including chills, sore muscles, sore throat, and headache. Severe illness is more common in older people and people with other health problems such as high blood pressure, obesity, and immune system problems. If the test is positive, you have COVID-19. You will be contacted by the ordering physicians office and instructed to remain on home isolation, in accordance with CDC guidelines. You may also be contacted by the [facility] to see if any of your close contacts may have been exposed to the virus and need to quarantine. If the test is negative, you likely do not have COVID-19 at this time, but you still may have a different illness that can spread to other people (like Influenza, or the Flu) and could still be at risk for getting COVID-19. We recommend that you stay away from other people to limit the spread of illness until your symptoms are improving and you are fever-free for 24 hours without the use of fever lowering medications such as acetaminophen or ibuprofen. No test is 100% accurate so if you are still concerned you may have COVID-19, talk to your doctor about the need to continue to stay away from others. Medicines Unless your provider told you not to use the following: Acetaminophen (Tylenol and others) is generally safe. Anti-inflammatory medications, such as Ibuprofen (Advil or Motrin) or Naproxen (Aleve) can also be used. Evxt-zxj-uomgtgu cough and cold medicines can be used according to the instructions on the package. Some nker-hpj-pxikphe medicines also contain acetaminophen. Make sure you are not taking more than your recommended dose. For those not hospitalized, there is no specific treatment available for this illness. Antibiotics do not treat Coronaviruses. Follow-Up Follow up with your doctor by scheduling a virtual visit or consider follow-up at one of our urgent care fever clinics. If you are having difficulty breathing, or are very weak and having difficulty standing, this is a medical emergency. Call 911 or have someone take you to the nearest emergency room immediately. If possible, wear a facemask. Additional guidance from the CDC for patients who tested POSITIVE for COVID-19 How to isolate: Isolate yourself in a specific room at home and limit your contact with others. Use a separate bathroom from other members of the household, when possible. Leave home only to get essential medical care. Do not go to work, school or public areas. Avoid using public transportation, ride-sharing, or taxis. Restrict contact with pets and other animals. If you must care for your pet or be around animals while you are sick, wash your hands before and after your interaction and wear a facemask. Make sure that shared spaces in the home have good airflow, such as by an air conditioner or an opened window, weather permitting. Personal Hygiene Procedures: Wear a face mask when in the same room as other people or pets. If a face mask interferes with your breathing, others should wear a mask when sharing space with you. Frequent hand-washing: wash your hands with soap and water for at least 20 seconds. If soap and water are not available, use alcohol-based hand bar machine operator multiple spindle. Avoid touching your eyes, nose, and mouth with unwashed hands. Household Hygiene Procedures: Avoid sharing personal household items such as dishes, glassware, cups, eating utensils, towels or bedding with other people or pets in your home. After use, these items should be washed with soap and hot water. Disinfect all high-touch surfaces every day with antibacterial cleaning solutions such as Lysol wipes, bleach, cleansers, etc. High-touch surfaces include tabletops, doorknobs, bathroom fixtures, toilets, phones, keyboards, tablets and bedside tables. Immediately clean any surfaces that may have blood, poop or body fluids on them, using antibacterial cleaning solutions such as Lysol wipes, bleach, cleansers, etc. If clothing or bedding come into contact with blood, poop or body fluids, they should be washed immediately. Follow the directions on the laundry detergent and clothing labels but hot water is recommended when possible. Stopping home isolation precautions: If possible, consult your doctor before stopping home isolation precautions. According to the CDC, you can discontinue home isolation precautions when you have met both of these criteria: Your fever and respiratory symptoms have been gone for 24 armida (more content not included)... Normal [facility] HCG,URINEon 01-31-2023 Beta HCG ( test) Ql (U) Negative Normal Negative [facility] Comment on above: Performed By: #### H U #### [place] [address] Provider Note - ED v3on 05 Provider Note - ED v3 Provider Note: Chart Review: ED NOTES ED NOTES: ====HPI==== Patient presents with multiple medical complaints. Patient complains of generalized body aches, flank pain pain, and painful urination for a few days. She states that she recently was started on hydroxychoroquine and prednisone. She states that she feels that she may have a UTI as she gets frequent UTIs. She denies chest pain, shortness of breath, or abdominal pain PMHX: lupus Social HX: Never smoker TOBACCO Occasionally ETOH Denies DRUGS ====Review of Systems==== 10 point system review is negative except for those specifically mentioned in history of present illness ====Physical Exam==== Constitutional/Genera l: Alert and oriented x3, well appearing, nontoxic, and in NAD. Head: Normocephalic and atraumatic. Eyes: PERRL, EOMI, conjunctive normal, sclera nonicteric, subconjunctival layer is pink. Mouth: Oropharynx clear, handling secretions, no trismus, no asymmetry of the posterior oropharynx or uvular edema Neck: Supple, full ROM, non tender to palpation in the midline, no stridor, no crepitus, no meningeal signs. Trachea at midline. Respiratory: Lungs clear to auscultation bilaterally, no wheezes, rales, or rhonchi, not in respiratory distress. Cardiovascular: Regular rate, regular rhythm, no murmurs, gallops, or rubs, 2+ distal pulses. Chest: normal chest wall movement GI: Abdomen soft, nontender, nondistended, no organomegaly, no palpable masses, no rebound, guarding, or rigidity. Musculoskeletal: Moves all extremities x4, warm and well perfused, no clubbing, cyanosis, or edema, cap refill <3 seconds Integument: Skin warm and dry, no rashes. Neurologic: GCS 15, no focal deficits, symmetric strength 5/5 in the upper and lower extremities bilaterally. Psychiatric: Normal affect. ====ED Course and Medical Decision Making==== See MDM section for review of findings & plan of care. Portions of this note were dictated by speech recognition. An attempt at proof reading was made to minimize errors. Minor errors in entry level lab technician may be present. Please call if questions.. HISTORY OF PRESENTING ILLNESS MICHELLE is a 28 year old Female and was seen by me at 31-Jan-2023 19:20 for a chief complaint of multiple medical complaints (Patient states she was diagnosed with Lupus one month ago, states she was started on hydrochloroquine and predisone, complains of nausea, lightheadedness, joint pain, possible fever, right flank pain and painful urination for three days) . Triage Information: Most recent Vital Sign Value Date Temp (F): 97.9 01-31-2023 19:22 Temp (C): 36.6 01-31-2023 19:22 Heart Rate (beats/min): 117 01-31-2023 19:22 Respirations (breaths/min): 17 01-31-2023 19:22 SpO2 (%): 98 01-31-2023 19:22 BP Systolic (mm Hg): 123 01-31-2023 19:22 BP Diastolic (mm Hg): 88 01-31-2023 19:22 PAST MEDICAL HISTORY ALLERGIES/INTOLERANCE S: Allergy Allergen: Singulair Type: Drug Reaction: Unknown Allergen: Augmentin Type: Drug Reaction: Unknown Allergen: Flonase Type: Drug Reaction: Unknown Allergen: Tape - Adhesive, Bandaids, Paper Type: Environment Reaction: Other HEALTH HISTORY: No documented data. OUTPATIENT MEDICATIONS: Home Medications Review Status for Reconciliation: N/A Med Status: N/A No documented data. SIGNIFICANT EVENTS: Past Medical History Description:Lupus Past Surgical History Description:Partial hysterectomy CRITICAL CARE RESULTS: Recent Lab Results: I have reviewed these laboratory results: Complete Blood Count + Differential 31-Jan-2023 20:13:00 ResultValue White Blood Cell Count 12.4 H Red Blood Cell Count 4.05 HGB 11.3 L HCT 34.4 L MCV 85 MCHC 32.8 PLT 335 RDW-CV 13.2 Neutrophil % 82.8 Immature Granulocytes % 0.3 Lymphocyte % 10.1 Monocyte % 5.8 Eosinophil % 0.8 Basophil % 0.2 Neutrophil Count 10.22 H Lymphocyte Count 1.25 Monocyte Count 0.72 Eosinophil Count 0.10 Basophil Count 0.03 Basic Metabolic Panel 31-Jan-2023 20:13:00 ResultValue Glucose, Serum 95 NA 136 K 3.7 CL 107 Bicarbonate, Serum 22 Anion Gap, Serum 11 BUN 8 CREAT 0.89 GFR Female >90 Calcium, Serum 8.5 L Coronavirus 2019 by PCR 31-Jan-2023 20:13:00 ResultValue Fluid Source Nasal, Nasopharyngeal Coronavirus 2019,PCR NOT DETECTED Reference Range: Not Detected .This test has received FDA Emergency Use Authorization (EUA) and has been verified by [facility]. This test is only authorized for the duration of time that circum Urinalysis with Culture if Indicated 31-Jan-2023 20:13:00 ResultValue Color, Urine Katelyn Reference Range: STRAW,YELLOW Appearance, Urine HAZY Specific [place], Urine 1.024 pH, Urine 6.0 Protein, Urine >=500(3+) A Glucose, Urine NEGATIVE Blood, Urine NEGATIVE Ketones, Urine 5(TRACE) A Bilirubin, Uri (more content not included)... [facility] Risk Screen - Adult Emergenc yon 01-31-2023 Risk Screen - Adult Emergency Preferred Language: Preferred Language: Preferred Language for Discussing Health Care (patient/designee)Mellisa cathy Patient Preferred Pharmacy: Patient Preferred Pharmacy Statement: I have reviewed and updated the patient's preferred pharmacy selection for today's visit. Advanced Directives: Advance Directive/DNRno Advance Directive Information Givenpatient/family declined Family Violence Adult: Abuse Screen: Are you or have you been threatened or abused physically, emotionally, or sexually by anyoneno Learning Assessment (Patient): Learning Assessment (Patient): Patient is Able to be Assessed for Learningyes Factors Influencing Readiness to Learninterest in learning Factors that Impact Ability to Learnnone Devices/Methods Used to Communicatenone Learning Preferencesverbal instruction Cultural Considerationsnone Developmental Considerationsnone Bahai Considerationsnone Learning Assessment (Other Learner): Learning Assessment (Other Learner): Other learner availableyes... Learnerspouse Factors Influencing Readiness to Learninterest in learning Factors that Impact Ability to Learnnone Devices/Methods Used to Communicatenone Learning Preferencesverbal instruction Cultural Considerationsnone Developmental Considerationsnone Bahai Considerationsnone Pressure Injury/TB/Substance: Pressure Injury: Pressure Injury Present on Admissionno Do you have a coughno Smoking Statusnever smoker Alcohol Useoccasionally Drug Usedenies Admission Risk Screen: Significant IndicatorsComplete CAGE: CAGE: Is this an injured patient at a Trauma Center ([facility]/[place]/[facility]/[place]): no Electronic Signatures: Alice Abraham (NICKIE) (Signed 31-Jan-2023 19:28) Authored: Preferred Language, Patient Preferred Pharmacy, Advanced Directives, Family Violence Adult, Learning Assessment (Patient), Learning Assessment (Other Learner), Pressure Injury/TB/Substance, Pressure Injury, CAGE Last Updated: 31-Jan-2023 19:28 by Alice Abraham (NICKIE) Normal [facility] Triage - EDon 01-31-2023 Triage - ED Quick Triage: Are You no Have You Given In The Last 6 Weeksno Are You Currently Breastfeedingno Chart Review: PRIMARY ASSESSMENT MICHELLE BETH's primary assessment is Within Defined Limits. The airway is open and patent. Breathing spontaneous and unlabored with clear breath sounds bilaterally. Circulation is normal with good peripheral pulses. Skin is warm and dry and color is normal for race. ARRIVAL INFORMATION Means of Arrival: Ambulatory Mode of Arrival: private vehicle Arrival From: home Accompanied By: self Language: Spoken Language Preferred: Estonian CHIEF COMPLAINT MICHELLE BETH is a Female patient with a chief complaint of multiple medical complaints (Patient states she was diagnosed with Lupus one month ago, states she was started on hydrochloroquine and predisone, complains of nausea, lightheadedness, joint pain, possible fever, right flank pain and painful urination for three days). Triage Date/Time: 31-Jan-2023 19:20 KALA: 3V Pain Rating (0-10): 7 = Severe Vital Signs: Temperature: 97.9F ( 36.6C) taken temporal Blood Pressure: 123/88 Mean: Heart Rate: 117 Respiratory Rate: 17 Pulse Oximetry: 98% on room air, no respiratory support. Height: 5 feet 2.00 inches. 157.4 CM Weight: 141.0 pounds. Calculated 64.0 kg. 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 Patient has homicidal thoughts: no Risk Screens Suicide Risk Screen In the Past Month: Have you wished you were or wished you could go to sleep and not wake up no In the Past Month: Have you had any actual thoughts of killing yourself no In Your Lifetime: Have you ever done anything, started to do anything, or prepared to do anything to end your life no Interventions: Tyler Fall Interventions: LOW INTERVENTIONS: *patient oriented to surroundings and call system, * patient/family falls education completed and documented, *patients fall status communicated during bedside handoff, *whiteboard updated, *mode of toileting discussed with patient, *bed in low position with brakes locked, *call light in reach, * non-skid footwear TRAVEL HISTORY Travel History Coronavirus Screening: no exposure or symptoms Travel Exposure History: NO travel to International locations in the past 30 days PAIN Pain Scale Used: ANGELICA Pain Rating (0-10): 7 = Severe Past Medical History: Past Medical History Reviewedyes Partial hysterectomy: Past Surgical History, Active Lupus: Past Medical History, Active Electronic Signatures: Alice Abraham (RN) (Signed 31-Jan-2023 19:27) Entered: Risk Screens, Pain, Arrival, ABCD, Travel History, Chart Review, Scores, Past Medical History Authored: Quick Triage, Risk Screens, Pain, Arrival, ABCD, Travel History, Chart Review, Scores, Past Medical History Last Updated: 31-Jan-2023 19:27 by Alice Abraham (RN) Normal [facility] UA MICROSCOPICon 01-31-2023 BACTERIA 3+ /HPF Abnormal [facility] Comment on above: Performed By: #### U AMIC #### [place] [address] Mucus Ql (Urine sed) 4+ /LPF Normal [facility] Comment on above: Performed By: #### U AMIC #### [place] [address] RBC 28 /HPF Abnormal 0-5 [facility] Comment on above: Performed By: #### U AMIC #### [place] [address] SQUAMOUS EPITH. CELLS 7 /HPF Normal [facility] Comment on above: Performed By: #### U AMIC #### [place] [address] WBC (U) [#/Vol] /uL Abnormal 0-5 [facility] Comment on above: Performed By: #### U AMIC #### [place] [address] URINALYSIS WITH CULTURE IF I NDICATEDon 01-31-2023 Appearance (U) HAZY Normal CLEAR [facility] Comment on above: Performed By: #### U ARFX #### [place] [address] Bilirubin Ql (U) Negative Normal NEGATIVE [facility] Comment on above: Performed By: #### U ARFX #### [place] [address] Color (U) Katelyn Normal STRAW,YELLOW [facility] Comment on above: Performed By: #### U ARFX #### [place] [address] Glucose Ql (U) Negative Normal NEGATIVE [facility] Comment on above: Performed By: #### U ARFX #### [place] [address] Hemoglobin Ql (U) Negative Normal NEGATIVE [facility] Comment on above: Performed By: #### U ARFX #### [place] [address] Ketones Ql (U) 5(TRACE) Abnormal NEGATIVE [facility] Comment on above: Performed By: #### U ARFX #### [place] [address] Leukocyte esterase Test strip Ql (U) LARGE(3+) Abnormal NEGATIVE [facility] Comment on above: Performed By: #### U ARFX #### [place] [address] Nitrite Ql (U) Positive Abnormal NEGATIVE [facility] Comment on above: Performed By: #### U ARFX #### [place] [address] pH (U) 6.0 [pH] Normal 5.0 - 8.0 [facility] Comment on above: Performed By: #### U ARFX #### [place] [address] Protein Ql (U) >=500(3+) Abnormal NEGATIVE [facility] Comment on above: Performed By: #### U ARFX #### [place] [address] Specific gravity (U) [Rel density] 1.024 Normal 1.005 - 1.035 [facility] Comment on above: Performed By: #### U ARFX #### [place] [address] Urobilinogen (U) [Mass/Vol] 4.0 mg/dL High 0.0 - 1.9 [facility] Comment on above: Result Comment: SOME PIGMENTS AND MEDICATIONS MAY CAUSE A FALSE POSITIVE UROBILINOGEN Performed By: #### U ARFX #### [facility] [address] [place] [address] URINE CULTURE,BACTERIALon URINE CULTURE,BACTERIAL PATIENT: MICHELLE BETH LOCATION: [facility]#: [id number] : 89 AGE: SEX: F ORDERED BY: JULIET NOE SOURCE: URINE COLLECTED: 01/31/23 20:13 ANTIBIOTICS AT [facility].: RECEIVED : 02/01/23 17:28 SITE: [facility] S URINE CULTURE,BACTERIAL FINAL 02/03/23 11:52 ISOLATE1 : Escherichia coli >100,000 CFU/ML __ Organism E coli Antibiotic BP INTRP __ Ampicillin R Amox/Clavulanate I Ceftriaxone S Cefazolin S Ciprofloxacin S Nitrofurantoin S Gentamicin S Levofloxacin S Piperc/Tazobact S Trimeth/Sulfa R S=SUSCEPTIBLE I=INTERMEDIATE R=RESISTANT SDD=SUSCEPTIBLE DOSE DEPENDENT NS=NONSUSCEPTIBLE X=REPORTED IN ERROR Normal [facility] Comment on above: Performed By: #### U [facility] #### [facility] [address] [place] [address] Absolute lymphocyte countOrd ered By: Dr. Lemon on 12-18-2022 Lymphocytes Auto (Unsp spec) [#/Vol] 1.94 10*3/uL 0.83-4.51 [facility] Basophil percentageOrdered B y: Dr. Lemon on 12-18-2022 Basophils/100 WBC (Bld) 0.4 % 0-1 [facility] Bilirubin [Mass/Vol] 0.30 mg/dL 0.20-1.00 [facility] Comment on above: For patients on eltr ombopag therapy, use of Dimension Jenkins TBIL is not recommended. Chloride [Moles/Vol] 108 mmol/L 98-107 [facility] Eosinophils/100 WBC (Bld) 1.6 % 0-5 [facility] Glucose [Mass/Vol] 85 mg/dL 74-106 [facility] Neutrophils (Bld) [#/Vol] 7.9 10*3/uL 2.0-7.7 [facility] Neutrophils/100 WBC (Bld) 76.3 % 47-70 [facility] Potassium [Moles/Vol] 3.3 mmol/L 3.5-5.1 [facility] Protein [Mass/Vol] 7.4 g/dL 6.4-8.2 [facility] Sodium [Moles/Vol] 140 mmol/L 136-145 [facility] WBC (Bld) [#/Vol] 10.4 10*3/uL 4.4-11.0 [facility] Bilirubin Test strip Ql (U)O rdered By: Dr. Lemon on 12-18-2022 Bilirubin Ql (U) Negative Negative [facility] Blood erythrocytes count (nu mber/volume)Ordered By: Dr. Lemon on 12-18-2022 RBC (Bld) [#/Vol] 4.46 10*6/uL 4.2-5.4 [facility] Blood hemoglobin measurement (mass/volume)Ordered By: Dr. Lemon on 12-18-2022 Hemoglobin (Bld) [Mass/Vol] 12.6 g/dL 12.0-15.0 [facility] Blood lymphocytes/100 leukoc ytesOrdered By: Dr. Lemon on 12-18-2022 Lymphocytes/100 WBC (Bld) 18.7 % 19-41 [facility] Blood monocytes/100 leukocyt esOrdered By: Dr. Lemon on 12-18-2022 Monocytes/100 WBC (Bld) 2.7 % 0-10 [facility] Blood platelet mean volumeOr dered By: Dr. Lemon on 12-18-2022 Platelet mean volume (Bld) [Entitic vol] 10.7 fL 6.2-12.0 [facility] Determination of erythrocyte mean corpuscular volume (MCV)Ordered By: Dr. Lemon on 12-18-2022 MCV (RBC) [Entitic vol] 87.4 fL 81-99 [facility] Dilute Tyler's viper venom timeOrdered By: Dr. Lemon on 12-18-2022 dRVVT Coag (PPP) [Time] 43.6 s 0.0-47.0 [facility] Hematocrit Auto (Bld) [Volum e fraction]Ordered By: Dr. Lemon on 12-18-2022 Hematocrit (Bld) [Volume fraction] 39.0 % 37-47 [facility] INR in Blood by Coagulation assayOrdered By: Dr. Lemon on 12-18-2022 INR Coag (Bld) [Relative time] 1.1 {INR} [facility] Ketones Test strip Ql (U)Ord ered By: Dr. Lemon on 12-18-2022 Ketones Ql (U) 5 mg/dl Negative [facility] Laboratory - Chemistry and C hemistry - challengeOrdered By: Dr. Lemon on 12-18-2022 ALP [Catalytic activity/Vol] 60 U/L 45-117 [facility] ALT [Catalytic activity/Vol] 23 U/L 13-56 [facility] CO2 [Moles/Vol] 22.0 mmol/L 21.0-32.0 [facility] Globulin (S) [Mass/Vol] 3.4 g/dL 2.2-4.2 [facility] Urea nitrogen/Creatinine [Mass ratio] 10.6 mg/mg 07-20 [facility] Laboratory - CoagulationOrde red By: Dr. Lemon on 12-18-2022 aPTT Coag (Bld) [Time] 28.8 s 24.1-36.2 [facility] PT Coag (PPP) [Time] 13.7 s 11.7-14.9 [facility] Laboratory - Hematology and Cell countsOrdered By: Dr. Lemon on 12-18-2022 Erythrocyte distribution width (RBC) [Entitic vol] 43.8 fL 35.1-43.9 [facility] Erythrocyte distribution width (RBC) [Ratio] 13.7 % 11.6-14.6 [facility] Immature granulocytes/100 WBC (Bld) 0.300 % 0.0-0.9 [facility] Comment on above: IG% - Immature Granu locytes (promyelocytes, myelocytes and metamyelocytes) > 1% indicates that a LEFT SHIFT is Present. MCH (RBC) [Entitic mass] 28.3 pg 27.0-32.0 [facility] Nucleated RBC/100 WBC (Bld) [Ratio] 0 % 0-5 [facility] Laboratory - Miscellaneous t estsOrdered By: Dr. Lemon on 12-18-2022 Service comment (Unsp spec) [Interp] Comment . [facility] Comment on above: Results do not indic ate the presence of a LupusAnticoagulant: abnormal high screening results (PTT-LA,dRVVT, mixing studies), may be due to medication (heparin,warfarin, aspirin), Factor inhibitors, anticardiolipinantibodies, or poor specimen integrity.Performed at: [facility] [id number] Director: Colin Estrada MD, Phone: [phone] MCHC Auto (RBC) [Mass/Vol]Or dered By: Dr. Lemon on 12-18-2022 MCHC (RBC) [Mass/Vol] 32.3 g/dL [facility] Nitrite Test strip Ql (U)Ord ered By: Dr. Lemon on 12-18-2022 Nitrite Ql (U) Positive Negative [facility] No Panel InformationOrdered By: Dr. Lemon on 12-18-2022 Miscellaneous Test Comment MAILED SPECIMEN [facility] Estimated GFR (MDRD) Amer 118 mL/min >60 [facility] Comment on above: GFR Calc Estimated GFR (MDRD) Non-Af Amer 97 mL/min >60 [facility] Comment on above: Non- GFR Calc Hepatitis B Surface Antigen Non-Reactive Nonreactive [facility] Hepatitis C Antibody Non-Reactive Nonreactive [facility] Comment on above: Non Reactive: < 0.8 Equivocal: >/= 0.8 to < 1.0 Reactive: >/= 1.0The CDC recommends that a reactive/equivocal HCV antibody result be followed up by the HCV Nucleic Acid Amplificationtest (123075) Platelets bldOrdered By: Dr. Lemon on 12-18-2022 Platelets (Bld) [#/Vol] 459 10*3/uL 150-450 [facility] Protein Test strip Ql (U)Ord ered By: Dr. Lemon on 12-18-2022 Protein Ql (U) Negative Negative [facility] Serum hepatitis B virus surf mojgan antibody IgG detectionOrdered By: Dr. Lemon on 12-18-2022 HBV surface IgG Ql (S) Reactive [facility] Comment on above: Non Reactive: Incons istent with immunity less than <10 mIU/mL Reactive: Consistent with immunity greater than or equal to 10 mIU/mL Serum or plasma albumin estrellita urement (mass/volume)Ordered By: Dr. Lemon on 12-18-2022 Albumin [Mass/Vol] 4.0 g/dL 3.2-5.0 [facility] Serum or plasma albumin/glob ulin mass ratioOrdered By: Dr. Lemon on 12-18-2022 Albumin/Globulin [Mass ratio] 1.2 {ratio} 0.9-2.4 [facility] Serum or plasma calcium estrellita urement (mass/volume)Ordered By: Dr. Lemon on 12-18-2022 Calcium [Mass/Vol] 9.1 mg/dL 8.5-10.1 [facility] Serum or plasma creatinine m easurement (mass/volume)Ordered By: Dr. Lemon on 12-18-2022 Creatinine [Mass/Vol] 0.75 mg/dL 0.55-1.02 [facility] Comment on above: The validity of the calculated GFR & GFRAA in patients over 70 years has not been determined. Clinical correlation is essential. Serum or plasma urea nitroge n measurement (mass/volume)Ordered By: Dr. Lemon on 12-18-2022 Urea nitrogen [Mass/Vol] 8 mg/dL 7-18 [facility] Thin prep Papanicolaou smear with manual screeningOrdered By: Dr. Lemon on 12-18-2022 Thin prep Papanicolaou smear with manual screening 16 U/L 15-37 [facility] Thin prep Papanicolaou smear with manual screening 10 5-15 [facility] Thin prep Papanicolaou smear with manual screening 38.9 sec 0.0-47.6 [facility] Thin prep Papanicolaou smear with manual screening 1.12 Ratio 0.00-1.34 [facility] Thin prep Papanicolaou smear with manual screening 37.1 sec 0.0-43.5 [facility] Thin prep Papanicolaou smear with manual screening Comment: . [facility] Comment on above: No lupus anticoagula nt was detected. Thrombin time in platelet po or plasmaOrdered By: Dr. Lemon on 12-18-2022 Thrombin time Coag (PPP) [Time] 19.4 sec 0.0-23.0 [facility] Comment on above: Performed at: [address] [id number] Director: Colin Estrada MD, Phone: [phone] Urine blood detectionOrdered By: Dr. Lemon on 12-18-2022 RBC Ql (U) 10 /ul Negative [facility] Urine clarityOrdered By: Dr. Lemon on 12-18-2022 Clarity (U) Cloudy Clear [facility] Urine color determinationOrd ered By: Dr. Lemon on 12-18-2022 Color (U) Yellow Yellow [facility] Urine creatinine measurement (mass/volume)Ordered By: Dr. Lemon on 12-18-2022 Creatinine (U) [Mass/Vol] 140.00 mg/dL NO RANGE EST. [facility] Urine glucose detectionOrder ed By: Dr. Lemon on 12-18-2022 Glucose Ql (U) Normal mg/dl Normal [facility] Urine leukocyte esterase det ection by dipstickOrdered By: Dr. Lemon on 12-18-2022 Leukocyte esterase Test strip Ql (U) 100 /ul Negative [facility] Urine pHOrdered By: Dr. Tej davis on 12-18-2022 pH (U) 5.0 [pH] 5.0 - 8.0 [facility] Urine protein measurement (m ass/volume)Ordered By: Dr. Lemon on 12-18-2022 Protein (U) [Mass/Vol] 16.7 mg/dL 0.0-11.8 [facility] Urine protein/creatinine mas s ratioOrdered By: Dr. Lemon on 12-18-2022 Protein/Creatinine (U) [Mass ratio] 119 mg/g CRE 0-200 [facility] Urine specific gravity measu rementOrdered By: Dr. Lemon on 12-18-2022 Specific gravity (U) [Rel density] 1.025 1.002-1.030 [facility] Urobilinogen Auto test strip Ql (U)Ordered By: Dr. Lemon on 12-18-2022 Urobilinogen Ql (U) Normal mg/dl Normal [facility] JUNG PANELon 12-02-2022 ANTI-CENTROMERE <0.2 Normal [facility] Comment on above: Result Comment: REF VALUES < 1.0 = NEGATIVE >=1.0 = POSITIVE Performed By: #### E NA2 #### [facility] [address] [place] [address] ANTI-CHROMATIN <0.2 Normal [facility] Comment on above: Result Comment: REF VALUES < 1.0 = NEGATIVE >=1.0 = POSITIVE Performed By: #### E NA2 #### [facility] [address] [place] [address] ANTI-DNA [DS] <1.0 Normal [facility] Comment on above: Result Comment: REF VALUES NEGATIVE: <= 4 IU/ML EQUIVOCAL: 5- 9 IU/ML POSITIVE: >=10 IU/ML Performed By: #### E NA2 #### [facility] [address] [place] [address] ANTI-YESI-1 <0.2 Normal [facility] Comment on above: Result Comment: REF VALUES < 1.0 = NEGATIVE >=1.0 = POSITIVE Performed By: #### E NA2 #### [facility] [address] [place] [address] ANTI-RIBOSOMAL P <0.2 Normal [facility] Comment on above: Result Comment: REF VALUES < 1.0 = NEGATIVE >=1.0 = POSITIVE Performed By: #### E NA2 #### [facility] [address] [place] [address] ANTI-LORRY WEIGHER <0.2 Normal [facility] Comment on above: Result Comment: REF VALUES < 1.0 = NEGATIVE >=1.0 = POSITIVE Performed By: #### E NA2 #### [facility] [address] [place] [address] ANTI-SCL-70 <0.2 Normal [facility] Comment on above: Result Comment: REF VALUES < 1.0 = NEGATIVE >=1.0 = POSITIVE Performed By: #### E NA2 #### [facility] [address] [place] [address] ANTI-SM <0.2 Normal [facility] Comment on above: Result Comment: REF VALUES < 1.0 = NEGATIVE >=1.0 = POSITIVE Performed By: #### E NA2 #### [facility] [address] [place] [address] ANTI-SM/LORRY WEIGHER <0.2 Normal [facility] Comment on above: Result Comment: REF VALUES < 1.0 = NEGATIVE >=1.0 = POSITIVE Performed By: #### E NA2 #### [facility] [address] [place] [address] ANTI-SSA <0.2 Normal [facility] Comment on above: Result Comment: REF VALUES < 1.0 = NEGATIVE >=1.0 = POSITIVE Performed By: #### E NA2 #### [facility] [address] [place] [address] ANTI-SSB <0.2 Normal [facility] Comment on above: Result Comment: REF VALUES < 1.0 = NEGATIVE >=1.0 = POSITIVE Performed By: #### E NA2 #### [facility] [address] [place] [address] SHANTANU-WITH REFLEX TO ENAon SHANTANU PATTERN HOMOGENEOUS Normal [facility] Comment on above: Performed By: #### A NA2 #### [facility] [address] [place] [address] SHANTANU TITER 1:320 Normal <1:80 [facility] Comment on above: Performed By: #### A NA2 #### [facility] [address] [place] [address] Nuclear Ab IF (S) [Titer] Positive Abnormal NEGATIVE [facility] Comment on above: Result Comment: The Antinuclear Antibody (SHANTANU) test was performed using indirect immunofluorescence assay with HEp-2 cells slide. Performed By: #### A NA2 #### [facility] [address] [place] [address] CRP, HIGH SENSITIVITYon CRP, HIGH SENSITIVITY 3.5 mg/L Abnormal [facility] Comment on above: Result Comment: hsCR P INTERPRETATION mg/L < 1.0 LOW RELATIVE RISK OF CVD 1.0-3.0 AVERAGE RELATIVE RISK OF CVD > 3.0 HIGH RELATIVE RISK OF CVD Source: JOHNSON, T. A. et al. CIRCULATION 2003; 107:499-511. Performed By: #### C RPH2 #### [facility] [address] [place] [address] RHEUMATOID FACTORon 12-02-19 RHEUMATOID FACTOR <10 Normal 0 - 15 [facility] Comment on above: Performed By: #### R F #### [facility] [address] [place] [address] CBCon 11-30-2022 Erythrocyte distribution width (RBC) [Ratio] 13.5 % Normal 11.5 - 14.5 [facility] Comment on above: Performed By: #### C BC #### [address] [address] Hematocrit (Bld) [Volume fraction] 37.1 % Normal 36.0 - 46.0 [facility] Comment on above: Performed By: #### C BC #### [address] [address] Hemoglobin (Bld) [Mass/Vol] 11.9 g/dL Low 12.0 - 16.0 [facility] Comment on above: Performed By: #### C BC #### [address] [address] MCHC (RBC) [Mass/Vol] 32.1 g/dL Normal 32.0 - 36.0 [facility] Comment on above: Performed By: #### C BC #### [address] [address] MCV (RBC) [Entitic vol] 88 fL Normal 80 - 100 [facility] Comment on above: Performed By: #### C BC #### [address] [address] Platelets (Bld) [#/Vol] 454 10*3/uL High 150 - 450 [facility] Comment on above: Performed By: #### C BC #### [address] [address] RBC 4.22 x10E12/L Normal 4.00 - 5.20 [facility] Comment on above: Performed By: #### C BC #### [address] [address] WBC (Bld) [#/Vol] 8.5 10*3/uL Normal 4.4 - 11.3 [facility] Comment on above: Performed By: #### C BC #### [address] [address] COMPREHENSIVE PANELon 2022 Albumin [Mass/Vol] 4.3 g/dL Normal 3.4 - 5.0 [facility] Comment on above: Performed By: #### C MP #### [address] [address] ALP [Catalytic activity/Vol] 53 U/L Normal 33 - 110 [facility] Comment on above: Performed By: #### C MP #### [address] [address] ALT [Catalytic activity/Vol] 23 U/L Normal 7 - 45 [facility] Comment on above: Result Comment: Tonia ents treated with Sulfasalazine may generate falsely decreased results for ALT. Performed By: #### C MP #### [address] [address] Anion gap [Moles/Vol] 13 mmol/L Normal 10 - 20 [facility] Comment on above: Performed By: #### C MP #### [address] [address] AST [Catalytic activity/Vol] 20 U/L Normal 9 - 39 [facility] Comment on above: Performed By: #### C MP #### [address] [address] Bilirubin [Mass/Vol] 0.4 mg/dL Normal 0.0 - 1.2 [facility] Comment on above: Performed By: #### C MP #### [address] [address] Calcium [Mass/Vol] 9.7 mg/dL Normal 8.6 - 10.3 [facility] Comment on above: Performed By: #### C MP #### [address] [address] Chloride [Moles/Vol] 106 mmol/L Normal 98 - 107 [facility] Comment on above: Performed By: #### C MP #### [address] [address] Creatinine [Mass/Vol] 0.72 mg/dL Normal 0.50 - 1.05 [facility] Comment on above: Performed By: #### C MP #### [address] [address] eGFR FEMALE >90 Normal >90 [facility] Comment on above: Result Comment: CALC ULATIONS OF ESTIMATED GFR ARE PERFORMED USING THE 2020 CKD-EPI STUDY REFIT EQUATION WITHOUT THE RACE VARIABLE FOR THE IDMS-TRACEABLE CREATININE METHODS. https://jasn.asnjournals.org/content//ASN.767 5428987 Performed By: #### C MP #### [address] [address] Glucose [Mass/Vol] 99 mg/dL Normal 74 - 99 [facility] Comment on above: Performed By: #### C MP #### [address] [address] HCO3 (Bld) [Moles/Vol] 24 mmol/L Normal 21 - 32 [facility] Comment on above: Performed By: #### C MP #### [address] [address] Potassium [Moles/Vol] 3.7 mmol/L Normal 3.5 - 5.3 [facility] Comment on above: Performed By: #### C MP #### [address] [address] Protein [Mass/Vol] 6.7 g/dL Normal 6.4 - 8.2 [facility] Comment on above: Performed By: #### C MP #### [address] [address] Sodium [Moles/Vol] 139 mmol/L Normal 136 - 145 [facility] Comment on above: Performed By: #### C MP #### [address] [address] Urea nitrogen [Mass/Vol] 9 mg/dL Normal 6 - 23 [facility] Comment on above: Performed By: #### C MP #### [address] [address] CRP, High Sensitivityon 03-0 CRP High sensitivity method [Mass/Vol] 3.5 mg/L Abnormal [facility] Work Phone: Comment on above: hsCRP INTERPRETATION mg/L < 1.0 LOW RELATIVE RISK OF CVD 1.0-3.0 AVERAGE RELATIVE RISK OF CVD > 3.0 HIGH RELATIVE RISK OF CVD Source:ELIZABETH TChris A. et al. CIRCULATION 2003;107:499-511. Laboratory - Chemistry and C hemistry - challengeon 11-30-2022 Albumin BCP dye [Mass/Vol] 4.3 g/dL 3.4 - 5.0 [facility] Work Phone: [phone] ALP [Catalytic activity/Vol] 53 U/L 33 - 110 [facility] Work Phone: [phone] ALT With P-5'-P [Catalytic activity/Vol] 23 U/L 7 - 45 [facility] Work Phone: [phone] Comment on above: Patients treated wit h Sulfasalazine may generate falsely decreased results for ALT. Anion gap [Moles/Vol] 13 mmol/L 10 - 20 [facility] Work Phone: [phone] AST With P-5'-P [Catalytic activity/Vol] 20 U/L 9 - 39 [facility] Work Phone: [phone] Bilirubin [Mass/Vol] 0.4 mg/dL 0.0 - 1.2 [facility] Work Phone: [phone] Calcium [Mass/Vol] 9.7 mg/dL 8.6 - 10.3 [facility] Work Phone: [phone] Chloride [Moles/Vol] 106 mmol/L 98 - 107 [facility] Work Phone: [phone] CO2 [Moles/Vol] 24 mmol/L 21 - 32 [facility] Work Phone: [phone] Creatinine [Mass/Vol] 0.72 mg/dL See Below [facility] Work Phone: [phone] Comment on above: Reference Range: 0.5 0 - 1.05 Glucose [Mass/Vol] 99 mg/dL 74 - 99 [facility] Work Phone: [phone] Potassium [Moles/Vol] 3.7 mmol/L 3.5 - 5.3 [facility] Work Phone: [phone] Protein [Mass/Vol] 6.7 g/dL 6.4 - 8.2 [facility] Work Phone: [phone] Sodium [Moles/Vol] 139 mmol/L 136 - 145 [facility] Work Phone: [phone] TSH Qn 2.32 m[IU]/L See Below [facility] Work Phone: [phone] Comment on above: Reference Range: 0.4 4 - 3.98 TSH testing is performed using different testing methodology at [facility]3] than at other [facility] [place] [facility]. Direct result comparisons should only be made within the same method. Urea nitrogen [Mass/Vol] 9 mg/dL 6 - 23 [facility] Work Phone: [phone] Laboratory - Hematology and Cell countson 11-30-2022 Erythrocyte distribution width (RBC) [Ratio] 13.5 % See Below [facility] Work Phone: [phone] Comment on above: Reference Range: 11. 5 - 14.5 Hematocrit (Bld) [Volume fraction] 37.1 % See Below [facility] Work Phone: [phone] Comment on above: Reference Range: 36. 0 - 46.0 Hemoglobin (Bld) [Mass/Vol] 11.9 g/dL below low threshold See Below [facility] Work Phone: [phone] Comment on above: Reference Range: 12. 0 - 16.0 MCHC (RBC) [Mass/Vol] 32.1 g/dL See Below [facility] Work Phone: [phone] Comment on above: Reference Range: 32. 0 - 36.0 MCV (RBC) [Entitic vol] 88 fL 80 - 100 [facility] Work Phone: [phone] Platelets (Bld) [#/Vol] 454 10*3/uL above la gh threshold 150 - 450 [facility] Work Phone: RBC (Bld) [#/Vol] 4.22 {x10E12/L} See Below [facility] Work Phone: Comment on above: Reference Range: 4.0 0 - 5.20 WBC (Bld) [#/Vol] 8.5 10*3/uL 4.4 - 11.3 [facility] Work Phone: Laboratory - Serology - non- microon 11-30-2022 Centromere protein B Ab Qn (S) <0.2 [facility] Work Phone: Comment on above: REF VALUES < 1.0 = N EGATIVE >=1.0 = POSITIVE Chromatin Ab Qn <0.2 [facility] Work Phone: Comment on above: REF VALUES < 1.0 = N EGATIVE >=1.0 = POSITIVE DNA double strand Ab Qn (S) [IU]/mL [facility] Work Phone: Comment on above: REF VALUESNEGATIVE: <= 4 IU/MLEQUIVOCAL: 5- 9 IU/MLPOSITIVE: >=10 IU/ML Yesi-1 extractable nuclear Ab IA Ql (S) <0.2 [facility] Work Phone: Comment on above: REF VALUES < 1.0 = N EGATIVE >=1.0 = POSITIVE Nuclear Ab Hep2 substrate Ql (S) Positive Abnormal NEGATIVE [facility] Work Phone: Comment on above: The Antinuclear Anti body (SHANTANU) test was performed using indirect immunofluorescence assay with HEp-2 cells slide. Nuclear Ab IF (S) [Titer] 1:320 <1:80 [facility] Work Phone: Nuclear Ab pattern (S) [Interp] HOMOGENEOUS [facility] Work Phone: Ribonucleoprotein extractable nuclear Ab IA Qn (S) <0.2 [facility] Work Phone: Comment on above: REF VALUES < 1.0 = N EGATIVE >=1.0 = POSITIVE Ribosomal P Ab Qn (S) <0.2 [facility] Work Phone: Comment on above: REF VALUES < 1.0 = N EGATIVE >=1.0 = POSITIVE SCL-70 extractable nuclear Ab IA Ql (S) <0.2 [facility] Work Phone: Comment on above: REF VALUES < 1.0 = N EGATIVE >=1.0 = POSITIVE Sjogrens syndrome-A extractable nuclear Ab IA Qn (S) <0.2 [facility] Work Phone: Comment on above: REF VALUES < 1.0 = N EGATIVE >=1.0 = POSITIVE Sjogrens syndrome-B extractable nuclear Ab IA Qn (S) <0.2 [facility] Work Phone: Comment on above: REF VALUES < 1.0 = N EGATIVE >=1.0 = POSITIVE [place] extractable nuclear Ab IA Qn (S) <0.2 [facility] Work Phone: Comment on above: REF VALUES < 1.0 = N EGATIVE >=1.0 = POSITIVE [place] extractable nuclear Ab+Ribonucleoprotein extractable nuclear Ab IA Ql (S) <0.2 [facility] Work Phone: Comment on above: REF VALUES < 1.0 = N EGATIVE >=1.0 = POSITIVE No Panel Informationon 11-30 >90 >90 [facility] Work Phone: Comment on above: CALCULATIONS OF ASHLEY MATED GFR ARE PERFORMED USING THE 2020 CKD-EPI STUDY REFIT EQUATION WITHOUT THE RACE VARIABLE FOR THE IDMS-TRACEABLE CREATININE METHODS.https://jasn.asnjournals.org/content/ /ASN.5183735860 Rheumatoid Factor, Serum or Plasmaon 11-30-2022 Rheumatoid factor Nephelometry Qn (S) <10 0 - 15 [facility] Work Phone: SEDIMENTATION RATE, ERYTHROC YTEon 11-30-2022 SEDIMENTATION RATE, ERYTHROCYTE 3 mm/h Normal 0 - 20 [facility] Comment on above: Performed By: #### E SRWS #### [address] [address] Sedimentation Rate, Erythroc yteon 11-30-2022 ESR (Bld) [Velocity] 3 mm/h 0 - 20 [facility] Work Phone: TSH WITH REFLEX TO FREE T4 I F ABNORMALon 11-30-2022 TSH Qn 2.32 m[IU]/L Normal 0.44 - 3.98 [facility] Comment on above: Result Comment: TSH testing is performed using different testing methodology at [facility]3] than at other [facility] [place] [facility]. Direct result comparisons should only be made within the same method. Performed By: #### T HYDS #### [address] [address] Absolute lymphocyte countOrd ered By: Dr. Leavitt on 11-28-2022 Lymphocytes Auto (Unsp spec) [#/Vol] 2.24 10*3/uL 0.83-4.51 [facility] Basophil percentageOrdered B y: Dr. Leavitt on 11-28-2022 Basophil percentage 0-5 SEEN /hpf 0-5 [facility] Basophils/100 WBC (Bld) 0.8 % 0-1 [facility] Bilirubin [Mass/Vol] 0.40 mg/dL 0.20-1.00 [facility] Comment on above: For patients on eltr ombopag therapy, use of Dimension Jenkins TBIL is not recommended. Chloride [Moles/Vol] 107 mmol/L 98-107 [facility] Eosinophils/100 WBC (Bld) 3.8 % 0-5 [facility] Glucose [Mass/Vol] 92 mg/dL 74-106 [facility] Neutrophils (Bld) [#/Vol] 3.6 10*3/uL 2.0-7.7 [facility] Neutrophils/100 WBC (Bld) 54.6 % 47-70 [facility] Potassium [Moles/Vol] 3.9 mmol/L 3.5-5.1 [facility] Protein [Mass/Vol] 7.5 g/dL 6.4-8.2 [facility] Sodium [Moles/Vol] 139 mmol/L 136-145 [facility] WBC (Bld) [#/Vol] 6.5 10*3/uL 4.4-11.0 [facility] Bilirubin Test strip Ql (U)O rdered By: Dr. Leavitt on 11-28-2022 Bilirubin Ql (U) Negative Negative [facility] Blood erythrocytes count (nu mber/volume)Ordered By: Dr. Leavitt on 11-28-2022 RBC (Bld) [#/Vol] 4.28 10*6/uL 4.2-5.4 [facility] Blood hemoglobin measurement (mass/volume)Ordered By: Dr. Leavitt on 11-28-2022 Hemoglobin (Bld) [Mass/Vol] 11.9 g/dL 12.0-15.0 [facility] Blood lymphocytes/100 leukoc ytesOrdered By: Dr. Leavitt on 11-28-2022 Lymphocytes/100 WBC (Bld) 34.5 % 19-41 [facility] Blood monocytes/100 leukocyt esOrdered By: Dr. Leavitt on 11-28-2022 Monocytes/100 WBC (Bld) 6.0 % 0-10 [facility] Blood platelet mean volumeOr dered By: Dr. Leavitt on 11-28-2022 Platelet mean volume (Bld) [Entitic vol] 10.3 fL 6.2-12.0 [facility] Determination of erythrocyte mean corpuscular volume (MCV)Ordered By: Dr. Leavitt on 11-28-2022 MCV (RBC) [Entitic vol] 87.1 fL 81-99 [facility] HIV 1 and HIV-2 antibody ass ay with HIV-1 p24 antigen detectionOrdered By: Dr. Leavitt on 11-28-2022 HIV 1+2 Ab+HIV1 p24 Ag IA Ql Non-Reactive Nonreactive [facility] Hematocrit Auto (Bld) [Volum e fraction]Ordered By: Dr. Leavitt on 11-28-2022 Hematocrit (Bld) [Volume fraction] 37.3 % 37-47 [facility] Ketones Test strip Ql (U)Ord ered By: Dr. Leavitt on 11-28-2022 Ketones Ql (U) Negative Negative [facility] Laboratory - Chemistry and C hemistry - challengeOrdered By: Dr. Leavitt on 11-28-2022 ALP [Catalytic activity/Vol] 60 U/L 45-117 [facility] ALT [Catalytic activity/Vol] 28 U/L 13-56 [facility] CO2 [Moles/Vol] 26.0 mmol/L 21.0-32.0 [facility] Free T4 [Mass/Vol] 1.11 ng/dL 0.76-1.46 [facility] Globulin (S) [Mass/Vol] 3.4 g/dL 2.2-4.2 [facility] Urea nitrogen/Creatinine [Mass ratio] 10.9 mg/mg 10-20 [facility] Laboratory - Hematology and Cell countsOrdered By: Dr. Leavitt on 11-28-2022 Erythrocyte distribution width (RBC) [Entitic vol] 42.2 fL 35.1-43.9 [facility] Erythrocyte distribution width (RBC) [Ratio] 13.3 % 11.6-14.6 [facility] Immature granulocytes/100 WBC (Bld) 0.300 % 0.0-0.9 [facility] Comment on above: IG% - Immature Granu locytes (promyelocytes, myelocytes and metamyelocytes) > 1% indicates that a LEFT SHIFT is Present. MCH (RBC) [Entitic mass] 27.8 pg 27.0-32.0 [facility] [facility] Nucleated RBC/100 WBC (Bld) [Ratio] 0 % 0-5 [facility] MCHC Auto (RBC) [Mass/Vol]Or dered By: Dr. Leavitt on 11-28-2022 MCHC (RBC) [Mass/Vol] 31.9 g/dL 32-36 [facility] Mucus LM Ql (Urine sed)Order ed By: Dr. Leavitt on 11-28-2022 Mucus Ql (Urine sed) 0 SEEN /hpf [facility] Nitrite Test strip Ql (U)Ord ered By: Dr. Leavitt on 11-28-2022 Nitrite Ql (U) Negative Negative [facility] No Panel InformationOrdered By: Dr. Leavitt on 11-28-2022 Estimated GFR (MDRD) Amer 121 mL/min >60 [facility] Comment on above: GFR Calc Estimated GFR (MDRD) Non-Af Amer 100 mL/min >60 [facility] Comment on above: Non- GFR Calc Thyroid Stimulating Hormone (TSH) 1.78 uIU/mL 0.358-3.74 [facility] Platelets bldOrdered By: Dr. Leavitt on 11-28-2022 Platelets (Bld) [#/Vol] 445 10*3/uL 150-450 [facility] Protein Test strip Ql (U)Ord ered By: Dr. Leavitt on 11-28-2022 Protein Ql (U) Negative Negative [facility] Serum or plasma C reactive p rotein measurement (mass/volume)Ordered By: Dr. Leavitt on 11-28-2022 CRP [Mass/Vol] 3.78 mg/L 0.0-3.0 [facility] Comment on above: C-Reactive Protein ( CRP) provides useful information for thediagnosis, therapy and monitoring of inflammatory processesand associated diseases. For the evaluation of Relative Riskfor Cardiovascular Disease, a High Sensitivity CRP (HSCRP)should be ordered. Serum or plasma albumin estrellita urement (mass/volume)Ordered By: Dr. Leavitt on 11-28-2022 Albumin [Mass/Vol] 4.1 g/dL 3.2-5.0 [facility] Serum or plasma albumin/glob ulin mass ratioOrdered By: Dr. Leavitt on 11-28-2022 Albumin/Globulin [Mass ratio] 1.2 {ratio} 0.9-2.4 [facility] Serum or plasma calcium estrellita urement (mass/volume)Ordered By: Dr. Leavitt on 11-28-2022 Calcium [Mass/Vol] 9.3 mg/dL 8.5-10.1 [facility] Serum or plasma creatinine m easurement (mass/volume)Ordered By: Dr. Leavitt on 11-28-2022 Creatinine [Mass/Vol] 0.74 mg/dL 0.55-1.02 [facility] Comment on above: The validity of the calculated GFR & GFRAA in patients over 70 years has not been determined. Clinical correlation is essential. Serum or plasma urea nitroge n measurement (mass/volume)Ordered By: Dr. Leavitt on 11-28-2022 Urea nitrogen [Mass/Vol] 8 mg/dL 7-18 [facility] Squamous epithelial cells de tection in urine sediment by light microscopyOrdered By: Dr. Leavitt on 11-28-2022 Epithelial cells.squamous LM Ql (Urine sed) 0-5 SEEN /hpf 5-10 [facility] Thin prep Papanicolaou smear with manual screeningOrdered By: Dr. Leavitt on 11-28-2022 Thin prep Papanicolaou smear with manual screening 18 U/L 15-37 [facility] Thin prep Papanicolaou smear with manual screening 6 5-15 [facility] Urine blood detectionOrdered By: Dr. Leavitt on 11-28-2022 RBC Ql (U) Negative Negative [facility] RBC Ql (U) 0 SEEN /hpf 0-5 [facility] Urine clarityOrdered By: Dr. Leavitt on 11-28-2022 Clarity (U) Sl. Cloudy Clear [facility] Urine color determinationOrd ered By: Dr. Leavitt on 11-28-2022 Color (U) Yellow Yellow [facility] Urine glucose detectionOrder ed By: Dr. Leavitt on 11-28-2022 Glucose Ql (U) Normal mg/dl Normal [facility] Urine leukocyte esterase det ection by dipstickOrdered By: Dr. Leavitt on 11-28-2022 Leukocyte esterase Test strip Ql (U) 25 /ul Negative [facility] Urine pHOrdered By: Dr. Guero webber on 11-28-2022 pH (U) 6.5 [pH] 5.0 - 8.0 [facility] Urine sediment bacteria coun t by microscopy (number/high power field)Ordered By: Dr. Leavitt on 11-28-2022 Bacteria LM.HPF (Urine sed) [#/Area] 1 /[HPF] None Seen [facility] Urine specific gravity measu rementOrdered By: Dr. Leavitt on 11-28-2022 Specific gravity (U) [Rel density] 1.010 1.002-1.030 [facility] Urobilinogen Auto test strip Ql (U)Ordered By: Dr. Leavitt on 11-28-2022 Urobilinogen Ql (U) Normal mg/dl Normal [facility] BILATERAL HAND MIN 3 VIEWSon 11-13-2022 BILATERAL HAND MIN 3 VIEWS Patient Name: MICHELLE BETH STUDY: BILATERAL HAND; MIN 3 VIEWS; ; 11/13/2022 9:32 am INDICATION: polyarthragia M25.50: Polyarthralgia. COMPARISON: None. ACCESSION NUMBER(S): [id number] ORDERING CLINICIAN: BARNEY BORJAS FINDINGS: BILATERAL HANDS-AP, LATERAL AND OBLIQUE VIEWS The bone density is normal. No soft tissue swelling or calcification on either side. The radiocarpal, intercarpal, carpometacarpal, MCP, PIP and DIP joint spaces are maintained. No erosions at any of the joints. No periosteal reaction. IMPRESSION: Normal examination. Electronically signed by: TARAN MACKEY MD [facility] BILATERAL KNEE 3 VIEWSon BILATERAL KNEE 3 VIEWS Patient Name: MICHELLE BETH STUDY: BILATERAL KNEE; 3 VIEWS; ; 11/13/2022 9:32 am INDICATION: polyarthragia M25.50: Polyarthralgia. COMPARISON: None. ACCESSION NUMBER(S): [id number] ORDERING CLINICIAN: BARNEY BORJAS FINDINGS: BILATERAL KNEES-EXTERNAL AND INTERNAL OBLIQUE AND LATERAL VIEWS The tibiofemoral and patellofemoral joint spaces are preserved bilaterally. No osteophytes are seen. There is no joint effusion on either side. No soft tissue calcification. No erosions. The bone density is normal. No soft tissue swelling around either knee. IMPRESSION: No acute disease. Electronically signed by: TARAN MACKEY MD [facility] Radiologyon 11-13-2022 XR Hand - bilateral 3 Views Normal [facility] Work Phone: XR Knee - bilateral 3 Views Normal [facility] Work Phone: Tobacco Screening.on 023 Adult depression screening assessment No [facility] Work Phone: Fall risk assessment a) No falls within the last year [facility] Work Phone: Tobacco use status CP b) No M [facility] Work Phone: CNPNon 11-09-2022 CNPN Telephone (INTMWS) MICHELLE BETH ([id number]) 1995 F Date Time Provider Department 11/09/22 ROLAND RODRIGUEZ INTMary KayWS During your visit today, we recorded the following information about you: Roland Rodriguez MD 11/09/2022 2:25 PM Signed Michelle, Are you taking yorur vit d with food? Because your vit d numbers are lower than before. Can you bring your vit d bottles so I can see what they look like? Regards, Roland Bassett Ma 11/09/2022 3:05 PM Signed Left message for return call. Karlee Birmingham RN 11/09/2022 3:27 PM Signed Patient returns call and reports that she is taking Vitamin D supplement daily with food. Patient will bring Vitamin D bottle to appointment on 11/23/2022. NICKIE Hoff APRN.PRISCILLA 11/09/2022 3:28 PM Signed Noted. Will be reviewed at upcoming appointment. 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 Allergies As of Date: 11/09/2022 Noted Allergy Reaction AMOXICILLIN-POT CLAVULANATE 05/30/2005 4 - Hives Comments: Hives AMOXICILLIN 02/20/2019 4 - Hives FLONASE (FLUTICASONE PROPIONATE) 11/02/2011 2 - Rash Comments: rash, bloody noses LAMICTAL (LAMOTRIGINE) 07/06/2019 2 - Rash medical tape [Other] 04/16/2008 2 - Rash SINGULAIR (MONTELUKAST SODIUM) 05/03/2007 4 - Hives Comments: Headaches ADHESIVE TAPE-SILICONES 02/20/2019 2 - Rash Date Reviewed: 11/07/2022 Reviewed by: Carlos Pantoja MA - Fully Assessed Reason for Visit: Results [95] Prescriptions as of 11/09/2022 - traZODone (DESYREL) 50 mg tablet Take 1 tablet by mouth at bedtime as needed. - ondansetron (ZOFRAN) 4 mg tablet Take 1 tablet by mouth every 8 hours as needed for nausea/vomiting. - ergocalciferol 50,000 unit capsule (VITAMIN D2, DRISDOL) Take 1 capsule by mouth two times a week. TO BE TAKEN ORALLY DIRECTED. Take 1 tablet by mouth twice weekly [id number], then decrease to 1 tablet weekly. - topiramate (TOPAMAX) 25 mg tablet Take 1 tablet by mouth daily at bedtime. For a couple weeks and then increase to 1 pill 2 times a day - rizatriptan (MAXALT-MANAGER HELPDESK) 10 mg disintegrating tablet Take 1 tablet by mouth as needed. May repeat in 2 hours if needed. Problem List As Of Date 11/09/2022 Noted Resolved Congenital pes planus [Q66.50] 07/22/2006 08/12/2012 Equinus deformity of foot, acquired [M21.6X9] 07/23/2006 08/12/2012 Tenosynovitis of foot and ankle [M65.9] 10/29/2006 08/12/2012 Sprain of ankle, unspecified site [S93.409A] 05/03/2007 08/12/2012 Headache [R51] 10/24/2007 08/12/2012 Migraine, unspecified, without mention of intra*11/14/2007 08/12/2012 Sleep disturbance [G47.9] 06/30/2011 08/12/2012 Asthma, exercise induced [J45.990] 12/14/2011 03/19/2013 Concussion [S06.0XAA] 12/14/2011 08/12/2012 Weight loss [R63.4] 12/14/2011 08/12/2012 Left knee injury [S89.92XA] 2012 08/12/2012 Dysmenorrhea [N94.6] 04/30/2012 08/12/2012 Teen [[id number]] 07/30/2012 03/19/2013 Back pain in [O99.891, M54.9] 07/30/2012 03/19/2013 with uncertain dates [Z34.90] 07/30/2012 08/28/2012 Patient requested diagnostic testing [Z01.89] 07/30/2012 03/19/2013 IUGR (intrauterine growth restriction) [KUN1739]12/30/2012 03/19/2013 High-risk supervision [O09.90] 12/30/2012 03/19/2013 Sore throat [J02.9] 08/04/2013 03/19/2015 Headache [R51] 09/19/2013 03/19/2015 Supervision of normal [Z34.90] 03/19/2015 Recurrent UTI (urinary tract infection) complic*05/17/2015 Generalized anxiety disorder [F41.1] 06/11/2019 Depressive disorder [F32.A] 06/11/2019 Encounter Status:Closed by SALMA NOEL on 11/09/22 Normal [facility] 25([place])[facility] 25-hydroxyvitamin D3 [Mass/Vol] 9.5 ng/mL Low 31.0-80.0 [facility] Comment on above: Order Comment: Speci men Type: BLOOD SPECIMEN Ordering Facility: [facility] Address: [address] [place] [address] Result Comment: Clas sification of 25 [place] Vitamin D status: Deficiency/Insufficiency: < or = 30 ng/ml. Sufficiency/Optimal Levels: 31-80 ng/mL Toxicity: > 100 ng/mL. Test performed by chemiluminescent immunoassay. Performed By: #### 4 537-7 #### [facility] CLIA [id number] [address] [facility] [place] [address] [place] BETA 2 GLYCOPROTEIN, IGGon 0 11-07-2022 Beta 2 glycoprotein 1 IgG IA Qn <9 Normal <20 [facility] Comment on above: Order Comment: Speci men Type: BLOOD SPECIMENOrdering Facility: [facility] Address: [address] [place] [address] Result Comment: <20 SGU Negative 20-80 SGU Low Positive >80 SGU High Positive These results were obtained with the Inova QUANTA Lite B2 GPI IgG OKSANA. B2 GPI IgG values obtained with different manufacturers' assay methods may not be used interchangeably. The magnitude of the reported IgG levels cannot be correlated to an endpoint titer. Performed By: #### 5 076-5, CARDIG, CARDIM, BETA2G, BETA2M ####[facility] [id number] [address] [place] BETA 2 GLYCOPROTEIN, IGMon 0 11-07-2022 Beta 2 glycoprotein 1 IgM IA Qn <9 Normal <20 [facility] Comment on above: Order Comment: Speci men Type: BLOOD SPECIMENOrdering Facility: [facility] Address: [address] [place] [address] Result Comment: <20 SMU Negative 20-80 SMU Low Positive >80 [facility]U High positive These results were obtained with the Inova QUANTA Lite B2 GPI IgM OKSANA. B2 GPI IgM values obtained with different manufacturers' assay methods may not be used interchangeably. The magnitude of the reported IgM levels cannot be correlated to an endpoint titer. Performed By: #### 5 076-5, CARDIG, CARDIM, BETA2G, BETA2M ####[facility] [id number] [address] OF [facility] BLOOD TB SCREENon 11-07-2022 M. tuberculosis tuberculin stim IFN-g Ql (Bld) Negative Normal [facility] Comment on above: Order Comment: Speci men Type: BLOOD SPECIMEN Ordering Facility: [facility] Address: [address] [address] Performed By: #### 4 537-7 #### [facility] CLIA [id number] [address] [place] MITOGEN MINUS NIL >10.00 Normal >=0.50 [facility] Comment on above: Order Comment: Speci men Type: BLOOD SPECIMEN Ordering Facility: [facility] Address: [address] Performed By: #### 4 537-7 #### [facility] CLIA [id number] [address] [place] [address] [place] TB GAMMA INTERPRETATION Infection with M . tuberculosis complex is unlikely. If latent tuberculosis infection is highly suspected, a negative result does not rule out the infection. Specimens from immunocompromised patients and those <5 years of age may show false negative results. In case of a contact investigation, please repeat 8-12 weeks after a known exposure. Normal [facility] Comment on above: Order Comment: Speci men Type: BLOOD SPECIMEN Ordering Facility: [facility] Address: [address] [place] [address] Performed By: #### 4 537-7 #### [facility] CLIA [id number] [address] [place] [address] [place] TB NIL <0.00 Normal <=8.00 [facility] Comment on above: Order Comment: Speci men Type: BLOOD SPECIMEN Ordering Facility: [facility] Address: [address] [place] [address] Performed By: #### 4 537-7 #### [facility] CLIA [id number] [facility] [place] TB1 AG MINUS NIL 0.00 IU/mL Normal <0.35 [facility] Comment on above: Order Comment: Speci men Type: BLOOD SPECIMEN Ordering Facility: [facility] Address: [address] Performed By: #### 4 537-7 #### [facility] CLIA [id number] [address] [place] [address] [place] TB2 AG MINUS NIL 0.01 IU/mL Normal <0.35 [facility] Comment on above: Order Comment: Speci men Type: BLOOD SPECIMEN Ordering Facility: [facility] Address: [address] [place], [place] [address] Performed By: #### 4 537-7 #### [facility] CLIA [id number] [address] [place] [address] [place] Bilirub Conj SerPl-mCncon Bilirubin.conjugated [Mass/Vol] mg/dL Normal <0.2 [facility] Comment on above: Order Comment: Speci men Type: BLOOD SPECIMENOrdering Facility: [facility] Address: [address] [place] [address] Performed By: #### 4 485-9, 4498-2, 90248-8, 80236-6 ####[facility] [id number] [address] [place] C3 SerPl-mCncon 11-07-2022 Complement C3 [Mass/Vol] 149 mg/dL Normal 86-166 [facility] Comment on above: Order Comment: Speci men Type: BLOOD SPECIMENOrdering Facility: [facility] Address: [address] [place] [address] Performed By: #### 4 485-9, 4498-2, 55588-6, 52835-5 ####[facility] [id number] [address] [place] C4 SerPl-mCncon 11-07-2022 Complement C4 [Mass/Vol] 37 mg/dL Normal 13-46 [facility] Comment on above: Order Comment: Speci men Type: BLOOD SPECIMENOrdering Facility: [facility] Address: [address] [place], [place] [address] Performed By: #### 4 485-9, 4498-2, 01530-8, 38656-0 ####[facility] [id number] [place] [address] [place] CARDIOLIPIN IGG ABSon 2022 Cardiolipin IgG IA Qn (S) <9.0 Normal <15.0 [facility] Comment on above: Order Comment: Philippe hinds Type: BLOOD SPECIMEN Ordering Facility: [facility] Address: [address] [place] [address] Result Comment: <15 GPL Negative 15-20 GPL Indeterminate >20 GPL Positive The following results were obtained with the Inova QUANTA Lite LINDSAY IgG III OKSANA. Cardiolipin IgG values obtained with the different manufacturers' assay methods may not be used interchangeably. The magnitude of the reported IgG levels cannot be correlated to an endpoint titer. Performed By: #### 4 537-7 #### [facility] CLIA [id number] [facility] [address] [place] CARDIOLIPIN IGM ABSon 2022 Cardiolipin IgM IA Qn (S) 11.5 MPL Normal <12.5 [facility] Comment on above: Order Comment: Philippe [facility] Type: BLOOD SPECIMENOrdering Facility: [facility] Address: [address] [place] [address] Result Comment: <12. 5 MPL Negative 12.5-20 MPL Indeterminate >20 MPL Positive The following results were obtained with the Inova QUANTA Lite LINDSAY IgM III OKSANA. Cardiolipin IgM values obtained with the different manufacturers' assay methods may not be used interchangeably. The magnitude of the reported IgM levels cannot be correlated to an endpoint titer. ??? Performed By: #### 5 076-5, CARDIG, CARDIM, BETA2G, BETA2M ####[facility] [id number] [place] [address] [place] CBC W Auto Differential pane l (Bld)on 11-07-2022 Basophils (Bld) [#/Vol] 0.04 10*3/uL Normal <0.11 [facility] Comment on above: Order Comment: Philippe [facility] Type: BLOOD SPECIMEN Ordering Facility: [facility] Address: [address] [place] [address] Performed By: #### 2 157-6, 2276-4 #### [facility] CLIA [id number] [address] [place] [address] [place] Basophils/100 WBC (Bld) 0.5 % Normal [facility] Comment on above: Order Comment: Speci men Type: BLOOD SPECIMEN Ordering Facility: [facility] Address: [address] [place] [address] Performed By: #### 2 157-6, 2275-12 #### [facility] CLIA [id number] [address] [place] [address] [place] Differential cell count method Nom (Bld) Auto Normal [facility] Comment on above: Order Comment: Speci men Type: BLOOD SPECIMEN Ordering Facility: [facility] Address: [address] [place], [place] [address] Performed By: #### 2 157-6, 2275-12 #### [facility] CLIA [id number] [address] [place] [address] [place] Eosinophils (Bld) [#/Vol] 0.19 10*3/uL Normal <0.46 [facility] Comment on above: Order Comment: Speci men Type: BLOOD SPECIMEN Ordering Facility: [facility] Address: [address] [place], [place] [address] Performed By: #### 2 157-6, 2275-12 #### [facility] CLIA [id number] [address] [place] [address] [place] Eosinophils/100 WBC (Bld) 2.4 % Normal [facility] Comment on above: Order Comment: Speci men Type: BLOOD SPECIMEN Ordering Facility: [facility] Address: [address] [place], [place] [address] Performed By: #### 2 157-6, 2275-12 #### [facility] CLIA [id number] [address] [place] [address] [place] Erythrocyte distribution width (RBC) [Ratio] 13.5 % Normal 11.5-15.0 [facility] Comment on above: Order Comment: Speci men Type: BLOOD SPECIMEN Ordering Facility: [facility] Address: [address] Performed By: #### 2 157-6, 2275-4 #### [facility] CLIA [id number] [address] [place] [address] [place] Hematocrit (Bld) [Volume fraction] 37.7 % Normal 36.0-46.0 [facility] Comment on above: Order Comment: Speci men Type: BLOOD SPECIMEN Ordering Facility: [facility] Address: [address] Performed By: #### 2 157-6, 2275-4 #### [facility] CLIA [id number] [address] [place] [address] [place] Hemoglobin (Bld) [Mass/Vol] 12.7 g/dL Normal 11.5-15.5 [facility] Comment on above: Order Comment: Speci men Type: BLOOD SPECIMEN Ordering Facility: [facility] Address: [address] [place], [place] [address] Performed By: #### 2 157-6, 2275-12 #### [facility] CLIA [id number] [address] [place] [address] [place] Immature granulocytes (Bld) [#/Vol] 10*3/uL Normal <0.10 [facility] Comment on above: Order Comment: Speci men Type: BLOOD SPECIMEN Ordering Facility: [facility] Address: [address] Performed By: #### 2 157-6, 2275-4 #### [facility] CLIA [id number] [address] [place] [address] [place] Immature granulocytes/100 WBC (Bld) 0.3 % Normal [facility] Comment on above: Order Comment: Speci men Type: BLOOD SPECIMEN Ordering Facility: [facility] Address: [address] [place], [place] [address] Performed By: #### 2 157-6, 2275- #### [facility] CLIA [id number] [address] [place] [address] [place] Lymphocytes (Bld) [#/Vol] 1.88 10*3/uL Normal 1.00-4.00 [facility] Comment on above: Order Comment: Speci men Type: BLOOD SPECIMEN Ordering Facility: [facility] Address: [address] [place] [address] Performed By: #### 2 157-6, 2275-12 #### [facility] CLIA [id number] [address] [place] [address] [place] Lymphocytes/100 WBC (Bld) 23.8 % Normal [facility] Comment on above: Order Comment: Speci men Type: BLOOD SPECIMEN Ordering Facility: [facility] Address: [address] [place] [address] Performed By: #### 2 157-6, 2275-12 #### [facility] CLIA [id number] [address] [place] [address] [place] MCH (RBC) [Entitic mass] 28.3 pg Normal 26.0-34.0 [facility] Comment on above: Order Comment: Speci men Type: BLOOD SPECIMEN Ordering Facility: [facility] Address: [address] [place], [place] [address] Performed By: #### 2 157-6, 2275-12 #### [facility] CLIA [id number] [address] [place] [address] [place] MCHC (RBC) [Mass/Vol] 33.7 g/dL Normal 30.5-36.0 [facility] Comment on above: Order Comment: Speci men Type: BLOOD SPECIMEN Ordering Facility: [facility] Address: [address] [place] [address] Performed By: #### 2 157-6, 2275-4 #### [facility] CLIA [id number] [address] [place] [address] [place] MCV (RBC) [Entitic vol] 84.2 fL Normal 80.0-100.0 [facility] Comment on above: Order Comment: Speci men Type: BLOOD SPECIMEN Ordering Facility: [facility] Address: [address] [place] [address] Performed By: #### 2 157-6, 2275-4 #### [facility] CLIA [id number] [address] [place] [address] [place] Monocytes (Bld) [#/Vol] 0.32 10*3/uL Normal <0.87 [facility] Comment on above: Order Comment: Speci men Type: BLOOD SPECIMEN Ordering Facility: [facility] Address: [address] [place] [address] Performed By: #### 2 157-6, 2275-12 #### [facility] CLIA [id number] [address] [place] [address] [place] Monocytes/100 WBC (Bld) 4.1 % Normal [facility] Comment on above: Order Comment: Speci men Type: BLOOD SPECIMEN Ordering Facility: [facility] Address: [address] [place] [address] Performed By: #### 2 157-6, 2275-4 #### [facility] CLIA [id number] [address] [place] [address] [place] Neutrophils (Bld) [#/Vol] 5.45 10*3/uL Normal 1.45-7.50 [facility] Comment on above: Order Comment: Speci men Type: BLOOD SPECIMEN Ordering Facility: [facility] Address: [address] [place], [place] [address] Performed By: #### 2 157-6, 2275- #### [facility] CLIA [id number] [address] [place] [address] [place] Neutrophils/100 WBC (Bld) 68.9 % Normal [facility] Comment on above: Order Comment: Speci men Type: BLOOD SPECIMEN Ordering Facility: [facility] Address: [address] [place], [place] [address] Performed By: #### 2 157-6, 2275- #### [facility] CLIA [id number] [address] [place] [address] [place] Nucleated RBC (Bld) [#/Vol] 10*3/uL Normal <0.01 [facility] Comment on above: Order Comment: Speci men Type: BLOOD SPECIMEN Ordering Facility: [facility] Address: [address] [place], [place] [address] Performed By: #### 2 157-6, 2275-12 #### [facility] CLIA [id number] [address] [place] [address] [place] Nucleated RBC/100 WBC (Bld) [Ratio] 0.0 /100 WBC Normal [facility] Comment on above: Order Comment: Speci men Type: BLOOD SPECIMEN Ordering Facility: [facility] Address: [address] [place], [place] [address] Performed By: #### 2 157-6, 2275-12 #### [facility] CLIA [id number] [address] [place] [address] [place] Platelet mean volume (Bld) [Entitic vol] 11.1 fL Normal 9.0-12.7 [facility] Comment on above: Order Comment: Speci men Type: BLOOD SPECIMEN Ordering Facility: [facility] Address: [address] [place] [address] Performed By: #### 2 157-6, 2275-12 #### [facility] CLIA [id number] [address] [place] [address] [place] Platelets (Bld) [#/Vol] 415 10*3/uL High 150-400 [facility] Comment on above: Order Comment: Speci men Type: BLOOD SPECIMEN Ordering Facility: [facility] Address: [address] [place] [address] Performed By: #### 2 157-6, 6-4 #### [facility] CLIA [id number] [address] [place] [address] [place] RBC (Bld) [#/Vol] 4.48 10*6/uL Normal 3.90-5.20 [facility] Comment on above: Order Comment: Speci men Type: BLOOD SPECIMEN Ordering Facility: [facility] Address: [address] [place] [address] Performed By: #### 2 157-6, 2275-4 #### [facility] CLIA [id number] [address] [place] [address] [place] WBC (Bld) [#/Vol] 7.90 10*3/uL Normal 3.70-11.00 [facility] Comment on above: Order Comment: Speci men Type: BLOOD SPECIMEN Ordering Facility: [facility] Address: [address] [place] [address] Performed By: #### 2 157-6, 2275-4 #### [facility] CLIA [id number] [address] [place] [address] [place] Basophils (Bld) [#/Vol] 0.04 10*3/uL <0.11 k/uL [facility] Basophils/100 WBC (Bld) 0.5 % [facility] Differential cell count method Nom (Bld) Auto [facility] Eosinophils (Bld) [#/Vol] 0.19 10*3/uL <0.46 k/uL [facility] Eosinophils/100 WBC (Bld) 2.4 % [facility] Erythrocyte distribution width (RBC) [Ratio] 13.5 % 11.5 - 15.0 % [facility] Hematocrit (Bld) [Volume fraction] 37.7 % 36.0 - 46.0 % [facility] Hemoglobin (Bld) [Mass/Vol] 12.7 g/dL 11.5 - 15.5 g/dL [facility] Immature granulocytes (Bld) [#/Vol] <0.10 k/uL [facility] Immature granulocytes/100 WBC (Bld) 0.3 % [facility] Lymphocytes (Bld) [#/Vol] 1.88 10*3/uL 1.00 - 4.00 k/uL [facility] Lymphocytes/100 WBC (Bld) 23.8 % [facility] MCH (RBC) [Entitic mass] 28.3 pg 26. 0 - 34.0 pg [facility] MCHC (RBC) [Mass/Vol] 33.7 g/dL 30.5 - 36.0 g/dL [facility] MCV (RBC) [Entitic vol] 84.2 fL 80.0 - 100.0 fL [facility] Monocytes (Bld) [#/Vol] 0.32 10*3/uL <0.87 k/uL [facility] Monocytes/100 WBC (Bld) 4.1 % [facility] Neutrophils (Bld) [#/Vol] 5.45 10*3/uL 1.45 - 7.50 k/uL [facility] Neutrophils/100 WBC (Bld) 68.9 % [facility] Nucleated RBC (Bld) [#/Vol] <0.01 k/uL [facility] Nucleated RBC/100 WBC (Bld) [Ratio] 0.0 /100 WBC [facility] Platelet mean volume (Bld) [Entitic vol] 11.1 fL 9.0 - 12.7 fL [facility] Platelets (Bld) [#/Vol] 415 10*3/uL High 150 - 400 k/uL [facility] RBC (Bld) [#/Vol] 4.48 10*6/uL 3.90 - 5.2 0 m/uL [facility] WBC (Bld) [#/Vol] 7.90 10*3/uL 3.70 - 11. 00 k/uL [facility] CELIAC SCREENon 11-07-2022 GLIAD DEAMIDATED IGA QUAL Negative Normal Negative, Test not Indicated [facility] Comment on above: Order Comment: Speci men Type: BLOOD SPECIMEN Ordering Facility: [facility] Address: [address] [place] [id number] Result Comment: This is used as an aid in diagnosis of celiac disease. Clinical correlation is required. The following results were obtained with an Inova QUANTA Lite Gliadin IgA OKSANA Gliadin. Gliadin IgA values obtained with different manufacturers' assay methods may not be used interchangeably. The magnitude of the reported IgA levels cannot be correlated to an endpoint titer. Performed By: #### 4 537-7 #### [facility] CLIA [id number] [address] [place] Gliadin peptide IgA Qn (S) 2 Units Normal <20 [facility] Comment on above: Order Comment: Speci men Type: BLOOD SPECIMEN Ordering Facility: [facility] Address: [address] [place] [address] Performed By: #### 4 537-7 #### [facility] CLIA [id number] [address] [place] [address] [place] INTERPRETATION No serological evidence of celiac disease, however, if celiac disease is clinically suspected and patient is not on gluten-free diet, histological diagnosis may be considered. HLA testing may help with risk assessment. Normal [facility] Comment on above: Order Comment: Speci [facility] Type: BLOOD SPECIMEN Ordering Facility: [facility] Address: [address] [place] [address] Performed By: #### 4 537-7 #### [facility] CLIA [id number] [address] [place] [address] TRANSGLUTAMINASE IGA QUAL Negative Normal Negative, Test not Indicated [facility] Comment on above: Order Comment: Speci men Type: BLOOD SPECIMEN Ordering Facility: [facility] Address: [address] [place] [address] Result Comment: The following results were obtained with the Inova QAUNTA Lite h-tTG IgA OKSANA. h-tTG IgA values obtained with different manufacturers' assay methods may not be used interchangeable. The magnitude of the reported IgA levels cannot be correlated to an endpoint titer. This is used as an aid in diagnosis of celiac disease. Clinical correlation is required. Performed By: #### 4 537-7 #### [facility] CLIA [id number] [address] [place] [address] [place] tTG IgA Qn (S) 4 Units Normal <20 [facility] Comment on above: Order Comment: Speci men Type: BLOOD SPECIMEN Ordering Facility: [facility] Address: [address] [place] [address] Performed By: #### 4 537-7 #### [facility] CLIA [id number] [address] [place] [address] [place] CK SerPl-cCncon 11-07-2022 CK [Catalytic activity/Vol] 77 U/L Normal 42-196 [facility] Comment on above: Order Comment: Speci men Type: BLOOD SPECIMEN Ordering Facility: [facility] Address: [address] [place] [address] Performed By: #### 2 157-6, 2276-4 #### [facility] CLIA [id number] [address] [place] [address] [place] CNOVon 11-07-2022 CNOV Office Visit (RHEUMN ) MICHELLE BETH ([id number]) 1995 F Date Time Provider Department 11/07/22 2:30 PM KATHLEEN BRUSH RHEUMRhonda During your visit today, we recorded the following information about you: Temperature Pulse Blood pressure Weight 98.8 degrees 84/minute 138/75 75.6 kg Height 1.6 m Kathleen Brush DO 11/07/2022 3:46 PM Signed Rheumatology CONSULTATION Date of Service: 11/07/2022 Patient: Michelle Mary Kay Beth Medical Record: [id number] Primary Care Physician: Roland Rodriguez MD Last Rheumatology visit: None at [facility] No referring provider defined for this encounter: Roland Rodriguez MD Internal Medicine [address] [facility] [address] Sexual Orientation: Bisexual Gender Identity: Female Sex Assigned at : Female Reason for visit: positive SHANTANU, arthralgia My final recommendations will be communicated back to the requesting provider by way of shared Medical record or letter to requesting physician via US mail. History of Present Illness Michelle Beth is a 27 year old White female with PMHx of vitamin D deficiency (vitamin D level 13.5 on 10/12/2022), overweight, MDD, JULIO, and migraine, who presents on 11/07/2022 for an in-person visit for evaluation of positive SHANTANU, arthralgia AND joint stiffness, malar rash (not sparing nasolabial fold), hair loss, No chief complaint on file.. Michelle reports a current pain level of 6 . The pain is Continuous . Michelle is both RF - 9 (09/09/2021) and CCP - 13.5 (09/09/2021) negative. Her most recent SHANTANU was positive, 1:640 in nuclear dense fine speckled pattern and normal ESR (10/12/2022). CBC and CMP (07/25/2022) were both normal. JUNG from 09/09/2021 was negative. Patient says symptoms started with extreme bruising and fatigue. Patient was told she is okay by her PCP. She has felt awful for some time. She has brain fog, fatigue. Patient has has symptoms for the past year. Patient was told initially that she had a malar rash and then was told it might be rosacea. Patient has not had any steroids. She says the skin on her face is warmer than her regular temperature and sometimes is swollen. She has been experiencing temperatures up to 99.8 F at night. Patient knows she has depression, but she feels something else is going on. SHNATANU ROS: Endorses low-grade fevers Denies lymphadenopathy Endorses occasional oral ulcers; denies nasal ulcers Endorses dry eye (wears contacts); endorses mild dry mouth. Endorses cavities - went to the dentist two months ago and had two cavities; brushes twice per day and flosses Endorses photosensitive rashes Endorses heat and sun intolerance Denies gross hematuria Endorses frothy urine Endorses swelling in the fingers (hard to put rings on), knees, hips, wrists. Joint pain does not get better with activity. Has not taken prednisone. Has taken ibuprofen and Tylenol without much relief. No cytopenias; last CBC checked 08/2021. Denies pleural or pericardial disease. Endorses some pain with a deep breath two weeks ago, missed 3 days of work. Got better on it's own. Used an inhaler. Denies history of VTE Denies stroke or seizure Endorses hair thinning AM stiffness: 2 hours Facial rash gets worse with stress. Pain Evaluation Pain Evaluation 04/05/2020 11/11/2020 07/10/2022 10/12/2022 11/07/2022 Pain Score 6 7 9 6 6 Location Back-Lower Other: See Comment Ankle-Right Head (No Data) Location Comment - - - - Over all joint pain Description Sharp Throbbing Shooting;Radiating Aching - Duration (#) 2 - 2 3 - Duration (Timeframe) Days - Days Months - Frequency Continuous Intermittent Continuous Intermittent Continuous Intervention Medication Medication Cold Medication - Patient-Entered Data RAPID 3: DISEASE ACTIVITY: Over the last week, were you able to: 10/31/2022 Dress yourself With SOME difficulty In/out of bed Without ANY difficulty Lift cup Without ANY difficulty Walk outdoors Without ANY difficulty Wash and dry body Without ANY difficulty Pick clothing from floor With SOME difficulty Turn faucets on and off Without ANY difficulty Get in and out of car With SOME difficulty Walk 2 to 3 km With SOME difficulty Recreational activities UNABLE to do Good night's sleep With MUCH difficulty Deal with anxiety Without ANY difficulty Deal with depression Without ANY difficulty Past Week Pain level 7.5 How Doing Overall 6 Functional Status Score 2.33 Pain Level Score 7.5 PTGE Subscore 6 Weighed Score 5.28 (High Severity (HS)) Weighed Score % Change Incomplete% Weighed Score Levels: 0 - 1: Near Remission 1.3 - 2.0: Low Severity 2.3 - 4.0: Moderate Severity 4.3 - 10.0: High Severity RAPID-3 Weighed Score 10/31/2022 RAPID 3 Weighed Score 5.28 (High Severity (HS)) Review of Systems ROS are negative except if bolded below: Constitutional: +subjective fevers, +chills, -swea (more content not included)... Normal [facility] Cardiolipin IgA Ser IA-aCnco n 11-07-2022 Cardiolipin IgA IA Qn (S) <9.0 Normal <12.0 [facility] Comment on above: Order Comment: Philippe hinds Type: BLOOD SPECIMEN Ordering Facility: [facility] Address: [address] [id number] Result Comment: <12 APL Negative 12-20 APL Indeterminate >20 APL Positive The following results were obtained with the [employer]pex[employer] QUANTA Lite LINDSAY IgA III [place]. Cardiolipin IgA values obtained with the different manufacturers' assay methods may not be used interchangeably. The magnitude of the reported IgA levels cannot be correlated to an endpoint titer. Performed By: #### 4 537-7 #### [facility] CLIA [id number] [address] [place] Centromere Ab IF Ql (S)on Centromere Ab Qn (S) <0.2 Normal <1.0 [facility] Comment on above: Order Comment: Philippe hinds Type: BLOOD SPECIMENOrdering Facility: [facility] Address: [address] [place] [address] Result Comment: Anti -centromere antibody is used as in aid in diagnosis of systemic sclerosis. Clinical correlation is required. Test Methodology: Multiplex flow immunoassay. Performed By: #### 2 9374-6, 75507-3, 19355-5, 69319-2, 57442-8, 28742-0, 38330-9, 35840-0 ####[facility] [id number] [place] [address] [place] CENTROMERE AB QUAL Negative Normal Negative [facility] Comment on above: Order Comment: Philippe hinds Type: BLOOD SPECIMENOrdering Facility: [facility] Address: [address] [id number] Performed By: #### 2 9374-6, 79455-1, 30604-7, 55705-4, 61493-7, 19801-3, 24553-3, 41556-6 ####[facility] [id number] [place] [address] [place] Chromatin Ab Qnon 11-07-2022 CHROMATIN AB QUAL Negative Normal Negative [facility] Comment on above: Order Comment: Speci men Type: BLOOD SPECIMENOrdering Facility: [facility] Address: [address] [place] [address] Performed By: #### 2 9374-6, 21556-7, 87014-5, 50780-6, 20790-6, 17195-6, 87461-8, 80425-6 ####[facility] [id number] [address] [place] Chromatin Ab SerPl-aCncon Chromatin Ab Qn <0.2 Normal <1.0 [facility] Comment on above: Order Comment: Speci men Type: BLOOD SPECIMENOrdering Facility: [facility] Address: [address] [place] [address] Result Comment: Test Methodology: Multiplex flow immunoassay. Performed By: #### 2 9374-6, 35383-4, 35934-4, 83848-5, 60509-5, 24264-1, 41779-0, 90651-6 ####[facility] [id number] [place] [address] [place] Comprehensive metabolic 2000 panelon 11-07-2022 Albumin [Mass/Vol] 4.8 g/dL Normal 3.9-4.9 [facility] Comment on above: Order Comment: Speci men Type: BLOOD SPECIMENOrdering Facility: [facility] Address: [address] [place] [address] Performed By: #### 4 485-9, 4498-2, 46794-5, 97788-4 ####[facility] [id number] [address] [place] ALP [Catalytic activity/Vol] 65 U/L Normal 34-123 [facility] Comment on above: Order Comment: Speci men Type: BLOOD SPECIMENOrdering Facility: [facility] Address: [address] [place], [place] [address] Performed By: #### 4 485-9, 4498-2, 71114-4, 17446-6 ####[facility] [id number] [place] [address] [place] ALT [Catalytic activity/Vol] 40 U/L High 7-38 [facility] Comment on above: Order Comment: Speci men Type: BLOOD SPECIMENOrdering Facility: [facility] Address: [address] Performed By: #### 4 485-9, 4498-2, 68587-1, 28536-8 ####[facility] [id number] [place] [address] [place] Anion gap [Moles/Vol] 14 mmol/L Normal 9-18 [facility] Comment on above: Order Comment: Speci men Type: BLOOD SPECIMENOrdering Facility: [facility] Address: [address] [place] [address] Performed By: #### 4 485-9, 4498-2, 62838-9, 59384-5 ####[facility] [id number] [place] [address] [place] AST [Catalytic activity/Vol] 29 U/L Normal 13-35 [facility] Comment on above: Order Comment: Speci men Type: BLOOD SPECIMENOrdering Facility: [facility] Address: [address] [place], [place] [address] Performed By: #### 4 485-9, 4498-2, 49382-7, 42574-1 ####[facility] [id number] [place] [address] [place] Bilirubin [Mass/Vol] 0.3 mg/dL Normal 0.2-1.3 [facility] Comment on above: Order Comment: Speci men Type: BLOOD SPECIMENOrdering Facility: [facility] Address: [address] [place], [place] [phone] Performed By: #### 4 485-9, 4498-2, 33321-6, 77839-1 ####[facility] [id number] [place] [address] [place] Calcium [Mass/Vol] 9.3 mg/dL Normal 8.5-10.2 [facility] Comment on above: Order Comment: Speci men Type: BLOOD SPECIMENOrdering Facility: [facility] Address: [address] [address] Performed By: #### 4 485-9, 4498-2, 80398-0, 51005-4 ####[facility] [id number] [place] [address] [place] Chloride [Moles/Vol] 107 mmol/L High 97-105 [facility] Comment on above: Order Comment: Speci men Type: BLOOD SPECIMENOrdering Facility: [facility] Address: [address] [place] [address] Performed By: #### 4 485-9, 4498-2, 65983-9, 31520-8 ####[facility] [id number] [place] [address] [place] CO2 [Moles/Vol] 20 mmol/L Low 22-30 [facility] Comment on above: Order Comment: Speci men Type: BLOOD SPECIMENOrdering Facility: [facility] Address: [address] [place], [place] [address] Performed By: #### 4 485-9, 4498-2, 39394-9, 20378-9 ####[facility] [id number] [place] [address] [place] Creatinine [Mass/Vol] 0.75 mg/dL Normal 0.58-0.96 [facility] Comment on above: Order Comment: Speci men Type: BLOOD SPECIMENOrdering Facility: [facility] Address: [address] [id number] Performed By: #### 4 485-9, 4498-2, 42212-1, 03874-4 ####[facility] [id number] [place] [address] [place] ESTIMATED GLOMERULAR FILTRATION RATE 112 mL/min/1.73m??? Normal >=60 [facility] Comment on above: Order Comment: Philippe hinds Type: BLOOD SPECIMENOrdering Facility: [facility] Address: [address] [address] Result Comment: Ashley mated Glomerular Filtration Rate (eGFR) is calculated using the 2020 CKD-EPI creatinine equation. This equation utilizes serum creatinine, sex, and age as parameters. The creatinine assay has traceable calibration to isotope dilution-mass spectrometry. Refer to KDIGO guidelines for clinical interpretation. In patients with unstable renal function, e.g. those with acute kidney injury, the eGFR may not accurately reflect actual GFR. Performed By: #### 4 485-9, 4498-2, 74239-2, 93284-0 ####[facility] [id number] [place] [address] [place] Glucose [Mass/Vol] 99 mg/dL Normal 74-99 [facility] Comment on above: Order Comment: Philippe hinds Type: BLOOD SPECIMENOrdering Facility: [facility] Address: [address] [place] [address] Result Comment: The [place] Diabetes Association (ADA) provides guidance for cutoff values for fasting glucose and random glucose. The ADA defines fasting as no caloric intake for at least 8 hours. Fasting plasma glucose results between 100 to 125 mg/dL indicate increased risk for diabetes (prediabetes). Fasting plasma glucose results greater than or equal to 126 mg/dL meet the criteria for diagnosis of diabetes. In the absence of unequivocal hyperglycemia, results should be confirmed by repeat testing. In a patient with classic symptoms of hyperglycemia or hyperglycemic crisis, random plasma glucose results greater than or equal to 200 mg/dL meet the criteria for diagnosis of diabetes. Reference: Standards of Medical Care in Diabetes 2016, [place] Diabetes Association. Diabetes Care. 2016.39(Suppl 1). Performed By: #### 4 485-9, 4498-2, 78567-6, 75828-0 ####[facility] [id number] [address] [id number] [place] Potassium [Moles/Vol] 3.9 mmol/L Normal 3.7-5.1 [facility] Comment on above: Order Comment: Speci men Type: BLOOD SPECIMENOrdering Facility: [facility] Address: [address] [place], [place] [address] Performed By: #### 4 485-9, 4498-2, 91827-1, 86834-3 ####[facility] [id number] [place] [address] [place] Protein [Mass/Vol] 7.1 g/dL Normal 6.3-8.0 [facility] Comment on above: Order Comment: Speci men Type: BLOOD SPECIMENOrdering Facility: [facility] Address: [address] [place] [address] Performed By: #### 4 485-9, 4498-2, 80589-7, 92744-5 ####[facility] [id number] [place] [address] [place] Sodium [Moles/Vol] 141 mmol/L Normal 136-144 [facility] Comment on above: Order Comment: Speci men Type: BLOOD SPECIMENOrdering Facility: [facility] Address: [address] [place] [address] Performed By: #### 4 485-9, 4498-2, 09077-9, 81704-6 ####[facility] [id number] [place] [address] [place] Urea nitrogen [Mass/Vol] 8 mg/dL Normal 7-21 [facility] Comment on above: Order Comment: Speci men Type: BLOOD SPECIMENOrdering Facility: [facility] Address: [address] [place], [place] [address] Performed By: #### 4 485-9, 4498-2, 16307-4, 12730-3 ####[facility] [id number] [place] [address] [place] Cyclic citrullinated peptide IgG Qnon 11-07-2022 CCP ANTIBODY IGG QUALITATIVE Negative Normal Negative [facility] Comment on above: Order Comment: Speci men Type: BLOOD SPECIMEN [facility] Address: [address] [place] [address] Performed By: #### 4 537-7 #### [facility] CLIA [id number] [address] [place] [address] [place] JUNG Jo1 Ab Ser-aCncon 2022 Yesi-1 extractable nuclear Ab Qn (S) <0.2 Normal <1.0 [facility] Comment on above: Order Comment: Speci men Type: BLOOD SPECIMENOrdering Facility: [facility] Address: [address] [place], [place] [address] Performed By: #### 2 9374-6, 82065-6, 61952-5, 23491-3, 33682-7, 24600-4, 45953-5, 42747-5 ####[facility] [id number] [address] [place] JUNG LORRY WEIGHER Ab Ser-aCncon 2022 Ribonucleoprotein extractable nuclear Ab Qn (S) <0.2 Normal <1.0 [facility] Comment on above: Order Comment: Speci men Type: BLOOD SPECIMENOrdering Facility: [facility] Address: [address] [place], [place] [address] Performed By: #### 2 9374-6, 61952-6, 42953-2, 71073-8, 89237-9, 03942-3, 88022-6, 18678-9 ####[facility] [id number] [place] [address] [place] JUNG SM IgG Ser-aCncon 2022 [place] extractable nuclear IgG Qn (S) <0.2 Normal <1.0 [facility] Comment on above: Order Comment: Speci men Type: BLOOD SPECIMENOrdering Facility: [facility] Address: [address] [place] [address] Performed By: #### 2 9374-6, 22000-0, 85969-5, 74510-5, 27647-8, 21353-6, 70157-7, 74290-1 ####[facility] [id number] [address] [place] JUNG SS-A Ab Ser-aCncon 11-07 Sjogrens syndrome-A extractable nuclear Ab Qn (S) <0.2 Normal <1.0 [facility] Comment on above: Order Comment: Speci men Type: BLOOD SPECIMENOrdering Facility: [facility] Address: [address] [place] [address] Result Comment: Test Methodology: Multiplex flow immunoassay. Performed By: #### 2 9374-6, 05097-3, 70126-5, 31244-4, 42403-5, 32788-7, 68964-5, 06965-7 ####[facility] [id number] [place] [address] [place] JUNG SS-B Ab Ser-aCncon 11-07 Sjogrens syndrome-B extractable nuclear Ab Qn (S) <0.2 Normal <1.0 [facility] Comment on above: Order Comment: Speci [facility] Type: BLOOD SPECIMENOrdering Facility: [facility] Address: [address] [place] [address] Result Comment: Anti -SSB (anti-La) antibody is used as an aid in diagnosis of a variety of systemic autoimmune diseases, especially for Sjogren's syndrome and systemic lupus erythematosus. Clinical correlation is required. Test Methodology: Multiplex flow immunoassay. Performed By: #### 2 9374-6, 81994-7, 82863-2, 96646-1, 89111-7, 51499-4, 21160-1, 80252-8 ####[facility] [id number] [place] [address] [place] Ferritin SerPl-mCncon 2022 Ferritin [Mass/Vol] 31.6 ng/mL Normal 14.7-205.1 [facility] Comment on above: Order Comment: Speci men Type: BLOOD SPECIMEN [facility] Address: [address] [place] [address] Performed By: #### 2 157-6, 6-4 #### [facility] CLIA [id number] [address] [place] [address] [place] Heteroph Ab Ser Ql LAon Heterophile Ab LA Ql (S) Negative Normal Negative [facility] Comment on above: Order Comment: Speci [facility] Type: BLOOD SPECIMEN [facility] Address: [address] [place] [address] Result Comment: Infe ctious Mononucleosis rapid test is used as an aid in diagnosis of acute infection with Cory-Mo virus (EBV). The antibody levels may occasionally remain elevated up to several months after a primary EBV infection. Final interpretation should be done in conjunction with EBV-specific serology and clinical correlation. False positive results may occasionally be seen with other infectious agents such as Cytomegalovirus, Toxoplasma, and HIV among others as well as non-infectious conditions such as lymphoma. Clinical correlation is required. Performed By: #### 2 157-6, 2275-4 #### [facility] CLIA [id number] [address] [place] [address] [place] IgA SerPl-mCncon 11-07-2022 IgA [Mass/Vol] 180 mg/dL Normal 70-400 [facility] Comment on above: Order Comment: Speci men Type: BLOOD SPECIMENOrdering Facility: [facility] Address: [address] [place] [address] Performed By: #### 2 458-8 ####[facility] [id number] [place] [address] [place] Iron and Iron binding capaci ty panelon 11-07-2022 Iron [Mass/Vol] 72 ug/dL Normal 41-186 [facility] Comment on above: Order Comment: Speci men Type: BLOOD SPECIMENOrdering Facility: [facility] Address: [address] [place] [address] Performed By: #### 5 0190-8, 62180-2, 3024-7, 3016-3 ####[facility] [id number] [place] [address] [place] Iron binding capacity [Mass/Vol] 291 ug/dL Normal 232-386 [facility] Comment on above: Order Comment: Speci men Type: BLOOD SPECIMENOrdering Facility: [facility] Address: [address] [place] [address] Performed By: #### 5 0190-8, 46809-7, 3024-7, 3016-3 ####[facility] [id number] [place] [address] [place] Iron/TIBC [Molar ratio] 24.7 % Normal 15.0-57.0 [facility] Comment on above: Order Comment: Speci men Type: BLOOD SPECIMENOrdering Facility: [facility] Address: [address] [place] [address] Performed By: #### 5 0190-8, 82336-6, 3024-7, 3016-3 ####[facility] [id number] [place] [address] [place] Yesi-1 extractable nuclear Ab Qn (S)on 11-07-2022 YESI 1 ANTIBODY QUAL Negative Normal Negative [facility] Comment on above: Order Comment: Speci men Type: BLOOD SPECIMENOrdering Facility: [facility] Address: [address] [place] [address] Result Comment: Anti -YESI-1 antibody is used as an aid in diagnosis of polymyositis and dermatomyositis especially with pulmonary involvement. A negative result cannot rule out polymyositis or dermatomyositis. Clinical correlation is required. Test Methodology: Multiplex flow immunoassay. Performed By: #### 2 9374-6, 64010-1, 18490-8, 12263-3, 64464-8, 25347-9, 50459-3, 35603-3 ####[facility] [id number] [place] [address] [place] LUPUS PANELon 11-07-2022 aPTT Coag (Bld) [Time] 29.5 s Normal 24.0-35.1 [facility] Comment on above: Order Comment: Speci men Type: BLOOD SPECIMEN [facility] Address: [address] [place] [address] Performed By: #### 2 157-6, 2275-4 #### [facility] CLIA [id number] [address] [place] [address] [place] aPTT W excess hexagonal phase phospholipid Coag (PPP) [Time] 46.6 seconds Normal 34.0-51.8 [facility] Comment on above: Order Comment: Speci guzman Type: BLOOD SPECIMEN [facility] Address: [address] [place] [address] Performed By: #### 2 157-6, 2275-4 #### [facility] CLIA [id number] [address] [place] [address] [place] Delta dRVVT Coag (PPP) [Time diff] 4.6 delta seconds Normal <7.1 [facility] Comment on above: Order Comment: Speci men Type: BLOOD SPECIMEN [facility] Address: [address] [place] [address] Performed By: #### 2 157-6, 2275-4 #### [facility] CLIA [id number] [facility] [place] [address] [place] dRVVT Coag (PPP) [Time] 38.7 s Normal 32.0-45.7 [facility] Comment on above: Order Comment: Speci men Type: BLOOD SPECIMEN [facility] Address: [address] [place] [address] Performed By: #### 2 157-6, 6-4 #### [facility] CLIA [id number] [address] [place] [address] [place] dRVVT factor substitution immediately after 1:2 addition of normal plasma Coag (PPP) [Time] 37.9 seconds Normal 32.0-45.7 [facility] Comment on above: Order Comment: Speci men Type: BLOOD SPECIMEN [facility] Address: [address] [place] [address] Performed By: #### 2 157-6, 2275-4 #### [facility] CLIA [id number] [address] [place] [address] [place] dRVVT W excess hexagonal phase phospholipid actual/normal Coag (PPP) [Relative time] 42.0 seconds Normal 34.2-47.9 [facility] Comment on above: Order Comment: Speci men Type: BLOOD SPECIMEN [facility] Address: [address] [place] [address] Performed By: #### 2 157-6, 2275-4 #### [facility] CLIA [id number] [address] [place] [address] [place] dRVVT/dRVVT.excess phospholipid Coag (PPP) [Ratio] 1.07 Normal <1.32 [facility] Comment on above: Order Comment: Speci men Type: BLOOD SPECIMEN [facility] Address: [address] [place] [address] Performed By: #### 2 157-6, 2275-4 #### [facility] CLIA [id number] [address] [place] Lupus anticoagulant neutralization platelet Coag Ql (PPP) Negative Normal Negative [facility] Comment on above: Order Comment: Philippe hinds Type: BLOOD SPECIMEN [facility] Address: [address] [place] [address] Performed By: #### 2 157-6, 2276-4 #### [facility] CLIA [id number] [address] [place] [address] [place] Thrombin time Coag (PPP) [Time] <16.8 Normal <18.6 [facility] Comment on above: Order Comment: Philippe hinds Type: BLOOD SPECIMEN [facility] Address: [address] [place] [address] Performed By: #### 2 157-6, 6-4 #### [facility] CLIA [id number] [address] [place] [address] [place] PROTEIN CREATININE RATIOon 0 11-07-2022 Protein/Creatinine (U) [Mass ratio] 0.17 mg/mg High <0.15 mg/mg [facility] PT panel Coag (PPP)on 2022 INR Coag (PPP) [Relative time] 1.0 {INR} Normal 0.9-1.3 [facility] Comment on above: Order Comment: Philippe hinds Type: BLOOD SPECIMENOrdering Facility: [facility] Address: [address] [place] [address] Result Comment: Rosario min K Antagonist (VKA) Therapeutic Range: INR 2 to 3 (Target INR of 2.5) Note: For patients treated with VKA drugs, such as warfarin, the [place] [employer] 2012 Guideline recommends a therapeutic INR range of 2 to 3 (target INR of 2.5). This recommendation includes high-risk patients with antiphospholipid syndrome with previous arterial or venous thromboembolism, current-generation mechanical or bioprosthetic aortic heart valve replacement. Note: Patients with mechanical aortic valve replacement and additional risk factors for thromboembolic events (atrial fibrillation, previous thromboembolism, LV dysfunction, hypercoagulable conditions) or an older generation mechanical AVR (i.e., ball in-Cage) or any mechanical MVR should have a INR therapeutic range of 2.5 to 3.5 (target INR of 3). Luz GH, et al. Chest 2012, 141:7S-47S Jolie RA, et al. [facility] 2017, 70: 252-289 Performed By: #### 3 4528-0, 21724-8 ####[facility] [id number] [address] [place] PT Coag (PPP) [Time] 10.3 s Normal 9.7-13.0 [facility] Comment on above: Order Comment: Speci men Type: BLOOD SPECIMENOrdering Facility: [facility] Address: [address] [place] [address] Performed By: #### 3 4528-0, 86372-7 ####[facility] [id number] [address] STATES OF [facility] Prot/Creat Uron 11-07-2022 Protein/Creatinine (U) [Mass ratio] 0.17 mg/mg High <0.15 [facility] Comment on above: Order Comment: Speci men Type: BLOOD SPECIMEN [facility] Address: [address] [place] [address] Result Comment: Adul t Proteinuria Categories: <0.15 mg/mg is considered normal to mildly increased 0.15 - 0.50 mg/mg is considered moderately increased >0.50 mg/mg is considered severely increased KDIGO. (2013). KDIGO 2012 Clinical Practice Guideline for the Evaluation and Management of Chronic Kidney Disease. Official Journal of the International Society of Nephrology, 3(1), 1-150. Performed By: #### 2 157-6, 2276-4 #### [facility] CLIA [id number] [address] [place] Protein/Creatinine (U) [Mass ratio]on 11-07-2022 Creatinine (U) [Mass/Vol] 134.1 mg/dL 20.0 - 300.0 mg/dL [facility] Protein (U) [Mass/Vol] 23 mg/dL High 0 - 20 mg/dL [facility] Creatinine (U) [Mass/Vol] 134.1 mg/dL Normal 20.0-300.0 [facility] Comment on above: Order Comment: Speci men Type: BLOOD SPECIMEN [facility] Address: [address] [place] [address] Performed By: #### 2 157-6, 2276-4 #### [facility] CLIA [id number] [address] [place] [address] [place] Protein (U) [Mass/Vol] 23 mg/dL High 0-20 [facility] Comment on above: Order Comment: Speci men Type: BLOOD SPECIMEN [facility] Address: [address] [place] [address] Performed By: #### 2 157-6, 2276-4 #### [facility] CLIA [id number] [address] [place] [address] [place] Rheumatoid fact SerPl-aCncon 11-07-2022 Rheumatoid factor Qn [IU]/mL Normal <16 [facility] Comment on above: Order Comment: Speci men Type: BLOOD SPECIMENOrdering Facility: [facility] Address: [address] [place] [address] Performed By: #### 5 0190-8, 81242-8, 3024-7, 3016-3 ####[facility] [id number] [place] [address] [place] Ribonucleoprotein extractabl e nuclear Ab Qn (S)on 11-07-2022 ANTI-LORRY WEIGHER QUAL Negative Normal Negative [facility] Comment on above: Order Comment: Speci men Type: BLOOD SPECIMENOrdering Facility: [facility] Address: [address] [place] [address] Performed By: #### 2 9374-6, 41555-2, 45685-7, 70569-2, 60742-4, 72728-5, 23376-6, 65858-5 ####[facility] [id number] [place] [address] [place] RIBOSOMAL LORRY WEIGHER QUAL Negative Normal Negative [facility] Comment on above: Order Comment: Philippe hinds Type: BLOOD SPECIMENOrdering Facility: [facility] Address: [address] [place] [address] Result Comment: Anti -Ribosomal RNA (Ribosomal P) antibody is used as an aid in diagnosis of systemic autoimmune diseases especially systemic lupus erythematosus and mixed connective tissue disease. Cross-reactivity with Anti-wh[place]field antibody is not uncommon. Clinical correlation is required. Test Methodology: Multiplex flow immunoassay. Performed By: #### 2 9374-6, 31301-8, 30481-6, 23825-7, 16706-0, 95528-6, 26145-0, 77600-4 ####[facility] [id number] [place] [address] [place] SCL-70 extractable nuclear I gG IA Qn (S)on 11-07-2022 SCLERODERMA AB QUAL Negative Normal Negative [facility] Comment on above: Order Comment: Philippe hinds Type: BLOOD SPECIMENOrdering Facility: [facility] Address: [address] [place] [address] Performed By: #### 2 9374-6, 07342-8, 96716-0, 48357-6, 86092-8, 10359-0, 26407-5, 47323-4 ####[facility] [id number] [place] [address] [place] SCLERODERMA IGG AB <0.2 Normal <1.0 [facility] Comment on above: Order Comment: Philippe hinds Type: BLOOD SPECIMENOrdering Facility: [facility] Address: [address] [place] [address] Result Comment: Scl- 70/Scleroderma antibody test is used as an aid in diagnosis of systemic sclerosis especially the diffuse cutaneous form. A negative result cannot rule out systemic sclerosis. The final interpretation should consider clinical picture and other test results such as anti-centromere antibody. Test Methodology: Multiplex flow immunoassay. Performed By: #### 2 9374-6, 24373-2, 76785-5, 97387-3, 03320-8, 46045-7, 64649-6, 93980-6 ####[facility] [id number] [place] [address] [place] Sjogrens syndrome-A extracta ble nuclear Ab Qn (S)on 11-07-2022 SSA ANTIBODY QUAL Negative Normal Negative [facility] Comment on above: Order Comment: Speci men Type: BLOOD SPECIMENOrdering Facility: [facility] Address: [address] [place] [address] Performed By: #### 2 9374-6, 24122-0, 86917-4, 11084-3, 51456-1, 57062-3, 89548-8, 50576-9 ####[facility] [id number] [place] [address] [place] Sjogrens syndrome-B extracta ble nuclear Ab Qn (S)on 11-07-2022 SSB ANTIBODY QUAL Negative Normal Negative [facility] Comment on above: Order Comment: Speci men Type: BLOOD SPECIMENOrdering Facility: [facility] Address: [address] [place] [address] Performed By: #### 2 9374-6, 24738-2, 24298-2, 87587-4, 77735-8, 91047-9, 93888-4, 01255-7 ####[facility] [id number] [place] [address] [place] extractable nuclear Ig G Qn (S)on 11-07-2022 SM ANTIBODY QUAL Negative Normal Negative [facility] Comment on above: Order Comment: Speci men Type: BLOOD SPECIMENOrdering Facility: [facility] Address: [address] [place] [address] Result Comment: Anti -Sm ([place]) antibody is used as an aid in diagnosis of systemic lupus erythematosus and its presence is associated with renal disease. A negative result cannot rule out systemic lupus erythematosus. Clinical correlation is required. Test Methodology: Multiplex flow immunoassay. Performed By: #### 2 9374-6, 01854-8, 10564-1, 01388-8, 75631-1, 45393-4, 23537-2, 67489-6 ####[facility] [id number] [place] [address] [place] T4 Free SerPl-mCncon 023 Free T4 [Mass/Vol] 1.0 ng/dL Normal 0.9-1.7 [facility] Comment on above: Order Comment: Philippe hinds Type: BLOOD SPECIMENOrdering Facility: [facility] Address: [address] [place] [address] Performed By: #### 5 0190-8, 54392-8, 3024-7, 3016-3 ####[facility] [id number] [address] [place] THYROGLOBULIN ABon Thyroglobulin Ab Qn 4.2 [IU]/mL Normal <14.4 [facility] Comment on above: Order Comment: Philippe hinds Type: BLOOD SPECIMEN [facility] Address: [address] [place] [address] Performed By: #### 2 157-6, 2276-4 #### [facility] CLIA [id number] [address] [place] THYROID PEROXIDASE ANTIBODY BLOODon 11-07-2022 TPO Ab Qn [IU]/mL Normal <5.6 [facility] Comment on above: Order Comment: Philippe hinds Type: BLOOD SPECIMEN [facility] Address: [address] [place] [address] Result Comment: Thyr oid Peroxidase Antibody test is used as an aid in diagnosis of autoimmune thyroid disease. Clinical correlation is required. Performed By: #### 2 157-6, 2276-4 #### [facility] CLIA [id number] [address] [place] [address] [place] TSH SerPl-aCncon 11-07-2022 TSH Qn 1.550 m[IU]/L Normal 0.270-4.200 [facility] Comment on above: Order Comment: Speci men Type: BLOOD SPECIMENOrdering Facility: [facility] Address: [address] [place] [address] Result Comment: If t he patient is , TSH reference range varies by gestational period: First Trimester (weeks 9-12): 0.180-2.990 mIU/L Second Trimester: 0.110-3.980 mIU/L Third Trimester: 0.480-4.710 mIU/L Nehemias Bowles et al. A Practical Approach for the Verifications and Determination of Site- and Trimester-Specific Reference Intervals for Thyroid Function tests in . Thyroid, 2019:29:3:412-420. Jose Brar, et al. 2017 Guidelines of the [place] Thyroid Association for the Diagnosis and Management of Thyroid Disease during and the . Thyroid, 2017:27:3:315-389. Performed By: #### 5 0190-8, 20038-7, 3024-7, 3016-3 ####[facility] [id number] [place] [address] [place] Urinalysis complete panel (U )on 11-07-2022 Bilirubin Ql (U) Negative Negative [facility] Clarity (Unsp spec) Cloudy Abnormal Clear [facility] Color (U) Yellow Yellow [facility] Epithelial cells LM.HPF (Urine sed) [#/Area] Few [facility] Glucose Test strip (U) [Mass/Vol] Negative Trace, Negative [facility] Hemoglobin Ql (U) Negative Negative, Trace [facility] Ketones Ql (U) Negative Trace, [facility] Leukocyte esterase Test strip Ql (U) Negative Negative, 25 Jessica/mL [facility] Nitrite Ql (U) Negative Negative [facility] pH (U) 6.5 [pH] 5.0 - 8.0 [facility] Protein (U) [Mass/Vol] Negative Trace , Negative [facility] RBC LM.HPF (Urine sed) [#/Area] 0-3 /HPF 0-3 /HPF [facility] Specific gravity (U) [Rel density] 1.016 1.005 - 1.030 [facility] Urobilinogen Ql (U) Negative Negative [facility] WBC LM.HPF (Urine sed) [#/Area] 0-5 /HPF 0-5 /HPF [facility] Bilirubin Ql (U) Negative Normal Negative [facility] Comment on above: Order Comment: Speci men Type: BLOOD SPECIMEN [facility] Address: [address] [place] [address] Performed By: #### 4 537-7 #### [facility] CLIA [id number] [address] [place] [address] [place] Clarity (Unsp spec) Cloudy Abnormal Clear [facility] Comment on above: Order Comment: Speci men Type: BLOOD SPECIMEN [facility] Address: [address] Performed By: #### 4 537-7 #### [facility] CLIA [id number] [address] [place] [address] [place] Color (U) Yellow Normal Yellow [facility] Comment on above: Order Comment: Speci men Type: BLOOD SPECIMEN [facility] Address: [address] Performed By: #### 4 537-7 #### [facility] CLIA [id number] [address] [place] [address] [place] Epithelial cells LM.HPF (Urine sed) [#/Area] Few Normal [facility] Comment on above: Order Comment: Speci men Type: BLOOD SPECIMEN [facility] Address: [address] Performed By: #### 4 537-7 #### [facility] CLIA [id number] [address] [place] Glucose Test strip (U) [Mass/Vol] Negative Normal Trace, Negative [facility] Comment on above: Order Comment: Speci men Type: BLOOD SPECIMEN [facility] Address: [address] [place] [place] [address] Performed By: #### 4 537-7 #### [facility] CLIA [id number] [address] OF [facility] Hemoglobin Ql (U) Negative Normal Negative, Trace [facility] Comment on above: Order Comment: Speci men Type: BLOOD SPECIMEN [facility] Address: [address] [place] [place] [address] Performed By: #### 4 537-7 #### [facility] CLIA [id number] [address] Ketones Ql (U) Negative Normal Trace, Negative [facility] Comment on above: Order Comment: Speci men Type: BLOOD SPECIMEN [facility] Address: [address] Performed By: #### 4 537-7 #### [facility] CLIA [id number] [address] [place] Leukocyte esterase Test strip Ql (U) Negative Normal Negative, 25 Jessica/mL [facility] Comment on above: Order Comment: Speci men Type: BLOOD SPECIMEN [facility] Address: [address] Performed By: #### 4 537-7 #### [facility] CLIA [id number] [address] [place] [address] [place] Nitrite Ql (U) Negative Normal Negative [facility] Comment on above: Order Comment: Speci men Type: BLOOD SPECIMEN [facility] Address: [address] Performed By: #### 4 537-7 #### [facility] CLIA [id number] [address] [place] [address] [place] pH (U) 6.5 [pH] Normal 5.0-8.0 [facility] Comment on above: Order Comment: Speci men Type: BLOOD SPECIMEN [facility] Address: [address] [place] [address] Performed By: #### 4 537-7 #### [facility] CLIA [id number] [address] [place] [address] [place] Protein (U) [Mass/Vol] Negative Normal Trace , Negative [facility] Comment on above: Order Comment: Speci men Type: BLOOD SPECIMEN [facility] Address: [address] [place] [address] Performed By: #### 4 537-7 #### [facility] CLIA [id number] [address] [place] [address] [place] RBC LM.HPF (Urine sed) [#/Area] 0-3 /HPF Normal 0-3 /HPF [facility] Comment on above: Order Comment: Speci men Type: BLOOD SPECIMEN [facility] Address: [address] [place] [address] Performed By: #### 4 537-7 #### [facility] CLIA [id number] [address] [place] [address] [place] Specific gravity (U) [Rel density] 1.016 Normal 1.005-1.030 [facility] Comment on above: Order Comment: Speci men Type: BLOOD SPECIMEN [facility] Address: [address] [place] [address] Performed By: #### 4 537-7 #### [facility] CLIA [id number] [address] [place] [address] [place] Urobilinogen Ql (U) Negative Normal Negative [facility] Comment on above: Order Comment: Speci men Type: BLOOD SPECIMEN Ordering Facility: [facility] Address: [address] [place], [place] [address] Performed By: #### 4 537-7 #### [facility] CLIA [id number] [address] [place] [address] [place] WBC LM.HPF (Urine sed) [#/Area] 0-5 /HPF Normal 0-5 /HPF [facility] Comment on above: Order Comment: Speci men Type: BLOOD SPECIMEN Ordering Facility: [facility] Address: [address] [place] [address] Performed By: #### 4 537-7 #### [facility] CLIA [id number] [address] [place] [address] [place] aPTT PPPon 11-07-2022 aPTT Coag (PPP) [Time] 26.8 s Normal 23.0-32.4 [facility] Comment on above: Order Comment: Speci men Type: BLOOD SPECIMENOrdering Facility: [facility] Address: [address] [place] [address] Performed By: #### 3 4528-0, 76053-4 ####[facility] [id number] [place] [address] [place] cCP IgG SerPl-aCncon 023 Cyclic citrullinated peptide IgG Qn <15 Normal <20 [facility] Comment on above: Order Comment: Speci men Type: BLOOD SPECIMEN Ordering Facility: [facility] Address: [address] [place], [place] [address] Performed By: #### 4 537-7 #### [facility] CLIA [id number] [address] [place] [address] [place] dsDNA Ab Ser IA-aCncon 11-07 DNA double strand Ab IA Qn (S) <12 Normal <30 [facility] Comment on above: Order Comment: Speci men Type: BLOOD SPECIMEN Ordering Facility: [facility] Address: [address] [place] [address] Result Comment: Nega tive for ds DNA Antibodies. <30 IU/mL Negative 30-74 IU/mL Equivocal >74 IU/mL Positive Performed By: #### 4 537-7 #### [facility] CLIA [id number] [address] [facility] [id number] [address] [facility] CNPNon 10-13-2022 CNPN Telephone (INTMWS) MICHELLE BETH ([id number]) 1995 F Date Time Provider Department 10/13/22 ROLAND RODRIGUEZ INTWS During your visit today, we recorded the following information about you: Roland Rodriguez MD 10/13/2022 5:52 PM Signed Please inform patient of very low vitamin d levels, We are giving her replacement doses, sent to her regular pharmacy. This might help in the overall mood and energy. He needs to take it immediately after eating. Allergies As of Date: 10/13/2022 Noted Allergy Reaction AMOXICILLIN-POT CLAVULANATE 05/30/2005 4 - Hives Comments: Hives AMOXICILLIN 02/20/2019 4 - Hives FLONASE (FLUTICASONE PROPIONATE) 11/02/2011 2 - Rash Comments: rash, bloody noses LAMICTAL (LAMOTRIGINE) 07/06/2019 2 - Rash medical tape [Other] 04/16/2008 2 - Rash SINGULAIR (MONTELUKAST SODIUM) 05/03/2007 4 - Hives Comments: Headaches ADHESIVE TAPE-SILICONES 02/20/2019 2 - Rash Date Reviewed: 10/12/2022 Reviewed by: Hilary Portillo LPN - Fully Assessed Reason for Visit: Results [95] Primary Visit Diagnosis:Vitamin D deficiency [E55.9] Order(s):VITAMIN D 25 HYDROXY [SQVITD] Order #: [id number] FUTURE Prescriptions as of 10/13/2022 - ergocalciferol 50,000 unit capsule (VITAMIN D2, DRISDOL) Take 1 capsule by mouth two times a week. TO BE TAKEN ORALLY DIRECTED. Take 1 tablet by mouth twice weekly [id number], then decrease to 1 tablet weekly. - topiramate (TOPAMAX) 25 mg tablet Take 1 tablet by mouth daily at bedtime. For a couple weeks and then increase to 1 pill 2 times a day - rizatriptan (MAXALT-MANAGER HELPDESK) 10 mg disintegrating tablet Take 1 tablet by mouth as needed. May repeat in 2 hours if needed. Problem List As Of Date 10/13/2022 Noted Resolved Congenital pes planus [Q66.50] 07/22/2006 08/12/2012 Equinus deformity of foot, acquired [M21.6X9] 07/23/2006 08/12/2012 Tenosynovitis of foot and ankle [M65.9] 10/29/2006 08/12/2012 Sprain of ankle, unspecified site [S93.409A] 05/03/2007 08/12/2012 Headache [R51] 10/24/2007 08/12/2012 Migraine, unspecified, without mention of intra*11/14/2007 08/12/2012 Sleep disturbance [G47.9] 06/30/2011 08/12/2012 Asthma, exercise induced [J45.990] 12/14/2011 03/19/2013 Concussion [S06.0XAA] 12/14/2011 08/12/2012 Weight loss [R63.4] 12/14/2011 08/12/2012 Left knee injury [S89.92XA] 2012 08/12/2012 Dysmenorrhea [N94.6] 04/30/2012 08/12/2012 Teen [TTT9439] 07/30/2012 03/19/2013 Back pain in [O99.891, M54.9] 07/30/2012 03/19/2013 with uncertain dates [Z34.90] 07/30/2012 08/28/2012 Patient requested diagnostic testing [Z01.89] 07/30/2012 03/19/2013 IUGR (intrauterine growth restriction) [DTS3385]12/30/2012 03/19/2013 High-risk supervision [O09.90] 12/30/2012 03/19/2013 Sore throat [J02.9] 08/04/2013 03/19/2015 Headache [R51] 09/19/2013 03/19/2015 Supervision of normal [Z34.90] 03/19/2015 Recurrent UTI (urinary tract infection) complic*05/17/2015 Generalized anxiety disorder [F41.1] 06/11/2019 Depressive disorder [F32.A] 06/11/2019 Medications Discontinued During This Encounter Prescriptions - levonorgestrel (LILETTA) 20.1 mcg/24 hrs (6 yrs) 52 mg IUD (Discontinued) Reported on 03/02/2022 - MULTI-VITAMIN ORAL (Discontinued) Take by mouth. Encounter Status:Closed by ROLAND RODRIGUEZ on 10/13/22 Normal [facility] 25(OH)D3 SerPl-ncon 2022 25-hydroxyvitamin D3 [Mass/Vol] 13.5 ng/mL Low 31.0-80.0 [facility] Comment on above: Order Comment: Speci men Type: BLOOD SPECIMEN Ordering Facility: [facility] Address: [address] [place], [place] [phone] Performed By: #### 4 537-7 #### [facility] CLIA [id number] [address] [place] [address] [place] SHANTANU BY IFA SCREENon 10-12-19 SHANTANU PATTERN Nuclear dense fine speckled Normal [facility] Comment on above: Order Comment: Speci men Type: BLOOD SPECIMEN Ordering Facility: [facility] Address: [address] [place] [address] Performed By: #### 2 157-6, 2276-4 #### [facility] CLIA [id number] [address] [place] [address] [place] SHANTANU TITER 1:640 Normal [facility] Comment on above: Order Comment: Speci men Type: BLOOD SPECIMEN Ordering Facility: [facility] Address: [address] [place] [id number] Performed By: #### 2 157-6, 2276-4 #### [facility] IA [id number] [address] [place] [address] [place] Nuclear Ab IF (S) [Titer] Positive Abnormal Negative [facility] Comment on above: Order Comment: Speci men Type: BLOOD SPECIMEN Ordering Facility: [facility] Address: [address] [place] [address] Result Comment: Anti -nuclear antibody test is used as an aid in diagnosis of systemic autoimmune diseases. Where positive and clinically warranted, follow-up using disease-specific testing is recommended. Low positive titers are not uncommon with advanced age, certain chronic infections, and malignancies among others. Test methodology: Indirect fluorescence immunoassay (IFA) using HEp-2 cells. Performed By: #### 2 157-6, 2276-4 #### [facility] CLIA [id number] [address] [place] [address] [place] CNOVon 10-12-2022 CNOV Office Visit (INTMWS ) IGNACIAMICHELLE M ([id number]) 1995 F Date Time Provider Department 10/12/22 8:40 AM ROLAND RODRIGUEZ INTMWS During your visit today, we recorded the following information about you: Pulse Respiration Blood pressure Weight 100/minute 16/minute 126/80 78 kg Roland Rodriguez MD 10/12/2022 10:39 AM Signed Reason for Visit Patient presents with: Recheck: Go over lab results Michelle Beth is a 27 year old female who presents here today for Above Complaints.. Health Maintenance PAP TESTING DTAP,TDAP,TD(7 - Td or Tdap) COVID-19 VACCINE(5 - Booster for Moderna series) HPI Rash - malar rash, sometimes in the lower lids and the forehead. The rash comes and goes,. It can come for a week or 2 days. She is not sure what the triggers are. Patient is heat intolerant. Thinks she may be heat intolerant. No sparing of the NL folds. Some hair loss but not really all that much. Stiffness and joint pain is concerning for her./ When she first wakes up in the morning she is stiff, legs and arms are stiff, and present the whole day and dose not really, go away, she is not comfortable with the way she feels. She has been having more frequent ocular migraines. Her symptoms are nausea, light sensitivity, they are not sound sensitive and it usually affects the left side. More frequent migraines: happening at least once a week. For the past 3/4 months, This is new frequency for her , Her symptoms are nausea, light sensitivity, and throbs on the left side. Had a hysterctomy in December this year. She does have her ovaries No problem-specific Assessment AND Plan notes found for this encounter. PAST MEDICAL HISTORY Diagnosis Date Abnormal electrocardiogram Allergy, unspecified not elsewhere classified Anemia AGE 16 Asthma, exercise induced 12/14/2011 Concussion 12/14/2011 (1) 5th grade (2) 2010 Dizziness Generalized anxiety disorder 06/11/2019 Left knee injury 2012 Migraine Paroxysmal tachycardia (HCC) PMH - PAST MEDICAL HISTORY OF 01/2000 normal color vision PMH - PAST MEDICAL HISTORY OF 2001 right arm fracture Precocious sexual development and puberty, not elsewhere classified 2005 end of the year sometime Syncope and collapse Unspecified asthma(493.90) exercise induced, NO ATTACKS SONCE 2006 Weight loss 12/14/2011 PAST SURGICAL HISTORY Procedure Laterality Date ECHO 12/18/14 [facility] TONSILLECTOMY AND ADENOIDECTOMY TYMPANOSTOMY LOCAL/TOPICAL ANESTHESIA FAMILY HISTORY Problem Relation Age of Onset Alcohol/Drug Father alcoholic Arthritis Mother Diabetes Maternal Grandmother Diabetes Maternal Aunt Emphysema Father Emphysema Maternal Grandfather Heart Father Heart Paternal Grandfather Hypertension Father Lipids Father Thyroid Mother Social History Tobacco Use Smoking status: Never Smokeless tobacco: Never Substance Use Topics Alcohol use: No Drug use: No Past medical history, appointments, medications, allergies reviewed. Pertinent Lab/Diagnostic Studies are reviewed and discussed today Current Outpatient Medications: MULTI-VITAMIN ORAL levonorgestrel (LILETTA) 20.1 mcg/24 hrs (6 yrs) 52 mg IUD risperiDONE (RISPERDAL) 1 mg tablet copper (PARAGARD T 380A INTRAUTERINE) ondansetron orally disintegrating (ZOFRAN ODT) 4 mg disintegrating tablet Review of Systems CONSTITUTIONAL: No fevers, chills night sweats, unintended weight loss CARDIOVASCULAR: No chest pain, dyspnea, palpitations, orthopnea, PND, ankle edema. PULM: No dyspnea, unexplained cough. GI: No dysphagia/odynophagia , problematic reflux, constipation, diarrhea, changes in stool habits, hematochezia, melena. : No new urinary complaints, including dysuria, gross hematuria or pyuria. NEURO: No new balance problems, peripheral weakness/paresthesias or numbness of concern. Physical Exam BP 126/80 Pulse 100 Resp 16 Wt 78 kg (172 lb) LMP 10/05/2017 SpO2 98% BMI 31.46 kg/m? General appearance: Well appearing, alert, in no acute distress, well nourished. Skin: Skin color, texture, turgor normal, no suspicious rashes or lesions Head: Normocephalic, no masses, lesions, tenderness or abnormalities Eyes: Anicteric sclera. Pupils are equally round and reactive to light. Extraocular movements are intact. Lungs: Lungs clear to auscultation. No wheezing, rhonchi, rales Heart: RRR without murmur, gallop, or rubs. Extremities: No deformities, edema, skin discoloration, clubbing or cyanosis. Good capillary refill. ASSESSMENT/PLAN: 1. Vitamin D deficiency - ICD9: 268.9, ICD10: E55.9 (primary diagnosis) We discussed rechecking and taking replacement doses if still on the lower side - ERGOCALCIFEROL (VITAMIN D2) 1,250 MCG (50,000 UNIT) CAPSULE - VITAMIN D 25 HYDROXY 2. Positive SHANTANU (antinuclear antibody) - ICD9: 795.79, ICD10: R76.8 - SHANTANU BY IFA SCREEN - (more content not included)... Normal [facility] CRP SerPl-mCncon 10-12-2022 CRP [Mass/Vol] 0.7 mg/dL Normal <0.9 [facility] Comment on above: Order Comment: Speci men Type: BLOOD SPECIMEN Ordering Facility: [facility] Address: [address] [place] [phone] Performed By: #### 4 537-7 #### [facility] CLIA [id number] [address] [facility] ESR Westergren method (Bld) [Velocity]on 10-12-2022 ESR (Bld) [Velocity] 10 mm/h 0 - 20 mm/hr Cl [facility] ESR (Bld) [Velocity] 10 mm/h Normal 0-20 [facility] Comment on above: Order Comment: Speci men Type: BLOOD SPECIMEN Ordering Facility: [facility] Address: [place] [address] Performed By: #### 4 537-7 #### [facility] CLIA [id number] [address] CNOVon 09-27-2022 CNOV Office Visit (UCTR ) MICHELLE EBTH ([id number]) 1995 F Date Time Provider Department 09/27/22 6:45 PM ADELAIDE HUDDLESTON [facility] During your visit today, we recorded the following information about you: Temperature Pulse Respiration Blood pressure 98 degrees 80/minute 16/minute 138/82 Weight 79.7 kg Adelaide Huddleston APRN.CNP 09/27/2022 7:54 PM Signed This note was created using NoteWriter. Subjective Michelle Beth is a 27 year old female. 27 year old female with PMH migraine presents with complaints of having a migraine Acute onset 2 days ago Frontal and behind left eye +aura left eye (bright light, which she states that she is normal for here) +photosensitive +phonophobia Has had similar migraines in the past. Has tried Tylenol, Excedrin migraine and Ibuprofen. Utilized Ibuprofen around 3 today. 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 The history is provided by the patient. No exhaust emissions inspector was used. Headache This is a new problem. The current episode started 2 days ago. The problem occurs constantly. The problem has not changed since onset.The headache is associated with bright light, activity and loud noise. The pain is located in the Frontal region. The quality of the pain is described as sharp. The pain is at a severity of 7/10. The pain is moderate. The pain does not radiate. Associated symptoms include nausea. Pertinent negatives include no anorexia, no fever, no malaise/fatigue, no chest pressure, no near-syncope, no orthopnea, no palpitations, no syncope, no shortness of breath and no vomiting. PAST MEDICAL HISTORY Diagnosis Date Abnormal electrocardiogram Allergy, unspecified not elsewhere classified Anemia AGE 16 Asthma, exercise induced 12/14/2011 Concussion 12/14/2011 (1) 5th grade (2) 2010 Dizziness Generalized anxiety disorder 06/11/2019 Left knee injury 2012 Migraine Paroxysmal tachycardia (HCC) PMH - PAST MEDICAL HISTORY OF 01/2000 normal color vision PMH - PAST MEDICAL HISTORY OF 2001 right arm fracture Precocious sexual development and puberty, not elsewhere classified 2005 end of the year sometime Syncope and collapse Unspecified asthma(493.90) exercise induced, NO ATTACKS SONCE 2006 Weight loss 12/14/2011 PAST SURGICAL HISTORY Procedure Laterality Date ECHO 12/18/14 [facility] TONSILLECTOMY AND ADENOIDECTOMY TYMPANOSTOMY LOCAL/TOPICAL ANESTHESIA ALLERGIES Amoxicillin-Pot Clavulanate, Amoxicillin, Flonase [Fluticasone Propionate], Lamictal [Lamotrigine], Medical Tape [Other], Singulair [Montelukast Sodium], and Adhesive Tape-Silicones MEDICATIONS levonorgestrel (LILETTA) 20.1 mcg/24 hrs (6 yrs) 52 mg IUDby INTRAUTERINE route.Disp: Rfl: (Patient not taking: Reported on 03/02/2022 ) risperiDONE (RISPERDAL) 1 mg tabletTake 1 mg by mouth twice daily.Disp: Rfl: copper (PARAGARD T 380A INTRAUTERINE)by INTRAUTERINE route.Disp: Rfl: (Patient not taking: Reported on 08/03/2021 ) MULTI-VITAMIN ORALTake by mouth.Disp: Rfl: ondansetron orally disintegrating (ZOFRAN ODT) 4 mg disintegrating tabletTake 1 tablet by mouth every 8 hours as needed.Disp: 12 tabletRfl: 0 (Patient not taking: Reported on 07/06/2019 ) FAMILY HISTORY Problem Relation Age of Onset Alcohol/Drug Father alcoholic Arthritis Mother Diabetes Maternal Grandmother Diabetes Maternal Aunt Emphysema Father Emphysema Maternal Grandfather Heart Father Heart Paternal Grandfather Hypertension Father Lipids Father Thyroid Mother Social History Tobacco Use Smoking status: Never Smokeless tobacco: Never Substance Use Topics Alcohol use: No Drug use: No Review of Systems Constitutional: Negative for activity change, appetite change, fever and malaise/fatigue. Eyes: Negative for pain, discharge, redness and itching. Respiratory: Negative for apnea, choking, chest tightness and shortness of breath. Cardiovascular: Negative for palpitations, orthopnea, syncope and near-syncope. Gastrointestinal: Positive for nausea. Negative for abdominal pain, anorexia and vomiting. Musculoskeletal: Negative for arthralgias, back pain and gait problem. Skin: Negative for color change, pallor, rash and wound. Allergic/Immunologic: Negative for environmental allergies, food allergies and immunocompromised state. Neurological: Positive for headaches. Hematological: Negative for adenopathy. Does not bruise/bleed easily. Psychiatric/Behaviora l: Negative for agitation and behavioral problems. Objective BP 138/82 Pulse 80 Temp 36.7 ?C (98 ?F) (Tympanic) Resp 16 Wt 79.7 kg (175 lb 9.6 oz) LMP 10/05/2017 SpO2 100% BMI 32.12 kg/m? Physical Exam Vitals and nursing note reviewed. Constitutional: General: She is not in acute distre (more content not included)... Normal [facility] CBCon 07-25-2022 ABSOLUTE BAS 0.1 10*3/uL Normal 0.0-0.2 [facility] Comment on above: Performed By: #### A CBC, CMPF #### Testing performed at [facility] [address] [place] [address] ABSOLUTE EOS 0.9 10*3/uL High 0.0-0.7 [facility] Comment on above: Performed By: #### A CBC, CMPF #### Testing performed at [address] [place] [address] ABSOLUTE NEUTROPHIL COUNT 5.6 10*3/uL Normal 1.4-6.5 [facility] Comment on above: Performed By: #### A CBC, CMPF #### Testing performed at [address] [place] [address] Basophils/100 WBC (Bld) 0.7 % Normal 0.0-2.0 [facility] Comment on above: Performed By: #### A CBC, CMPF #### Testing performed at [address] [place] [address] DTYPE AUTO DIFF Normal [facility] Comment on above: Performed By: #### A CBC, CMPF #### Testing performed at [address] [place] [address] Eosinophils/100 WBC (Bld) 10.7 % Normal 0.0-11.0 [facility] Comment on above: Performed By: #### A CBC, CMPF #### Testing performed at [address] [place] [address] Lymphocytes (Bld) [#/Vol] 1.7 10*3/uL Normal 1.2-3.4 [facility] Comment on above: Performed By: #### A CBC, CMPF #### Testing performed at [address] [place] [address] Lymphocytes/100 WBC (Bld) 19.9 % Low 20.0-55.0 [facility] Comment on above: Performed By: #### A CBC, CMPF #### Testing performed at [address] [place] [address] Monocytes (Bld) [#/Vol] 0.4 10*3/uL Normal 0.0-0.7 [facility] Comment on above: Performed By: #### A CBC, CMPF #### Testing performed at [address] [place] [address] Monocytes/100 WBC (Bld) 4.3 % Normal 0.0-10.0 [facility] Comment on above: Performed By: #### A CBC, CMPF #### Testing performed at [address] [place] [address] Neutrophils/100 WBC (Bld) 64.4 % Normal 37.0-75.0 [facility] Comment on above: Performed By: #### A CBC, CMPF #### Testing performed at [address] [place] [address] Erythrocyte distribution width (RBC) [Ratio] 15.0 % High 11.5-14.5 [facility] Comment on above: Performed By: #### A CBC, CMPF #### Testing performed at [address] [place] [address] Hematocrit (Bld) [Volume fraction] 38.5 % Normal 36.0-48.0 [facility] Comment on above: Performed By: #### A CBC, CMPF #### Testing performed at [address] [place] [address] Hemoglobin (Bld) [Mass/Vol] 12.9 g/dL Normal 12.0-16.0 [facility] Comment on above: Performed By: #### A CBC, CMPF #### Testing performed at [address] [place] [address] MCH (RBC) [Entitic mass] 27.8 pg Normal 26.0-35.0 [facility] Comment on above: Performed By: #### A CBC, CMPF #### Testing performed at [address] [place] [address] MCHC (RBC) [Mass/Vol] 33.6 g/dL Normal 27.0-37.0 [facility] Comment on above: Performed By: #### A CBC, CMPF #### Testing performed at [address] [place] [address] MCV (RBC) [Entitic vol] 82.7 fL Normal 80.0-100.0 [facility] Comment on above: Performed By: #### A CBC, CMPF #### Testing performed at [address] [place] [address] Platelet mean volume (Bld) [Entitic vol] 8.9 fL Normal 7.4-11.0 [facility] Comment on above: Performed By: #### A CBC, CMPF #### Testing performed at [address] [address] Platelets (Bld) [#/Vol] 336 10*3/uL Normal 130.0-400.0 [facility] Comment on above: Performed By: #### A CBC, CMPF #### Testing performed at [address] [address] RBC (Bld) [#/Vol] 4.66 10*6/uL Normal 4.0-5.4 [facility] Comment on above: Performed By: #### A CBC, CMPF #### Testing performed at [address] [address] WBC (Bld) [#/Vol] 8.7 10*3/uL Normal 3.6-11.0 [facility] Comment on above: Performed By: #### A CBC, CMPF #### Testing performed at [address] [address] CMP FASTINGon 07-25-2022 A:G RATIO 1.7 RATIO Normal 1.3-2.2 [facility] Comment on above: Performed By: #### A CBC, CMPF #### Testing performed at [address] [address] ALBUMIN 5.0 G/dl Normal 3.5-5.0 [facility] Comment on above: Performed By: #### A CBC, CMPF #### Testing performed at [address] [address] ALP [Catalytic activity/Vol] 61 U/L Normal 38-126 [facility] Comment on above: Performed By: #### A CBC, CMPF #### Testing performed at [address] [place] [address] ALT [Catalytic activity/Vol] 35 U/L Normal 14-54 [facility] Comment on above: Performed By: #### A CBC, CMPF #### Testing performed at [address] [address] AST [Catalytic activity/Vol] 27 U/L Normal 15-41 [facility] Comment on above: Performed By: #### A CBC, CMPF #### Testing performed at [address] [address] Bilirubin [Mass/Vol] 0.6 mg/dL Normal 0.2-1.2 [facility] Comment on above: Performed By: #### A CBC CMPF #### Testing performed at [address] [address] Calcium [Mass/Vol] 10.0 mg/dL Normal 8.4-10.2 [facility] Comment on above: Performed By: #### A CBC, CMPF #### Testing performed at [address] [address] Chloride [Moles/Vol] 100 mmol/L Normal 98-107 [facility] Comment on above: Performed By: #### A CBC CMPF #### Testing performed at [address] [address] CO2 [Moles/Vol] 25 mmol/L Normal 22-30 [facility] Comment on above: Performed By: #### A CBC CMPF #### Testing performed at [address] [address] Creatinine [Mass/Vol] 0.77 mg/dL Normal 0.52-1.04 [facility] Comment on above: Performed By: #### A CBC CMPF #### Testing performed at [address] [address] EST. GFR, 116 ml/min/1.73sq.m [facility] Comment on above: Performed By: #### A CBC, CMPF #### Testing performed at [address] [address] EST. GFR,Non 96 ml/min/1.73sq.m [facility] Comment on above: Performed By: #### A CBC, CMPF #### Testing performed at [address] [address] GFR Information Average GFR for 20-2 9 years old = 116. Normal [facility] Comment on above: Result Comment: Engineering Technician tonya Kidney disease, GFR = <60. Kidney failure, GFR = <15. The GFR estimate is not adjusted for extreme body surface area or acute process, nor has it been validated for women or ethnic groups other than and . Performed By: #### A CBC, CMPF #### Testing performed at [address] [address] Glucose [Mass/Vol] 105 mg/dL High 70-100 [facility] Comment on above: Result Comment: NORMAL <100 mg/dL PREDIABETES 101-126 mg/dL DIABETES 126 mg/dL or higher Performed By: #### A CBC, CMPF #### Testing performed at [address] [address] Potassium [Moles/Vol] 4.0 mmol/L Normal 3.5-5.1 [facility] Comment on above: Performed By: #### A CBC, CMPF #### Testing performed at [address] [address] Protein [Mass/Vol] 8.0 g/dL Normal 6.3-8.2 [facility] Comment on above: Performed By: #### A CBC, CMPF #### Testing performed at [address] [address] Sodium [Moles/Vol] 136 mmol/L Normal 136-145 [facility] Comment on above: Performed By: #### A CBC, CMPF #### Testing performed at [address] [address] Urea nitrogen [Mass/Vol] 9 mg/dL Normal 7-20 [facility] Comment on above: Performed By: #### A CBC, CMPF #### Testing performed at [address] [address] [address] ABDOMEN/PELVIS WITHOUT CO NTRASTon 07-25-2022 CT ABDOMEN/PELVIS WITHOUT CONTRAST EXAMINATION: CT ABDOMEN/PELVIS WITHOUT CONTRAST, 07/25/2022 10:31 AM EDT HISTORY: Epigastric abdominal pain. COMPARISON: None. TECHNIQUE: CT scan of the abdomen and pelvis was performed without IV contrast. CT dose reduction technique was used, including Automated Exposure Control. FINDINGS: CT ABDOMEN: The lung bases are clear. Evaluation of solid organs is limited without IV contrast. The liver, spleen, pancreas and adrenal glands show no acute abnormality or suspicious masses. Gallbladder appears normal with no calcified stones or signs of acute cholecystitis. Right kidney contains a single 3 mm stone in the lower pole. There are no left renal stones. Both kidneys show no hydronephrosis. There is a 1.0 cm hyperdense mass in the lateral upper pole cortex of the left kidney (image 28) with a density of about 82 Hounsfield units. This is incompletely characterized but presumably a small proteinaceous or hemorrhagic cyst. The stomach is nondistended. Small bowel loops appear unremarkable with no dilatation or appreciable loop thickening. No intra-abdominal free air or free fluid. Incidental small wide mouth umbilical hernia containing only fat. No bulky mesenteric or retroperitoneal adenopathy. CT PELVIS: Uterus is surgically absent. No gross abnormality of the ovaries. Urinary bladder is nondistended. There are no ureteral or bladder stones. No pericolonic inflammatory changes. The appendix is not clearly visible but there are no secondary findings of acute appendicitis. No acute osseous abnormality. IMPRESSION: 1. No findings of an acute inflammatory process in the abdomen or pelvis. Negative for bowel obstruction. 2. There is a 3 mm lower pole right renal stone. No additional KUB stones or hydronephrosis. 3. Left renal cortical hyperdense mass measuring 1.0 cm, incompletely characterized but presumably a proteinaceous or hemorrhagic cyst. 4. Incidental small umbilical hernia containing only fat. 5. Hysterectomy. Normal [facility] Absolute lymphocyte counton 07-20-2022 Lymphocytes Auto (Unsp spec) [#/Vol] 2.09 10*3/uL 0.83-4.51 [facility] Work Phone: Basophil percentageon 2021 Basophils/100 WBC (Bld) 0.4 % 0-1 [facility] Work Phone: Bilirubin [Mass/Vol] 0.50 mg/dL 0.20-1.00 [facility] Work Phone: Comment on above: For patients on eltr ombopag therapy, use of Dimension Jenkins TBIL is not recommended. Chloride [Moles/Vol] 108 mmol/L 98-107 [facility] Work Phone: Eosinophils/100 WBC (Bld) 17.8 % 0-5 [facility] Work Phone: Glucose [Mass/Vol] 92 mg/dL 74-106 [facility] Work Phone: [phone] Neutrophils (Bld) [#/Vol] 5.4 10*3/uL 2.0-7.7 [facility] Work Phone: Neutrophils/100 WBC (Bld) 55.1 % 47-70 [facility] Work Phone: Potassium [Moles/Vol] 3.6 mmol/L 3.5-5.1 [place] Work Phone: [phone] Protein [Mass/Vol] 7.2 g/dL 6.4-8.2 [facility] Work Phone: Sodium [Moles/Vol] 141 mmol/L 136-145 [facility] Work Phone: [phone] WBC (Bld) [#/Vol] 9.8 10*3/uL 4.4-11.0 [facility] Work Phone: Basophil percentage 0-5 SEEN /hpf 0-5 [facility] Work Phone: [phone] Bilirubin Test strip Ql (U)o n 07-20-2022 Bilirubin Ql (U) Negative Negative [facility] Work Phone: Blood erythrocytes count (nu mber/volume)on 07-20-2022 RBC (Bld) [#/Vol] 4.47 10*6/uL [facility].2-5.[facility] Blood hemoglobin measurement (mass/volume)on 07-20-2022 Hemoglobin (Bld) [Mass/Vol] 12.2 g/dL 12.0-15.0 [facility] Work Phone: Blood lymphocytes/100 leukoc yteson 07-20-2022 Lymphocytes/100 WBC (Bld) 21.3 % 19-41 [facility] Work Phone: Blood monocytes/100 leukocyt eson 07-20-2022 Monocytes/100 WBC (Bld) 5.1 % 0-10 [facility] Work Phone: Blood platelet mean volumeon 07-20-2022 Platelet mean volume (Bld) [Entitic vol] 10.9 fL 6.2-12.0 [facility] Work Phone: Determination of erythrocyte mean corpuscular volume (MCV)on 07-20-2022 MCV (RBC) [Entitic vol] 84.8 fL 81-99 [facility] Work Phone: Hematocrit Auto (Bld) [Volum e fraction]on 07-20-2022 Hematocrit (Bld) [Volume fraction] 37.9 % 37-47 [facility] Work Phone: Ketones Test strip Ql (U)on 07-20-2022 Ketones Ql (U) Negative Negative [facility] Work Phone: Laboratory - Chemistry and C hemistry - challengeon 07-20-2022 ALP [Catalytic activity/Vol] 68 U/L 45-117 [facility] Work Phone: ALT [Catalytic activity/Vol] 42 U/L 13-56 [facility] Work Phone: CO2 [Moles/Vol] 27.0 mmol/L 21.0-32.0 [facility] Work Phone: Globulin (S) [Mass/Vol] 3.3 g/dL 2.2-4.2 [facility] Work Phone: Lipase [Catalytic activity/Vol] 144 U/L 73-393 [facility] Work Phone: Urea nitrogen/Creatinine [Mass ratio] 8.4 mg/mg 07-20 [facility] Work Phone: HCG ( test) Ql (U) Negative [facility] Work Phone: Comment on above: Very dilute urine sp ecimens, as indicated by a low specificgravity, may not contain passenger service representative levels of hCG. If is still suspected, a first morning urinespecimen should be collected 48 hours later and tested. Laboratory - Hematology and Cell countson 07-20-2022 Erythrocyte distribution width (RBC) [Entitic vol] 42.4 fL 35.1-43.9 [facility] Work Phone: Erythrocyte distribution width (RBC) [Ratio] 13.8 % 11.6-14.6 [facility] Work Phone: Immature granulocytes/100 WBC (Bld) 0.300 % 0.0-0.9 [facility] Work Phone: Comment on above: IG% - Immature Granu locytes (promyelocytes, myelocytes and metamyelocytes) > 1% indicates that a LEFT SHIFT is Present. MCH (RBC) [Entitic mass] 27.3 pg 27.0-32.0 [facility] Work Phone: Nucleated RBC/100 WBC (Bld) [Ratio] 0 % 0-5 [facility] Work Phone: MCHC Auto (RBC) [Mass/Vol]on 07-20-2022 MCHC (RBC) [Mass/Vol] 32.2 g/dL 32-36 [facility] Work Phone: Mucus LM Ql (Urine sed)on Mucus Ql (Urine sed) 0 SEEN /hpf [facility] Work Phone: Nitrite Test strip Ql (U)on 07-20-2022 Nitrite Ql (U) Negative Negative [facility] Work Phone: No Panel Informationon 07-20 Estimated Creatinine Clearance Calc 92.83 ml/min [facility] Work Phone: Estimated GFR (MDRD) Amer 125 mL/min >60 [facility] Work Phone: Comment on above: GFR Calc Estimated GFR (MDRD) Non-Af Amer 104 mL/min >60 [facility] Work Phone: Comment on above: Non- GFR Calc Platelets bldon 07-20-2022 Platelets (Bld) [#/Vol] 399 10*3/uL 150-450 [facility] Work Phone: Protein Test strip Ql (U)on 07-20-2022 Protein Ql (U) Negative Negative [facility] Work Phone: Serum or plasma albumin estrellita urement (mass/volume)on 07-20-2022 Albumin [Mass/Vol] 3.9 g/dL 3.2-5.0 [facility] Work Phone: Serum or plasma albumin/glob ulin mass ratioon 07-20-2022 Albumin/Globulin [Mass ratio] 1.2 {ratio} 0.9-2.4 [facility] Work Phone: Serum or plasma calcium estrellita urement (mass/volume)on 07-20-2022 Calcium [Mass/Vol] 9.0 mg/dL 8.5-10.1 [facility] Work Phone: Serum or plasma creatinine m easurement (mass/volume)on 07-20-2022 Creatinine [Mass/Vol] 0.72 mg/dL 0.55-1.02 [facility] Work Phone: Comment on above: The validity of the calculated GFR & GFRAA in patients over 70 years has not been determined. Clinical correlation is essential. Serum or plasma urea nitroge n measurement (mass/volume)on 07-20-2022 Urea nitrogen [Mass/Vol] 6 mg/dL 7-18 [facility] Work Phone: Squamous epithelial cells de tection in urine sediment by light microscopyon 07-20-2022 Epithelial cells.squamous LM Ql (Urine sed) 5-10 SEEN /hpf 5-10 [facility] Work Phone: Thin prep Papanicolaou smear with manual screeningon 07-20-2022 Thin prep Papanicolaou smear with manual screening 23 U/L 15-37 [facility] Work Phone: Thin prep Papanicolaou smear with manual screening 6 5-15 [facility] Work Phone: Urine blood detectionon 07-02 RBC Ql (U) Negative Negative [facility] Work Phone: RBC Ql (U) 0 SEEN /hpf 0-5 [facility] Work Phone: Urine clarityon 07-20-2022 Clarity (U) Clear Clear [facility] Work Phone: Urine color determinationon 07-20-2022 Color (U) Straw Yellow [facility] Work Phone: Urine glucose detectionon Glucose Ql (U) Normal mg/dl Normal [facility] Work Phone: Urine leukocyte esterase det ection by dipstickon 07-20-2022 Leukocyte esterase Test strip Ql (U) Negative Negative [facility] Work Phone: Urine pHon 07-20-2022 pH (U) 8.0 [pH] 5.0 - 8.0 [facility] Work Phone: Urine sediment bacteria coun t by microscopy (number/high power field)on 07-20-2022 Bacteria LM.HPF (Urine sed) [#/Area] 3 /[HPF] None Seen [facility] Work Phone: Urine specific gravity measu rementon 07-20-2022 Specific gravity (U) [Rel density] 1.010 1.002-1.030 [facility] Work Phone: Urobilinogen Auto test strip Ql (U)on 07-20-2022 Urobilinogen Ql (U) Normal mg/dl Normal [facility] Work Phone: XR Ankle - right AP and Late ral and obliqueon 07-10-2022 IMPRESSION: No acute process. Administrative Judge[facility] Transcribe Date/Time: Jul 10 2022 7:55P Dictated by : LEA HUFFMAN MD This examination was interpreted and the report reviewed and electronically signed by: LEA HUFFMAN MD on Jul 10 2022 7:56PM [facility] DIVISION OF RADIOLOGY * * *Final Report* * * DATE OF EXAM: Jul 10 2022 7:52PM WOX [id number] - XR ANKLE 3V AP/LAT/OBL RT / PROCEDURE REASON: Acute right ankle pain * * * * Physician Interpretation * * * * EXAMINATION: XR ANKLE 3V AP/LAT/OBL RT HISTORY: Acute right ankle pain. TECHNIQUE: XR ANKLE 3V AP/LAT/OBL RT Laterality: RIGHT Number of different views (projections): 3 M: XB_1 COMPARISON: There are no prior relevant examinations available for comparison within the [facility] Imaging Archives. RESULT: Standing frontal radiographs of the bilateral ankles with oblique and lateral weightbearing views of the right ankle show no acute osseous, articular or soft tissue process. 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 DIVISION OF RADIOLOGY [facility] * * *Final Report* * * DATE OF EXAM: Jul 10 2022 7:52PM WOX [id number] - XR ANKLE 3V AP/LAT/OBL RT / PROCEDURE REASON: Acute right ankle pain * * * * Physician Interpretation * * * * EXAMINATION: XR ANKLE 3V AP/LAT/OBL RT HISTORY: Acute right ankle pain. TECHNIQUE: XR ANKLE 3V AP/LAT/OBL RT Laterality: RIGHT Number of different views (projections): 3 M: XB_1 COMPARISON: There are no prior relevant examinations available for comparison within the [facility] Imaging Archives. RESULT: Standing frontal radiographs of the bilateral ankles with oblique and lateral weightbearing views of the right ankle show no acute osseous, articular or soft tissue process. 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 IMPRESSION IMPRESSION: No acute process. Administrative Judge: [facility] Transcribe Date/Time: Jul 10 2022 7:55P Dictated by : LEA HUFFMAN MD This examination was interpreted and the report reviewed and electronically signed by: LEA HUFFMAN MD on Jul 10 2022 7:56PM EST [facility] Radiology Study observation (narrative) [facility] XR Ankle - right AP and Late ral and obliqueOrdered By: f Provider on 07-10-2022 [facility] UA DIP, URINE (POC)on 2021 BILIRUBIN UA (POCT) Negative Negative [facility] CLARITY UA (POCT) Clear [facility] COLOR UA (POCT) Other [facility] GLUCOSE UA (POCT) Negative Negative mg/dL [facility] HEMOGLOBIN/BLOOD UA (POCT) Negative Negative [facility] KETONE UA (POCT) Negative Negative mg/dL [facility] LEUKOCYTES UA (POCT) Small Abnormal Negative [facility] NITRITE UA (POCT) Negative Negative [facility] PH UA (POCT) 6.5 4.5 - 8.0 [facility] Protein Ql (U) Negative Negative mg/dL [facility] SPECIFIC GRAVITY UA (POCT) 1.025 1.005 - 1.030 [facility] UROBILINOGEN UA (POCT) 1.0 E.U./dL Hannah l E.U./dL [facility] Culture, urineon 01-31-2022 Bacteria identified Cx Nom (U) Escherichia coli [facility] Work Phone: Laboratory - Chemistry and C hemistry - challengeon 01-31-2022 Bilirubin Ql (U) Negative [facility] Work Phone: Glucose Ql (U) Negative [facility] Work Phone: Ketones Ql (U) Trace (5) [facility] Work Phone: pH (U) 8.5 [pH] [facility] Work Phone: Specific gravity (U) [Rel density] 1.015 [facility] Work Phone: Urobilinogen (U) [Mass/Vol] Negative [facility] Work Phone: Laboratory - Hematology and Cell countson 01-31-2022 Hemoglobin Ql (U) Moderate [facility] Work Phone: Laboratory - Specimen inform ationon 01-31-2022 Clarity (U) Cloudy [facility] Work Phone: Color (U) Dk Yellow [facility] Work Phone: Laboratory - Urinalysison Nitrite Ql (U) Negative [facility] Work Phone: Protein Ql (U) Negative [facility] Work Phone: No Panel Informationon 01-31 Urine Leukocytes Positive [facility] Work Phone: Urine Non-Hemolyzed Blood Moderate [facility] Work Phone: Glucose Glucometer (BldC) [M ass/Vol]on 01-24-2022 Glucose [Mass/Vol] 83 mg/dL 74-106 [facility] Work Phone: Comment on above: MANAGEMENT OF PATIEUGENIO T CARE PER NURSING PROTOCOL Laboratory - Chemistry and C hemistry - challengeon 01-24-2022 HCG ( test) Ql (U) Negative [facility] Work Phone: Comment on above: Very dilute urine sp ecimens, as indicated by a low specificgravity, may not contain passenger service representative levels of hCG. If is still suspected, a first morning urinespecimen should be collected 48 hours later and tested. Laboratory - Chemistry and C hemistry - challengeon 01-19-2022 Magnesium [Mass/Vol] 2.1 mg/dL 1.6-2.6 [facility] Work Phone: Absolute lymphocyte counton 11-17-2021 Lymphocytes Auto (Unsp spec) [#/Vol] 1.70 10*3/uL 0.83-4.51 [facility] Work Phone: Basophil percentageon 2021 Basophils/100 WBC (Bld) 0.6 % 0-1 [facility] Work Phone: Chloride [Moles/Vol] 109 mmol/L 98-107 [facility] Work Phone: [phone] Eosinophils/100 WBC (Bld) 5.7 % 0-5 [facility] Work Phone: Glucose [Mass/Vol] 93 mg/dL 74-106 [facility] Work Phone: Neutrophils (Bld) [#/Vol] 5.2 10*3/uL 2.0-7.7 [facility] Work Phone: Neutrophils/100 WBC (Bld) 67.4 % 47-70 [facility] Work Phone: Potassium [Moles/Vol] 3.7 mmol/L 3.5-5.1 [facility] Work Phone: Sodium [Moles/Vol] 139 mmol/L 136-145 [facility] Work Phone: WBC (Bld) [#/Vol] 7.7 10*3/uL 4.4-11.0 [facility] Work Phone: Basophil percentage 0 SEEN /hpf [facility] Work Phone: Bilirubin Test strip Ql (U)o n 11-17-2021 Bilirubin Ql (U) Negative Negative [facility] Work Phone: Blood erythrocytes count (nu mber/volume)on 11-17-2021 RBC (Bld) [#/Vol] 4.53 10*6/uL 4.2-5.4 [facility] Work Phone: Blood hemoglobin measurement (mass/volume)on 11-17-2021 Hemoglobin (Bld) [Mass/Vol] 13.0 g/dL 12.0-15.0 [facility] Work Phone: Blood lymphocytes/100 leukoc yteson 11-17-2021 Lymphocytes/100 WBC (Bld) 22.0 % 19-41 [facility] Work Phone: Blood monocytes/100 leukocyt eson 11-17-2021 Monocytes/100 WBC (Bld) 4.0 % 0-10 [facility] Work Phone: Blood platelet mean volumeon 11-17-2021 Platelet mean volume (Bld) [Entitic vol] 10.4 fL 6.2-12.0 [facility] Work Phone: Determination of erythrocyte mean corpuscular volume (MCV)on 11-17-2021 MCV (RBC) [Entitic vol] 86.3 fL 81-99 [facility] Work Phone: Hematocrit Auto (Bld) [Volum e fraction]on 11-17-2021 Hematocrit (Bld) [Volume fraction] 39.1 % 37-47 [facility] Work Phone: Ketones Test strip Ql (U)on 11-17-2021 Ketones Ql (U) Negative Negative [facility] Work Phone: Laboratory - Chemistry and C hemistry - challengeon 11-17-2021 CO2 [Moles/Vol] 26.0 mmol/L 21.0-32.0 [facility] Work Phone: Urea nitrogen/Creatinine [Mass ratio] 8.1 mg/mg 10-20 [facility] Work Phone: HCG ( test) Ql (U) Negative [facility] Work Phone: Comment on above: Very dilute urine sp ecimens, as indicated by a low specificgravity, may not contain passenger service representative levels of hCG. If is still suspected, a first morning urinespecimen should be collected 48 hours later and tested. Laboratory - Hematology and Cell countson 11-17-2021 Erythrocyte distribution width (RBC) [Entitic vol] 42.5 fL 35.1-43.9 [facility] Work Phone: Erythrocyte distribution width (RBC) [Ratio] 13.7 % 11.6-14.6 [facility] Work Phone: Immature granulocytes/100 WBC (Bld) 0.300 % 0.0-0.9 [facility] Work Phone: Comment on above: IG% - Immature Granu locytes (promyelocytes, myelocytes and metamyelocytes) > 1% indicates that a LEFT SHIFT is Present. MCH (RBC) [Entitic mass] 28.7 pg 27.0-32.0 [facility] Work Phone: Nucleated RBC/100 WBC (Bld) [Ratio] 0 % 0-5 [facility] Work Phone: MCHC Auto (RBC) [Mass/Vol]on 11-17-2021 MCHC (RBC) [Mass/Vol] 33.2 g/dL 32-36 [facility] Work Phone: Mucus LM Ql (Urine sed)on Mucus Ql (Urine sed) 0 SEEN /hpf [facility] Work Phone: Nitrite Test strip Ql (U)on 11-17-2021 Nitrite Ql (U) Negative Negative [facility] Work Phone: No Panel Informationon 11-17 Estimated Creatinine Clearance Calc 81.06 ml/min [facility] Work Phone: Estimated GFR (MDRD) Amer 101 mL/min >60 [facility] Work Phone: Comment on above: GFR Calc Estimated GFR (MDRD) Non-Af Amer 83 mL/min >60 [facility] Work Phone: Comment on above: Non- GFR Calc Platelets bldon 11-17-2021 Platelets (Bld) [#/Vol] 395 10*3/uL 150-450 [facility] Work Phone: Protein Test strip Ql (U)on 11-17-2021 Protein Ql (U) Negative Negative [facility] Work Phone: Serum or plasma calcium estrellita urement (mass/volume)on 11-17-2021 Calcium [Mass/Vol] 9.1 mg/dL 8.5-10.1 [facility] Work Phone: Serum or plasma creatinine m easurement (mass/volume)on 11-17-2021 Creatinine [Mass/Vol] 0.87 mg/dL 0.55-1.02 [facility] Work Phone: Comment on above: The validity of the calculated GFR & GFRAA in patients over 70 years has not been determined. Clinical correlation is essential. Serum or plasma urea nitroge n measurement (mass/volume)on 11-17-2021 Urea nitrogen [Mass/Vol] 7 mg/dL 7-18 [facility] Work Phone: Squamous epithelial cells de tection in urine sediment by light microscopyon 11-17-2021 Epithelial cells.squamous LM Ql (Urine sed) 0-5 SEEN /hpf [facility] Work Phone: Thin prep Papanicolaou smear with manual screeningon 11-17-2021 Thin prep Papanicolaou smear with manual screening 4 5-15 [facility] Work Phone: Urine blood detectionon 11-01 RBC Ql (U) Negative Negative [facility] Work Phone: RBC Ql (U) 0 SEEN /hpf [facility] Work Phone: Urine clarityon 11-17-2021 Clarity (U) Clear Clear [facility] Work Phone: Urine color determinationon 11-17-2021 Color (U) Straw Yellow [facility] Work Phone: Urine glucose detectionon Glucose Ql (U) Normal mg/dl Normal [facility] Work Phone: Urine leukocyte esterase det ection by dipstickon 11-17-2021 Leukocyte esterase Test strip Ql (U) 100 /ul Negative [facility] Work Phone: Urine pHon 11-17-2021 pH (U) 8.0 [pH] [facility] Work Phone: Urine sediment bacteria coun t by microscopy (number/high power field)on 11-17-2021 Bacteria LM.HPF (Urine sed) [#/Area] 1 /[HPF] None Seen [facility] [facility] Work Phone: Urine specific gravity measu rementon 11-17-2021 Specific gravity (U) [Rel density] 1.010 [facility] Work Phone: Urobilinogen Auto test strip Ql (U)on 11-17-2021 Urobilinogen Ql (U) Normal mg/dl Normal [facility] Work Phone: APTTon 02-21-2019 aPTT Coag time (Bld) 25.0 s Normal 20.0-30.5 [facility] Comment on above: Result Comment: NOTE : The therapeutic time for Heparin anticoagulation, based on Xa activity inhibition, is an APTT of 46-80 seconds. Performed By: #### A PTT, PT #### [employer] [address] [place] [id number] Add on test from HISon 02-21 Add on test from HIS Accepted Normal [facility] Comment on above: Result Comment: Spec imen available & acceptable for analysis. Performed By: #### A DDON #### [facility] [address] [place] [address] Basic Metabolic Panelon 05-2 Calcium mass conc 9.0 mg/dL Normal 8.4-10.4 [facility] Comment on above: Performed By: #### H EMDF, BMP3M, LFT3, HA1C2 #### [facility] [address] [place] [address] Glucose mass conc 137 mg/dL High 70-100 [facility] Comment on above: Performed By: #### H EMDF, BMP3M, LFT3, HA1C2 #### [place] [address], [place] Anion gap molar conc 12 Normal [facility] Comment on above: Performed By: #### H EMDF, BMP3M, LFT3, HA1C2 #### [place] [address], [place] CO2 molar conc 18 mmol/L Low 22-30 [facility] Comment on above: Performed By: #### H EMDF, BMP3M, LFT3, HA1C2 #### [place] [address], [place] Creatinine mass conc 0.53 mg/dL Normal 0.52-1.25 [facility] Comment on above: Performed By: #### H EMDF, BMP3M, LFT3, HA1C2 #### [place] [address], [place] GFR/1.73 sq M predicted among blacks MDRD vol rate/area (S/P/Bld) mL/min/{1.73_m2} Normal >60 [facility] Comment on above: Performed By: #### H EMDF, BMP3M, LFT3, HA1C2 #### [place] [address] [place] [address] GFR/1.73 sq M predicted among non-blacks MDRD vol rate/area (S/P/Bld) mL/min/{1.73_m2} Normal >60 [facility] Comment on above: Result Comment: Sour ce- MDRD equation with creatinine calibration to IDMS(NKDEP) eGFR not recommended for drug dose adjustment Performed By: #### H EMDF, BMP3M, LFT3, HA1C2 #### [address] Urea nitrogen mass conc 5 mg/dL Low 7-20 [facility] Comment on above: Performed By: #### H EMDF, BMP3M, LFT3, HA1C2 #### [address] Chloride molar conc 113 mmol/L High 98-107 [facility] Comment on above: Performed By: #### H EMDF, BMP3M, LFT3, HA1C2 #### [address] Potassium molar conc 4.1 mmol/L Normal 3.5-5.1 [facility] Comment on above: Performed By: #### H EMDF, BMP3M, LFT3, HA1C2 #### [address] Sodium molar conc 142 mmol/L Normal 135-145 [facility] Comment on above: Performed By: #### H EMDF, BMP3M, LFT3, HA1C2 #### [address] Hemoglobin A1Con 02-21-2019 Hemoglobin A1c/Hemoglobin.total mass fraction (Bld) 4.9 % Normal 4.0-5.7 [facility] Comment on above: Result Comment: --Hg bA1C levels may not be accurate in patients who have renal disease, received recent blood transfusions, are anemic, or who have dyshemoglobinemia. Performed By: #### H EMDF, BMP3M, LFT3, HA1C2 #### [address] Hemoglobin A1c/Hemoglobin.total mass fraction (Bld) 94 mg/dL Normal [facility] Comment on above: Performed By: #### H EMDF, BMP3M, LFT3, HA1C2 #### [address] Hemogram w/ Autodiffon 02-21 Abs Baso Cnt 0.0 10*3/uL Normal 0.0-0.2 [facility] Comment on above: Performed By: #### H EMDF, BMP3M, LFT3, HA1C2 #### [address] Abs Neutrophile Cnt 9.5 10*3/uL High 1.8-7.0 [facility] Comment on above: Performed By: #### H EMDF, BMP3M, LFT3, HA1C2 #### [address] Basophils/100 WBC (Bld) 0.2 % Normal 0.0-2.0 [facility] Comment on above: Performed By: #### H EMDF, BMP3M, LFT3, HA1C2 #### [address] Eosinophils #/vol (Bld) 0.0 10*3/uL Normal 0.0-0.5 [facility] Comment on above: Performed By: #### H EMDF, BMP3M, LFT3, HA1C2 #### [address] Eosinophils/100 WBC (Bld) 0.0 % Low 1.0-6.0 [facility] Comment on above: Performed By: #### H EMDF, BMP3M, LFT3, HA1C2 #### [address] Erythrocyte distribution width Ratio (RBC) 13.1 % Normal 11.5-14.5 [facility] Comment on above: Performed By: #### H EMDF, BMP3M, LFT3, HA1C2 #### [address] Granulocytes/100 WBC (Bld) 89.1 % High 40.0-80.0 [facility] Comment on above: Performed By: #### H EMDF, BMP3M, LFT3, HA1C2 #### [address] Hematocrit Volume Fraction (Bld) 35.7 % Normal 35.0-47.0 [facility] Comment on above: Performed By: #### H EMDF, BMP3M, LFT3, HA1C2 #### [address] Hemoglobin mass conc (Bld) 12.1 g/dL Normal 11.7-16.0 [facility] Comment on above: Performed By: #### H EMDF, BMP3M, LFT3, HA1C2 #### [address] Lymphocytes #/vol (Bld) 1.0 10*3/uL Normal 1.0-4.3 [facility] Comment on above: Performed By: #### H EMDF, BMP3M, LFT3, HA1C2 #### [address] Lymphocytes/100 WBC (Bld) 9.3 % Low 20.0-40.0 [facility] Comment on above: Performed By: #### H EMDF, BMP3M, LFT3, HA1C2 #### [address] MCH Entitic mass (RBC) 28.5 pg Normal 26.0-34.0 [facility] Comment on above: Performed By: #### H EMDF, BMP3M, LFT3, HA1C2 #### [address] MCHC mass conc (RBC) 33.9 % Normal 32.0-36.0 [facility] Comment on above: Performed By: #### H EMDF, BMP3M, LFT3, HA1C2 #### [address] MCV Entitic volume (RBC) 84.2 fL Normal 79.0-98.0 [facility] Comment on above: Performed By: #### H EMDF, BMP3M, LFT3, HA1C2 #### [address] Monocytes #/vol (Bld) 0.1 10*3/uL Normal 0.0-0.8 [facility] Comment on above: Performed By: #### H EMDF, BMP3M, LFT3, HA1C2 #### [address] Monocytes/100 WBC (Bld) 1.4 % Low 2.0-10.0 [facility] Comment on above: Performed By: #### H EMDF, BMP3M, LFT3, HA1C2 #### [place] [address] [place], [place] Platelet mean volume Entitic volume (Bld) 9.5 fL Normal 7.4-10.4 [facility] Comment on above: Performed By: #### H EMDF, BMP3M, LFT3, HA1C2 #### [place] [address] [place], [place] Platelets #/vol (Bld) 323 10*3/uL Normal 140-440 [facility] Comment on above: Performed By: #### H EMDF, BMP3M, LFT3, HA1C2 #### [address] RBC #/vol (Bld) 4.24 10*6/uL Normal 3.80-5.20 [facility] Comment on above: Performed By: #### H EMDF, BMP3M, LFT3, HA1C2 #### [place] [address] [place], [place] WBC #/vol (Bld) 10.6 10*3/uL Normal 3.6-10.7 [facility] Comment on above: Performed By: #### H EMDF, BMP3M, LFT3, HA1C2 #### [address] Hepatic Functionon 9 ALP enzyme act/vol 72 U/L Normal 38-126 [facility] Comment on above: Performed By: #### H EMDF, BMP3M, LFT3, HA1C2 #### [facility] [address], [place] ALT enzyme act/vol 15 U/L Normal 13-69 [facility] Comment on above: Performed By: #### H EMDF, BMP3M, LFT3, HA1C2 #### [facility] [address], [place] AST enzyme act/vol 19 U/L Normal 15-46 [facility] Comment on above: Performed By: #### H EMDF, BMP3M, LFT3, HA1C2 #### [place] [address] [place], [place] Bilirubin mass conc 0.3 mg/dL Normal 0.2-1.3 [facility] Comment on above: Performed By: #### H EMDF, BMP3M, LFT3, HA1C2 #### [address] Protein mass conc 7.1 g/dL Normal 6.3-8.2 [facility] Comment on above: Performed By: #### H EMDF, BMP3M, LFT3, HA1C2 #### [address] Bilirubin.direct mass conc 0.0 mg/dL Normal 0.0-0.3 [facility] Comment on above: Performed By: #### H EMDF, BMP3M, LFT3, HA1C2 #### [address] Albumin mass conc 4.1 g/dL Normal 3.5-5.0 [facility] Comment on above: Performed By: #### H EMDF, BMP3M, LFT3, HA1C2 #### [address] Prothrombin Timeon 9 INR Coag RelTime (PPP) 1.0 Normal 0.9-1.1 [facility] Comment on above: Result Comment: Santino mmended Anticoagulant Therapy: SEE BELOW ----- INR of 2.0 - 3.0 : - Prophylaxis of Venous Thrombosis (high-risk surgery) - Treatment of Venous Thrombosis - Treatment of Pulmonary Embolism (Includes tissue heart valves, Acute Myocardial Infarction to prevent systemic embolism, Valvular Heart Disease, and Atrial Fibrillation) ----- INR of 2.5 - 3.5 : - Mechanical Prosthetic Valves (high risk) - If oral anticoagulant therapy is used to prevent Myocardial Infarction Performed By: #### A PTT, PT #### [facility] [address] [place] [address] Prothrombin time (PT) Coag time (PPP) 10.2 s Normal 9.0-12.0 [facility] Comment on above: Result Comment: . Performed By: #### A PTT, PT #### [facility] [address] [place] [address] Vital Signs Date Time Vital Sign Value Performing Clinician Facility 08-18-2023 14:44-0500 Body temperature 99.1 [degF] Adelaide Huddleston FARE COLLECTOR.PLUNGER MACHINE OPERATOR Work Phone: [facility] 08-18-2023 14:44-0500 Body weight 64.41 kg Adelaide Huddleston FARE COLLECTOR.PLUNGER MACHINE OPERATOR Work Phone: [facility] 08-18-2023 14:44-0500 Diastolic blood pressure 72 mm[Hg] Adelaide Huddleston FARE COLLECTOR.PLUNGER MACHINE OPERATOR Work Phone: [facility] 08-18-2023 14:44-0500 Heart rate 88 /min Adelaide Huddleston FARE COLLECTOR.PLUNGER MACHINE OPERATOR Work Phone: [facility] 08-18-2023 14:44-0500 Respiratory rate 16 /min Adelaide Huddleston FARE COLLECTOR.PLUNGER MACHINE OPERATOR Work Phone: [facility] 08-18-2023 14:44-0500 SaO2% (BldA) [Mass fraction] 100 % Adelaide Huddleston FARE COLLECTOR.PLUNGER MACHINE OPERATOR Work Phone: [facility] 08-18-2023 14:44-0500 Systolic blood pressure 100 mm[Hg] Adelaide Huddleston FARE COLLECTOR.PLUNGER MACHINE OPERATOR Work Phone: [facility] 03-01-2023 16:50-0400 Body height 160 cm Barney Borjas PA-C Work Phone: [facility] 03-01-2023 16:50-0400 Body mass index (BMI) [Ratio] 27.03 kg/m2 Barney Newbill PA-C Work Phone: [facility] 03-01-2023 16:50-0400 Body temperature 98.6 [degF] Barney Newbill PA-C Work Phone: [facility] 03-01-2023 16:50-0400 Body weight 69.22 kg Barney Newbill PA-C Work Phone: [facility] 03-01-2023 16:50-0400 Diastolic blood pressure 87 mm[Hg] Barney Newbill PA-C Work Phone: [facility] 03-01-2023 16:50-0400 Heart rate 69 /min Barney Newbill PA-C Work Phone: [facility] 03-01-2023 16:50-0400 SaO2% (BldA) [Mass fraction] 99 % Barney Newbill PA-C Work Phone: [facility] 03-01-2023 16:50-0400 Systolic blood pressure 144 mm[Hg] Barney Newbill PA-C Work Phone: [facility] 01-31-2023 23:46-0400 Diastolic blood pressure 70 mm[Hg] Barney Newbill Other Phone: [facility] 01-31-2023 23:46-0400 Heart rate 92 /min Barney Newbill Other Phone: [facility] 01-31-2023 23:46-0400 Respiratory rate 18 /min Barney Newbill Other Phone: [facility] 01-31-2023 23:46-0400 SaO2% (BldA) [Mass fraction] 97 % Barney Newbill Other Phone: [facility] 01-31-2023 23:46-0400 Systolic blood pressure 113 mm[Hg] Barney Borjas Other Phone: [facility] 01-31-2023 21:22-0400 Body height 157.4 cm Barney Sanchezl Other Phone: [facility] 01-31-2023 21:22-0400 Body temperature 97.88 [degF] Barney Sanchezl Other Phone: [facility] 01-31-2023 21:22-0400 Body weight 64 kg Barney Borjas Other Phone: [facility] 11-28-2022 13:58-0500 Body height 157.[address] Erika Leavitt Work Phone: [facility] 11-28-2022 13:58-0500 Body mass index (BMI) [Ratio] 29.9 kg/m2 Dr. Erika Leavitt Work Phone: [facility] 11-28-2022 13:58-0500 Body temperature 98.8 [degF] Dr. Erika Leavitt Work Phone: [facility] 11-28-2022 13:58-0500 Body weight 74.[address] Erika Leavitt Work Phone: [facility] 11-28-2022 13:58-0500 Diastolic blood pressure 86 mm[Hg] Dr. Erika Leavitt Work Phone: [facility] 11-28-2022 13:58-0500 Heart rate 84 /min Dr. Erika Leavitt Work Phone: [facility] 11-28-2022 13:58-0500 Respiratory rate 16 /min Dr. Erika Leavitt Work Phone: [facility] 11-28-2022 13:58-0500 SaO2% (BldA) [Mass fraction] 98 % Dr. Erika Leavitt Work Phone: [facility] 11-28-2022 13:58-0500 Systolic blood pressure 127 mm[Hg] Dr. Erika Leavitt Work Phone: [facility] 11-13-2022 08:08-0500 Body height 160.02 cm Barney Mary Kay Sanchezl Work Phone: [facility] Work Phone: 11-13-2022 08:08-0500 Body mass index (BMI) [Ratio] 29.18 kg/m2 Barney Mary Kay Newtreyl Work Phone: [facility] Work Phone: 11-13-2022 08:08-0500 Body surface area Derived from formula 1.78 m2 Barney Sanchezl Work Phone: [facility] Work Phone: 11-13-2022 08:08-0500 Body temperature 99.5 [degF] Barney Sanchezl Work Phone: [facility] Work Phone: 11-13-2022 08:08-0500 Body weight 74.71 kg Barney Mary Kay Sanchezl Work Phone: [facility] Work Phone: 11-13-2022 08:08-0500 Diastolic blood pressure 79 mm[Hg] Barney Mary Kay Newbill Work Phone: [facility] Work Phone: 11-13-2022 08:08-0500 Heart rate 121 /min Barney Mary Kay Newbill Work Phone: [facility] Work Phone: 11-13-2022 08:08-0500 SaO2% (BldA) [Mass fraction] 99 % Barney Mary Kay Newbill Work Phone: [facility] Work Phone: 11-13-2022 08:08-0500 Systolic blood pressure 125 mm[Hg] Barney Borjas Work Phone: [facility] Work Phone: 11-07-2022 14:41-0500 Body height 160 cm Kathleen Brush DO Work Phone: [facility] 11-07-2022 14:41-0500 Body temperature 98.8 [degF] Kathleen Brush DO Work Phone: [facility] 11-07-2022 14:41-0500 Body weight 75.61 kg Kathleen Brush DO Work Phone: [facility] 11-07-2022 14:41-0500 Diastolic blood pressure 75 mm[Hg] Kathleen Brush DO Work Phone: [facility] 11-07-2022 14:41-0500 Heart rate 84 /min Kathleen Brush DO Work Phone: [facility] 11-07-2022 14:41-0500 Systolic blood pressure 138 mm[Hg] Kathleen Brush DO Work Phone: [facility] 10-12-2022 08:35-0500 Body weight 78.02 kg Roland Rodriguez MD Work Phone: [facility] 10-12-2022 08:35-0500 Diastolic blood pressure 80 mm[Hg] Roland Rodriguez MD Work Phone: [facility] 10-12-2022 08:35-0500 Heart rate 100 /min Roland Rodriguez MD Work Phone: [facility] 10-12-2022 08:35-0500 Respiratory rate 16 /min Roland Rodriguez MD Work Phone: [facility] 10-12-2022 08:35-0500 SaO2% (BldA) [Mass fraction] 98 % Roland Rodriguez MD Work Phone: [facility] 10-12-2022 08:35-0500 Systolic blood pressure 126 mm[Hg] Roland Rodriguez MD Work Phone: [facility] 09-27-2022 18:52-0500 Body temperature 98.01 [degF] Adelaide Huddleston FARE COLLECTOR.PLUNGER MACHINE OPERATOR Work Phone: [facility] 09-27-2022 18:52-0500 Body weight 79.65 kg Adelaide Huddleston FARE COLLECTOR.PLUNGER MACHINE OPERATOR Work Phone: [facility] 09-27-2022 18:52-0500 Diastolic blood pressure 82 mm[Hg] Adelaide Huddleston FARE COLLECTOR.PLUNGER MACHINE OPERATOR Work Phone: [facility] 09-27-2022 18:52-0500 Heart rate 80 /min Adelaide Huddleston FARE COLLECTOR.PLUNGER MACHINE OPERATOR Work Phone: [facility] 09-27-2022 18:52-0500 Respiratory rate 16 /min Adelaide Huddleston FARE COLLECTOR.PLUNGER MACHINE OPERATOR Work Phone: [facility] 09-27-2022 18:52-0500 SaO2% (BldA) [Mass fraction] 100 % Adelaide Huddleston FARE COLLECTOR.PLUNGER MACHINE OPERATOR Work Phone: [facility] 09-27-2022 18:52-0500 Systolic blood pressure 138 mm[Hg] Adelaide Huddleston FARE COLLECTOR.PLUNGER MACHINE OPERATOR Work Phone: [facility] 07-20-2022 21:19-0400 Diastolic blood pressure 90 mm[Hg] [facility] Work Phone: 07-20-2022 21:19-0400 Heart rate 76 /min [facility] Work Phone: 07-20-2022 21:19-0400 Respiratory rate 18 /min [facility] Work Phone: 07-20-2022 21:19-0400 SaO2% (BldA) [Mass fraction] 100 % [facility] Work Phone: 07-20-2022 21:19-0400 Systolic blood pressure 122 mm[Hg] [facility] Work Phone: 07-20-2022 18:24-0400 Body height 157.48 cm [facility] Work Phone: 07-20-2022 18:24-0400 Body mass index (BMI) [Ratio] 29.2 kg/m2 [facility] Work Phone: 07-20-2022 18:24-0400 Body temperature 98 [degF] [facility] Work Phone: 07-20-2022 18:24-0400 Body weight 72.57 kg [facility] Work Phone: 03-02-2022 18:23-0400 Body temperature 98.71 [degF] Adelaide Huddleston FARE COLLECTOR.PLUNGER MACHINE OPERATOR Work Phone: [facility] 03-02-2022 18:23-0400 Body weight 79.38 kg Adelaide Huddleston FARE COLLECTOR.PLUNGER MACHINE OPERATOR Work Phone: [facility] 03-02-2022 18:23-0400 Diastolic blood pressure 72 mm[Hg] Adelaide Huddleston FARE COLLECTOR.PLUNGER MACHINE OPERATOR Work Phone: [facility] 03-02-2022 18:23-0400 Heart rate 86 /min Adelaide Huddleston FARE COLLECTOR.PLUNGER MACHINE OPERATOR Work Phone: [facility] 03-02-2022 18:23-0400 Respiratory rate 21 /min Adelaide Huddleston FARE COLLECTOR.PLUNGER MACHINE OPERATOR Work Phone: [facility] 03-02-2022 18:23-0400 SaO2% (BldA) [Mass fraction] 98 % Adelaide Huddleston FARE COLLECTOR.PLUNGER MACHINE OPERATOR Work Phone: [facility] 03-02-2022 18:23-0400 Systolic blood pressure 110 mm[Hg] Adelaide Huddleston FARE COLLECTOR.PLUNGER MACHINE OPERATOR Work Phone: [facility] 01-31-2022 15:27-0400 Body weight 78.[address] Roland Rodriguez Work Phone: [facility] Work Phone: 01-31-2022 15:27-0400 Diastolic blood pressure 70 mm[Hg] Dr. Roland Rodriguez Work Phone: [facility] Work Phone: 01-31-2022 15:27-0400 Systolic blood pressure 110 mm[Hg] Dr. Roland Rodriguez Work Phone: [facility] Work Phone: 01-24-2022 14:31-0400 Body temperature 97.6 [degF] Dr. Roland Rodriguez Work Phone: [facility] Work Phone: 01-24-2022 14:31-0400 Diastolic blood pressure 65 mm[Hg] Dr. Roland Rodriguez Work Phone: [facility] Work Phone: 01-24-2022 14:31-0400 Heart rate 86 /min Dr. Roland Rodriguez Work Phone: [facility] Work Phone: 01-24-2022 14:31-0400 Respiratory rate 16 /min Dr. Roland Rodriguez Work Phone: [facility] Work Phone: 01-24-2022 14:31-0400 SaO2% (BldA) [Mass fraction] 99 % Dr. Roland Rodriguez Work Phone: [facility] Work Phone: 01-24-2022 14:31-0400 Systolic blood pressure 103 mm[Hg] Dr. Roland Rodriguez Work Phone: [facility] Work Phone: 01-24-2022 08:42-0400 Body height 160.[address] Rloand Rodriguez Work Phone: [facility] Work Phone: 01-24-2022 08:42-0400 Body mass index (BMI) [Ratio] 30.8 kg/m2 Dr. Roland Rodriguez Work Phone: [facility] Work Phone: 01-24-2022 08:42-0400 Body weight 78.[address] Roland Rodriguez Work Phone: [facility] Work Phone: 01-11-2022 14:16-0400 Body mass index (BMI) [Ratio] 30.4 kg/m2 Dr. Roland Rodriguez Work Phone: [facility] Work Phone: 01-11-2022 14:16-0400 Body weight 78.[address] Roland Rodriguez Work Phone: [facility] Work Phone: 01-11-2022 14:16-0400 Diastolic blood pressure 88 mm[Hg] Dr. Roland Rodriguez Work Phone: [facility] Work Phone: 01-11-2022 14:16-0400 Systolic blood pressure 110 mm[Hg] Dr. Roland Rodriguez Work Phone: [facility] Work Phone: 11-29-2021 12:26-0500 Body mass index (BMI) [Ratio] 31.1 kg/m2 Dr. Roland Rodriguez Work Phone: [facility] Work Phone: 11-29-2021 12:26-0500 Body weight 79.[address] Roland Rodriguez Work Phone: [facility] Work Phone: 11-29-2021 12:26-0500 Diastolic blood pressure 80 mm[Hg] Dr. Roland Rodriguez Work Phone: [facility] Work Phone: 11-29-2021 12:26-0500 Systolic blood pressure 110 mm[Hg] Dr. Roland Rodriguez Work Phone: [facility] Work Phone: 11-17-2021 12:41-0500 Diastolic blood pressure 84 mm[Hg] Dr. Roland Rodriguez Work Phone: [facility] Work Phone: 11-17-2021 12:41-0500 Heart rate 92 /min Dr. Roland Rodriguez Work Phone: [facility] Work Phone: 11-17-2021 12:41-0500 Respiratory rate 18 /min Dr. Roland Rodriguez Work Phone: [facility] Work Phone: 11-17-2021 12:41-0500 SaO2% (BldA) [Mass fraction] 98 % Dr. Roland Rodriguez Work Phone: [facility] Work Phone: 11-17-2021 12:41-0500 Systolic blood pressure 138 mm[Hg] Dr. Roland Rodriguez Work Phone: [facility] Work Phone: 11-17-2021 12:09-0500 Body temperature 98 [degF] Dr. Roland Rodriguez Work Phone: [facility] Work Phone: 11-17-2021 09:41-0500 Body mass index (BMI) [Ratio] 28.3 kg/m2 Dr. Roland Rodriguez Work Phone: [facility] Work Phone: 11-17-2021 09:41-0500 Body weight 72.[address] Roland Rodriguez Work Phone: [facility] Work Phone: Encounters Encounter Date Encounter Type Care Provider Facility Start: 05-13-2025 End: 05-13-2025 ambulatory Barney PERERA Work Phone: -[facility] Start: 05-13-2025 End: 05-13-[address] Imelda Lemon MD -[facility] Work Phone: Start: 05-13-2025 End: 05-13-2025 [facility] Start: 03-23-2025 End: 03-23-2025 Emergency department patient visit RADHA SALMON [facility] Start: 08-20-2023 Refill Chayo Teixeira PA -C Work Phone: [facility] Comment on above: Refill Request Start: 08-20-2023 Telephone encounter Chayo ramirez PA-C Work Phone: [facility] Comment on above: Results Start: 08-18-2023 End: 08-18-2023 ambulatory [facility] Facility:[facility] Start: 08-18-2023 End: 08-18-2023 Patient encounter procedure Adelaide Nelsy FARE COLLECTOR.PLUNGER MACHINE OPERATOR Work Phone: [facility] Comment on above: Hematuria, unspecifi ed type (Primary Dx) Start: 04-30-2023 End: 04-30-2023 Phys/qhp telephone evaluation 11-20 min Yoselin Perez FARE COLLECTOR-PLUNGER MACHINE OPERATOR Work Phone: [facility] Comment on above: COVID (Primary Dx) Start: 04-16-2023 End: 04-16-2023 ambulatory [facility] Work Phone: Start: 04-16-2023 End: 04-16-2023 Patient encounter procedure [facility] Work Phone: Start: 03-01-2023 End: 03-01-2023 ambulatory [facility] Ambulatory Start: 03-01-2023 End: 03-01-2023 Office outpatient visit [address] [facility] ALEJANDRA Work Phone: [facility] Comment on above: Chronic migraine (Pr imary Dx) Start: 01-31-2023 End: 02-01-2023 Emergency department patient visit Juliet Noe [facility] Emergency Start: 12-22-2022 End: 03-24-2023 Subsequent hospital visit by physician [employer] [facility] Wstr (I-Stat/1.5t) Work Phone: Radiology Comment on above: No Show Start: 12-18-2022 End: 12-18-[address] Erika Leavitt Work Phone: [facility] Work Phone: Start: 12-18-2022 End: 12-18-[address] Erika Leavitt Work Phone: [facility] Start: 12-04-2022 Chart Update Barney Borjas Work Phone: [facility] Work Phone: Start: 11-29-2022 AUDIT Barney Borjas Work Phone: [facility] Work Phone: Start: 11-28-[address] Dodie Leavitt Work Phone: [facility] Start: 11-28-2022 End: 11-28-[address] Erika Leavitt Work Phone: [facility] Start: 11-23-2022 AUDIT Barney Borjas Work Phone: [facility] Work Phone: Start: 11-13-2022 ambulatory Mr. Barney bowles Suad Facility:[id number] Start: 11-13-2022 Office outpatient ne w 45 minutes Barney Borjas Work Phone: [facility] Work Phone: Start: 11-13-2022 ambulatory Referral Self Facility: [id number] Start: 11-09-2022 Telephone encounter Roland yeh MD Work Phone: [facility] [place] Comment on above: Results Start: 11-07-2022 End: 11-08-2022 ambulatory ROLAND RODRIGUEZ Facility:[facility] Start: 11-07-2022 End: 11-07-2022 ambulatory KATHLEEN BRUSH Facility:[facility] Start: 11-07-2022 End: 11-07-2022 Patient encounter procedure Kathleen Love Ana Cristina DO Work Phone: Rheumatology Comment on above: Positive SHANTANU (antinu clear antibody) (Primary Dx); Arthralgia, unspecified joint; Vitamin D deficiency; Facial rash; Family history of rheumatoid arthritis in mother; Family history of Sjogren's disease; Malaise and fatigue Start: 10-16-2022 ambulatory Roland Vega Work Phone: [facility] [place] Comment on above: Is there anything? Start: 10-13-2022 Telephone encounter Roland yeh MD Work Phone: [facility] [place] Comment on above: Results Start: 10-12-2022 End: 10-13-2022 ambulatory ROLAND RODRIGUEZ Facility:[facility] Start: 10-12-2022 End: 10-12-2022 Patient encounter procedure Roland Rodriguez MD Work Phone: [facility] [place] Comment on above: Vitamin D deficiency (Primary Dx); Positive SHANTANU (antinuclear antibody); Malar rash; Stiffness in joint; Other migraine without status migrainosus, not intractable Start: 09-27-2022 End: 09-27-2022 ambulatory ROLAND RODRIGUEZ Facility:[facility] Start: 09-27-2022 End: 09-27-2022 Patient encounter procedure Adelaide Huddleston APRN.PLUNGER MACHINE OPERATOR Work Phone: [facility] Comment on above: Migraine headaches ( Primary Dx) Start: 09-27-2022 End: 09-27-2022 ambulatory PURA TOLEDO Facility:[facility] Start: 09-27-2022 End: 09-27-2022 Telemedicine consultation with patient Pura Toledo FARE COLLECTOR.PLUNGER MACHINE OPERATOR Work Phone: [facility] Start: 09-27-2022 End: 09-28-2022 ambulatory Pura Toledo FARE COLLECTOR.PLUNGER MACHINE OPERATOR Work Phone: Telemedicine Comment on above: Migraine with aura, not intractable, without status migrainosus (Primary Dx); Viral illness Still having issues Start: 09-27-2022 End: 09-27-2022 Patient encounter procedure Elia Tello CELSO.PLUNGER MACHINE OPERATOR Work Phone: Telemedicine Comment on above: APPOINTMENT CANCELLE D (Primary Dx) Start: 09-27-2022 End: 09-27-2022 Telemedicine consultation with patient Elia Tello CELSO.PLUNGER MACHINE OPERATOR Work Phone: [facility] Start: 09-01-2022 ambulatory NARESHAdán MCDANIEL Faci lity:[facility] Start: 09-01-2022 End: 09-01-2022 Patient encounter procedure Naresh Mcdaniel APRN.PLUNGER MACHINE OPERATOR Work Phone: Telemedicine Comment on above: APPOINTMENT CANCELLE D (Primary Dx) Start: 09-01-2022 End: 09-01-2022 Telemedicine consultation with patient Naresh Stevens Ad [place].PLUNGER MACHINE OPERATOR Work Phone: [facility] Start: 07-25-2022 End: 07-25-2022 Emergency department patient visit [facility] Start: 07-20-2022 End: 07-20-2022 Emergency department patient visit [facility] Start: 07-10-2022 End: 07-10-2022 Subsequent hospital visit by physician [facility] Work Phone: Radiology Comment on above: Acute right ankle pa in [M25.571] Start: 03-04-2022 Telephone encounter Steffen Pereyra MD Work Phone: [facility] Comment on above: Results (Urine Cx ne gative) Start: 03-02-2022 End: 03-02-2022 Patient encounter procedure Adelaide Huddleston APRN.PLUNGER MACHINE OPERATOR Work Phone: [facility] Comment on above: Dysuria (Primary Dx) Start: 01-31-2022 End: 01-31-[address] Roland Rodriguez Work Phone: [facility] Start: 01-24-2022 Non-patient / Non-visit Dr. Renita Rodriguez Work Phone: [facility] Start: 01-24-2022 End: 01-24-2022 Admission to same day surgery center [facility] Roland [facility] Start: 01-23-2022 Non-patient / Non-visit Dr. Renita Rodriguez Work Phone: [facility] Start: 01-11-2022 End: 01-11-[address] Roland Rodriguez Work Phone: [facility] Start: 11-29-2021 End: 11-29-[address] Roland Rodriguez Work Phone: [facility] Start: 11-17-2021 End: 11-17-2021 Emergency department patient visit Dr. Roland Rodriguez Work Phone: [facility] Start: 07-30-2012 End: 03-19-2013 Patient requested procedure Xr [place] Work Phone: [facility] Procedures Date Procedure Procedure Detail Performing Clinician Start: 05-13-2025 Hepatitis C antibody measurement Barney PERERA Work Phone: Comment on above: Reactive: Presumptiv e evidence of antibodies to HCV. Follow CDC recommendations for supplemental testing.Non-Reactive: Antibodies to HCV were not detected; does not exclude the possibility of exposure to HCVReactive Results are presumptive evidence of antibodies to HCV. Follow CDC recommendations for supplemental testing.Order confirmation testing: HCV Quant by PCR testing - HCVPCR #[id number] Non Reactive: < 0.8 Equivocal: >/= 0.8 to < 1.0 Reactive: >/= 1.0The CDC requires that a reactive/equivocal HCV antibody result be sent out for confirmation. HCV Quant by PCR testing. Start: 05-13-2025 Urnls dip stick/tabl et reagent auto microscopy Barney PERERA Work Phone: Start: 08-18-2023 Urnls dip stick/tabl et rgnt auto w/o microscopy Adelaide Huddleston FARE COLLECTOR.PLUNGER MACHINE OPERATOR Work Phone: Start: 07-10-2022 Radex ankle complete minimum 3 views Deondre Gillian FARE COLLECTOR.PLUNGER MACHINE OPERATOR Work Phone: Start: 03-02-2022 Urnls dip stick/tabl et rgnt auto w/o microscopy Ирина Emile FARE COLLECTOR.PLUNGER MACHINE OPERATOR Work Phone: Start: 01-31-[address] Lito Rodriguez Work Phone: Start: 01-24-[address] Chris Rodriguez Work Phone: Start: 11-17-[address] Roland Rodriguez Work Phone: H/O: hysterectomy Status post hysterectomy Dr. Roland Rodriguez Work Phone: Partial hysterectomy Barney Borjas Work Phone: Tonsillectomy Barney Borjas Work Phone: Plan of Treatment Date Care Activity Detail Author Start: 2045 Zoster Vaccines (1 of 2) Zoste r Vaccines (1 of 2) [facility] Start: 06-01-2024 Covid-19 Vaccine ( season) Covid-19 Vaccine ( season) [facility] Start: 06-01-2024 Influenza vaccination Influenza Vacc ine (#1) [facility] Start: 08-18-2023 End: 11-17-2023 Bacteria identified in Urine by Culture [facility] Work Phone: Comment on above: Expected: 08/18/2023 , Expires: 11/17/2023 Start: 06-01-2023 Covid-19 Vaccine ( season) Covid-19 Vaccine ( season) [facility] Start: 06-01-2023 Influenza vaccination Influenza Vacc ine (#1) [facility] Start: 01-16-2023 NPVCANCER, Provider: Kayla Clark, Status: Derrick, Time: 11:00 AM NPVCANCER, Provider: Kayla Clark, Status: Derrick, Time: 11:00 AM [facility] Work Phone: Start: 11-07-2022 End: 01-07-2023 BLOOD TB SCREEN [facility] Work Phone: Comment on above: Expected: 11/07/2022 , Expires: 01/07/2023 Start: 11-07-2022 End: 01-07-2023 CELIAC SCREEN WITH REFLEX [facility] Work Phone: Comment on above: Expected: 11/07/2022 (Approximate), Expires: 01/07/2023 Start: 11-07-2022 End: 01-07-2023 Complement C3 [Mass/volume] in Serum or Plasma [facility] Work Phone: Comment on above: Expected: 11/07/2022 (Approximate), Expires: 01/07/2023 Start: 11-07-2022 End: 01-07-2023 Complement C4 [Mass/volume] in Serum or Plasma [facility] Work Phone: Comment on above: Expected: 11/07/2022 (Approximate), Expires: 01/07/2023 Start: 11-07-2022 End: 01-07-2023 Comprehensive metabolic 2000 panel - Serum or Plasma [facility] Work Phone: Comment on above: Expected: 11/07/2022 (Approximate), Expires: 01/07/2023 Start: 11-07-2022 End: 01-07-2023 Creatine kinase [Enzymatic activity/volume] in Serum or Plasma [facility] Work Phone: Comment on above: Expected: 11/07/2022 (Approximate), Expires: 01/07/2023 Start: 11-07-2022 End: 01-07-2023 Cyclic citrullinated peptide IgG Ab [Units/volume] in Serum or Plasma [facility] Work Phone: Comment on above: Expected: 11/07/2022 (Approximate), Expires: 01/07/2023 Start: 11-07-2022 End: 01-07-2023 DNA double strand Ab [Units/volume] in Serum by Immunoassay [facility] Work Phone: Comment on above: Expected: 11/07/2022 (Approximate), Expires: 01/07/2023 Start: 11-07-2022 End: 01-07-2023 Extractable nuclear Ab panel - Serum [facility] Work Phone: Comment on above: Expected: 11/07/2022 (Approximate), Expires: 01/07/2023 Start: 11-07-2022 End: 01-07-2023 Ferritin [Mass/volume] in Serum or Plasma [facility] Work Phone: Comment on above: Expected: 11/07/2022 (Approximate), Expires: 01/07/2023 Start: 11-07-2022 End: 01-07-2023 Heterophile Ab [Presence] in Serum by Latex agglutination [facility] Work Phone: Comment on above: Expected: 11/07/2022 (Approximate), Expires: 01/07/2023 Start: 11-07-2022 End: 01-07-2023 Iron and Iron binding capacity panel - Serum or Plasma [facility] Work Phone: Comment on above: Expected: 11/07/2022 (Approximate), Expires: 01/07/2023 Start: 11-07-2022 End: 01-07-[address] [facility] Work Phone: Comment on above: Expected: 11/07/2022 (Approximate), Expires: 01/07/2023 Start: 11-07-2022 End: 01-07-2023 Rheumatoid factor [Units/volume] in Serum or Plasma [facility] Work Phone: Comment on above: Expected: 11/07/2022 (Approximate), Expires: 01/07/2023 Start: 11-07-2022 End: 01-07-2023 Thyroglobulin Ab [Units/volume] in Serum or Plasma [facility] Work Phone: Comment on above: Expected: 11/07/2022 (Approximate), Expires: 01/07/2023 Start: 11-07-2022 End: 01-07-2023 THYROID PEROXIDASE ANTIBODY BLOOD [facility] Work Phone: Comment on above: Expected: 11/07/2022 (Approximate), Expires: 01/07/2023 Start: 11-07-2022 End: 01-07-2023 Thyrotropin [Units/volume] in Serum or Plasma [facility] Work Phone: Comment on above: Expected: 11/07/2022 (Approximate), Expires: 01/07/2023 Start: 11-07-2022 End: 01-07-2023 Thyroxine (T4) free [Mass/volume] in Serum or Plasma [facility] Work Phone: Comment on above: Expected: 11/07/2022 (Approximate), Expires: 01/07/2023 Start: 10-13-2022 End: 12-13-2022 25-hydroxyvitamin D3 [Mass/volume] in Serum or Plasma VITAMIN D 25 HYDROXY Lab Routine Vitamin D deficiency Expected: 10/13/2022, Expires: 12/13/2022 [facility] Work Phone: Comment on above: Expected: 10/13/2022 , Expires: 12/13/2022 Start: 10-12-2022 End: 12-12-2022 25-hydroxyvitamin D3 [Mass/volume] in Serum or Plasma [facility] Work Phone: Comment on above: Expected: 10/12/2022 , Expires: 12/12/2022 Start: 10-12-2022 End: 12-12-2022 SHANTANU BY IFA SCREEN [facility] Work Phone: Comment on above: Expected: 10/12/2022 , Expires: 12/12/2022 Start: 10-12-2022 End: 03-14-2023 C reactive protein [Mass/volume] in Serum or Plasma [facility] Work Phone: Comment on above: Expected: 10/12/2022 , Expires: 12/12/2022 Start: 06-01-2022 Influenza vaccination C [facility] Start: 05-23-2022 COVID-19 VACCINE (5 - Booster for Moderna series) COVID-19 VACCINE (5 - Booster for Moderna series) [facility] Start: 01-24-2022 Anesthesia intraperitoneal lower abd w/laps nos ANESTH SURG LOWER ABDOMEN [facility] Work Phone: Start: 01-24-2022 Laps w/vag hysterect 250 gm/&rmvl tube&/ovaries LAPARO-VAG HYST INCL T/O [facility] Work Phone: Start: 04-19-2021 COVID-19 Vaccine (3 - Booster for Moderna series) COVID-19 Vaccine (3 - Booster for Moderna series) [facility] Start: 04-20-2016 DTaP/Tdap/Td Vaccine s (7 - Td or Tdap) DTaP/Tdap/Td Vaccines (7 - Td or Tdap) [facility] Start: 04-20-2016 Urine microalbumin profile [facility] Start: 01-27-2016 PAP TESTING PAP TESTING [facility] Start: 01-27-2016 Screening for malign ant neoplasm of cervix [facility] Start: 2014 Shingrix Vaccine (1 of 2) Johansen grix Vaccine (1 of 2) [facility] Start: 2013 Diabetes mellitus screening Diabetes Screening [facility] Start: 2013 Hepatitis C screening Hepatitis C [facility] Start: 2006 Screening for malign ant neoplasm of cervix Cervical Cancer Screening [facility] Start: 2001 Pneumococcal vaccination [facility] Start: 1995 HIV screening HIV Screening [facility] Start: 1995 Lipid panel Lipid Panel [facility] Start: 1995 Yearly Adult Physical Yearly Adult P [facility] Bacteria identified in Urine by Culture URINE CULTURE Microbiology Routine Dysuria Ordered: 03/02/2022 [facility] Work Phone: Comment on above: Ordered: 03/02/2022 Patient Education [facility] Work Phone: Patient referral [facility] Work Phone: End: 12-07-2023 US HAND/WRIST SYNOVIAL SCREEN RT [facility] Work Phone: Comment on above: 1 Occurrences starti ng 11/07/2022 until 12/07/2023 [facility] Immunizations Immunization Date Immunization Notes Care Provider Fa cili 09-06-2022 Influenza, injectabl e, Madin Rena Canine Kidney, preservative free, quadrivalent Kathleen Brush DO Work Phone: [facility] 09-06-2022 influenza virus vacc ine, unspecified formulation Yoselin Perez FARE COLLECTOR-PLUNGER MACHINE OPERATOR Work Phone: [facility] Work Phone: 03-28-2022 Moderna COVID-19 Vac cine 100 MCG/0.5ML Intramuscular Suspension [facility] Work Phone: [facility] Work Phone: 10-10-2021 Moderna COVID-19 Vac cine 100 MCG/0.5ML Intramuscular Suspension [facility] Work Phone: [facility] Work Phone: 02-24-2021 COVID-19 vaccine, fu ll dose (MODERNA) Adelaide Huddleston FARE COLLECTOR.PLUNGER MACHINE OPERATOR Work Phone: [facility] Work Phone: 02-22-2021 COVID-19 original vaccine, full dose, monovalent (MODERNA) Kathleen Brush DO Work Phone: [facility] Work Phone: 01-25-2021 COVID-19 vaccine, fu ll dose (MODERNA) Adelaide Huddleston FARE COLLECTOR.PLUNGER MACHINE OPERATOR Work Phone: [facility] Work Phone: 07-30-2015 influenza, injectabl e, quadrivalent, contains preservative Barney Borjas Work Phone: [facility] Work Phone: 07-30-2015 influenza, seasonal, injectable Adelaide Huddleston FARE COLLECTOR.PLUNGER MACHINE OPERATOR Work Phone: [facility] Work Phone: 06-25-[address] Roland Rodriguez Work Phone: [facility] 06-25-2015 influenza, seasonal, injectable Kathleen Brush DO Work Phone: [facility] Work Phone: 06-25-2015 influenza, seasonal, injectable, preservative free Adelaide Huddleston FARE COLLECTOR.PLUNGER MACHINE OPERATOR Work Phone: [facility] Work Phone: 11-24-2014 influenza, seasonal, injectable Adelaide Huddleston FARE COLLECTOR.PLUNGER MACHINE OPERATOR Work Phone: [facility] Work Phone: 11-24-2014 meningococcal polysaccharide (groups A, C, Y and W-135) diphtheria toxoid conjugate vaccine (MCV4P) Adelaide Huddleston FARE COLLECTOR.PLUNGER MACHINE OPERATOR Work Phone: [facility] Work Phone: 08-28-2012 influenza virus vacc ine, unspecified formulation Adelaide Huddleston FARE COLLECTOR.PLUNGER MACHINE OPERATOR Work Phone: [facility] 01-24-2008 hepatitis A vaccine, unspecified formulation Adelaide Huddleston FARE COLLECTOR.PLUNGER MACHINE OPERATOR Work Phone: [facility] Work Phone: 01-24-2008 human papilloma viru s vaccine, quadrivalent Adelaide Huddleston FARE COLLECTOR.PLUNGER MACHINE OPERATOR Work Phone: [facility] Work Phone: 01-24-2008 varicella virus vaccine Queta ica Huddleston FARE COLLECTOR.PLUNGER MACHINE OPERATOR Work Phone: [facility] Work Phone: 09-25-2007 human papilloma viru s vaccine, quadrivalent Adelaide Huddleston FARE COLLECTOR.[facility] Work Phone: [facility] Work Phone: 09-25-2007 influenza virus vacc ine, unspecified formulation Adelaide Huddleston FARE COLLECTOR.[facility] Work Phone: [facility] Work Phone: 05-31-2007 hepatitis A vaccine, unspecified formulation Adelaide Huddleston FARE COLLECTOR.[facility] Work Phone: [facility] Work Phone: 05-31-2007 human papilloma viru s vaccine, quadrivalent Adelaide Huddleston FARE COLLECTOR.[facility] Work Phone: [facility] Work Phone: 04-20-2006 Meningococcal, MCV4, unspecified conjugate formulation(groups A, C, Y and W-135) Adelaide Huddleston FARE COLLECTOR.[facility] Work Phone: [facility] Work Phone: 04-20-2006 tetanus toxoid, redu igor diphtheria toxoid, and acellular pertussis vaccine, adsorbed Adelaide Huddleston FARE COLLECTOR.[facility] Work Phone: [facility] Work Phone: 02-29-2000 diphtheria, tetanus toxoids and acellular pertussis vaccine Adelaide Huddleston FARE COLLECTOR.[facility] Work Phone: [facility] Work Phone: 02-29-2000 diphtheria, tetanus toxoids and acellular pertussis vaccine, unspecified formulation Barney Borjas Work Phone: [facility] Work Phone: 02-29-2000 measles, mumps and rubella virus vaccine Adelaide Huddleston FARE COLLECTOR.[facility] Work Phone: [facility] Work Phone: 02-29-2000 trivalent poliovirus vaccine, live, oral Adelaide Huddleston FARE COLLECTOR.[facility] Work Phone: [facility] Work Phone: 02-29-2000 varicella virus vaccine Qutea ica Huddleston FARE COLLECTOR.[facility] Work Phone: [facility] Work Phone: 05-12-1996 diphtheria, tetanus toxoids and acellular pertussis vaccine Adelaide Huddleston FARE COLLECTOR.[facility] Work Phone: [facility] Work Phone: 05-12-1996 haemophilus influenz ae type b vaccine, HbOC conjugate Adelaide Huddleston FARE COLLECTOR.[facility] Work Phone: [facility] Work Phone: 01-31-1996 measles, mumps and rubella virus vaccine Adelaide Huddleston FARE COLLECTOR.[facility] Work Phone: [facility] Work Phone: 1995 diphtheria, tetanus toxoids and acellular pertussis vaccine Adelaide Huddleston FARE COLLECTOR.[facility] Work Phone: [facility] Work Phone: 1995 haemophilus influenz ae type b vaccine, HbOC conjugate Adelaide Huddleston FARE COLLECTOR.[facility] Work Phone: [facility] Work Phone: 1995 hepatitis B vaccine, pediatric or pediatric/adolescent dosage Adelaide Huddleston FARE COLLECTOR.[facility] Work Phone: [facility] Work Phone: 1995 trivalent poliovirus vaccine, live, oral Adelaide Huddleston FARE COLLECTOR.[facility] Work Phone: [facility] Work Phone: 1995 diphtheria, tetanus toxoids and acellular pertussis vaccine Adelaide Huddleston FARE COLLECTOR.[facility] Work Phone: [facility] Work Phone: 1995 haemophilus influenz ae type b vaccine, HbOC conjugate Adelaide Huddleston FARE COLLECTOR.[facility] Work Phone: [facility] Work Phone: 1995 trivalent poliovirus vaccine, live, oral Adelaide Huddleston FARE COLLECTOR.[facility] Work Phone: [facility] Work Phone: 1995 diphtheria, tetanus toxoids and acellular pertussis vaccine Adelaide Huddleston FARE COLLECTOR.[facility] Work Phone: [facility] Work Phone: 1995 haemophilus influenz ae type b vaccine, HbOC conjugate Adelaide Huddleston FARE COLLECTOR.[facility] Work Phone: [facility] Work Phone: 1995 hepatitis B vaccine, pediatric or pediatric/adolescent dosage Adelaide Huddleston FARE COLLECTOR.[facility] Work Phone: [facility] Work Phone: 1995 trivalent poliovirus vaccine, live, oral Adelaide Huddleston FARE COLLECTOR.[facility] Work Phone: [facility] Work Phone: 1995 hepatitis B vaccine, pediatric or pediatric/adolescent dosage Adelaide Huddleston FARE COLLECTOR.[facility] Work Phone: [facility] Work Phone: Payers Date Payer Category Payer Self-pay [id number] 2024 Unknown [id number] 2022 Unknown [id number] 2021 Unknown [id number] 2021 Unknown MMO O [facility] [id number] 2021-Present [phone] [address] [place] [address] [facility] [id number] 2021 Unknown [id number] 2013 Unknown [id number] 1995 Unknown [id number] 1995 Unknown [id number] 1995 Unknown [id number] 1995 Unknown [id number] 1995 Unknown [id number] 1995 Unknown [id number] Unknown [id number] Unknown [id number] Unknown [id number] Social History Date Type Detail Facility [facility] Work Phone: Start: 01-11-2022 End: 11-28-2022 Tobacco smoking status INIS Unknown if ever smoked [facility] Start: 06-14-2020 With Family [facility] Start: 1995 Sex Assigned At Female [facility] Start: 07-30-2012 End: 11-28-2022 Tobacco smoking status NHIS Never smoked tobacco [facility] Work Phone: Start: 07-30-2012 End: 03-01-2023 Tobacco use and exposure Smokeless tobacco non-user [facility] Work Phone: Start: 03-02-2022 End: 07-10-2022 Alcohol intake Current non-drinker of alcohol (finding) [facility] Start: 09-07-2021 History SDOH Alcohol Frequency 2 [facility] Start: 09-07-2021 History SDOH Alcohol Std Drinks 1 [facility] Start: 09-07-2021 History SDOH Social Connections Get Together 3 [facility] Start: 09-07-2021 History SDOH Social Connections Living 6 [facility] Start: 11-07-2022 End: 08-18-2023 Alcohol intake Current drinker of alcohol (finding) [facility] Start: 11-07-2022 Education 13 [facility] Start: 11-07-2022 Alcohol Comment rare social use [facility] Start: 09-08-2020 End: 03-01-2023 Patient consumes caffeinated coffee Patient consumes caffeinated coffee [facility] Work Phone: Start: 03-01-2023 Alcohol intake Ex-drinker (finding) [facility] Work Phone: Start: 09-08-2020 End: 03-01-2023 Tobacco use panel [facility] Work Phone: Start: 1995 Sex Assigned At Not on file [facility] Work Phone: Start: 02-19-2023 End: 03-01-2023 Exposure to SARS-CoV-2 (event) Not sure [facility] Work Phone: Do you belong to any clubs or organizations such as jew groups, unions, fraternal or athletic groups, or school groups? No [facility] Are you now , , , , never or living with a partner? [facility] How often to you hav e a drink containing alcohol? Monthly or less [facility] How many standard dr inks containing alcohol do you have on a typical day? 1 or 2 [facility] How often do you hav e 6 or more drinks on 1 occasion? Never [facility] How hard is it for y ou to pay for the very basics like food, housing, medical care, and heating Somewhat hard [facility] Adult Depression Screening Assessment 1 [facility] Do you feel stress - tense, restless, nervous, or anxious, or unable to sleep at night because your mind is troubled all the time - these days [OSQ] Only a little [facility] (I/We) worried edmundo er (my/our) food would run out before (I/we) got money to buy more. Never true [facility] In the past 12 month s, was there a time when you were not able to pay the mortgage or rent on time? Yes [facility] Start: 03-07-2021 Gender identity Identifies as female gender (finding) [facility] Start: 03-07-2021 Sexual orientation Bisexual (finding) [facility] Medical Equipment Procedure Code Equipment Code Equipment Origin al Text Equipment Identifier Dates Laparoscopy with vaginal hysterectomy Plant polysaccharide haemostatic agent, bioabsorbable ([id number] FDA Start: 01-24-2022 Mental Status Date Assessment Result Facility 01-24-2022 Cognitive function Voice/Name [facility] Work Phone: Clinical Notes 09-19-2013 to 08-22-2023 Telephone Encounter - Walter Valencia MA - 08/22/2023 4:45 PM ESTTelephone Encounter - Chayo Teixeira PA-C - 08/22/2023 9:30 AM ESTTelephone Encounter - Monse La - 08/20/2023 2:34 PM EST Note Date & Type Note Facility 08-22-2023 Miscellaneous Notes Confirmed with [facility] patient picked up antibiotic 08/20/23. Will close TE at this time as patient also reviewed results via MyChart. Walter Valencia MA At this point, just send her a letter letting her know. Still unable to reach patient-she did review her results on my chart but uncertain if she got the message to cotton picker operator the antibiotic-left another message for her to call us back! .Clarissa Aceves LPN Left a message for pt to call the office and ask to speak to a nurse. Yoselin Guerrero LPN TC to pt. LM to call office, ask for triage nurse to get results. [place] LPN This call and let patient know she was positive for an infection on her urine culture. I did send an antibiotic to treat this. Follow-up with PCP if symptoms are not improving. documented in this encounter [facility] 08-20-2023 Miscellaneous Notes Patient has been identified by name and date of : No Patient phones for refill(s): Requested Prescriptions Pending Prescriptions Disp Refills nitrofurantoin monohydrate and macrocrystal (MACROBID) 100 mg capsule [Pharmacy Med Name: nitrofurantoin monohydrate/macrocrystals 100 mg capsule] 10 capsule 0 Sig: Take 1 capsule by mouth two times a day with meals for 5 days. Date of last office visit in primary care: 08/18/2023 Date of next office visit in primary care: Visit date not found Last 2 Encounter Wt Readings: Date: Wt: 08/18/2023 64.4 kg (142 lb) 11/07/2022 75.6 kg (166 lb 11.2 oz) Previous labs/tests for medication: Not applicable Please advise. Thank you. Monse La. documented in this encounter [facility] 08-18-2023 Note HNO ID: [id number] Author: Adelaide Huddleston APRN.[facility] Service: ? Author Type: Nurse Practitioner Type: Progress Notes Filed: 08/18/2023 3:02 PM Note Text: This note was created using NoteWriter. Subjective Michelle Beth is a 28 year old female. 28 year old female with PMH anxiety presents for complaints of possible UTI. Acute onset this morning Endorses pink tinged urine noted. +frequency +lower left back pain Denies burning Denies urgency Denies abdominal pain. Denies N/V/D Denies vaginal bleeding Denies vaginal discharge Hx: partial hysterectomy December 2021 The history is provided by the patient. No exhaust emissions inspector was used. Hematuria This is a new problem. The current episode started today. The problem is unchanged. She describes the hematuria as gross hematuria. The hematuria occurs during the initial portion of her urinary stream. She reports no clotting in her urine stream. Her pain is at a severity of 0/10. She is experiencing no pain. She describes her urine color as light pink. Irritative symptoms include frequency. Irritative symptoms do not include nocturia or urgency. Obstructive symptoms do not include dribbling, incomplete emptying, an intermittent stream, a slower stream, straining or a weak stream. Pertinent negatives include no abdominal pain, bladder pain, bone pain, chills, dysuria, facial swelling, fever, flank pain, genital pain, hesitancy, inability to urinate, nausea, urinary retention, vomiting or weight loss. She is not sexually active. There is no history of trauma, hypertension, kidney stones, recent infection, STDs or tobacco use. PAST MEDICAL HISTORY Diagnosis Date Abnormal electrocardiogram Allergy, unspecified not elsewhere classified Anemia AGE 16 Asthma, exercise induced 12/14/2011 Concussion 12/14/2011 (1) 5th grade (2) 2010 Dizziness Generalized anxiety disorder 06/11/2019 Left knee injury 2012 Migraine Paroxysmal tachycardia (HCC) PMH - PAST MEDICAL HISTORY OF 01/2000 normal color vision PMH - PAST MEDICAL HISTORY OF 2001 right arm fracture Precocious sexual development and puberty, not elsewhere classified 2005 end of the year sometime Syncope and collapse Unspecified asthma(493.90) exercise induced, NO ATTACKS SONCE 2006 Weight loss 12/14/2011 PAST SURGICAL HISTORY Procedure Laterality Date ECHO 12/18/14 [facility] TONSILLECTOMY AND ADENOIDECTOMY TYMPANOSTOMY LOCAL/TOPICAL ANESTHESIA ALLERGIES Amoxicillin-Pot Clavulanate, Amoxicillin, Flonase [Fluticasone Propionate], Lamictal [Lamotrigine], Medical Tape [Other], Singulair [Montelukast Sodium], and Adhesive Tape-Silicones MEDICATIONS ondansetron (ZOFRAN) 4 mg tablet Take 1 tablet by mouth every 8 hours as needed for nausea/vomiting. ergocalciferol 50,000 unit capsule (VITAMIN D2, DRISDOL) Take 1 capsule by mouth two times a week. TO BE TAKEN ORALLY DIRECTED. Take 1 tablet by mouth twice weekly [id number], then decrease to 1 tablet weekly. lamoTRIgine (LAMICTAL) 25 mg tablet Take 1 tablet by mouth every afternoon. methotrexate 2.5 mg tablet TAKE 6 TABLETS BY MOUTH once weekly topiramate (TOPAMAX) 25 mg tablet Take 1 tablet by mouth daily at bedtime. For a couple weeks and then increase to 1 pill 2 times a day (Patient not taking: Reported on 08/18/2023) rizatriptan (MAXALT-MANAGER HELPDESK) 10 mg disintegrating tablet Take 1 tablet by mouth as needed. May repeat in 2 hours if needed. (Patient not taking: Reported on 08/18/2023) FAMILY HISTORY Problem Relation Age of Onset other (rheumatoid arthritis) Mother Thyroid Mother Alcohol/Drug Father alcoholic Emphysema Father Heart Father Hypertension Father Lipids Father Diabetes Maternal Grandmother Emphysema Maternal Grandfather Heart Paternal Grandfather Diabetes Maternal Aunt other (sjogren's syndrome) Maternal Aunt Social History Tobacco Use Smoking status: Never Smokeless tobacco: Never Substance Use Topics Alcohol use: Yes Comment: rare social use Drug use: No Review of Systems Constitutional: Negative for chills, fever and weight loss. HENT: Negative for facial swelling. Eyes: Negative for photophobia, pain, discharge, redness, itching and visual disturbance. Respiratory: Negative for apnea, cough, choking and chest tightness. Cardiovascular: Negative for chest pain, palpitations and leg swelling. Gastrointestinal: Negative for abdominal pain, nausea and vomiting. Genitourinary: Positive for frequency and hematuria. Negative for dysuria, flank pain, hesitancy, incomplete emptying, nocturia and urgency. Musculoskeletal: Positive for back pain. Negative for arthralgias. Skin: Negative for color change, pallor and wound. Allergic/Immunologic: Positive for immunocompromised state. Negative for environmental allergies and food allergies. Neurological: Negative for dizziness and facial asymmetry. Hematological: Negative for adenopathy. Gross (more content not included)... [facility] 08-18-2023 History of Present illness Narrative This note was created using Aivoriter. Subjective Michelle Beth is a 28 year old female. 28 year old female with PMH anxiety presents for complaints of possible UTI. Acute onset this morning Endorses pink tinged urine noted. +frequency +lower left back pain Denies burning Denies urgency Denies abdominal pain. Denies N/V/D Denies vaginal bleeding Denies vaginal discharge Hx: partial hysterectomy December 2021 The history is provided by the patient. No exhaust emissions inspector was used. Hematuria This is a new problem. The current episode started today. The problem is unchanged. She describes the hematuria as gross hematuria. The hematuria occurs during the initial portion of her urinary stream. She reports no clotting in her urine stream. Her pain is at a severity of 0/10. She is experiencing no pain. She describes her urine color as light pink. Irritative symptoms include frequency. Irritative symptoms do not include nocturia or urgency. Obstructive symptoms do not include dribbling, incomplete emptying, an intermittent stream, a slower stream, straining or a weak stream. Pertinent negatives include no abdominal pain, bladder pain, bone pain, chills, dysuria, facial swelling, fever, flank pain, genital pain, hesitancy, inability to urinate, nausea, urinary retention, vomiting or weight loss. She is not sexually active. There is no history of trauma, hypertension, kidney stones, recent infection, STDs or tobacco use. PAST MEDICAL HISTORY Diagnosis Date Abnormal electrocardiogram Allergy, unspecified not elsewhere classified Anemia AGE 16 Asthma, exercise induced 12/14/2011 Concussion 12/14/2011 (1) 5th grade (2) 2010 Dizziness Generalized anxiety disorder 06/11/2019 Left knee injury 2012 Migraine Paroxysmal tachycardia (HCC) PMH - PAST MEDICAL HISTORY OF 01/2000 normal color vision PMH - PAST MEDICAL HISTORY OF 2001 right arm fracture Precocious sexual development and puberty, not elsewhere classified 2005 end of the year sometime Syncope and collapse Unspecified asthma(493.90) exercise induced, NO ATTACKS SONCE 2006 Weight loss 12/14/2011 PAST SURGICAL HISTORY Procedure Laterality Date ECHO 12/18/14 [facility] TONSILLECTOMY & ADENOIDECTOMY <AGE 12 1995 TYMPANOSTOMY LOCAL/TOPICAL ANESTHESIA ALLERGIES Amoxicillin-Pot Clavulanate, Amoxicillin, Flonase [Fluticasone Propionate], Lamictal [Lamotrigine], Medical Tape [Other], Singulair [Montelukast Sodium], and Adhesive Tape-Silicones MEDICATIONS ondansetron (ZOFRAN) 4 mg tablet Take 1 tablet by mouth every 8 hours as needed for nausea/vomiting. ergocalciferol 50,000 unit capsule (VITAMIN D2, DRISDOL) Take 1 capsule by mouth two times a week. TO BE TAKEN ORALLY DIRECTED. Take 1 tablet by mouth twice weekly [id number], then decrease to 1 tablet weekly. lamoTRIgine (LAMICTAL) 25 mg tablet Take 1 tablet by mouth every afternoon. methotrexate 2.5 mg tablet TAKE 6 TABLETS BY MOUTH once weekly topiramate (TOPAMAX) 25 mg tablet Take 1 tablet by mouth daily at bedtime. For a couple weeks and then increase to 1 pill 2 times a day (Patient not taking: Reported on 08/18/2023) rizatriptan (MAXALT-MANAGER HELPDESK) 10 mg disintegrating tablet Take 1 tablet by mouth as needed. May repeat in 2 hours if needed. (Patient not taking: Reported on 08/18/2023) FAMILY HISTORY Problem Relation Age of Onset other (rheumatoid arthritis) Mother Thyroid Mother Alcohol/Drug Father alcoholic Emphysema Father Heart Father Hypertension Father Lipids Father Diabetes Maternal Grandmother Emphysema Maternal Grandfather Heart Paternal Grandfather Diabetes Maternal Aunt other (sjogren's syndrome) Maternal Aunt Social History Tobacco Use Smoking status: Never Smokeless tobacco: Never Substance Use Topics Alcohol use: Yes Comment: rare social use Drug use: No Review of Systems Constitutional: Negative for chills, fever and weight loss. HENT: Negative for facial swelling. Eyes: Negative for photophobia, pain, discharge, redness, itching and visual disturbance. Respiratory: Negative for apnea, cough, choking and chest tightness. Cardiovascular: Negative for chest pain, palpitations and leg swelling. Gastrointestinal: Negative for abdominal pain, nausea and vomiting. Genitourinary: Positive for frequency and hematuria. Negative for dysuria, flank pain, hesitancy, incomplete emptying, nocturia and urgency. Musculoskeletal: Positive for back pain. Negative for arthralgias. Skin: Negative for color change, pallor and wound. Allergic/Immunologic: Positive for immunocompromised state. Negative for environmental allergies and food allergies. Neurological: Negative for dizziness and facial asymmetry. Hematological: Negative for adenopathy. Does not bruise/bleed easily. Psychiatric/Behavioral: Negative for agitation and behavioral problems. Objective BP 100/72 Pulse 88 Temp 37.3 C (99.1 F) Resp 16 Wt 64.4 kg (142 lb) LMP 10/05/2017 SpO2 100% BMI 25.15 kg/m Physical Exam Vitals and nursing note reviewed. Constitutional: General: She is not in acute distress. Appearance: Normal appearance. She is normal weight. She is not ill-appearing, toxic-appearing or diaphoretic. HENT: Head: Normocephalic and atraumatic. Right Ear: Ear canal and external ear normal. Left Ear: Ear canal and external ear normal. Nose: Nose normal. No congestion or rhinorrhea. Mouth/Throat: Mouth: Mucous membranes are moist. Pharynx: No oropharyngeal exudate or posterior oropharyngeal erythema. Eyes: General: Right eye: No discharge. Left eye: No discharge. Extraocular Movements: Extraocular movements intact. Conjunctiva/sclera: Conjunctivae normal. Pupils: Pupils are equal, round, and reactive to light. Cardiovascular: Rate and Rhythm: Normal rate and regular rhythm. Pulses: Normal pulses. Heart sounds: Normal heart sounds. No murmur heard. No friction rub. Pulmonary: Effort: Pulmonary effort is normal. No respiratory distress. Breath sounds: Normal breath sounds. No stridor. No wheezing, rhonchi or rales. Chest: Chest wall: No tenderness. Abdominal: General: Abdomen is flat. There is no distension. Palpations: Abdomen is soft. There is no mass. Tenderness: There is no abdominal tenderness. There is no right CVA tenderness, left CVA tenderness, guarding or rebound. Hernia: No hernia is present. Musculoskeletal: General: No swelling, tenderness, deformity or signs of injury. Normal range of motion. Cervical back: Normal range of motion and neck supple. No rigidity. Right lower leg: No edema. Left lower leg: No edema. Lymphadenopathy: Cervical: No cervical adenopathy. Skin: General: Skin is warm and dry. Capillary Refill: Capillary refill takes less than 2 seconds. Coloration: Skin is not jaundiced or pale. Findings: No bruising, erythema, lesion or rash. Neurological: General: No focal deficit present. Mental Status: She is alert and oriented to person, place, and time. Cranial Nerves: No cranial nerve deficit. Sensory: No sensory deficit. Motor: No weakness. Coordination: Coordination normal. Gait: Gait normal. Psychiatric: Mood and Affect: Mood normal. Behavior: Behavior normal. Thought Content: Thought content normal. Judgment: Judgment normal. Assessment and Plan ASSESSMENT/PLAN: 1. Hematuria, unspecified type - ICD9: 599.70, ICD10: R31.9 X 2 this morning Noted pink tinged in urine Urine dip here is negative for blood It reveals trace leuks, otherwise negative. Will send urine for culture, No ATB at this time Discussed worsening red flags and reasons to seek ED - UA DIP, URINE (POC) - URINE CULTURE Adelaide Huddleston APRN.CNP documented in this encounter [facility] 04-30-2023 Evaluation + Plan note Associated Problem(s): COVID Supportive care for symptoms Fluids Rest Ibuprofen and Tylenol for fever and body aches Call PCP if respiratory symptoms continue past 7-10 days [facility] Work Phone: 04-30-2023 Miscellaneous Notes Associated Problem(s): COVID Supportive care for symptoms Fluids Rest Ibuprofen and Tylenol for fever and body aches Call PCP if respiratory symptoms continue past 7-10 days documented in this encounter [facility] Work Phone: 04-30-2023 History of Present illness Narrative Subjective Patient ID: Michelle Beth is a 28 y.o. female who presents for COVID. HPI Onset symptoms Sunday. Headache, body aches, congestion, cough. Tested positive for COVID yesterday. Using over the counter medications for symptoms. Not helping much. Review of Systems Constitutional: Positive for fatigue. Negative for chills and fever. HENT: Positive for congestion and rhinorrhea. Negative for ear pain and sore throat. Eyes: Negative for visual disturbance. Respiratory: Positive for cough. Negative for shortness of breath. Cardiovascular: Negative for chest pain, palpitations and leg swelling. Gastrointestinal: Negative for abdominal pain, constipation, diarrhea, nausea and vomiting. Genitourinary: Negative. Musculoskeletal: Negative. Skin: Negative for rash. Neurological: Negative for dizziness, weakness, numbness and headaches. Psychiatric/Behavioral: Negative. Objective There were no vitals taken for this visit. Physical Exam Constitutional: Appearance: Normal appearance. Pulmonary: Effort: Pulmonary effort is normal. Neurological: Mental Status: She is alert. Psychiatric: Mood and Affect: Mood normal. Behavior: Behavior normal. Thought Content: Thought content normal. Assessment/Plan Problem List Items Addressed This Visit COVID - Primary Supportive care for symptoms Fluids Rest Ibuprofen and Tylenol for fever and body aches Call PCP if respiratory symptoms continue past 7-10 days documented in this encounter [facility] Work Phone: 03-01-2023 History of Present illness Narrative Subjective Patient ID: Michelle Beth is a 28 y.o. female who presents for Migraine (Migraine flare up x 3 days with ear ringing.). HPI Patient presents to discuss chronic migraines. Patient reports increased frequency over the recent past stating that headaches have been fluctuating and refractory to Maxalt/Compazine. Patient states current headache has been present for couple days but is improved today. Currently, the patient has no photophobia, nausea, or other constitutional signs and symptoms. No other complaints. Review of Systems Constitutional: See HPI Neurologic: Alert and oriented X4, No numbness, No tingling. All other systems are negative Objective BP 144/87 (BP Location: Left arm, Patient Position: Sitting, BP Cuff Size: Adult) Pulse 69 Temp 37 C (98.6 F) Ht 1.6 m (5' 3) Wt 69.2 kg (152 lb 9.6 oz) SpO2 99% BMI 27.03 kg/m Physical Exam General: Alert and oriented, No acute distress. Eye: Pupils are equal, round and reactive to light, Normal conjunctiva. HENT: Normocephalic, Neck: Supple Respiratory: Respirations are non-labored Musculoskeletal: Normal ROM and strength Integumentary: Warm, Dry, Intact, No pallor, No rash. Neurologic: Alert, Oriented, Normal sensory, Cranial Nerves II-XII are grossly intact Psychiatric: Cooperative, Appropriate mood & affect. Assessment/Plan Chronic migraines: Discussed prevention options. We will start with amitriptyline at night. Provided the patient with 2 sample packs of Nurtec to take as needed. Follow-up as needed Problem List Items Addressed This Visit None Visit Diagnoses Chronic migraine - Primary Relevant Medications amitriptyline (Elavil) 10 mg tablet Final diagnoses: [G43.709] Chronic migraine documented in this encounter [facility] Work Phone: 11-09-2022 Miscellaneous Notes Noted. Will be reviewed at upcoming appointment. Thank you Salma Noel APRN.[facility] Patient returns call and reports that she is taking Vitamin D supplement daily with food. Patient will bring Vitamin D bottle to appointment on 11/23/2022. Karlee Birmingham RN Left message for return call. Michelle, Are you taking yorur vit d with food? Because your vit d numbers are lower than before. Can you bring your vit d bottles so I can see what they look like? Regards, Roland Rodriguez MD documented in this encounter [facility] 11-07-2022 Note HNO ID: [id number] Author: Kathleen Brush, DO Service: ? Author Type: Physician Type: Progress Notes Filed: 11/07/2022 3:46 PM Note Text: Rheumatology CONSULTATION Date of Service: 11/07/2022 Patient: Mihcelle Beth Medical Record: [id number] Primary Care Physician: Roland Rodriguez MD Last Rheumatology visit: None at [facility] No referring provider defined for this encounter: Roland Rodriguez MD Internal Medicine [id number] [facility] [id number] Sexual Orientation: Bisexual Gender Identity: Female Sex Assigned at : Female Reason for visit: positive SHANTANU, arthralgia My final recommendations will be communicated back to the requesting provider by way of shared Medical record or letter to requesting physician via [place] mail. History of Present Illness Michelle Beth is a 27 year old White female with PMHx of vitamin D deficiency (vitamin D level 13.5 on 10/12/2022), overweight, MDD, JULIO, and migraine, who presents on 11/07/2022 for an in-person visit for evaluation of positive SHANTANU, arthralgia AND joint stiffness, malar rash (not sparing nasolabial fold), hair loss, No chief complaint on file.. Michelle reports a current pain level of 6 . The pain is Continuous . Michelle is both RF - 9 (09/09/2021) and CCP - 13.5 (09/09/2021) negative. Her most recent SHANTANU was positive, 1:640 in nuclear dense fine speckled pattern and normal ESR (10/12/2022). CBC and CMP (07/25/2022) were both normal. JUNG from 09/09/2021 was negative. Patient says symptoms started with extreme bruising and fatigue. Patient was told she is okay by her PCP. She has felt awful for some time. She has brain fog, fatigue. Patient has has symptoms for the past year. Patient was told initially that she had a malar rash and then was told it might be rosacea. Patient has not had any steroids. She says the skin on her face is warmer than her regular temperature and sometimes is swollen. She has been experiencing temperatures up to 99.8 F at night. Patient knows she has depression, but she feels something else is going on. SHANTANU ROS: Endorses low-grade fevers Denies lymphadenopathy Endorses occasional oral ulcers; denies nasal ulcers Endorses dry eye (wears contacts); endorses mild dry mouth. Endorses cavities - went to the dentist two months ago and had two cavities; brushes twice per day and flosses Endorses photosensitive rashes Endorses heat and sun intolerance Denies gross hematuria Endorses frothy urine Endorses swelling in the fingers (hard to put rings on), knees, hips, wrists. Joint pain does not get better with activity. Has not taken prednisone. Has taken ibuprofen and Tylenol without much relief. No cytopenias; last CBC checked 08/2021. Denies pleural or pericardial disease. Endorses some pain with a deep breath two weeks ago, missed 3 days of work. Got better on it's own. Used an inhaler. Denies history of VTE Denies stroke or seizure Endorses hair thinning AM stiffness: 2 hours Facial rash gets worse with stress. Pain Evaluation Pain Evaluation 04/05/2020 11/11/2020 07/10/2022 10/12/2022 11/07/2022 Pain Score 6 7 9 6 6 Location Back-Lower Other: See Comment Ankle-Right Head (No Data) Location Comment - - - - Over all joint pain Description Sharp Throbbing Shooting;Radiating Aching - Duration (#) 2 - 2 3 - Duration (Timeframe) Days - Days Months - Frequency Continuous Intermittent Continuous Intermittent Continuous Intervention Medication Medication Cold Medication - Patient-Entered Data RAPID 3: DISEASE ACTIVITY: Over the last week, were you able to: 10/31/2022 Dress yourself With SOME difficulty In/out of bed Without ANY difficulty Lift cup Without ANY difficulty Walk outdoors Without ANY difficulty Wash and dry body Without ANY difficulty Pick clothing from floor With SOME difficulty Turn faucets on and off Without ANY difficulty Get in and out of car With SOME difficulty Walk 2 to 3 km With SOME difficulty Recreational activities UNABLE to do Good night's sleep With MUCH difficulty Deal with anxiety Without ANY difficulty Deal with depression Without ANY difficulty Past Week Pain level 7.5 How Doing Overall 6 Functional Status Score 2.33 Pain Level Score 7.5 PTGE Subscore 6 Weighed Score 5.28 (High Severity (HS)) Weighed Score % Change Incomplete% Weighed Score Levels: 0 - 1: Near Remission 1.3 - 2.0: Low Severity 2.3 - 4.0: Moderate Severity 4.3 - 10.0: High Severity RAPID-3 Weighed Score 10/31/2022 RAPID 3 Weighed Score 5.28 (High Severity (HS)) Review of Systems ROS are negative except if bolded below: Constitutional: +subjective fevers, +chills, -sweats, +weight loss (few lbs, decreased appetite), +fatigue HEENT: -vision change, -eye pain, -red eye, +headache, -nasal ulcer, +oral ulcer, +dry mouth, +dry eye, -sore throat Cardiac: +chest pain, -palpitations, -lower extremity edema Pulmonary: +shortness of breath, +occasional c (more content not included)... [facility] 11-07-2022 Instructions Kathleen Brush, - 11/07/2022 3:20 PM EST You were seen in the rheumatology clinic for: positive SHANTANU, fatigue, joint pain, hair loss, and sun-sensitive facial rash - SHANTANU positive, 1:640 in nuclear dense fine speckled pattern (10/12/2022) - SHANTANU sub-serologies, checked over a year ago, had been negative (09/09/2021) - ESR recently checked was normal, would be expected to be elevated in the setting of lupus - Fatigue, joint pain, and rash on cheeks for >1 year - Recently checked blood counts (CBC) and kidney function (07/25/2022) were normal and there is no history of low blood counts or thromboembolism - Joint pain does not improve with activity (as would be expected with inflammatory arthritis); however, distribution (wrists, MCPs, PIPs) can be consistent with inflammatory arthritis. - Mother with RA and aunt with Sjogren's syndrome At this time I am NOT yet sure if you have an SHANTANU-related connective tissue disease (I.e., systemic lupus erythematosus, undifferentiated connective tissue disease, etc.) or inflammatory arthritis. However, we will check several labs. PLAN: - Complete autoimmune work-up: JUNG panel (SHANTANU sub-serologies), complements (C3 & C4), antiphospholipid antibodies, CK (muscle enzyme), thyroid function and thyroid autoantibodies, CMP, CBC, urine protein to creatinine ratio - Will also check iron studies and mononucleosis - Try to schedule ultrasound of the hands/wrists to evaluate for synovitis - If the above labs are concerning for a connective tissue disease, we will plan for a trial of prednisone and may also consider a disease-modifying anti-rheumatic drug (I.e., hydroxychloroquine) Insomnia - Restart trazodone 50 mg at night History of anxiety and depression - Might be contributing to worsening of the above symptoms PLAN: - Consider duloxetine/Cymbalta in the future - pending the above work-up I will send you results messages in [employer] with next steps. Take care, Kathleen Brush D.O. Associate Staff Rheumatic Disease [address] [place] [address] documented in this encounter [facility] 11-07-2022 History of Present illness Narrative Images from the original note were not included. Rheumatology CONSULTATION Date of Service: 11/07/2022 Patient: Michelle Beth Medical Record: [id number] Primary Care Physician: Roland Rodriguez MD Last Rheumatology visit: None at [facility] No referring provider defined for this encounter: Roland Rodriguez MD Internal Medicine [address] [facility] [id number] Sexual Orientation: Bisexual Gender Identity: Female Sex Assigned at : Female Reason for visit: positive SHANTANU, arthralgia My final recommendations will be communicated back to the requesting provider by way of shared Medical record or letter to requesting physician via US mail. History of Present Illness Michelle Beth is a 27 year old White female with PMHx of vitamin D deficiency (vitamin D level 13.5 on 10/12/2022), overweight, MDD, JULIO, and migraine, who presents on 11/07/2022 for an in-person visit for evaluation of positive SHANTANU, arthralgia & joint stiffness, malar rash (not sparing nasolabial fold), hair loss, No chief complaint on file.. Michelle reports a current pain level of 6 . The pain is Continuous . Michelle is both RF - 9 (09/09/2021) and CCP - 13.5 (09/09/2021) negative. Her most recent SHANTANU was positive, 1:640 in nuclear dense fine speckled pattern and normal ESR (10/12/2022). CBC and CMP (07/25/2022) were both normal. JUNG from 09/09/2021 was negative. Patient says symptoms started with extreme bruising and fatigue. Patient was told she is okay by her PCP. She has felt awful for some time. She has brain fog, fatigue. Patient has has symptoms for the past year. Patient was told initially that she had a malar rash and then was told it might be rosacea. Patient has not had any steroids. She says the skin on her face is warmer than her regular temperature and sometimes is swollen. She has been experiencing temperatures up to 99.8 F at night. Patient knows she has depression, but she feels something else is going on. SHANTANU ROS: Endorses low-grade fevers Denies lymphadenopathy Endorses occasional oral ulcers; denies nasal ulcers Endorses dry eye (wears contacts); endorses mild dry mouth. Endorses cavities - went to the dentist two months ago and had two cavities; brushes twice per day and flosses Endorses photosensitive rashes Endorses heat and sun intolerance Denies gross hematuria Endorses frothy urine Endorses swelling in the fingers (hard to put rings on), knees, hips, wrists. Joint pain does not get better with activity. Has not taken prednisone. Has taken ibuprofen and Tylenol without much relief. No cytopenias; last CBC checked 08/2021. Denies pleural or pericardial disease. Endorses some pain with a deep breath two weeks ago, missed 3 days of work. Got better on it's own. Used an inhaler. Denies history of VTE Denies stroke or seizure Endorses hair thinning AM stiffness: 2 hours Facial rash gets worse with stress. Pain Evaluation Pain Evaluation 04/05/2020 11/11/2020 07/10/2022 10/12/2022 11/07/2022 Pain Score 6 7 9 6 6 Location Back-Lower Other: See Comment Ankle-Right Head (No Data) Location Comment - - - - Over all joint pain Description Sharp Throbbing Shooting;Radiating Aching - Duration (#) 2 - 2 3 - Duration (Timeframe) Days - Days Months - Frequency Continuous Intermittent Continuous Intermittent Continuous Intervention Medication Medication Cold Medication - Patient-Entered Data RAPID 3: DISEASE ACTIVITY: Over the last week, were you able to: 10/31/2022 Dress yourself With SOME difficulty In/out of bed Without ANY difficulty Lift cup Without ANY difficulty Walk outdoors Without ANY difficulty Wash and dry body Without ANY difficulty Pick clothing from floor With SOME difficulty Turn faucets on and off Without ANY difficulty Get in and out of car With SOME difficulty Walk 2 to 3 km With SOME difficulty Recreational activities UNABLE to do Good night's sleep With MUCH difficulty Deal with anxiety Without ANY difficulty Deal with depression Without ANY difficulty Past Week Pain level 7.5 How Doing Overall 6 Functional Status Score 2.33 Pain Level Score 7.5 PTGE Subscore 6 Weighed Score 5.28 (High Severity (HS)) Weighed Score % Change Incomplete% Weighed Score Levels: 0 - 1: Near Remission 1.3 - 2.0: Low Severity 2.3 - 4.0: Moderate Severity 4.3 - 10.0: High Severity RAPID-3 Weighed Score 10/31/2022 RAPID 3 Weighed Score 5.28 (High Severity (HS)) Review of Systems ROS are negative except if bolded below: Constitutional: +subjective fevers, +chills, -sweats, +weight loss (few lbs, decreased appetite), +fatigue HEENT: -vision change, -eye pain, -red eye, +headache, -nasal ulcer, +oral ulcer, +dry mouth, +dry eye, -sore throat Cardiac: +chest pain, -palpitations, -lower extremity edema Pulmonary: +shortness of breath, +occasional cough, +pleuritic chest pain, -hemoptysis GI: +nausea, -vomiting, -abdominal pain, -diarrhea, -constipation, -hematochezia, -melena, -heartburn, -dysphagia : -gross hematuria, +frothy urine, +dysuria Neuro: +paresthesias (last week, hands feel asleep, associated with joint pain), -stroke, -seizure Integ: -digital ulcerations, -Raynaud's phenomenon, +facial rash, +hair loss MSK: +joint pain, +joint swelling, -muscle pain, -muscle weakness Psych: +mood has been down, +initial insomnia, +stress (busy mom, missing work), +brain fog Heme: -DVT, -PE, -cytopenias, -miscarriage Past Medical History PAST MEDICAL HISTORY Diagnosis Date Abnormal electrocardiogram Allergy, unspecified not elsewhere classified Anemia AGE 16 Asthma, exercise induced 12/14/2011 Concussion 12/14/2011 (1) 5th grade (2) 2010 Dizziness Generalized anxiety disorder 06/11/2019 Left knee injury 2012 Migraine Paroxysmal tachycardia (HCC) PMH - PAST MEDICAL HISTORY OF 01/2000 normal color vision PMH - PAST MEDICAL HISTORY OF 2001 right arm fracture Precocious sexual development and puberty, not elsewhere classified 2005 end of the year sometime Syncope and collapse Unspecified asthma(493.90) exercise induced, NO ATTACKS SONCE 2006 Weight loss 12/14/2011 Past Surgical History PAST SURGICAL HISTORY Procedure Laterality Date ECHO 12/18/14 [facility] TONSILLECTOMY & ADENOIDECTOMY <AGE 12 1995 TYMPANOSTOMY LOCAL/TOPICAL ANESTHESIA Family History FAMILY HISTORY Problem Relation Age of Onset other (rheumatoid arthritis) Mother Thyroid Mother Alcohol/Drug Father alcoholic Emphysema Father Heart Father Hypertension Father Lipids Father Diabetes Maternal Grandmother Emphysema Maternal Grandfather Heart Paternal Grandfather Diabetes Maternal Aunt other (sjogren's syndrome) Maternal Aunt Social History Social History Tobacco Use Smoking status: Never Smokeless tobacco: Never Substance Use Topics Alcohol use: Yes Comment: rare social use Drug use: No Current Medications Current Outpatient Medications Medication Sig ondansetron (ZOFRAN) 4 mg tablet Take 1 tablet by mouth every 8 hours as needed for nausea/vomiting. ergocalciferol 50,000 unit capsule (VITAMIN D2, DRISDOL) Take 1 capsule by mouth two times a week. TO BE TAKEN ORALLY DIRECTED. Take 1 tablet by mouth twice weekly [id number], then decrease to 1 tablet weekly. traZODone (DESYREL) 50 mg tablet Take 1 tablet by mouth at bedtime as needed. topiramate (TOPAMAX) 25 mg tablet Take 1 tablet by mouth daily at bedtime. For a couple weeks and then increase to 1 pill 2 times a day rizatriptan (MAXALT-MANAGER HELPDESK) 10 mg disintegrating tablet Take 1 tablet by mouth as needed. May repeat in 2 hours if needed. Physical Exam VITAL SIGNS: BP 138/75 Pulse 84 Temp (Src) 98.8 (Temporal) Ht 5' 3 (1.60m) Wt 166 lb 11.2 oz (75.6kg) LMP 10/05/2017 BMI 29.54 kg/(m^2). GENERAL APPEARANCE: Alert and appropriately oriented. In no acute distress. Anxious. SKIN: No rash, thickening, nodules, discoloration, rheumatoid nodules. Mild facial erythema on the cheeks - does not spare the nasolabial fold. Thinning hair on scalp. EYES: eyes clear without injection HENT: Normal external examination of the ears and nose, lips, oropharynx and tongue. No oropharyngeal lesions, exudate, or sores. MMM. NECK: No mass or asymmetry. RESPIRATORY: Normal respiratory effort. Clear to auscultation throughout. CARDIOVASCULAR: tachycardic, S1, S2. No pedal edema. ABDOMEN: soft, non-tender, non-distended NEUROLOGIC: normal speech, no focal deficits MUSCULOSKELETAL EXAMINATION: Soft tissue tender points: None except for right greater trochanter. Motor exam: Normal bulk and tone. Spine: Cervical spine: No visible abnormalities. Full ROM. No tenderness to palpation. Thoracic spine: No visible abnormalities. No tenderness to palpation. Lumbar spine: No visible abnormalities. Full ROM. No tenderness to palpation SI Joints: No tenderness to palpation. Upper extremities: Shoulders: Full ROM in all cristobal, no tenderness to palpation. No swelling or effusion. Elbows: Full ROM in flexion and extension. No swelling or effusion. No tenderness to palpation to the joint line, olecranon, medial or lateral epicondyles; no nodules. Wrists: Full ROM in all cristobal. No swelling. Bilateral tenderness. Hands: Full ROM in flexion and extension. No swelling or synovitis along the MCPs, PIPs, and DIPs. Tenderness along all MCPs and PIPs but not DIPs. Lower extremities: Hips: Full ROM without pain. Right greater trochanteric tenderness. Negative OMID test. Knees: Full ROM in flexion and extension. No swelling or effusion. No tenderness to palpation. Ankles: Full ROM in all cristobal. No swelling or effusion. No tenderness to palpation along the joint line, medial/lateral malleolus, or Achilles Tendon Feet: Full ROM in toe flexion/extension. No effusion. No tenderness to palpation. No evidence of MTP swelling. Labs Results for orders placed or performed in visit on 10/12/22 SHANTANU BY IFA SCREEN Result Value Ref Range SHANTANU Positive (A) Negative SHANTANU Pattern Nuclear dense fine speckled SHANTANU Titer 1:640 SED RATE WESTERGREN Result Value Ref Range Sed Rate, Westergren 10 0 - 20 mm/hr C-REACTIVE PROTEIN (CRP) Result Value Ref Range CRP 0.7 <0.9 mg/dL VITAMIN D 25 HYDROXY Result Value Ref Range Vitamin D 25 Hydroxy 13.5 (L) 31.0 - 80.0 ng/mL CBC Latest Ref Rng & Units 10/22/2012 04/23/2015 06/10/2019 09/09/2021 WBC 3.70 - 11.00 k/uL 7.82 8.89 8.53 7.28 HEMOGLOBIN 11.5 - 15.5 g/dL 10.9(L) 12.2 11.8 12.5 HEMOGLOBIN, BEE 12.0 - 16.0 g/dL - - - - HEMATOCRIT 36.0 - 46.0 % 31.5(L) 36.2 38.1 39.5 PLATELETS 150 - 400 k/uL 249 258 399 377 ABS NEUT (ANC) 1.45 - 7.50 k/uL 5.64 - - 4.20 ABS NEUT, BEE 2.0 - 8.1 k/uL - - - - ABS LYMP, BEE 1.0 - 5.5 k/uL - - - - ABS LYMPH 1.00 - 4.00 k/uL 1.39 - - 1.78 CMP Latest Ref Rng & Units 06/30/2010 10/12/2015 06/10/2019 09/09/2021 SODIUM 136 - 144 mmol/L - - 140 141 SODIUM, BEE 132 - 148 mmol/L 138 - - - SODIUM, BEE 132 - 148 mmol/L 138 - - - POTASSIUM 3.7 - 5.1 mmol/L - - 3.3(L) 4.4 POTASSIUM, BEE 3.5 - 5.0 mmol/L 4.4 - - - CHLORIDE 97 - 105 mmol/L - - 104 104 CHLORIDE, BEE 98 - 110 mmol/L 104 - - - CO2 22 - 30 mmol/L - - 24 21(L) CO2, BEE 23.0 - 32.0 mmol/L 25.5 - - - GLUCOSE 74 - 99 mg/dL - 97 97 92 GLUCOSE, BEE 65 - 100 mg/dL 75 - - - BUN 7 - 21 mg/dL - - 7 8 BUN, BEE 10 - 25 mg/dL 11 - - - CREATININE 0.58 - 0.96 mg/dL - - 0.67 0.80 CREATININE, BEE 0.7 - 1.4 mg/dL 0.7 - - - CALCIUM, BEE 8.5 - 10.5 mg/dL 9.8 - - - CALCIUM, TOTAL 8.5 - 10.2 mg/dL - - 9.3 9.8 AST 13 - 35 U/L - - - 19 AST, BEE 7 - 40 U/L 18 - - - ALT 7 - 38 U/L - - - 15 ALT, BEE 0 - 45 U/L 14 - - - ALKALINE PHOSPHATASE 34 - 123 U/L - - - 65 ESR, WSR Latest Ref Rng & Units 06/04/2008 09/09/2021 10/12/2022 WSR 0 - 20 mm/hr - 2 10 SED RATE, BEE 0 - 20 mm/hr 4 - - CRP Latest Ref Rng & Units 09/09/2021 10/12/2022 CRP <0.9 mg/dL 0.3 0.7 RF and CCP Latest Ref Rng & Units 09/09/2021 RHEUMATOID FACTOR <16 IU/mL <10 CCP ANTIBODY, IGG <20 Units <15 Hepatitis Screen Latest Ref Rng & Units 07/30/2012 04/23/2015 03/07/2021 HEPCABEIA Negative - - Negative HBSAG Negative Negative Negative - Antibodies Latest Ref Rng & Units 03/07/2021 09/09/2021 10/12/2022 SHANTANU Negative - Positive(A) Positive(A) SHANTANU TITER - - 1:160(A) 1:640 SHANTANU PATTERN - - Atypical speckled Nuclear dense fine speckled DNA ANTIBODY W/CONFIRMATION <30 IU/mL - <12 - LORRY WEIGHER ANTIBODY <1.0 AI - <0.2 - SSA ANTIBODY <1.0 AI - <0.2 - SSB ANTIBODY <1.0 AI - <0.2 - YESI-1 ANTIBODY, IGG <1.0 AI - <0.2 - RIBOSOMAL LORRY WEIGHER <1.0 AI - <0.2 - ANTI-SM <1.0 AI - <0.2 - SM ANTIBODY <1.0 AI - <0.2 - SCLERODERMA AB, IGG <1.0 AI - <0.2 - CENTROMERE AB <1.0 AI - <0.2 - CHROMATIN ANTIBODY <1.0 AI - <0.2 - PT SEC 9.7 - 13.0 sec 10.0 - - PT INR 0.9 - 1.3 <0.9(L) - - PTT 23.0 - 32.4 sec 26.7 - - Urinalysis Latest Ref Rng & Units 04/05/2020 08/03/2021 09/09/2021 03/02/2022 PROTEIN, URINE Negative - - Negative - PROTEIN UA (POCT) Negative mg/dL Negative Negative - Negative RBC, URINE 0 - 3 /HPF - - 0-3 - Imaging Last XR Wrist - Impression Only XR WRIST INJURY 4V PA/LAT/OBL/SCAPH LT Exam End: 08/03/2019 1:13 PM (Final result) Impression: IMPRESSION: No acute osseous abnormality identified. Administrative Judge: MARCO Transcribe Date/Time: Aug 03 2019 1:14P ... Last XR Ankle - Impression Only XR ANKLE GENERAL 3V AP/LAT/OBL RIGHT Exam End: 07/10/2022 7:52 PM (Final result) Impression: IMPRESSION: No acute process. Administrative Judge: MARCO Transcribe Date/Time: Jul 10 2022 7:55P ... Last MRI Ankle - Impression Only MRI ANKLE WO CONTRAST LT Collected: 03/12/2008 2:35 PM (Final result) Health Maintenance Biologic/DMARD Infectious Screening: Hep B Surface Ag Date Value Ref Range Status 04/23/2015 Negative Negative Final 07/30/2012 Negative NEGAT Final Immunizations: Current Immunizations Reviewed on 11/07/2022 Name Date CHICKEN POX VACCINE 01/24/2008 , 02/29/2000 COVID-19 vaccine, monovalent (MODERNA) 03/28/2022 , 10/10/2021 , 02/24/2021 , 02/22/2021 , 01/25/2021 DTAP 02/29/2000 , 05/12/1996 , 1995 , 1995 , 1995 HEPATITIS A 01/24/2008 , 05/31/2007 HEPATITIS B 1995 , 1995 , 1995 HIB 05/12/1996 , 1995 , 1995 , 1995 HPV 01/24/2008 , 09/25/2007 , 05/31/2007 INFLUENZA 07/30/2015 , 06/25/2015 , 08/28/2012 , 09/25/2007 Influenza 06/25/2015 , 11/24/2014 MENINGOCOCCAL 11/24/2014 , 04/20/2006 POLIO 02/29/2000 , 1995 , 1995 , 1995 Tdap (Age 7+) 04/20/2006 influenza (ccIIV4) vaccine 09/06/2022 measles mumps rubella (MMR) vaccine 02/29/2000 , 01/31/1996 Impression & Plan Diagnoses: (R76.8) Positive SHANTANU (antinuclear antibody) (primary encounter diagnosis) (M25.50) Arthralgia, unspecified joint (E55.9) Vitamin D deficiency (R21) Facial rash (Z82.61) Family history of rheumatoid arthritis in mother (Z82.69) Family history of Sjogren's disease (R53.81, R53.83) Malaise and fatigue Discussion: Michelle Beth is a 27 year old White female with PMHx of vitamin D deficiency (vitamin D level 13.5 on 10/12/2022), overweight, MDD, JULIO, and migraine, who presents on 11/07/2022 for an in-person visit for evaluation of positive SHANTANU, arthralgia & joint stiffness, malar rash (not sparing nasolabial fold), hair loss, No chief complaint on file.. Michelle reports a current pain level of 6 . The pain is Continuous . Michelle is both RF - 9 (09/09/2021) and CCP - 13.5 (09/09/2021) negative. Her most recent SHANTANU was positive, 1:640 in nuclear dense fine speckled pattern and normal ESR (10/12/2022). CBC and CMP (07/25/2022) were both normal. JUNG from 09/09/2021 was negative. You were seen in the rheumatology clinic for: positive SHANTANU, fatigue, joint pain, hair loss, and sun-sensitive (also heat-sensitive) facial rash - SHANTANU positive, 1:640 in nuclear dense fine speckled pattern (10/12/2022) - SHANTANU sub-serologies, checked over a year ago, had been negative (09/09/2021) - ESR recently checked was normal, would be expected to be elevated in the setting of lupus - Fatigue, joint pain, and rash on cheeks for >1 year - Recently checked blood counts (CBC) and kidney function (07/25/2022) were normal and there is no history of low blood counts or thromboembolism - Joint pain does not improve with activity (as would be expected with inflammatory arthritis); however, distribution (wrists, MCPs, PIPs) can be consistent with inflammatory arthritis. - Mother with RA and aunt with Sjogren's syndrome - Rash does not seem to spare lasolabial folds; not convinced this is a malar rash; gets worse with stress and heat - may be more consistent with rosacea At this time I am NOT yet sure if you have an SHANTANU-related connective tissue disease (I.e., systemic lupus erythematosus, undifferentiated connective tissue disease, etc.) or inflammatory arthritis. However, we will check several labs. PLAN: - Complete autoimmune work-up: JUNG panel (SHANTANU sub-serologies), complements (C3 & C4), antiphospholipid antibodies, CK (muscle enzyme), thyroid function and thyroid autoantibodies, CMP, CBC, urine protein to creatinine ratio - Will also check iron studies and mononucleosis - Try to schedule ultrasound of the hands/wrists to evaluate for synovitis - If the above labs are concerning for a connective tissue disease, we will plan for a trial of prednisone and may also consider a disease-modifying anti-rheumatic drug (I.e., hydroxychloroquine) Insomnia - Restart trazodone 50 mg at night History of anxiety and depression - Might be contributing to worsening of the above symptoms - might be component of pain amplification syndrome, although no diffuse tender points elicited. 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 Orders this visit: Office Visit on 11/07/22 US HAND/WRIST SYNOVIAL SCREEN RT US HAND/WRIST SYNOVIAL SCREEN LT ANTI JUNG ID [id number] COMPLEMENT BLD C4 COMPLEMENT BLD DNA AB DS + CONF BLD URINALYSIS, WITH MICROSCOPIC PROTEIN CREATININE RATIO CBC + DIFF COMP METABOLIC PANEL CELIAC SCREEN WITH REFLEX TSH BLD T4 FREE/FREE THYROX CK CREATINE KINASE LUPUS ANTICOAG PL B 2 GPI IGG & IGM ANTI-CARDIOLIPIN AB MONOTEST, INFECTIOUS MONO CCP ANTIBODY IGG RHEUMATOID FACTOR BL THYROID PEROXIDASE ANTIBODY BLOOD THYROGLOBULIN AB IRON + TIBC FERRITIN BLD HEPATIC FUNCTION PNL BLOOD TB SCREEN traZODone (DESYREL) 50 mg tablet *Discontinued* traZODone (DESYREL) 50 mg tablet No follow-ups on file. I spent a total of 49 minutes on the date of the service which included preparing to see the patient, [id number] patient care, completing clinical documentation, obtaining and/or reviewing separately obtained history, performing a medically appropriate examination, counseling and educating the patient/family/caregiver, and ordering medications, tests, or procedures. Kathleen Brush D.O. Associate Staff Rheumatic Disease [address] [place] [address] documented in this encounter [facility] 10-17-2022 Miscellaneous Notes Rx ondasetreon as per patient requirement. Regards, Roland Rodriguez MD documented in this encounter [facility] 10-13-2022 Miscellaneous Notes Please inform patient of very low vitamin d levels, We are giving her replacement doses, sent to her regular pharmacy. This might help in the overall mood and energy. He needs to take it immediately after eating. documented in this encounter [facility] 10-12-2022 Note HNO ID: [id number] Author: Roland Rodriguez MD Service: ? Author Type: Physician Type: Progress Notes Filed: 10/12/2022 10:39 AM Note Text: Reason for Visit Patient presents with: Recheck: Go over lab results Michelle Beth is a 27 year old female who presents here today for Above Complaints.. Health Maintenance PAP TESTING DTAP,TDAP,TD(7 - Td or Tdap) COVID-19 VACCINE(5 - Booster for Moderna series) HPI Rash - malar rash, sometimes in the lower lids and the forehead. The rash comes and goes,. It can come for a week or 2 days. She is not sure what the triggers are. Patient is heat intolerant. Thinks she may be heat intolerant. No sparing of the NL folds. Some hair loss but not really all that much. Stiffness and joint pain is concerning for her./ When she first wakes up in the morning she is stiff, legs and arms are stiff, and present the whole day and dose not really, go away, she is not comfortable with the way she feels. She has been having more frequent ocular migraines. Her symptoms are nausea, light sensitivity, they are not sound sensitive and it usually affects the left side. More frequent migraines: happening at least once a week. For the past 3/4 months, This is new frequency for her , Her symptoms are nausea, light sensitivity, and throbs on the left side. Had a hysterctomy in December this year. She does have her ovaries No problem-specific Assessment AND Plan notes found for this encounter. PAST MEDICAL HISTORY Diagnosis Date Abnormal electrocardiogram Allergy, unspecified not elsewhere classified Anemia AGE 16 Asthma, exercise induced 12/14/2011 Concussion 12/14/2011 (1) 5th grade (2) 2010 Dizziness Generalized anxiety disorder 06/11/2019 Left knee injury 2012 Migraine Paroxysmal tachycardia (HCC) PMH - PAST MEDICAL HISTORY OF 01/2000 normal color vision PMH - PAST MEDICAL HISTORY OF 2001 right arm fracture Precocious sexual development and puberty, not elsewhere classified 2005 end of the year sometime Syncope and collapse Unspecified asthma(493.90) exercise induced, NO ATTACKS SONCE 2006 Weight loss 12/14/2011 PAST SURGICAL HISTORY Procedure Laterality Date ECHO 12/18/14 [facility] TONSILLECTOMY AND ADENOIDECTOMY TYMPANOSTOMY LOCAL/TOPICAL ANESTHESIA FAMILY HISTORY Problem Relation Age of Onset Alcohol/Drug Father alcoholic Arthritis Mother Diabetes Maternal Grandmother Diabetes Maternal Aunt Emphysema Father Emphysema Maternal Grandfather Heart Father Heart Paternal Grandfather Hypertension Father Lipids Father Thyroid Mother Social History Tobacco Use Smoking status: Never Smokeless tobacco: Never Substance Use Topics Alcohol use: No Drug use: No Past medical history, appointments, medications, allergies reviewed. Pertinent Lab/Diagnostic Studies are reviewed and discussed today Current Outpatient Medications: MULTI-VITAMIN ORAL levonorgestrel (LILETTA) 20.1 mcg/24 hrs (6 yrs) 52 mg IUD risperiDONE (RISPERDAL) 1 mg tablet copper (PARAGARD T 380A INTRAUTERINE) ondansetron orally disintegrating (ZOFRAN ODT) 4 mg disintegrating tablet Review of Systems CONSTITUTIONAL: No fevers, chills night sweats, unintended weight loss CARDIOVASCULAR: No chest pain, dyspnea, palpitations, orthopnea, PND, ankle edema. PULM: No dyspnea, unexplained cough. GI: No dysphagia/odynophagia, problematic reflux, constipation, diarrhea, changes in stool habits, hematochezia, melena. : No new urinary complaints, including dysuria, gross hematuria or pyuria. NEURO: No new balance problems, peripheral weakness/paresthesias or numbness of concern. Physical Exam BP 126/80 Pulse 100 Resp 16 Wt 78 kg (172 lb) LMP 10/05/2017 SpO2 98% BMI 31.46 kg/m? General appearance: Well appearing, alert, in no acute distress, well nourished. Skin: Skin color, texture, turgor normal, no suspicious rashes or lesions Head: Normocephalic, no masses, lesions, tenderness or abnormalities Eyes: Anicteric sclera. Pupils are equally round and reactive to light. Extraocular movements are intact. Lungs: Lungs clear to auscultation. No wheezing, rhonchi, rales Heart: RRR without murmur, gallop, or rubs. Extremities: No deformities, edema, skin discoloration, clubbing or cyanosis. Good capillary refill. ASSESSMENT/PLAN: 1. Vitamin D deficiency - ICD9: 268.9, ICD10: E55.9 (primary diagnosis) We discussed rechecking and taking replacement doses if still on the lower side - ERGOCALCIFEROL (VITAMIN D2) 1,250 MCG (50,000 UNIT) CAPSULE - VITAMIN D 25 HYDROXY 2. Positive SHANTANU (antinuclear antibody) - ICD9: 795.79, ICD10: R76.8 - SHANTANU BY IFA SCREEN - SED RATE WESTERGREN - C-REACTIVE PROTEIN (CRP) 3. Malar rash - ICD9: 782.1, ICD10: R21 - SHANTANU BY IFA SCREEN - SED RATE WESTERGREN - C-REACTIVE PROTEIN (CRP) 4. Stiffness in joint - ICD9: 719.50, ICD10: M25.60 - SHANTANU BY IFA SCREEN - SED RATE SALAS (more content not included)... [facility] 10-12-2022 History of Present illness Narrative Reason for Visit Patient presents with: Recheck: Go over lab results Michelle Beth is a 27 year old female who presents here today for Above Complaints.. Health Maintenance PAP TESTING DTAP,TDAP,TD(7 - Td or Tdap) COVID-19 VACCINE(5 - Booster for Moderna series) HPI Rash - malar rash, sometimes in the lower lids and the forehead. The rash comes and goes,. It can come for a week or 2 days. She is not sure what the triggers are. Patient is heat intolerant. Thinks she may be heat intolerant. No sparing of the NL folds. Some hair loss but not really all that much. Stiffness and joint pain is concerning for her./ When she first wakes up in the morning she is stiff, legs and arms are stiff, and present the whole day and dose not really, go away, she is not comfortable with the way she feels. She has been having more frequent ocular migraines. Her symptoms are nausea, light sensitivity, they are not sound sensitive and it usually affects the left side. More frequent migraines: happening at least once a week. For the past 3/4 months, This is new frequency for her , Her symptoms are nausea, light sensitivity, and throbs on the left side. Had a hysterctomy in December this year. She does have her ovaries No problem-specific Assessment & Plan notes found for this encounter. PAST MEDICAL HISTORY Diagnosis Date Abnormal electrocardiogram Allergy, unspecified not elsewhere classified Anemia AGE 16 Asthma, exercise induced 12/14/2011 Concussion 12/14/2011 (1) 5th grade (2) 2010 Dizziness Generalized anxiety disorder 06/11/2019 Left knee injury 2012 Migraine Paroxysmal tachycardia (HCC) PMH - PAST MEDICAL HISTORY OF 01/2000 normal color vision PMH - PAST MEDICAL HISTORY OF 2001 right arm fracture Precocious sexual development and puberty, not elsewhere classified 2005 end of the year sometime Syncope and collapse Unspecified asthma(493.90) exercise induced, NO ATTACKS SONCE 2006 Weight loss 12/14/2011 PAST SURGICAL HISTORY Procedure Laterality Date ECHO 12/18/14 [facility] TONSILLECTOMY & ADENOIDECTOMY <AGE 12 1995 TYMPANOSTOMY LOCAL/TOPICAL ANESTHESIA FAMILY HISTORY Problem Relation Age of Onset Alcohol/Drug Father alcoholic Arthritis Mother Diabetes Maternal Grandmother Diabetes Maternal Aunt Emphysema Father Emphysema Maternal Grandfather Heart Father Heart Paternal Grandfather Hypertension Father Lipids Father Thyroid Mother Social History Tobacco Use Smoking status: Never Smokeless tobacco: Never Substance Use Topics Alcohol use: No Drug use: No Past medical history, appointments, medications, allergies reviewed. Pertinent Lab/Diagnostic Studies are reviewed and discussed today Current Outpatient Medications: MULTI-VITAMIN ORAL levonorgestrel (LILETTA) 20.1 mcg/24 hrs (6 yrs) 52 mg IUD risperiDONE (RISPERDAL) 1 mg tablet copper (PARAGARD T 380A INTRAUTERINE) ondansetron orally disintegrating (ZOFRAN ODT) 4 mg disintegrating tablet Review of Systems CONSTITUTIONAL: No fevers, chills night sweats, unintended weight loss CARDIOVASCULAR: No chest pain, dyspnea, palpitations, orthopnea, PND, ankle edema. PULM: No dyspnea, unexplained cough. GI: No dysphagia/odynophagia, problematic reflux, constipation, diarrhea, changes in stool habits, hematochezia, melena. : No new urinary complaints, including dysuria, gross hematuria or pyuria. NEURO: No new balance problems, peripheral weakness/paresthesias or numbness of concern. Physical Exam BP 126/80 Pulse 100 Resp 16 Wt 78 kg (172 lb) LMP 10/05/2017 SpO2 98% BMI 31.46 kg/m General appearance: Well appearing, alert, in no acute distress, well nourished. Skin: Skin color, texture, turgor normal, no suspicious rashes or lesions Head: Normocephalic, no masses, lesions, tenderness or abnormalities Eyes: Anicteric sclera. Pupils are equally round and reactive to light. Extraocular movements are intact. Lungs: Lungs clear to auscultation. No wheezing, rhonchi, rales Heart: RRR without murmur, gallop, or rubs. Extremities: No deformities, edema, skin discoloration, clubbing or cyanosis. Good capillary refill. ASSESSMENT/PLAN: 1. Vitamin D deficiency - ICD9: 268.9, ICD10: E55.9 (primary diagnosis) We discussed rechecking and taking replacement doses if still on the lower side - ERGOCALCIFEROL (VITAMIN D2) 1,250 MCG (50,000 UNIT) CAPSULE - VITAMIN D 25 HYDROXY 2. Positive SHANTANU (antinuclear antibody) - ICD9: 795.79, ICD10: R76.8 - SHANTANU BY IFA SCREEN - SED RATE WESTERGREN - C-REACTIVE PROTEIN (CRP) 3. Malar rash - ICD9: 782.1, ICD10: R21 - SHANTANU BY IFA SCREEN - SED RATE WESTERGREN - C-REACTIVE PROTEIN (CRP) 4. Stiffness in joint - ICD9: 719.50, ICD10: M25.60 - SHANTANU BY IFA SCREEN - SED RATE WESTERGREN - C-REACTIVE PROTEIN (CRP) Roland Rodriguez MD documented in this encounter [facility] 09-27-2022 Note HNO ID: [id number] Author: Adelaide Huddleston APRN.PLUNGER MACHINE OPERATOR Service: ? Author Type: Nurse Practitioner Type: Progress Notes Filed: 09/27/2022 7:54 PM Note Text: This note was created using NoteWriter. Subjective Michelle Beth is a 27 year old female. 27 year old female with PMH migraine presents with complaints of having a migraine Acute onset 2 days ago Frontal and behind left eye +aura left eye (bright light, which she states that she is normal for here) +photosensitive +phonophobia Has had similar migraines in the past. Has tried Tylenol, Excedrin migraine and Ibuprofen. Utilized Ibuprofen around 3 today. 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 The history is provided by the patient. No exhaust emissions inspector was used. Headache This is a new problem. The current episode started 2 days ago. The problem occurs constantly. The problem has not changed since onset.The headache is associated with bright light, activity and loud noise. The pain is located in the Frontal region. The quality of the pain is described as sharp. The pain is at a severity of 7/10. The pain is moderate. The pain does not radiate. Associated symptoms include nausea. Pertinent negatives include no anorexia, no fever, no malaise/fatigue, no chest pressure, no near-syncope, no orthopnea, no palpitations, no syncope, no shortness of breath and no vomiting. PAST MEDICAL HISTORY Diagnosis Date Abnormal electrocardiogram Allergy, unspecified not elsewhere classified Anemia AGE 16 Asthma, exercise induced 12/14/2011 Concussion 12/14/2011 (1) 5th grade (2) 2010 Dizziness Generalized anxiety disorder 06/11/2019 Left knee injury 2012 Migraine Paroxysmal tachycardia (HCC) PMH - PAST MEDICAL HISTORY OF 01/2000 normal color vision PMH - PAST MEDICAL HISTORY OF 2001 right arm fracture Precocious sexual development and puberty, not elsewhere classified 2006 end of the year sometime Syncope and collapse Unspecified asthma(493.90) exercise induced, NO ATTACKS SONCE 2006 Weight loss 12/14/2011 PAST SURGICAL HISTORY Procedure Laterality Date ECHO 12/18/14 [facility] TONSILLECTOMY AND ADENOIDECTOMY TYMPANOSTOMY LOCAL/TOPICAL ANESTHESIA ALLERGIES Amoxicillin-Pot Clavulanate, Amoxicillin, Flonase [Fluticasone Propionate], Lamictal [Lamotrigine], Medical Tape [Other], Singulair [Montelukast Sodium], and Adhesive Tape-Silicones MEDICATIONS levonorgestrel (LILETTA) 20.1 mcg/24 hrs (6 yrs) 52 mg IUDby INTRAUTERINE route.Disp: Rfl: (Patient not taking: Reported on 03/02/2022 ) risperiDONE (RISPERDAL) 1 mg tabletTake 1 mg by mouth twice daily.Disp: Rfl: copper (PARAGARD T 380A INTRAUTERINE)by INTRAUTERINE route.Disp: Rfl: (Patient not taking: Reported on 08/03/2021 ) MULTI-VITAMIN ORALTake by mouth.Disp: Rfl: ondansetron orally disintegrating (ZOFRAN ODT) 4 mg disintegrating tabletTake 1 tablet by mouth every 8 hours as needed.Disp: 12 tabletRfl: 0 (Patient not taking: Reported on 07/06/2019 ) FAMILY HISTORY Problem Relation Age of Onset Alcohol/Drug Father alcoholic Arthritis Mother Diabetes Maternal Grandmother Diabetes Maternal Aunt Emphysema Father Emphysema Maternal Grandfather Heart Father Heart Paternal Grandfather Hypertension Father Lipids Father Thyroid Mother Social History Tobacco Use Smoking status: Never Smokeless tobacco: Never Substance Use Topics Alcohol use: No Drug use: No Review of Systems Constitutional: Negative for activity change, appetite change, fever and malaise/fatigue. Eyes: Negative for pain, discharge, redness and itching. Respiratory: Negative for apnea, choking, chest tightness and shortness of breath. Cardiovascular: Negative for palpitations, orthopnea, syncope and near-syncope. Gastrointestinal: Positive for nausea. Negative for abdominal pain, anorexia and vomiting. Musculoskeletal: Negative for arthralgias, back pain and gait problem. Skin: Negative for color change, pallor, rash and wound. Allergic/Immunologic: Negative for environmental allergies, food allergies and immunocompromised state. Neurological: Positive for headaches. Hematological: Negative for adenopathy. Does not bruise/bleed easily. Psychiatric/Behavioral: Negative for agitation and behavioral problems. Objective BP 138/82 Pulse 80 Temp 36.7 ?C (98 ?F) (Tympanic) Resp 16 Wt 79.7 kg (175 lb 9.6 oz) LMP 10/05/2017 SpO2 100% BMI 32.12 kg/m? Physical Exam Vitals and nursing note reviewed. Constitutional: General: She is not in acute distress. Appearance: Normal appearance. She is normal weight. She is not ill-appearing, toxic-appearing or diaphoretic. HENT: Head: Normocephalic and atraumatic. Right Ear: Ear canal and external ear normal. Left Ear: Ear canal and external ear normal. Nose: Nose normal. No (more content not included)... [facility] 09-27-2022 History of Present illness Narrative This note was created using NoteWriter. Subjective Michelle Beth is a 27 year old female. 27 year old female with PMH migraine presents with complaints of having a migraine Acute onset 2 days ago Frontal and behind left eye +aura left eye (bright light, which she states that she is normal for here) +photosensitive +phonophobia Has had similar migraines in the past. Has tried Tylenol, Excedrin migraine and Ibuprofen. Utilized Ibuprofen around 3 today. 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 The history is provided by the patient. No exhaust emissions inspector was used. Headache This is a new problem. The current episode started 2 days ago. The problem occurs constantly. The problem has not changed since onset.The headache is associated with bright light, activity and loud noise. The pain is located in the Frontal region. The quality of the pain is described as sharp. The pain is at a severity of 7/10. The pain is moderate. The pain does not radiate. Associated symptoms include nausea. Pertinent negatives include no anorexia, no fever, no malaise/fatigue, no chest pressure, no near-syncope, no orthopnea, no palpitations, no syncope, no shortness of breath and no vomiting. PAST MEDICAL HISTORY Diagnosis Date Abnormal electrocardiogram Allergy, unspecified not elsewhere classified Anemia AGE 16 Asthma, exercise induced 12/14/2011 Concussion 12/14/2011 (1) 5th grade (2) 2010 Dizziness Generalized anxiety disorder 06/11/2019 Left knee injury 2012 Migraine Paroxysmal tachycardia (HCC) PMH - PAST MEDICAL HISTORY OF 01/2000 normal color vision PMH - PAST MEDICAL HISTORY OF 2001 right arm fracture Precocious sexual development and puberty, not elsewhere classified 2005 end of the year sometime Syncope and collapse Unspecified asthma(493.90) exercise induced, NO ATTACKS SONCE 2006 Weight loss 12/14/2011 PAST SURGICAL HISTORY Procedure Laterality Date ECHO 12/18/14 [facility] TONSILLECTOMY & ADENOIDECTOMY <AGE 12 1995 TYMPANOSTOMY LOCAL/TOPICAL ANESTHESIA ALLERGIES Amoxicillin-Pot Clavulanate, Amoxicillin, Flonase [Fluticasone Propionate], Lamictal [Lamotrigine], Medical Tape [Other], Singulair [Montelukast Sodium], and Adhesive Tape-Silicones MEDICATIONS levonorgestrel (LILETTA) 20.1 mcg/24 hrs (6 yrs) 52 mg IUD^by INTRAUTERINE route.^Disp: ^Rfl: (Patient not taking: Reported on 03/02/2022 ) risperiDONE (RISPERDAL) 1 mg tablet^Take 1 mg by mouth twice daily.^Disp: ^Rfl: copper (PARAGARD T 380A INTRAUTERINE)^by INTRAUTERINE route.^Disp: ^Rfl: (Patient not taking: Reported on 08/03/2021 ) MULTI-VITAMIN ORAL^Take by mouth.^Disp: ^Rfl: ondansetron orally disintegrating (ZOFRAN ODT) 4 mg disintegrating tablet^Take 1 tablet by mouth every 8 hours as needed.^Disp: 12 tablet^Rfl: 0 (Patient not taking: Reported on 07/06/2019 ) FAMILY HISTORY Problem Relation Age of Onset Alcohol/Drug Father alcoholic Arthritis Mother Diabetes Maternal Grandmother Diabetes Maternal Aunt Emphysema Father Emphysema Maternal Grandfather Heart Father Heart Paternal Grandfather Hypertension Father Lipids Father Thyroid Mother Social History Tobacco Use Smoking status: Never Smokeless tobacco: Never Substance Use Topics Alcohol use: No Drug use: No Review of Systems Constitutional: Negative for activity change, appetite change, fever and malaise/fatigue. Eyes: Negative for pain, discharge, redness and itching. Respiratory: Negative for apnea, choking, chest tightness and shortness of breath. Cardiovascular: Negative for palpitations, orthopnea, syncope and near-syncope. Gastrointestinal: Positive for nausea. Negative for abdominal pain, anorexia and vomiting. Musculoskeletal: Negative for arthralgias, back pain and gait problem. Skin: Negative for color change, pallor, rash and wound. Allergic/Immunologic: Negative for environmental allergies, food allergies and immunocompromised state. Neurological: Positive for headaches. Hematological: Negative for adenopathy. Does not bruise/bleed easily. Psychiatric/Behavioral: Negative for agitation and behavioral problems. Objective BP 138/82 Pulse 80 Temp 36.7 C (98 F) (Tympanic) Resp 16 Wt 79.7 kg (175 lb 9.6 oz) LMP 10/05/2017 SpO2 100% BMI 32.12 kg/m Physical Exam Vitals and nursing note reviewed. Constitutional: General: She is not in acute distress. Appearance: Normal appearance. She is normal weight. She is not ill-appearing, toxic-appearing or diaphoretic. HENT: Head: Normocephalic and atraumatic. Right Ear: Ear canal and external ear normal. Left Ear: Ear canal and external ear normal. Nose: Nose normal. No congestion or rhinorrhea. Mouth/Throat: Mouth: Mucous membranes are moist. Pharynx: No oropharyngeal exudate or posterior oropharyngeal erythema. Eyes: General: Right eye: No discharge. Left eye: No discharge. Extraocular Movements: Extraocular movements intact. Conjunctiva/sclera: Conjunctivae normal. Pupils: Pupils are equal, round, and reactive to light. Cardiovascular: Rate and Rhythm: Normal rate and regular rhythm. Pulses: Normal pulses. Heart sounds: Normal heart sounds. No murmur heard. No friction rub. Pulmonary: Effort: Pulmonary effort is normal. No respiratory distress. Breath sounds: Normal breath sounds. No stridor. No wheezing, rhonchi or rales. Chest: Chest wall: No tenderness. Abdominal: General: Abdomen is flat. There is no distension. Palpations: Abdomen is soft. There is no mass. Tenderness: There is no abdominal tenderness. There is no right CVA tenderness, left CVA tenderness, guarding or rebound. Hernia: No hernia is present. Musculoskeletal: General: No swelling, tenderness, deformity or signs of injury. Normal range of motion. Cervical back: Normal range of motion and neck supple. No rigidity. Right lower leg: No edema. Left lower leg: No edema. Lymphadenopathy: Cervical: No cervical adenopathy. Skin: General: Skin is warm and dry. Capillary Refill: Capillary refill takes less than 2 seconds. Coloration: Skin is not jaundiced or pale. Findings: No bruising, erythema, lesion or rash. Neurological: General: No focal deficit present. Mental Status: She is alert and oriented to person, place, and time. Cranial Nerves: No cranial nerve deficit. Sensory: No sensory deficit. Motor: No weakness. Coordination: Coordination normal. Gait: Gait normal. Psychiatric: Mood and Affect: Mood normal. Behavior: Behavior normal. Thought Content: Thought content normal. Judgment: Judgment normal. Assessment and Plan ASSESSMENT/PLAN: 1. Migraine headaches - ICD9: 346.90, ICD10: G43.909 History of same, States this feel similar No red flags Neuro intact - KETOROLAC 60 MG/2 ML INTRAMUSCULAR SOLUTION - ONDANSETRON 8 MG DISINTEGRATING TABLET - DIPHENHYDRAMINE 25 MG TABLET- Administered Patient was re examined at 1944 and endorses that she is feeling better Discharged home. Red flags discussed. Follow up with PCP Adelaide Huddleston APRN.PLUNGER MACHINE OPERATOR documented in this encounter [facility] 09-27-2022 Note HNO ID: [id number] Author: Pura Toledo APRN.CNP Service: ? Author Type: Nurse Practitioner Type: Progress Notes Filed: 09/27/2022 3:47 PM Note Text: Telemedicine Evaluation for COVID-19 Infection Alternative video platform was used for evaluation of this patient. Location of patient: [facility] Michelle Beth is a 27 year old female who presents with 2 days of symptoms that are worsening. Symptoms include: Fever (?100.4F): No or Chills: No Cough: No Shortness of breath: No or Difficulty breathing: No Fatigue: No Muscle aches: Yes Headache: Yes New loss of smell or taste: No Sore throat: Yes Nasal congestion: No or Rhinorrhea: No Nausea: Yes or Vomiting: No Diarrhea: No Reports started with a migraine behind her left eye and then her other symptoms developed. Reports remote Hx of migraines, nothing recent. Describes some mild light sensitivity. No COVID testing. OTC meds/remedies that patient has tried: acetaminophen and NSAIDs. High risk category assessment No high risk factors Exposures: Sick contacts? No Family or close contacts with confirmed/probable COVID-19 in last 14 days? No She reports that she has never smoked. She has never used smokeless tobacco. OBJECTIVE VIDEO EXAM (if available) GENERAL: well appearing, alert, in no acute distress HEENT: no conjunctival injection, pupils equal and moist mucous membranes PULMONARY: breathing comfortably on room air , no coughing noted, and no wheezing noted ASSESSMENT/PLAN (G43.109) Migraine with aura, not intractable, without status migrainosus (primary encounter diagnosis) (B34.9) Viral illness Unclear cause for symptoms about appear to be most consistent with migraine and viral infection. She reports initial and ongoing visual disturbances (a line/fuzziness to left eye) unclear if this represents an aura given ongoing nature. Recommended she be seen in person for further evaluation and given they have option of treatments like Toradol injection, but she reports she is at work and would not be able to get there today. As a result, recommended she try maximum doses of Tylenol and ibuprofen to try and help and then seek in person evaluation for persistent symptoms. Pura Toledo APRN.PRISCILLA - Discussed symptom monitoring and supportive care - Red flag symptoms requiring follow up discussed Remove COVID19 association [facility] 09-27-2022 Instructions Pura Toledo APRN.PRISCILLA - 09/27/2022 3:46 PM EST Would recommend taking 600-800 mg of ibuprofen (Advil or Motrin) every 6 hours up to 3-4 times per day. Can also take 1000 mg of Tylenol (acetaminophen) every 6 hours up to 3-4 times per day, but very important to not take more than 1000 mg at one time and to not take more than 4000 mg in a 24 hour period. Please seek further in person evaluation for persistent symptoms documented in this encounter [facility] 09-27-2022 History of Present illness Narrative Telemedicine Evaluation for COVID-19 Infection Alternative video platform was used for evaluation of this patient. Location of patient: [facility] Michelle Beth is a 27 year old female who presents with 2 days of symptoms that are worsening. Symptoms include: Fever (?100.4F): No or Chills: No Cough: No Shortness of breath: No or Difficulty breathing: No Fatigue: No Muscle aches: Yes Headache: Yes New loss of smell or taste: No Sore throat: Yes Nasal congestion: No or Rhinorrhea: No Nausea: Yes or Vomiting: No Diarrhea: No Reports started with a migraine behind her left eye and then her other symptoms developed. Reports remote Hx of migraines, nothing recent. Describes some mild light sensitivity. No COVID testing. OTC meds/remedies that patient has tried: acetaminophen and NSAIDs. High risk category assessment No high risk factors Exposures: Sick contacts? No Family or close contacts with confirmed/probable COVID-19 in last 14 days? No She reports that she has never smoked. She has never used smokeless tobacco. OBJECTIVE VIDEO EXAM (if available) GENERAL: well appearing, alert, in no acute distress HEENT: no conjunctival injection, pupils equal and moist mucous membranes PULMONARY: breathing comfortably on room air , no coughing noted, and no wheezing noted ASSESSMENT/PLAN (G43.109) Migraine with aura, not intractable, without status migrainosus (primary encounter diagnosis) (B34.9) Viral illness Unclear cause for symptoms about appear to be most consistent with migraine and viral infection. She reports initial and ongoing visual disturbances (a line/fuzziness to left eye) unclear if this represents an aura given ongoing nature. Recommended she be seen in person for further evaluation and given they have option of treatments like Toradol injection, but she reports she is at work and would not be able to get there today. As a result, recommended she try maximum doses of Tylenol and ibuprofen to try and help and then seek in person evaluation for persistent symptoms. Pura Toledo APRN.PRISCILLA - Discussed symptom monitoring and supportive care - Red flag symptoms requiring follow up discussed Remove ANDI association documented in this encounter [facility] 09-27-2022 Note HNO ID: [id number] Author: Elia Tello APRN.PRISCILLA Service: ? Author Type: Nurse Practitioner Type: Progress Notes Filed: 09/27/2022 1:29 PM Note Text: Patient not present in virtual waiting room; appointment canceled. [facility] 09-27-2022 History of Present illness Narrative Patient not present in virtual waiting room; appointment canceled. documented in this encounter [facility] 09-01-2022 Note HNO ID: [id number] Author: Naresh Mcdaniel APRN.PRISCILLA Service: ? Author Type: Nurse Practitioner Type: Progress Notes Filed: 09/01/2022 7:24 PM Note Text: Pt cancelled appointment and/or transferred to another provider prior to attempted connection. [facility] 09-01-2022 History of Present illness Narrative Pt cancelled appointment and/or transferred to another provider prior to attempted connection. documented in this encounter [facility] 07-10-2022 History of Present illness Narrative Radiology Service Progress Note PATIENT NAME: Michelle Beth DATE OF SERVICE: July 10, 2022 TIME: 7:43 PM PATIENT IDENTITY VERIFICATION COMPLETED USING TWO (2) IDENTIFIERS: Name and Date of confirmed by patient verbally. FALL SCREENING: Has the patient had 2 falls in the last year or 1 fall with injury or currently using an Ambulatory Assistive Device (Walker, Cane, Wheelchair, Crutches, etc.)? No PATIENT GENDER DATA: Female. status: : No status: NO. PATIENT RELEVANT IMPLANT DATA REVIEWED: Not Applicable RADIOLOGY DEPARTMENT: General X-ray: Exam(s) Completed: Lower Extremity X-Ray(s): Ankle, Right and Wt. Bearing PERIPHERAL IV DATA: Not applicable SIGNED BY: RT Rylie(R) July 10, 2022 7:43 PM documented in this encounter [facility] 03-04-2022 Miscellaneous Notes Patient given results and verbalized understanding of instructions given. Lamar Ramachandran Urine culture did not show an infection. She may stop the antibiotic and follow up with urology. documented in this encounter [facility] 03-02-2022 Instructions Adelaide Huddleston APRN.[facility] - 03/02/2022 6:32 PM EDT Images from the original note were not included. Urinary Problem-When to Seek Help? Symptoms of a urinary problem may lead to a bladder infection. Women are at greater risk of a urinary tract infection than are men. Most urinary tract infections in women are caused by bacteria and involve the lower urinary tract including the bladder and urethra. Symptoms: Pain or burning when passing urine, urgency, frequency, blood in the urine, difficult emptying your bladder, and lower abdominal fullness or pressure. Common Causes: Sexual intercourse, menopause, constipation, uncontrolled diabetes, dehydration and feminine products such as tampons, and kidney stones. When to Get Help: Seek medical attention if you get frequent bladder infections, urinary concerns such as leakage, blood in the urine or frequent need to urinate. You may be recommended to get help from a specialist, such as a urologist. Diagnosis & Treatment: Lab testing may include: urinalysis, and urine culture that can be collected in the lab or walk-in clinic. Most bladder infections can easily be treated. A physician, nurse practitioner or physician certified medical technician assistant may treat with a short course of an antibiotic. Delaying treatment can lead to worsening symptoms, like a kidney infection. Self-Care: Avoid a full bladder, bubble baths, bath oils, food and beverages that may irritate the bladder such as caffeine. Avoid spermicide foam and diaphragms Void before and after sexual intercourse Wipe front to back after using the bathroom. Stay hydrated Stop Smoking Follow-up Care: Follow up testing is not needed in healthy young women if symptoms resolve. documented in this encounter [facility] 03-02-2022 History of Present illness Narrative This note was created using Aiv[employer]. Subjective Michelle Beth is a 27 year old female. 27 year old female with PMH migraine, recurrent UTI, depression and anxiety presents with complaints of possible UTI. Acute onset 2 days ago +pressure +burning +lower back pain. +urgency Denies fever or chills. Denies N/V/D Denies vaginal bleeding. Denies vaginal discharge. Dr. Austin performed vaginal laparoscopic assisted hysterectomy related to endometriosis 5 weeks ago. States that ovaries remain She had UTI one week after surgery, Dr. Austin treated, patient cannot recall ATB. She has appt with Dr. Austin next week. Endorses she is currently pending urology consult related to suspected interstitial cystitis. The history is provided by the patient. No exhaust emissions inspector was used. UTI This is a new problem. The current episode started 2 days ago. The problem occurs every urination. The problem has been gradually worsening. The quality of the pain is described as burning. The pain is at a severity of 5/10. The pain is mild. There has been no fever. She is not sexually active. There is no history of pyelonephritis. Associated symptoms include frequency, urgency and flank pain. Pertinent negatives include no chills, no sweats, no nausea, no vomiting, no discharge, no hematuria, no hesitancy and no possible . She has tried nothing for the symptoms. Her past medical history is significant for urological procedure and recurrent UTIs. Her past medical history does not include kidney stones, single kidney, urinary stasis or catheterization. PAST MEDICAL HISTORY Diagnosis Date Abnormal electrocardiogram Allergy, unspecified not elsewhere classified Anemia AGE 16 Asthma, exercise induced 12/14/2011 Concussion 12/14/2011 (1) 5th grade (2) 2010 Dizziness Generalized anxiety disorder 06/11/2019 Left knee injury 2012 Migraine Paroxysmal tachycardia (HCC) PMH - PAST MEDICAL HISTORY OF 01/2000 normal color vision PMH - PAST MEDICAL HISTORY OF 2001 right arm fracture Precocious sexual development and puberty, not elsewhere classified 2005 end of the year sometime Syncope and collapse Unspecified asthma(493.90) exercise induced, NO ATTACKS SONCE 2007 Weight loss 12/14/2011 PAST SURGICAL HISTORY Procedure Laterality Date ECHO 12/18/14 [facility] TONSILLECTOMY & ADENOIDECTOMY <AGE 12 1995 TYMPANOSTOMY LOCAL/TOPICAL ANESTHESIA ALLERGIES Amoxicillin-Pot Clavulanate, Amoxicillin, Flonase [Fluticasone Propionate], Lamictal [Lamotrigine], Medical Tape [Other], Singulair [Montelukast Sodium], and Adhesive Tape-Silicones MEDICATIONS risperiDONE (RISPERDAL) 1 mg tablet Take 1 mg by mouth twice daily. MULTI-VITAMIN ORAL Take by mouth. sulfamethoxazole-trimethoprim (BACTRIM DS) 800-160 mg per tablet Take 1 tablet by mouth twice daily for 7 days. levonorgestrel (LILETTA) 20.1 mcg/24 hrs (6 yrs) 52 mg IUD by INTRAUTERINE route. copper (PARAGARD T 380A INTRAUTERINE) by INTRAUTERINE route. ondansetron orally disintegrating (ZOFRAN ODT) 4 mg disintegrating tablet Take 1 tablet by mouth every 8 hours as needed. FAMILY HISTORY Problem Relation Age of Onset Alcohol/Drug Father alcoholic Arthritis Mother Diabetes Maternal Grandmother Diabetes Maternal Aunt Emphysema Father Emphysema Maternal Grandfather Heart Father Heart Paternal Grandfather Hypertension Father Lipids Father Thyroid Mother Social History Tobacco Use Smoking status: Never Smoker Smokeless tobacco: Never Used Substance Use Topics Alcohol use: No Drug use: No Review of Systems Constitutional: Negative for chills, fatigue and fever. Eyes: Negative for photophobia, pain, discharge, redness and itching. Respiratory: Negative for apnea, cough, choking and chest tightness. Cardiovascular: Negative for chest pain, palpitations and leg swelling. Gastrointestinal: Negative for abdominal pain, diarrhea, nausea and vomiting. Genitourinary: Positive for dysuria, flank pain, frequency and urgency. Negative for decreased urine volume, difficulty urinating, hematuria, hesitancy, vaginal bleeding and vaginal discharge. Musculoskeletal: Positive for back pain. Negative for arthralgias. Skin: Negative for color change, pallor, rash and wound. Allergic/Immunologic: Positive for immunocompromised state. Negative for environmental allergies and food allergies. Neurological: Negative for dizziness, facial asymmetry, light-headedness and headaches. Hematological: Negative for adenopathy. Does not bruise/bleed easily. Psychiatric/Behavioral: Negative for agitation and behavioral problems. Objective BP 110/72 Pulse 86 Temp 37.1 C (98.7 F) Resp 21 Wt 79.4 kg (175 lb) LMP 10/05/2017 SpO2 98% BMI 32.01 kg/m Physical Exam Vitals and nursing note reviewed. Constitutional: General: She is not in acute distress. Appearance: Normal appearance. She is normal weight. She is not ill-appearing, toxic-appearing or diaphoretic. HENT: Head: Normocephalic and atraumatic. Right Ear: Ear canal and external ear normal. Left Ear: Ear canal and external ear normal. Nose: Nose normal. No congestion or rhinorrhea. Mouth/Throat: Mouth: Mucous membranes are moist. Pharynx: No oropharyngeal exudate or posterior oropharyngeal erythema. Eyes: General: Right eye: No discharge. Left eye: No discharge. Extraocular Movements: Extraocular movements intact. Conjunctiva/sclera: Conjunctivae normal. Pupils: Pupils are equal, round, and reactive to light. Cardiovascular: Rate and Rhythm: Normal rate and regular rhythm. Pulses: Normal pulses. Heart sounds: Normal heart sounds. No murmur heard. No friction rub. Pulmonary: Effort: Pulmonary effort is normal. No respiratory distress. Breath sounds: Normal breath sounds. No stridor. No wheezing, rhonchi or rales. Chest: Chest wall: No tenderness. Abdominal: General: Abdomen is flat. There is no distension. Palpations: Abdomen is soft. There is no mass. Tenderness: There is abdominal tenderness (Mild generalized TTP of all 4 quadrants ). There is no right CVA tenderness, left CVA tenderness, guarding or rebound. Hernia: No hernia is present. Musculoskeletal: General: No swelling, tenderness, deformity or signs of injury. Normal range of motion. Cervical back: Normal range of motion and neck supple. No rigidity. Right lower leg: No edema. Left lower leg: No edema. Lymphadenopathy: Cervical: No cervical adenopathy. Skin: General: Skin is warm and dry. Capillary Refill: Capillary refill takes less than 2 seconds. Coloration: Skin is not jaundiced or pale. Findings: No bruising, erythema, lesion or rash. Neurological: General: No focal deficit present. Mental Status: She is alert and oriented to person, place, and time. Cranial Nerves: No cranial nerve deficit. Sensory: No sensory deficit. Motor: No weakness. Coordination: Coordination normal. Gait: Gait normal. Psychiatric: Mood and Affect: Mood normal. Behavior: Behavior normal. Thought Content: Thought content normal. Judgment: Judgment normal. ASSESSMENT/PLAN: 1. Dysuria - ICD9: 788.1, ICD10: R30.0 Recurrent She is 5 weeks post op for hyster Denies vag bleeding. Hemodynamically stable - UA positive for jessica esterase - Send urine for culture - Begin treatment with Bactrim DS BID for 7 days - Patient education for prevention given She has follow up with Dr. Austin next week She will call for urology - UA DIP, URINE (POC) - URINE CULTURE Adelaide Huddleston APRN.CNP documented in this encounter [facility] 09-19-2013 History of Past i llness Narrative Problem Noted Date Resolved Date Headache 09/19/2013 03/19/2015 Last Assessment & Plan: Having headches for 2 weeks, this is a very stressful period for her, with the exam finals, baby, and everything around it. Above the eyes is where it aches, one or two times a day, lsts a few hours, but severe when they do happen. No watering of the eyes, has a TMJ problem, Has has intolerance to sound and light. No nausea with headache. Has tried tylenol, keeping the lights off etc. Does not really have throbbing, eyes water at that time. She does have aura, she can tell when she is going to have the headache. Sore throat 08/04/2013 03/19/2015 Last Assessment & Plan: Sorethroat, since one day. No nasal drainage, cough, ? Mild fevers. She is getting her wisdom tooth, has pain from that, ent to the dentist had, an xray of the teeth was given antibiotics, which she did not take , because she was Not told if she had an infection or not. Everyone in school seems to be sick, according to her. IUGR (intrauterine growth restriction) 3 03/19/2013 Overview: 7%ile recommend twice weekly NST, weekly dopplers, weekly HE, daily kick counts, plan IOL at 39 weeks if reassuring testing High-risk supervision 12/30/2012 03/19/2013 Overview: iugr Teen 07/30/2012 03/19/2013 Overview: 07/30/2012Erica is 17 years old. She is an 11th grader at [employer]. She also works at [employer]. She is here today with her mother and aunt. The father of the baby is not involved. He is aware that she is but does not want to be involved. Patient was crying during the office visit because she states she is failing school right now. She doesn't get along with her counselor at school. I have referred the patient to Lea Sosa or Linda James, school nurses at [employer]. She is going to talk to them about getting her a new counselor. Patient denies any symptoms of depression. She states she is able to sleep and eat okay. She states she has a lot of support at home. She just feels like the guidance counselor isn't going to help her from not failing at school. I also gave the patient a handout on care center. I have told her they provide free counseling. I have also offered to schedule an appointment for her at the counseling center. Patient declines at this time. Pt denies ever having any suicidal thoughts or tendencies or thoughts of hurting others. Back pain in 07/30/2012 3 Overview: 07/30/2012 Patient was seen for lower back pain by Dr. Tara Skaggs on July 24. She states the back pain is happening less often and is not as severe as it was since then. Patient denies any bleeding. Patient is advised to call/come in if her pain increases, the development of bleeding, or PRN problems. with uncertain dates 07/30/2012 1 10/28/2011 Overview: 07/30/2012 Patient has a history of irregular menses every 14-28 days. Ultrasound ordered for uncertain dates by Dr. Downey. Patient requested diagnostic testing 07/30/2012 03/19/2013 Overview: 07/30/2012 Patient desires quad marker screen. Dysmenorrhea 04/30/2012 08/12/2012 Left knee injury 2012 08/12/2012 Asthma, exercise induced 12/14/2011 013 Overview: 07/30/2012Patient has a history of exercise-induced asthma. She denies any asthma attacks since 2006. Concussion 12/14/2011 08/12/2012 Weight loss 12/14/2011 08/12/2012 Sleep disturbance 06/30/2011 08/12/2012 Migraine, unspecified, witho ut mention of intractable migraine without mention of status migrainosus 11/14/2007 012 Headache(784.0) 10/24/2007 08/12/2012 Sprain of ankle, unspecified site 05/03/2007 08/12/2012 Tenosynovitis of foot and ankle 10/29/2006 08/12/2012 Equinus deformity of foot, acquired 07/23/2006 08/12/2012 Congenital pes planus 07/22/2006 08/12/2012 documented as of this encounter (statuses as of 03/02/2022) [facility] History of Past illness Narrative* Problem Noted Date Resolved Date Headache 09/19/2013 03/19/2015 Last Assessment & Plan: Having headches for 2 weeks, this is a very stressful period for her, with the exam finals, baby, and everything around it. Above the eyes is where it aches, one or two times a day, lsts a few hours, but severe when they do happen. No watering of the eyes, has a TMJ problem, Has has intolerance to sound and light. No nausea with headache. Has tried tylenol, keeping the lights off etc. Does not really have throbbing, eyes water at that time. She does have aura, she can tell when she is going to have the headache. Sore throat 08/04/2013 03/19/2015 Last Assessment & Plan: Sorethroat, since one day. No nasal drainage, cough, ? Mild fevers. She is getting her wisdom tooth, has pain from that, ent to the dentist had, an xray of the teeth was given antibiotics, which she did not take , because she was Not told if she had an infection or not. Everyone in school seems to be sick, according to her. IUGR (intrauterine growth restriction) 3 03/19/2013 Overview: 7%ile recommend twice weekly NST, weekly dopplers, weekly HE, daily kick counts, plan IOL at 39 weeks if reassuring testing High-risk supervision 12/30/2012 03/19/2013 Overview: iugr Teen 07/30/2012 03/19/2013 Overview: 07/30/2012Erica is 17 years old. She is an 11th grader at [employer]. She also works at [employer]. She is here today with her mother and aunt. The father of the baby is not involved. He is aware that she is but does not want to be involved. Patient was crying during the office visit because she states she is failing school right now. She doesn't get along with her counselor at school. I have referred the patient to Lea Sosa or Linda James, school nurses at [employer] [facility]. She is going to talk to them about getting her a new counselor. Patient denies any symptoms of depression. She states she is able to sleep and eat okay. She states she has a lot of support at home. She just feels like the guidance counselor isn't going to help her from not failing at school. I also gave the patient a handout on care center. I have told her they provide free counseling. I have also offered to schedule an appointment for her at the counseling center. Patient declines at this time. Pt denies ever having any suicidal thoughts or tendencies or thoughts of hurting others. Back pain in 07/30/2012 3 Overview: 07/30/2012 Patient was seen for lower back pain by Dr. Tara Skaggs on July 24. She states the back pain is happening less often and is not as severe as it was since then. Patient denies any bleeding. Patient is advised to call/come in if her pain increases, the development of bleeding, or PRN problems. with uncertain dates 07/30/2012 1 10/28/2011 Overview: 07/30/2012 Patient has a history of irregular menses every 14-28 days. Ultrasound ordered for uncertain dates by Dr. Downey. Patient requested diagnostic testing 07/30/2012 03/19/2013 Overview: 07/30/2012 Patient desires quad marker screen. Dysmenorrhea 04/30/2012 08/12/2012 Left knee injury 2012 08/12/2012 Asthma, exercise induced 12/14/2011 013 Overview: 07/30/2012Patient has a history of exercise-induced asthma. She denies any asthma attacks since 2006. Concussion 12/14/2011 08/12/2012 Weight loss 12/14/2011 08/12/2012 Sleep disturbance 06/30/2011 08/12/2012 Migraine, unspecified, witho ut mention of intractable migraine without mention of status migrainosus 11/14/2007 012 Headache(784.0) 10/24/2007 08/12/2012 Sprain of ankle, unspecified site 05/03/2007 08/12/2012 Tenosynovitis of foot and ankle 10/29/2006 08/12/2012 Equinus deformity of foot, acquired 07/23/2006 08/12/2012 Congenital pes planus 07/22/2006 08/12/2012 documented as of this encounter (statuses as of 03/04/2022) [facility] History of Past illness Narrative* Problem Noted Date Resolved Date Headache 09/19/2013 03/19/2015 Last Assessment & Plan: Having headches for 2 weeks, this is a very stressful period for her, with the exam finals, baby, and everything around it. Above the eyes is where it aches, one or two times a day, lsts a few hours, but severe when they do happen. No watering of the eyes, has a TMJ problem, Has has intolerance to sound and light. No nausea with headache. Has tried tylenol, keeping the lights off etc. Does not really have throbbing, eyes water at that time. She does have aura, she can tell when she is going to have the headache. Sore throat 08/04/2013 03/19/2015 Last Assessment & Plan: Sorethroat, since one day. No nasal drainage, cough, ? Mild fevers. She is getting her wisdom tooth, has pain from that, ent to the dentist had, an xray of the teeth was given antibiotics, which she did not take , because she was Not told if she had an infection or not. Everyone in school seems to be sick, according to her. IUGR (intrauterine growth restriction) 3 03/19/2013 Overview: 7%ile recommend twice weekly NST, weekly dopplers, weekly HE, daily kick counts, plan IOL at 39 weeks if reassuring testing High-risk supervision 12/30/2012 03/19/2013 Overview: iugr Teen 07/30/2012 03/19/2013 Overview: 07/30/2012Erica is 17 years old. She is an 11th grader at [employer]. She also works at [employer]. She is here today with her mother and aunt. The father of the baby is not involved. He is aware that she is but does not want to be involved. Patient was crying during the office visit because she states she is failing school right now. She doesn't get along with her counselor at school. I have referred the patient to Lea Sosa or Linda James, school nurses at [employer]. She is going to talk to them about getting her a new counselor. Patient denies any symptoms of depression. She states she is able to sleep and eat okay. She states she has a lot of support at home. She just feels like the guidance counselor isn't going to help her from not failing at school. I also gave the patient a handout on care center. I have told her they provide free counseling. I have also offered to schedule an appointment for her at the counseling center. Patient declines at this time. Pt denies ever having any suicidal thoughts or tendencies or thoughts of hurting others. Back pain in 07/30/2012 3 Overview: 07/30/2012 Patient was seen for lower back pain by Dr. Tara Skaggs on July 24. She states the back pain is happening less often and is not as severe as it was since then. Patient denies any bleeding. Patient is advised to call/come in if her pain increases, the development of bleeding, or PRN problems. with uncertain dates 07/30/2012 1 10/28/2011 Overview: 07/30/2012 Patient has a history of irregular menses every 14-28 days. Ultrasound ordered for uncertain dates by Dr. Downey. Patient requested diagnostic testing 07/30/2012 03/19/2013 Overview: 07/30/2012 Patient desires quad marker screen. Dysmenorrhea 04/30/2012 08/12/2012 Left knee injury 2012 08/12/2012 Asthma, exercise induced 12/14/2011 013 Overview: 07/30/2012Patient has a history of exercise-induced asthma. She denies any asthma attacks since 2006. Concussion 12/14/2011 08/12/2012 Weight loss 12/14/2011 08/12/2012 Sleep disturbance 06/30/2011 08/12/2012 Migraine, unspecified, witho ut mention of intractable migraine without mention of status migrainosus 11/14/2007 012 Headache(784.0) 10/24/2007 08/12/2012 Sprain of ankle, unspecified site 05/03/2007 08/12/2012 Tenosynovitis of foot and ankle 10/29/2006 08/12/2012 Equinus deformity of foot, acquired 07/23/2006 08/12/2012 Congenital pes planus 07/22/2006 08/12/2012 documented as of this encounter (statuses as of 09/01/2022) [facility] History of Past illness Narrative* Problem Noted Date Resolved Date Headache 09/19/2013 03/19/2015 Last Assessment & Plan: Having headches for 2 weeks, this is a very stressful period for her, with the exam finals, baby, and everything around it. Above the eyes is where it aches, one or two times a day, lsts a few hours, but severe when they do happen. No watering of the eyes, has a TMJ problem, Has has intolerance to sound and light. No nausea with headache. Has tried tylenol, keeping the lights off etc. Does not really have throbbing, eyes water at that time. She does have aura, she can tell when she is going to have the headache. Sore throat 08/04/2013 03/19/2015 Last Assessment & Plan: Sorethroat, since one day. No nasal drainage, cough, ? Mild fevers. She is getting her wisdom tooth, has pain from that, ent to the dentist had, an xray of the teeth was given antibiotics, which she did not take , because she was Not told if she had an infection or not. Everyone in school seems to be sick, according to her. IUGR (intrauterine growth restriction) 3 03/19/2013 Overview: 7%ile recommend twice weekly NST, weekly dopplers, weekly HE, daily kick counts, plan IOL at 39 weeks if reassuring testing High-risk supervision 12/30/2012 03/19/2013 Overview: iugr Teen 07/30/2012 03/19/2013 Overview: 07/30/2012Erica is 17 years old. She is an 11th grader at [employer]. She also works at [employer]. She is here today with her mother and aunt. The father of the baby is not involved. He is aware that she is but does not want to be involved. Patient was crying during the office visit because she states she is failing school right now. She doesn't get along with her counselor at school. I have referred the patient to Lea Sosa or Linda James, school nurses at [employer]. She is going to talk to them about getting her a new counselor. Patient denies any symptoms of depression. She states she is able to sleep and eat okay. She states she has a lot of support at home. She just feels like the guidance counselor isn't going to help her from not failing at school. I also gave the patient a handout on care center. I have told her they provide free counseling. I have also offered to schedule an appointment for her at the counseling center. Patient declines at this time. Pt denies ever having any suicidal thoughts or tendencies or thoughts of hurting others. Back pain in 07/30/2012 3 Overview: 07/30/2012 Patient was seen for lower back pain by Dr. Tara Skaggs on July 24. She states the back pain is happening less often and is not as severe as it was since then. Patient denies any bleeding. Patient is advised to call/come in if her pain increases, the development of bleeding, or PRN problems. with uncertain dates 07/30/2012 1 10/28/2011 Overview: 07/30/2012 Patient has a history of irregular menses every 14-28 days. Ultrasound ordered for uncertain dates by Dr. Downey. Patient requested diagnostic testing 07/30/2012 03/19/2013 Overview: 07/30/2012 Patient desires quad marker screen. Dysmenorrhea 04/30/2012 08/12/2012 Left knee injury 2012 08/12/2012 Asthma, exercise induced 12/14/2011 013 Overview: 07/30/2012Patient has a history of exercise-induced asthma. She denies any asthma attacks since 2006. Concussion 12/14/2011 08/12/2012 Weight loss 12/14/2011 08/12/2012 Sleep disturbance 06/30/2011 08/12/2012 Migraine, unspecified, witho ut mention of intractable migraine without mention of status migrainosus 11/14/2007 012 Headache(784.0) 10/24/2007 08/12/2012 Sprain of ankle, unspecified site 05/03/2007 08/12/2012 Tenosynovitis of foot and ankle 10/29/2006 08/12/2012 Equinus deformity of foot, acquired 07/23/2006 08/12/2012 Congenital pes planus 07/22/2006 08/12/2012 documented as of this encounter (statuses as of 10/03/2022) [facility] History of Past illness Narrative* Problem Noted Date Resolved Date Headache 09/19/2013 03/19/2015 Last Assessment & Plan: Having headches for 2 weeks, this is a very stressful period for her, with the exam finals, baby, and everything around it. Above the eyes is where it aches, one or two times a day, lsts a few hours, but severe when they do happen. No watering of the eyes, has a TMJ problem, Has has intolerance to sound and light. No nausea with headache. Has tried tylenol, keeping the lights off etc. Does not really have throbbing, eyes water at that time. She does have aura, she can tell when she is going to have the headache. Sore throat 08/04/2013 03/19/2015 Last Assessment & Plan: Sorethroat, since one day. No nasal drainage, cough, ? Mild fevers. She is getting her wisdom tooth, has pain from that, ent to the dentist had, an xray of the teeth was given antibiotics, which she did not take , because she was Not told if she had an infection or not. Everyone in school seems to be sick, according to her. IUGR (intrauterine growth restriction) 3 03/19/2013 Overview: 7%ile recommend twice weekly NST, weekly dopplers, weekly HE, daily kick counts, plan IOL at 39 weeks if reassuring testing High-risk supervision 12/30/2012 03/19/2013 Overview: iugr Teen 07/30/2012 03/19/2013 Overview: 07/30/2012Erica is 17 years old. She is an 11th grader at [employer]. She also works at [employer]. She is here today with her mother and aunt. The father of the baby is not involved. He is aware that she is but does not want to be involved. Patient was crying during the office visit because she states she is failing school right now. She doesn't get along with her counselor at school. I have referred the patient to Lea Sosa or Linda James, school nurses at [employer]. She is going to talk to them about getting her a new counselor. Patient denies any symptoms of depression. She states she is able to sleep and eat okay. She states she has a lot of support at home. She just feels like the guidance counselor isn't going to help her from not failing at school. I also gave the patient a handout on care center. I have told her they provide free counseling. I have also offered to schedule an appointment for her at the counseling center. Patient declines at this time. Pt denies ever having any suicidal thoughts or tendencies or thoughts of hurting others. Back pain in 07/30/2012 3 Overview: 07/30/2012 Patient was seen for lower back pain by Dr. Tara Skaggs on July 24. She states the back pain is happening less often and is not as severe as it was since then. Patient denies any bleeding. Patient is advised to call/come in if her pain increases, the development of bleeding, or PRN problems. with uncertain dates 07/30/2012 1 10/28/2011 Overview: 07/30/2012 Patient has a history of irregular menses every 14-28 days. Ultrasound ordered for uncertain dates by Dr. Downey. Patient requested diagnostic testing 07/30/2012 03/19/2013 Overview: 07/30/2012 Patient desires quad marker screen. Dysmenorrhea 04/30/2012 08/12/2012 Left knee injury 2012 08/12/2012 Asthma, exercise induced 12/14/2011 013 Overview: 07/30/2012Patient has a history of exercise-induced asthma. She denies any asthma attacks since 2006. Concussion 12/14/2011 08/12/2012 Weight loss 12/14/2011 08/12/2012 Sleep disturbance 06/30/2011 08/12/2012 Migraine, unspecified, witho ut mention of intractable migraine without mention of status migrainosus 11/14/2007 012 Headache(784.0) 10/24/2007 08/12/2012 Sprain of ankle, unspecified site 05/03/2007 08/12/2012 Tenosynovitis of foot and ankle 10/29/2006 08/12/2012 Equinus deformity of foot, acquired 07/23/2006 08/12/2012 Congenital pes planus 07/22/2006 08/12/2012 documented as of this encounter (statuses as of 10/04/2022) [facility] History of Past illness Narrative* Problem Noted Date Resolved Date Headache 09/19/2013 03/19/2015 Last Assessment & Plan: Having headches for 2 weeks, this is a very stressful period for her, with the exam finals, baby, and everything around it. Above the eyes is where it aches, one or two times a day, lsts a few hours, but severe when they do happen. No watering of the eyes, has a TMJ problem, Has has intolerance to sound and light. No nausea with headache. Has tried tylenol, keeping the lights off etc. Does not really have throbbing, eyes water at that time. She does have aura, she can tell when she is going to have the headache. Sore throat 08/04/2013 03/19/2015 Last Assessment & Plan: Sorethroat, since one day. No nasal drainage, cough, ? Mild fevers. She is getting her wisdom tooth, has pain from that, ent to the dentist had, an xray of the teeth was given antibiotics, which she did not take , because she was Not told if she had an infection or not. Everyone in school seems to be sick, according to her. IUGR (intrauterine growth restriction) 3 03/19/2013 Overview: 7%ile recommend twice weekly NST, weekly dopplers, weekly HE, daily kick counts, plan IOL at 39 weeks if reassuring testing High-risk supervision 12/30/2012 03/19/2013 Overview: iugr Teen 07/30/2012 03/19/2013 Overview: 07/30/2012Erica is 17 years old. She is an 11th grader at [employer]. She also works at [employer]. She is here today with her mother and aunt. The father of the baby is not involved. He is aware that she is but does not want to be involved. Patient was crying during the office visit because she states she is failing school right now. She doesn't get along with her counselor at school. I have referred the patient to Lea Sosa or Linda James, school nurses at [employer]. She is going to talk to them about getting her a new counselor. Patient denies any symptoms of depression. She states she is able to sleep and eat okay. She states she has a lot of support at home. She just feels like the guidance counselor isn't going to help her from not failing at school. I also gave the patient a handout on care center. I have told her they provide free counseling. I have also offered to schedule an appointment for her at the counseling center. Patient declines at this time. Pt denies ever having any suicidal thoughts or tendencies or thoughts of hurting others. Back pain in 07/30/2012 3 Overview: 07/30/2012 Patient was seen for lower back pain by Dr. Tara Skaggs on July 24. She states the back pain is happening less often and is not as severe as it was since then. Patient denies any bleeding. Patient is advised to call/come in if her pain increases, the development of bleeding, or PRN problems. with uncertain dates 07/30/2012 1 10/28/2011 Overview: 07/30/2012 Patient has a history of irregular menses every 14-28 days. Ultrasound ordered for uncertain dates by Dr. Downey. Patient requested diagnostic testing 07/30/2012 03/19/2013 Overview: 07/30/2012 Patient desires quad marker screen. Dysmenorrhea 04/30/2012 08/12/2012 Left knee injury 2012 08/12/2012 Asthma, exercise induced 12/14/2011 013 Overview: 07/30/2012Patient has a history of exercise-induced asthma. She denies any asthma attacks since 2006. Concussion 12/14/2011 08/12/2012 Weight loss 12/14/2011 08/12/2012 Sleep disturbance 06/30/2011 08/12/2012 Migraine, unspecified, witho ut mention of intractable migraine without mention of status migrainosus 11/14/2007 012 Headache(784.0) 10/24/2007 08/12/2012 Sprain of ankle, unspecified site 05/03/2007 08/12/2012 Tenosynovitis of foot and ankle 10/29/2006 08/12/2012 Equinus deformity of foot, acquired 07/23/2006 08/12/2012 Congenital pes planus 07/22/2006 08/12/2012 documented as of this encounter (statuses as of 10/04/2022) [facility] History of Past illness Narrative* Problem Noted Date Resolved Date Headache 09/19/2013 03/19/2015 Last Assessment & Plan: Having headches for 2 weeks, this is a very stressful period for her, with the exam finals, baby, and everything around it. Above the eyes is where it aches, one or two times a day, lsts a few hours, but severe when they do happen. No watering of the eyes, has a TMJ problem, Has has intolerance to sound and light. No nausea with headache. Has tried tylenol, keeping the lights off etc. Does not really have throbbing, eyes water at that time. She does have aura, she can tell when she is going to have the headache. Sore throat 08/04/2013 03/19/2015 Last Assessment & Plan: Sorethroat, since one day. No nasal drainage, cough, ? Mild fevers. She is getting her wisdom tooth, has pain from that, ent to the dentist had, an xray of the teeth was given antibiotics, which she did not take , because she was Not told if she had an infection or not. Everyone in school seems to be sick, according to her. IUGR (intrauterine growth restriction) 3 03/19/2013 Overview: 7%ile recommend twice weekly NST, weekly dopplers, weekly HE, daily kick counts, plan IOL at 39 weeks if reassuring testing High-risk supervision 12/30/2012 03/19/2013 Overview: iugr Teen 07/30/2012 03/19/2013 Overview: 07/30/2012Erica is 17 years old. She is an 11th grader at [employer]. She also works at [employer]. She is here today with her mother and aunt. The father of the baby is not involved. He is aware that she is but does not want to be involved. Patient was crying during the office visit because she states she is failing school right now. She doesn't get along with her counselor at school. I have referred the patient to Lea Sosa or Linda James, school nurses at [employer]. She is going to talk to them about getting her a new counselor. Patient denies any symptoms of depression. She states she is able to sleep and eat okay. She states she has a lot of support at home. She just feels like the guidance counselor isn't going to help her from not failing at school. I also gave the patient a handout on care center. I have told her they provide free counseling. I have also offered to schedule an appointment for her at the counseling center. Patient declines at this time. Pt denies ever having any suicidal thoughts or tendencies or thoughts of hurting others. Back pain in 07/30/2012 3 Overview: 07/30/2012 Patient was seen for lower back pain by Dr. Tara Skaggs on July 24. She states the back pain is happening less often and is not as severe as it was since then. Patient denies any bleeding. Patient is advised to call/come in if her pain increases, the development of bleeding, or PRN problems. with uncertain dates 07/30/2012 1 10/28/2011 Overview: 07/30/2012 Patient has a history of irregular menses every 14-28 days. Ultrasound ordered for uncertain dates by Dr. Downey. Patient requested diagnostic testing 07/30/2012 03/19/2013 Overview: 07/30/2012 Patient desires quad marker screen. Dysmenorrhea 04/30/2012 08/12/2012 Left knee injury 2012 08/12/2012 Asthma, exercise induced 12/14/2011 013 Overview: 07/30/2012Patient has a history of exercise-induced asthma. She denies any asthma attacks since 2006. Concussion 12/14/2011 08/12/2012 Weight loss 12/14/2011 08/12/2012 Sleep disturbance 06/30/2011 08/12/2012 Migraine, unspecified, witho ut mention of intractable migraine without mention of status migrainosus 11/14/2007 012 Headache(784.0) 10/24/2007 08/12/2012 Sprain of ankle, unspecified site 05/03/2007 08/12/2012 Tenosynovitis of foot and ankle 10/29/2006 08/12/2012 Equinus deformity of foot, acquired 07/23/2006 08/12/2012 Congenital pes planus 07/22/2006 08/12/2012 documented as of this encounter (statuses as of 10/04/2022) [facility] History of Past illness Narrative* Problem Noted Date Resolved Date Headache 09/19/2013 03/19/2015 Last Assessment & Plan: Having headches for 2 weeks, this is a very stressful period for her, with the exam finals, baby, and everything around it. Above the eyes is where it aches, one or two times a day, lsts a few hours, but severe when they do happen. No watering of the eyes, has a TMJ problem, Has has intolerance to sound and light. No nausea with headache. Has tried tylenol, keeping the lights off etc. Does not really have throbbing, eyes water at that time. She does have aura, she can tell when she is going to have the headache. Sore throat 08/04/2013 03/19/2015 Last Assessment & Plan: Sorethroat, since one day. No nasal drainage, cough, ? Mild fevers. She is getting her wisdom tooth, has pain from that, ent to the dentist had, an xray of the teeth was given antibiotics, which she did not take , because she was Not told if she had an infection or not. Everyone in school seems to be sick, according to her. IUGR (intrauterine growth restriction) 3 03/19/2013 Overview: 7%ile recommend twice weekly NST, weekly dopplers, weekly HE, daily kick counts, plan IOL at 39 weeks if reassuring testing High-risk supervision 12/30/2012 03/19/2013 Overview: iugr Teen 07/30/2012 03/19/2013 Overview: 07/30/2012Erica is 17 years old. She is an 11th grader at [employer]. She also works at [employer]. She is here today with her mother and aunt. The father of the baby is not involved. He is aware that she is but does not want to be involved. Patient was crying during the office visit because she states she is failing school right now. She doesn't get along with her counselor at school. I have referred the patient to Lea Sosa or Linda James, school nurses at [employer]. She is going to talk to them about getting her a new counselor. Patient denies any symptoms of depression. She states she is able to sleep and eat okay. She states she has a lot of support at home. She just feels like the guidance counselor isn't going to help her from not failing at school. I also gave the patient a handout on care center. I have told her they provide free counseling. I have also offered to schedule an appointment for her at the counseling center. Patient declines at this time. Pt denies ever having any suicidal thoughts or tendencies or thoughts of hurting others. Back pain in 07/30/2012 3 Overview: 07/30/2012 Patient was seen for lower back pain by Dr. Tara Skaggs on July 24. She states the back pain is happening less often and is not as severe as it was since then. Patient denies any bleeding. Patient is advised to call/come in if her pain increases, the development of bleeding, or PRN problems. with uncertain dates 07/30/2012 1 10/28/2011 Overview: 07/30/2012 Patient has a history of irregular menses every 14-28 days. Ultrasound ordered for uncertain dates by Dr. Downey. Patient requested diagnostic testing 07/30/2012 03/19/2013 Overview: 07/30/2012 Patient desires quad marker screen. Dysmenorrhea 04/30/2012 08/12/2012 Left knee injury 2012 08/12/2012 Asthma, exercise induced 12/14/2011 013 Overview: 07/30/2012Patient has a history of exercise-induced asthma. She denies any asthma attacks since 2006. Concussion 12/14/2011 08/12/2012 Weight loss 12/14/2011 08/12/2012 Sleep disturbance 06/30/2011 08/12/2012 Migraine, unspecified, witho ut mention of intractable migraine without mention of status migrainosus 11/14/2007 012 Headache(784.0) 10/24/2007 08/12/2012 Sprain of ankle, unspecified site 05/03/2007 08/12/2012 Tenosynovitis of foot and ankle 10/29/2006 08/12/2012 Equinus deformity of foot, acquired 07/23/2006 08/12/2012 Congenital pes planus 07/22/2006 08/12/2012 documented as of this encounter (statuses as of 10/12/2022) [facility] History of Past illness Narrative* Problem Noted Date Resolved Date Headache 09/19/2013 03/19/2015 Last Assessment & Plan: Having headches for 2 weeks, this is a very stressful period for her, with the exam finals, baby, and everything around it. Above the eyes is where it aches, one or two times a day, lsts a few hours, but severe when they do happen. No watering of the eyes, has a TMJ problem, Has has intolerance to sound and light. No nausea with headache. Has tried tylenol, keeping the lights off etc. Does not really have throbbing, eyes water at that time. She does have aura, she can tell when she is going to have the headache. Sore throat 08/04/2013 03/19/2015 Last Assessment & Plan: Sorethroat, since one day. No nasal drainage, cough, ? Mild fevers. She is getting her wisdom tooth, has pain from that, ent to the dentist had, an xray of the teeth was given antibiotics, which she did not take , because she was Not told if she had an infection or not. Everyone in school seems to be sick, according to her. IUGR (intrauterine growth restriction) 3 03/19/2013 Overview: 7%ile recommend twice weekly NST, weekly dopplers, weekly HE, daily kick counts, plan IOL at 39 weeks if reassuring testing High-risk supervision 12/30/2012 03/19/2013 Overview: iugr Teen 07/30/2012 03/19/2013 Overview: 07/30/2012Erica is 17 years old. She is an 11th grader at [employer]. She also works at [employer]. She is here today with her mother and aunt. The father of the baby is not involved. He is aware that she is but does not want to be involved. Patient was crying during the office visit because she states she is failing school right now. She doesn't get along with her counselor at school. I have referred the patient to Lea Sosa or Linda James, school nurses at [employer]. She is going to talk to them about getting her a new counselor. Patient denies any symptoms of depression. She states she is able to sleep and eat okay. She states she has a lot of support at home. She just feels like the guidance counselor isn't going to help her from not failing at school. I also gave the patient a handout on care center. I have told her they provide free counseling. I have also offered to schedule an appointment for her at the counseling center. Patient declines at this time. Pt denies ever having any suicidal thoughts or tendencies or thoughts of hurting others. Back pain in 07/30/2012 3 Overview: 07/30/2012 Patient was seen for lower back pain by Dr. Tara Skaggs on July 24. She states the back pain is happening less often and is not as severe as it was since then. Patient denies any bleeding. Patient is advised to call/come in if her pain increases, the development of bleeding, or PRN problems. with uncertain dates 07/30/2012 1 10/28/2011 Overview: 07/30/2012 Patient has a history of irregular menses every 14-28 days. Ultrasound ordered for uncertain dates by Dr. Downey. Patient requested diagnostic testing 07/30/2012 03/19/2013 Overview: 07/30/2012 Patient desires quad marker screen. Dysmenorrhea 04/30/2012 08/12/2012 Left knee injury 2012 08/12/2012 Asthma, exercise induced 12/14/2011 013 Overview: 07/30/2012Patient has a history of exercise-induced asthma. She denies any asthma attacks since 2006. Concussion 12/14/2011 08/12/2012 Weight loss 12/14/2011 08/12/2012 Sleep disturbance 06/30/2011 08/12/2012 Migraine, unspecified, witho ut mention of intractable migraine without mention of status migrainosus 11/14/2007 012 Headache(784.0) 10/24/2007 08/12/2012 Sprain of ankle, unspecified site 05/03/2007 08/12/2012 Tenosynovitis of foot and ankle 10/29/2006 08/12/2012 Equinus deformity of foot, acquired 07/23/2006 08/12/2012 Congenital pes planus 07/22/2006 08/12/2012 documented as of this encounter (statuses as of 10/13/2022) [facility] History of Past illness Narrative* Problem Noted Date Resolved Date Headache 09/19/2013 03/19/2015 Last Assessment & Plan: Having headches for 2 weeks, this is a very stressful period for her, with the exam finals, baby, and everything around it. Above the eyes is where it aches, one or two times a day, lsts a few hours, but severe when they do happen. No watering of the eyes, has a TMJ problem, Has has intolerance to sound and light. No nausea with headache. Has tried tylenol, keeping the lights off etc. Does not really have throbbing, eyes water at that time. She does have aura, she can tell when she is going to have the headache. Sore throat 08/04/2013 03/19/2015 Last Assessment & Plan: Sorethroat, since one day. No nasal drainage, cough, ? Mild fevers. She is getting her wisdom tooth, has pain from that, ent to the dentist had, an xray of the teeth was given antibiotics, which she did not take , because she was Not told if she had an infection or not. Everyone in school seems to be sick, according to her. IUGR (intrauterine growth restriction) 3 03/19/2013 Overview: 7%ile recommend twice weekly NST, weekly dopplers, weekly HE, daily kick counts, plan IOL at 39 weeks if reassuring testing High-risk supervision 12/30/2012 03/19/2013 Overview: iugr Teen 07/30/2012 03/19/2013 Overview: 07/30/2012Erica is 17 years old. She is an 11th grader at [employer]. She also works at [employer]. She is here today with her mother and aunt. The father of the baby is not involved. He is aware that she is but does not want to be involved. Patient was crying during the office visit because she states she is failing school right now. She doesn't get along with her counselor at school. I have referred the patient to Lea Sosa or Linda James, school nurses at [employer]. She is going to talk to them about getting her a new counselor. Patient denies any symptoms of depression. She states she is able to sleep and eat okay. She states she has a lot of support at home. She just feels like the guidance counselor isn't going to help her from not failing at school. I also gave the patient a handout on care center. I have told her they provide free counseling. I have also offered to schedule an appointment for her at the counseling center. Patient declines at this time. Pt denies ever having any suicidal thoughts or tendencies or thoughts of hurting others. Back pain in 07/30/2012 3 Overview: 07/30/2012 Patient was seen for lower back pain by Dr. Tara Skaggs on July 24. She states the back pain is happening less often and is not as severe as it was since then. Patient denies any bleeding. Patient is advised to call/come in if her pain increases, the development of bleeding, or PRN problems. with uncertain dates 07/30/2012 1 10/28/2011 Overview: 07/30/2012 Patient has a history of irregular menses every 14-28 days. Ultrasound ordered for uncertain dates by Dr. Downey. Patient requested diagnostic testing 07/30/2012 03/19/2013 Overview: 07/30/2012 Patient desires quad marker screen. Dysmenorrhea 04/30/2012 08/12/2012 Left knee injury 2012 08/12/2012 Asthma, exercise induced 12/14/2011 013 Overview: 07/30/2012Patient has a history of exercise-induced asthma. She denies any asthma attacks since 2006. Concussion 12/14/2011 08/12/2012 Weight loss 12/14/2011 08/12/2012 Sleep disturbance 06/30/2011 08/12/2012 Migraine, unspecified, witho ut mention of intractable migraine without mention of status migrainosus 11/14/2007 012 Headache(784.0) 10/24/2007 08/12/2012 Sprain of ankle, unspecified site 05/03/2007 08/12/2012 Tenosynovitis of foot and ankle 10/29/2006 08/12/2012 Equinus deformity of foot, acquired 07/23/2006 08/12/2012 Congenital pes planus 07/22/2006 08/12/2012 documented as of this encounter (statuses as of 10/17/2022) [facility] History of Past illness Narrative* Problem Noted Date Resolved Date Headache 09/19/2013 03/19/2015 Last Assessment & Plan: Having headches for 2 weeks, this is a very stressful period for her, with the exam finals, baby, and everything around it. Above the eyes is where it aches, one or two times a day, lsts a few hours, but severe when they do happen. No watering of the eyes, has a TMJ problem, Has has intolerance to sound and light. No nausea with headache. Has tried tylenol, keeping the lights off etc. Does not really have throbbing, eyes water at that time. She does have aura, she can tell when she is going to have the headache. Sore throat 08/04/2013 03/19/2015 Last Assessment & Plan: Sorethroat, since one day. No nasal drainage, cough, ? Mild fevers. She is getting her wisdom tooth, has pain from that, ent to the dentist had, an xray of the teeth was given antibiotics, which she did not take , because she was Not told if she had an infection or not. Everyone in school seems to be sick, according to her. IUGR (intrauterine growth restriction) 3 03/19/2013 Overview: 7%ile recommend twice weekly NST, weekly dopplers, weekly HE, daily kick counts, plan IOL at 39 weeks if reassuring testing High-risk supervision 12/30/2012 03/19/2013 Overview: iugr Teen 07/30/2012 03/19/2013 Overview: 07/30/2012Erica is 17 years old. She is an 11th grader at [employer]. She also works at [employer]. She is here today with her mother and aunt. The father of the baby is not involved. He is aware that she is but does not want to be involved. Patient was crying during the office visit because she states she is failing school right now. She doesn't get along with her counselor at school. I have referred the patient to Lea Sosa or Linda James, school nurses at [employer]. She is going to talk to them about getting her a new counselor. Patient denies any symptoms of depression. She states she is able to sleep and eat okay. She states she has a lot of support at home. She just feels like the guidance counselor isn't going to help her from not failing at school. I also gave the patient a handout on care center. I have told her they provide free counseling. I have also offered to schedule an appointment for her at the counseling center. Patient declines at this time. Pt denies ever having any suicidal thoughts or tendencies or thoughts of hurting others. Back pain in 07/30/2012 3 Overview: 07/30/2012 Patient was seen for lower back pain by Dr. Tara Skaggs on July 24. She states the back pain is happening less often and is not as severe as it was since then. Patient denies any bleeding. Patient is advised to call/come in if her pain increases, the development of bleeding, or PRN problems. with uncertain dates 07/30/2012 1 10/28/2011 Overview: 07/30/2012 Patient has a history of irregular menses every 14-28 days. Ultrasound ordered for uncertain dates by Dr. Downey. Patient requested diagnostic testing 07/30/2012 03/19/2013 Overview: 07/30/2012 Patient desires quad marker screen. Dysmenorrhea 04/30/2012 08/12/2012 Left knee injury 2012 08/12/2012 Asthma, exercise induced 12/14/2011 013 Overview: 07/30/2012Patient has a history of exercise-induced asthma. She denies any asthma attacks since 2006. Concussion 12/14/2011 08/12/2012 Weight loss 12/14/2011 08/12/2012 Sleep disturbance 06/30/2011 08/12/2012 Migraine, unspecified, witho ut mention of intractable migraine without mention of status migrainosus 11/14/2007 012 Headache(784.0) 10/24/2007 08/12/2012 Sprain of ankle, unspecified site 05/03/2007 08/12/2012 Tenosynovitis of foot and ankle 10/29/2006 08/12/2012 Equinus deformity of foot, acquired 07/23/2006 08/12/2012 Congenital pes planus 07/22/2006 08/12/2012 documented as of this encounter (statuses as of 11/08/2022) [facility] History of Past illness Narrative* Problem Noted Date Resolved Date Headache 09/19/2013 03/19/2015 Last Assessment & Plan: Having headches for 2 weeks, this is a very stressful period for her, with the exam finals, baby, and everything around it. Above the eyes is where it aches, one or two times a day, lsts a few hours, but severe when they do happen. No watering of the eyes, has a TMJ problem, Has has intolerance to sound and light. No nausea with headache. Has tried tylenol, keeping the lights off etc. Does not really have throbbing, eyes water at that time. She does have aura, she can tell when she is going to have the headache. Sore throat 08/04/2013 03/19/2015 Last Assessment & Plan: Sorethroat, since one day. No nasal drainage, cough, ? Mild fevers. She is getting her wisdom tooth, has pain from that, ent to the dentist had, an xray of the teeth was given antibiotics, which she did not take , because she was Not told if she had an infection or not. Everyone in school seems to be sick, according to her. IUGR (intrauterine growth restriction) 3 03/19/2013 Overview: 7%ile recommend twice weekly NST, weekly dopplers, weekly HE, daily kick counts, plan IOL at 39 weeks if reassuring testing High-risk supervision 12/30/2012 03/19/2013 Overview: iugr Teen 07/30/2012 03/19/2013 Overview: 07/30/2012Erica is 17 years old. She is an 11th grader at [employer]. She also works at [employer]. She is here today with her mother and aunt. The father of the baby is not involved. He is aware that she is but does not want to be involved. Patient was crying during the office visit because she states she is failing school right now. She doesn't get along with her counselor at school. I have referred the patient to Lea Sosa or Linda James, school nurses at [employer]. She is going to talk to them about getting her a new counselor. Patient denies any symptoms of depression. She states she is able to sleep and eat okay. She states she has a lot of support at home. She just feels like the guidance counselor isn't going to help her from not failing at school. I also gave the patient a handout on care center. I have told her they provide free counseling. I have also offered to schedule an appointment for her at the counseling center. Patient declines at this time. Pt denies ever having any suicidal thoughts or tendencies or thoughts of hurting others. Back pain in 07/30/2012 3 Overview: 07/30/2012 Patient was seen for lower back pain by Dr. Tara Skaggs on July 24. She states the back pain is happening less often and is not as severe as it was since then. Patient denies any bleeding. Patient is advised to call/come in if her pain increases, the development of bleeding, or PRN problems. with uncertain dates 07/30/2012 1 10/28/2011 Overview: 07/30/2012 Patient has a history of irregular menses every 14-28 days. Ultrasound ordered for uncertain dates by Dr. Downey. Patient requested diagnostic testing 07/30/2012 03/19/2013 Overview: 07/30/2012 Patient desires quad marker screen. Dysmenorrhea 04/30/2012 08/12/2012 Left knee injury 2012 08/12/2012 Asthma, exercise induced 12/14/2011 013 Overview: 07/30/2012Patient has a history of exercise-induced asthma. She denies any asthma attacks since 2006. Concussion 12/14/2011 08/12/2012 Weight loss 12/14/2011 08/12/2012 Sleep disturbance 06/30/2011 08/12/2012 Migraine, unspecified, witho ut mention of intractable migraine without mention of status migrainosus 11/14/2007 012 Headache(784.0) 10/24/2007 08/12/2012 Sprain of ankle, unspecified site 05/03/2007 08/12/2012 Tenosynovitis of foot and ankle 10/29/2006 08/12/2012 Equinus deformity of foot, acquired 07/23/2006 08/12/2012 Congenital pes planus 07/22/2006 08/12/2012 documented as of this encounter (statuses as of 11/09/2022) [facility] History of Past illness Narrative* Problem Noted Date Diagnosed Date Resolved Date Headache 09/19/2013 03/19/2015 Last Assessment & Plan: Having headches for 2 weeks, this is a very stressful period for her, with the exam finals, baby, and everything around it. Above the eyes is where it aches, one or two times a day, lsts a few hours, but severe when they do happen. No watering of the eyes, has a TMJ problem, Has has intolerance to sound and light. No nausea with headache. Has tried tylenol, keeping the lights off etc. Does not really have throbbing, eyes water at that time. She does have aura, she can tell when she is going to have the headache. Sore throat 08/04/2013 03/19/2015 Last Assessment & Plan: Sorethroat, since one day. No nasal drainage, cough, ? Mild fevers. She is getting her wisdom tooth, has pain from that, ent to the dentist had, an xray of the teeth was given antibiotics, which she did not take , because she was Not told if she had an infection or not. Everyone in school seems to be sick, according to her. IUGR (intrauterine growth restriction) 12/30/2012 03/19/2013 Overview: 7%ile recommend twice weekly NST, weekly dopplers, weekly HE, daily kick counts, plan IOL at 39 weeks if reassuring testing High-risk supervision 12/30/2012 03/19/2013 Overview: iugr Teen 07/30/2012 03/19/2013 Overview: 07/30/2012Erica is 17 years old. She is an 11th grader at [employer]. She also works at [employer]. She is here today with her mother and aunt. The father of the baby is not involved. He is aware that she is but does not want to be involved. Patient was crying during the office visit because she states she is failing school right now. She doesn't get along with her counselor at school. I have referred the patient to Lea Sosa or Linda James, school nurses at [employer]. She is going to talk to them about getting her a new counselor. Patient denies any symptoms of depression. She states she is able to sleep and eat okay. She states she has a lot of support at home. She just feels like the guidance counselor isn't going to help her from not failing at school. I also gave the patient a handout on care center. I have told her they provide free counseling. I have also offered to schedule an appointment for her at the counseling center. Patient declines at this time. Pt denies ever having any suicidal thoughts or tendencies or thoughts of hurting others. Back pain in 07/30/201203/19 Overview: 07/30/2012 Patient was seen for lower back pain by Dr. Tara Skaggs on July 24. She states the back pain is happening less often and is not as severe as it was since then. Patient denies any bleeding. Patient is advised to call/come in if her pain increases, the development of bleeding, or PRN problems. with uncertain dates 07/30/2012 08/28/2012 Overview: 07/30/2012 Patient has a history of irregular menses every 14-28 days. Ultrasound ordered for uncertain dates by Dr. Downey. Patient requested diagnostic testing 07/30/2012 03/19/2013 Overview: 07/30/2012 Patient desires quad marker screen. Dysmenorrhea 04/30/2012 08/12/2012 Left knee injury 2012 08/12/2012 Asthma, exercise induced 12/14/2011 Overview: 07/30/2012Patient has a history of exercise-induced asthma. She denies any asthma attacks since 2006. Concussion 12/14/2011 08/12/2012 Weight loss 12/14/2011 08/12/2012 Sleep disturbance 06/30/2011 08/12/2012 Migraine, unspecified, witho ut mention of intractable migraine without mention of status migrainosus 11/14/2007 08/12/2012 Headache(784.0) 10/24/2007 08/12/2012 Sprain of ankle, unspecified site 05/03/2007 08/12/2012 Tenosynovitis of foot and ankle 10/29/2006 08/12/2012 Equinus deformity of foot, acquired 07/23/2006 08/12/2012 Congenital pes planus 07/22/20062011 documented as of this encounter (statuses as of 08/06/2023) [facility] History of Past illness Narrative* Problem Noted Date Diagnosed Date Resolved Date Headache 09/19/2013 03/19/2015 Last Assessment & Plan: Having headches for 2 weeks, this is a very stressful period for her, with the exam finals, baby, and everything around it. Above the eyes is where it aches, one or two times a day, lsts a few hours, but severe when they do happen. No watering of the eyes, has a TMJ problem, Has has intolerance to sound and light. No nausea with headache. Has tried tylenol, keeping the lights off etc. Does not really have throbbing, eyes water at that time. She does have aura, she can tell when she is going to have the headache. Sore throat 08/04/2013 03/19/2015 Last Assessment & Plan: Sorethroat, since one day. No nasal drainage, cough, ? Mild fevers. She is getting her wisdom tooth, has pain from that, ent to the dentist had, an xray of the teeth was given antibiotics, which she did not take , because she was Not told if she had an infection or not. Everyone in school seems to be sick, according to her. IUGR (intrauterine growth restriction) 12/30/2012 03/19/2013 Overview: 7%ile recommend twice weekly NST, weekly dopplers, weekly HE, daily kick counts, plan IOL at 39 weeks if reassuring testing High-risk supervision 12/30/2012 03/19/2013 Overview: iugr Teen 07/30/2012 03/19/2013 Overview: 07/30/2012Erica is 17 years old. She is an 11th grader at [employer]. She also works at [employer]. She is here today with her mother and aunt. The father of the baby is not involved. He is aware that she is but does not want to be involved. Patient was crying during the office visit because she states she is failing school right now. She doesn't get along with her counselor at school. I have referred the patient to Lea Sosa or Linda James, school nurses at [employer]. She is going to talk to them about getting her a new counselor. Patient denies any symptoms of depression. She states she is able to sleep and eat okay. She states she has a lot of support at home. She just feels like the guidance counselor isn't going to help her from not failing at school. I also gave the patient a handout on care center. I have told her they provide free counseling. I have also offered to schedule an appointment for her at the counseling center. Patient declines at this time. Pt denies ever having any suicidal thoughts or tendencies or thoughts of hurting others. Back pain in 07/30/201203/19 Overview: 07/30/2012 Patient was seen for lower back pain by Dr. Tara Skaggs on July 24. She states the back pain is happening less often and is not as severe as it was since then. Patient denies any bleeding. Patient is advised to call/come in if her pain increases, the development of bleeding, or PRN problems. with uncertain dates 07/30/2012 08/28/2012 Overview: 07/30/2012 Patient has a history of irregular menses every 14-28 days. Ultrasound ordered for uncertain dates by Dr. Downey. Patient requested diagnostic testing 07/30/2012 03/19/2013 Overview: 07/30/2012 Patient desires quad marker screen. Dysmenorrhea 04/30/2012 08/12/2012 Left knee injury 2012 08/12/2012 Asthma, exercise induced 12/14/2011 Overview: 07/30/2012Patient has a history of exercise-induced asthma. She denies any asthma attacks since 2006. Concussion 12/14/2011 08/12/2012 Weight loss 12/14/2011 08/12/2012 Sleep disturbance 06/30/2011 08/12/2012 Migraine, unspecified, witho ut mention of intractable migraine without mention of status migrainosus 11/14/2007 08/12/2012 Headache(784.0) 10/24/2007 08/12/2012 Sprain of ankle, unspecified site 05/03/2007 08/12/2012 Tenosynovitis of foot and ankle 10/29/2006 08/12/2012 Equinus deformity of foot, acquired 07/23/2006 08/12/2012 Congenital pes planus 07/22/20062011 documented as of this encounter (statuses as of 08/18/2023) [facility] History of Past illness Narrative* Problem Noted Date Diagnosed Date Resolved Date Headache 09/19/2013 03/19/2015 Last Assessment & Plan: Having headches for 2 weeks, this is a very stressful period for her, with the exam finals, baby, and everything around it. Above the eyes is where it aches, one or two times a day, lsts a few hours, but severe when they do happen. No watering of the eyes, has a TMJ problem, Has has intolerance to sound and light. No nausea with headache. Has tried tylenol, keeping the lights off etc. Does not really have throbbing, eyes water at that time. She does have aura, she can tell when she is going to have the headache. Sore throat 08/04/2013 03/19/2015 Last Assessment & Plan: Sorethroat, since one day. No nasal drainage, cough, ? Mild fevers. She is getting her wisdom tooth, has pain from that, ent to the dentist had, an xray of the teeth was given antibiotics, which she did not take , because she was Not told if she had an infection or not. Everyone in school seems to be sick, according to her. IUGR (intrauterine growth restriction) 12/30/2012 03/19/2013 Overview: 7%ile recommend twice weekly NST, weekly dopplers, weekly HE, daily kick counts, plan IOL at 39 weeks if reassuring testing High-risk supervision 12/30/2012 03/19/2013 Overview: iugr Teen 07/30/2012 03/19/2013 Overview: 07/30/2012Erica is 17 years old. She is an 11th grader at [employer]. She also works at [employer]. She is here today with her mother and aunt. The father of the baby is not involved. He is aware that she is but does not want to be involved. Patient was crying during the office visit because she states she is failing school right now. She doesn't get along with her counselor at school. I have referred the patient to Lea Sosa or Linda James, school nurses at [employer]. She is going to talk to them about getting her a new counselor. Patient denies any symptoms of depression. She states she is able to sleep and eat okay. She states she has a lot of support at home. She just feels like the guidance counselor isn't going to help her from not failing at school. I also gave the patient a handout on care center. I have told her they provide free counseling. I have also offered to schedule an appointment for her at the counseling center. Patient declines at this time. Pt denies ever having any suicidal thoughts or tendencies or thoughts of hurting others. Back pain in 07/30/201203/19 Overview: 07/30/2012 Patient was seen for lower back pain by Dr. Tara Skaggs on July 24. She states the back pain is happening less often and is not as severe as it was since then. Patient denies any bleeding. Patient is advised to call/come in if her pain increases, the development of bleeding, or PRN problems. with uncertain dates 07/30/2012 08/28/2012 Overview: 07/30/2012 Patient has a history of irregular menses every 14-28 days. Ultrasound ordered for uncertain dates by Dr. Downey. Patient requested diagnostic testing 07/30/2012 03/19/2013 Overview: 07/30/2012 Patient desires quad marker screen. Dysmenorrhea 04/30/2012 08/12/2012 Left knee injury 2012 08/12/2012 Asthma, exercise induced 12/14/2011 Overview: 07/30/2012Patient has a history of exercise-induced asthma. She denies any asthma attacks since 2006. Concussion 12/14/2011 08/12/2012 Weight loss 12/14/2011 08/12/2012 Sleep disturbance 06/30/2011 08/12/2012 Migraine, unspecified, witho ut mention of intractable migraine without mention of status migrainosus 11/14/2007 08/12/2012 Headache(784.0) 10/24/2007 08/12/2012 Sprain of ankle, unspecified site 05/03/2007 08/12/2012 Tenosynovitis of foot and ankle 10/29/2006 08/12/2012 Equinus deformity of foot, acquired 07/23/2006 08/12/2012 Congenital pes planus 07/22/20062011 documented as of this encounter (statuses as of 08/21/2023) [facility]12-20[facility] History of Past illness Narrative* Problem Noted Date Diagnosed Date Resolved Date Headache 09/19/2013 03/19/2015 Last Assessment & Plan: Having headches for 2 weeks, this is a very stressful period for her, with the exam finals, baby, and everything around it. Above the eyes is where it aches, one or two times a day, lsts a few hours, but severe when they do happen. No watering of the eyes, has a TMJ problem, Has has intolerance to sound and light. No nausea with headache. Has tried tylenol, keeping the lights off etc. Does not really have throbbing, eyes water at that time. She does have aura, she can tell when she is going to have the headache. Sore throat 08/04/2013 03/19/2015 Last Assessment & Plan: Sorethroat, since one day. No nasal drainage, cough, ? Mild fevers. She is getting her wisdom tooth, has pain from that, ent to the dentist had, an xray of the teeth was given antibiotics, which she did not take , because she was Not told if she had an infection or not. Everyone in school seems to be sick, according to her. IUGR (intrauterine growth restriction) 12/30/2012 03/19/2013 Overview: 7%ile recommend twice weekly NST, weekly dopplers, weekly HE, daily kick counts, plan IOL at 39 weeks if reassuring testing High-risk supervision 12/30/2012 03/19/2013 Overview: iugr Teen 07/30/2012 03/19/2013 Overview: 07/30/2012Erica is 17 years old. She is an 11th grader at [employer]. She also works at [employer]. She is here today with her mother and aunt. The father of the baby is not involved. He is aware that she is but does not want to be involved. Patient was crying during the office visit because she states she is failing school right now. She doesn't get along with her counselor at school. I have referred the patient to Lea Sosa or Linda James, school nurses at [facility]. She is going to talk to them about getting her a new counselor. Patient denies any symptoms of depression. She states she is able to sleep and eat okay. She states she has a lot of support at home. She just feels like the guidance counselor isn't going to help her from not failing at school. I also gave the patient a handout on care center. I have told her they provide free counseling. I have also offered to schedule an appointment for her at the counseling center. Patient declines at this time. Pt denies ever having any suicidal thoughts or tendencies or thoughts of hurting others. Back pain in 07/30/201203/19 Overview: 07/30/2012 Patient was seen for lower back pain by Dr. Tara Skaggs on July 24. She states the back pain is happening less often and is not as severe as it was since then. Patient denies any bleeding. Patient is advised to call/come in if her pain increases, the development of bleeding, or PRN problems. with uncertain dates 07/30/2012 08/28/2012 Overview: 07/30/2012 Patient has a history of irregular menses every 14-28 days. Ultrasound ordered for uncertain dates by Dr. Downey. Patient requested diagnostic testing 07/30/2012 03/19/2013 Overview: 07/30/2012 Patient desires quad marker screen. Dysmenorrhea 04/30/2012 08/12/2012 Left knee injury 2012 08/12/2012 Asthma, exercise induced 12/14/2011 Overview: 07/30/2012Patient has a history of exercise-induced asthma. She denies any asthma attacks since 2006. Concussion 12/14/2011 08/12/2012 Weight loss 12/14/2011 08/12/2012 Sleep disturbance 06/30/2011 08/12/2012 Migraine, unspecified, witho ut mention of intractable migraine without mention of status migrainosus 11/14/2007 08/12/2012 Headache(784.0) 10/24/2007 08/12/2012 Sprain of ankle, unspecified site 05/03/2007 08/12/2012 Tenosynovitis of foot and ankle 10/29/2006 08/12/2012 Equinus deformity of foot, acquired 07/23/2006 08/12/2012 Congenital pes planus 07/22/20062011 documented as of this encounter (statuses as of 08/22/2023) [facility] note* Diagnosis Onset Date Resolution Status Dysmenorrhea acute Dysmenorrhea acute Dysmenorrhea acute Bipolar disorder chronic [facility] Work Phone: evaluation note* Diagnosis Dysuria- Primary documented in this encounter [facility] noteNo assessment information availableWAdena Health System Work Phone: evaluation note* Diagnosis APPOINTMENT CANCELLED- [facility] Diagnosis AP[facility]MENT CANCELLED- Primary [facility] Diagnosis Migraine with aura, not intractable, without status migrainosus- Primary Viral illness Unspecified viral infection, in conditions classified elsewhere and of unspecified site [facility]* Diagnosis Migraine headaches- Primary [facility]* Diagnosis Vitamin D deficiency- Primary Unspecified vitamin D deficiency Positive SHANTANU (antinuclear antibody) Other and unspecified nonspecific immunological findings Malar rash Rash and other nonspecific skin eruption Stiffness in joint Stiffness of joint, not elsewhere classified, unspecified site Other migraine without status migrainosus, not intractable [facility]* Diagnosis Vitamin D deficiency- Primary Unspecified vitamin D deficiency [facility]* Diagnosis Positive SHANTANU (antinuclear antibody)- Primary Other and unspecified nonspecific immunological findings Arthralgia, unspecified joint Vitamin D deficiency Unspecified vitamin D deficiency Facial rash Rash and other nonspecific skin eruption Family history of rheumatoid arthritis in mother Family history of arthritis Family history of Sjogren's disease Family history of other musculoskeletal diseases Malaise and fatigue Other malaise and fatigue [facility]* Diagnosis Onset Date Resolution Status Night sweats acute [facility] Work Phone: evaluation note* Diagnosis Chronic migraine- Primary documented in this encounter [facility] Work Phone: Evaluation note* Diagnosis COVID- Primary documented in this encounter [facility] Work Phone: Evaluation note* Diagnosis Hematuria, unspecified type- Primary [facility]* Diagnosis Acute right ankle pain [facility] Narrative* Patient presents to establish care. * Patient has medical history of migraines currently unmanaged. * Patient presents to discuss possible autoimmune disorder. For 2 years, the patient has experienced progressively worsening polyarthralgia mainly in the wrists and knees, lower extremity paresthesias and burning sensation, intermittent fevers outside of an illness ranging from 99.5-100.4 Fahrenheit, malar rash, night sweats, and fatigue. Patient was worked up quite extensively through prior PCP and rheumatology and only abnormality was elevated SHANTANU. Patient brought lab work-up through [facility] and this was reviewed. The work-up was quite extensive. [facility] essentially said that nothing was active at this time and to follow-up as needed. Patient's primary care stated that possibly due to anxiety or depression. Patient denies this. Patient also has 2 family members with lymphoma and 1 with leukemia. Patient is concerned that this may be part of the problem. * Patient has multiple family members with leukemia and lymphoma. Patient has concerns that this may a possibility, specifically, the night sweats and mild weight loss. * Patient also requesting management of migraine headaches. Patient's prior PCP prescribed Topamax and this did not help. Patient reports there is an aura with scotomata/changes in vision on the left followed by intense pain in the posterior orbital region with associated nausea, dizziness, vomiting,and light sensitivity. Currently, patient is managing symptoms conservatively. [facility] Work Phone: [facility] Work Phone: [facility] Work Phone: Hospital Discharge instructions Additional Instructions I suspect your pain is coming from your stomach. This could be an ulcer, inflammation of the stomach or an infection from H. pylori. This needs to follow-up further with GI doctor. Please follow-up with your primary care doctor in the meantime. Adhere to a low acid diet and take antacid as prescribed.[facility] Work Phone: Reason for referral (narrative)* Diagnostic Procedure Only (Routine) - Pending Review Specialty Diagnoses / Procedures Referred By Contac t Referred To Contact US IMAGING Diagnoses Positive SHANTANU (antinuclear antibody) Arthralgia, unspecified joint Procedures US HAND/WRIST SYNOVIAL SCREEN LT US COMPL JOINT R-T W/IMAGE DOCUMENTATION Kathleen Brush DO [address] [place] [address] Us Imaging Referral ID Status Reason Start Date Expiration Date Visits Requested Visits Authorized [id number] Pending Review Auto-Generat ed Referral 11/07/2022 12/07/2023 1 1 * Diagnostic Procedure Only (Routine) - Pending Review Specialty Diagnoses / Procedures Referred By Contac t Referred To Contact US IMAGING Diagnoses Positive SHANTANU (antinuclear antibody) Arthralgia, unspecified joint Procedures US HAND/WRIST SYNOVIAL SCREEN RT US COMPL JOINT R-T W/IMAGE DOCUMENTATION Kathleen Brush DO [address] [place] [address] Us Imaging Referral ID Status Reason Start Date Expiration Date Visits Requested Visits Authorized [id number] Pending Review Auto-Generat ed Referral 11/07/2022 12/07/2023 1 1 [facility] for referral (narrative)* Diagnostic Procedure Only (Urgent) - Closed Specialty Diagnoses / Procedures Referred By Contac t Referred To Contact XR IMAGING Diagnoses Acute right ankle pain Procedures XR ANKLE GENERAL 3V AP/LAT/OBL RIGHT RADEX ANKLE COMPLETE MINIMUM 3 VIEWS Deondre French, CELSO.PLUNGER MACHINE OPERATOR [address] [place] [address] X[facility] [place] [address] Referral ID Status Reason Start Date Expiration Date V isits Requested Visits Authorized [id number] Closed Auto-Generate d Referral 07/10/2022 08/09/2023 1 1 [facility] for [facility] (narrative)No reason for referral information availableWAdena Health System Work Phone: Reason for visit Narrative* Diagnostic Procedure Only (Urgent) - Closed Specialty Diagnoses / Procedures Referred By Contac t Referred To Contact XR IMAGING Diagnoses Acute right ankle pain Procedures XR ANKLE GENERAL 3V AP/LAT/OBL RIGHT RADEX ANKLE COMPLETE MINIMUM 3 VIEWS Deondre French, CELSO.PLUNGER MACHINE OPERATOR [address] [place] [address] [place] [address] Referral ID Status Reason Start Date Expiration Date V isits Requested Visits Authorized [id number] Closed Auto-Generate d Referral 07/10/2022 08/09/2023 1 1 [facility] Summary Purpose Family History No Family History Records Found Relationship Condition Age at Onset Recorded Date/T sara Not Specified Diabetes mellitus Unknown aunt Non-Hodgkin's lymphoma Unknown Unknown Family Member Name Dates Details Family history of hypertensi on: Father(V17.49, Z82.49) Status:Active Family history of lung disea se: Father(V19.8, Z83.6) Status:Active Family history of diabetes m ellitus: Maternal Half Brother(V18.0, Z83.3) Status:Active PCOS (polycystic ovarian syn drome): Sister Status:Active Family history of malignant neoplasm: Father, Grandmother, Aunt(V16.9, Z80.9) Status:Active Family history of leukemia: Other(V16.6, Z80.6) Status:Active Unknown Family Member Name Dates Details Family history of hypertensi on: Father(V17.49, Z82.49) Status:Active Family history of lung disea se: Father(V19.8, Z83.6) Status:Active Family history of diabetes m ellitus: Maternal Half Brother(V18.0, Z83.3) Status:Active PCOS (polycystic ovarian syn drome): Sister Status:Active Family history of leukemia: Other(V16.6, Z80.6) Status:Active Family history of malignant neoplasm: Father, Grandmother, Aunt(V16.9, Z80.9) Status:Active Unknown Family Member Name Dates Details Family history of hypertensi on: Father(V17.49, Z82.49) Status:Active Family history of lung disea se: Father(V19.8, Z83.6) Status:Active Family history of diabetes m ellitus: Maternal Half Brother(V18.0, Z83.3) Status:Active PCOS (polycystic ovarian syn drome): Sister Status:Active Family history of leukemia: Other(V16.6, Z80.6) Status:Active Family history of malignant neoplasm: Father, Grandmother, Aunt(V16.9, Z80.9) Status:Active Unknown Family Member Name Dates Details Family history of hypertensi on: Father(V17.49, Z82.49) Status:Active Family history of lung disea se: Father(V19.8, Z83.6) Status:Active Family history of diabetes m ellitus: Maternal Half Brother(V18.0, Z83.3) Status:Active PCOS (polycystic ovarian syn drome): Sister Status:Active Family history of leukemia: Other(V16.6, Z80.6) Status:Active Family history of malignant neoplasm: Father, Grandmother, Aunt(V16.9, Z80.9) Status:Active Relationship Condition Age at Onset Recorded Date/T sara aunt Non-Hodgkin's lymphoma Unknown father Leukemia Unknown grandmother Malignant neoplasm Unknown Diabetes mellitus Unknown mother Diabetes mellitus Unknown Advance Directives No Advanced Directives Records Found Advance Directive Response Recorded Date/ Time Living Will No November 17 12:50pm Power of Administrative Assistant Receptionist No November 17, 2021 12:50pm Advance Directive Response Recorded Date/ Time Living Will No July 20 7:24pm Power of Administrative Assistant Receptionist No July 20, 2022 7:24pm Chief Complaint and Reason for Visit Chief Complaint ABD PAIN discuss Endometriosis LAVHBS possible cysto LAVH BILAT SALPINGECTOMY POSSIBLE CYSTO LAVH BILAT SALPINGECTOMY POSSIBLE CYSTO LAVH BILAT SALPINGECTOMY POSSIBLE CYSTO Reason for Visit Dysmenorrhea Dysmenorrhea Dysmenorrhea Bipolar disorder Chief Complaint ABD PAIN discuss Endometriosis LAVHBS possible cysto LAVH BILAT SALPINGECTOMY POSSIBLE CYSTO LAVH BILAT SALPINGECTOMY POSSIBLE CYSTO LAVH BILAT SALPINGECTOMY POSSIBLE CYSTO Urinary tract infection Reason for Visit Dysmenorrhea Dysmenorrhea Dysmenorrhea Bipolar disorder Chief Complaint ABD PAIN Chief Complaint NEW PT - NIGHT SWEAT S - FM HX OF LUEKEMIA Reason for Visit Night sweats Medications Administered Section Inactive Administered Medications - up to 3 most recent administrations Medication Order MAR Action Action Date Dose Rate Site diphenhydrAMINE 25 mg (BENADRYL) 25 mg, ORAL, ONCE, 1 dose, On Sun09/27/22 at 1930 Given 09/27/2022 7:36 PM EST 25 mg keTORolac 60 mg injection (TORADOL) 60 mg, INTRAMUSCULAR, ONCE, 1 dose, On Sun09/27/22 at 1930, Ketorolac (Toradol) is indicated for the short-term (up to 5 days) management of moderately severe acute pain. Continuation of ketorolac (Toradol) beyond 5 days increases the risk of developing serious adverse events. Please verify the duration of therapy for ketorolac (Toradol)., If ordered PRN for pain, patient/guardian may elect to receive this medication for higher pain levels INSTEAD of the opioid, if preferred: Yes Given 09/27/2022 7:46 PM EST 60 mg Buttocks, Right ondansetron orally disintegrating 8 mg tab(s) (ZOFRAN ODT) 8 mg, ORAL, ONCE, 1 dose, On Sun09/27/22 at 1930, Place tablet on tongue and allow to dissolve; do not chew. Open packaging using dry hands; do not push tablet through packaging. Given 09/27/2022 7:47 PM EST 8 mg Chief Complaint * Patient here to get established as a new patient. * Having facial skin irritation with itching, intermittent fevers, night sweats and itchy legs x 2 years. * States is extremely fatigued with no energy and no problems sleeping at night. * Seen by [facility], Dr. Brush at [facility] for increased SHANTANU and Vitamin D deficiency. * Last PAP 10/2020 prior to partial hysterectomy. Reason for Referral * UTIUTI Additional Source Comments INFORMATION SOURCE (unrecogn ized section and content) DATE CREATED AUTHOR 03/09/2019 [email or web address] DATE CREATED AUTHOR AUTHOR'S ORGANIZ ATION 07/28/2022 [facility] DATE CREATED AUTHOR AUTHOR'S ORGANIZ ATION 12/02/2022 [facility] DATE CREATED AUTHOR AUTHOR'S ORGANIZ ATION 02/07/2023 [facility] DATE CREATED AUTHOR AUTHOR'S ORGANIZ ATION 03/12/2023 [facility] DATE CREATED AUTHOR AUTHOR'S ORGANIZ ATION 08/23/2023 [facility] DATE CREATED AUTHOR AUTHOR'S ORGANIZ ATION 03/29/2025 [facility] DATE CREATED AUTHOR AUTHOR'S ORGANIZ ATION 05/22/2025 [facility] Goals (unrecognized section and content) Goals may be documented in a n alternate sectionGoals may be documented in an alternate sectionGoals may be documented in an alternate sectionGoals may be documented in an alternate sectionGoals may be documented in an alternate sectionGoals may be documented in an alternate section Source Comments (unrecognize d section and content) In the event this informatio n is protected by the Federal Confidentiality of Alcohol and Drug Abuse Patient Records regulations: The Federal rules restrict any use of the information to criminally investigate or prosecute any alcohol or drug abuse patient.[facility] HospitalIn the event this information is protected by the Federal Confidentiality of Alcohol and Drug Abuse Patient Records regulations: The Federal rules restrict any use of the information to criminally investigate or prosecute any alcohol or drug abuse patient.[facility] HospitalIn the event this information is protected by the Federal Confidentiality of Alcohol and Drug Abuse Patient Records regulations: The Federal rules restrict any use of the information to criminally investigate or prosecute any alcohol or drug abuse patient.[facility] HospitalIn the event this information is protected by the Federal Confidentiality of Alcohol and Drug Abuse Patient Records regulations: The Federal rules restrict any use of the information to criminally investigate or prosecute any alcohol or drug abuse patient.[facility] HospitalIn the event this information is protected by the Federal Confidentiality of Alcohol and Drug Abuse Patient Records regulations: The Federal rules restrict any use of the information to criminally investigate or prosecute any alcohol or drug abuse patient.[facility] HospitalIn the event this information is protected by the Federal Confidentiality of Alcohol and Drug Abuse Patient Records regulations: The Federal rules restrict any use of the information to criminally investigate or prosecute any alcohol or drug abuse patient.[facility] HospitalIn the event this information is protected by the Federal Confidentiality of Alcohol and Drug Abuse Patient Records regulations: The Federal rules restrict any use of the information to criminally investigate or prosecute any alcohol or drug abuse patient.[facility] HospitalIn the event this information is protected by the Federal Confidentiality of Alcohol and Drug Abuse Patient Records regulations: The Federal rules restrict any use of the information to criminally investigate or prosecute any alcohol or drug abuse patient.[facility] HospitalIn the event this information is protected by the Federal Confidentiality of Alcohol and Drug Abuse Patient Records regulations: The Federal rules restrict any use of the information to criminally investigate or prosecute any alcohol or drug abuse patient.[facility] HospitalIn the event this information is protected by the Federal Confidentiality of Alcohol and Drug Abuse Patient Records regulations: The Federal rules restrict any use of the information to criminally investigate or prosecute any alcohol or drug abuse patient.[facility] HospitalIn the event this information is protected by the Federal Confidentiality of Alcohol and Drug Abuse Patient Records regulations: The Federal rules restrict any use of the information to criminally investigate or prosecute any alcohol or drug abuse patient.[facility] HospitalIn the event this information is protected by the Federal Confidentiality of Alcohol and Drug Abuse Patient Records regulations: The Federal rules restrict any use of the information to criminally investigate or prosecute any alcohol or drug abuse patient.[facility] HospitalIn the event this information is protected by the Federal Confidentiality of Alcohol and Drug Abuse Patient Records regulations: The Federal rules restrict any use of the information to criminally investigate or prosecute any alcohol or drug abuse patient.[facility] HospitalIn the event this information is protected by the Federal Confidentiality of Alcohol and Drug Abuse Patient Records regulations: The Federal rules restrict any use of the information to criminally investigate or prosecute any alcohol or drug abuse patient.[facility] HospitalIn the event this information is protected by the Federal Confidentiality of Alcohol and Drug Abuse Patient Records regulations: The Federal rules restrict any use of the information to criminally investigate or prosecute any alcohol or drug abuse patient.[facility] HospitalIn the event this information is protected by the Federal Confidentiality of Alcohol and Drug Abuse Patient Records regulations: The Federal rules restrict any use of the information to criminally investigate or prosecute any alcohol or drug abuse patient.[facility] HospitalIn the event this information is protected by the Federal Confidentiality of Alcohol and Drug Abuse Patient Records regulations: The Federal rules restrict any use of the information to criminally investigate or prosecute any alcohol or drug abuse patient.[facility] Reason for Visit (unrecogniz ed section and content) Reason Comments UTI pressure in the blad tiffany and lower back pain x 2 days Reason Comments Results Urine Cx negative Reason Comments Patient Left Without Being Seen Reason Comments Appointment Cancelled Reason Comments Illness Headache Reason Comments Headache TRAYLOR, nausea and rash on cheeks x 2 days Reason Comments Recheck Go over lab results Reason Comments Results Reason Comments Migraine Migraine flare up x 3 days with ear ringing. Reason Comments Hematuria Reason Comments Refill Request Care Teams (unrecognized sec tion and content) [employer] Relationship Specialty Start Date End Date Roland Rodriguez MD [address] [place] [address] PCP - General Internal Medicine 06/10/13 [employer] Relationship Specialty Start Date End Date Roland Rodriguez MD [address] [place] [address] PCP - General Internal Medicine 06/10/13 [employer] Relationship Specialty Start Date End Date Roland Rodriguez MD [address] [place] [address] PCP - General Internal Medicine 06/10/13 [employer] 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 Relationship Specialty Start Date End Date Roland Rodriguez MD [address] [place] [address] PCP - General Internal Medicine 06/10/13 [employer] 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 Relationship Specialty Start Date End Date Roland Rodriguez MD [address] [place] [address] PCP - General Internal Medicine 06/10/13 [employer] Relationship Specialty Start Date End Date Roland Rodriguez MD [address] [place] [address] PCP - General Internal Medicine 06/10/13 [employer] Relationship Specialty Start Date End Date Roland Rodriguez MD [address] [place] [address] PCP - General Internal Medicine 06/10/13 [employer] Relationship Specialty Start Date End Date Roland Rodriguez MD [address] [place] [address] PCP - General Internal Medicine 06/10/13 [employer] Relationship Specialty Start Date End Date Roland Rodriguez MD [address] [place] [address] PCP - General Internal Medicine 06/10/13 [employer] Relationship Specialty Start Date End Date Roland Rodriguez MD [address] [place] [address] PCP - General Internal Medicine 06/10/13 [employer] Relationship Specialty Start Date End Date Roland Rodriguez MD [address] [place] [address] PCP - General Internal Medicine 06/10/13 [employer] Relationship Specialty Start Date End Date Roland Rodriguez MD [address] [place], [place] [id number] PCP - General Internal Medicine 06/10/13 Team Status: Active Member Role Status Dates Dr. Roland Rodriguez MD Family Provider Active DILMA Ye Primary Care Provider Active Team Status: Inactive Member Role Status Dates Dr. Erika Leavitt MD Attending Provider Active Team Status: Active Member Role Status Dates Dr. Erika Leavitt MD Attending Provider, Referrin g Provider Active SUAD CORLEY Primary Care Provider Active Team Status: Inactive Member Role Status Dates DILMA Ye Primary Care Provider Active Dr. Imelda Lemon MD Attending Provider, Referring Provider Active [employer] Relationship Specialty Start Date End Date Barney Borjas PA-C [address] [facility] [place] [id number] PCP - General 11/13/22 [employer] Relationship Specialty Start Date End Date Roland Rodriguez MD [address] [place], [place] [id number] PCP - General Internal Medicine 06/10/13 [employer] Relationship Specialty Start Date End Date Roland Rodriguez MD [address] [place], [place] [id number] PCP - General Internal Medicine 06/10/13 [employer] Relationship Specialty Start Date End Date Roland Rodriguez MD [address] [place] [address] PCP - General Internal Medicine 06/10/13 [employer] Relationship Specialty Start Date End Date Roland Rodriguez MD [address] [place] [address] PCP - General Internal Medicine 06/10/13 [employer] Relationship Specialty Start Date End Date Roland Rodriguez MD [address] [place] [address] PCP - General Internal Medicine 06/10/13 Team Status: Active Member Role/Relationship Status Dates Dr. Roland Rodriguez MD Family Provider Active DILMA Ye Primary Care Provider Active Team Status: Inactive Member Role/Relationship Status Dates DILMA Ye Primary Care Provider Active S tart: May 13, 2025 End: May 13, 2025 Dr. Imelda Lemon MD Attending Provider Active Start: May 13, 2025 End: May 13, 2025 Dr. Imelda Lemon MD Referring Provider Active Start: May 13, 2025 End: May 13, 2025 <item> Privacy Markings (unrecogniz ed section and content) Section Author: Monse Mcguire PROHIBITION ON REDISCLOSURE OF CONFIDENTIAL INFORMATION This notice accompanies a disclosure of information concerning a client made to you with the consent of such client. FOR RECORDS PERTAINING TO PATIENTS WHO ARE OR HAVE BEEN ENROLLED IN A CHEMICAL DEPENDENCY/SUBSTANCEABUSE PROGRAM, SOME INFORMATION MAY BE OMITTED. This clinical summary was aggregated from multiple sources. Caution should be exercised in using it in the provision of clinical care. This summary normalizes information from multiple sources, and as a consequence, information in this document may materially change the coding, format and clinical context of patient data. In addition, data may be omitted in some cases. CLINICAL DECISIONS SHOULD BE BASED ON THE PRIMARY CLINICAL RECORDS. [facility], [facility]. provides no warranty or guarantee of the accuracy or completeness of information in this document.
== END | disposition home or self-care (01) ==
LOC: LABSPEC 16:53
PROVIDERS: PCP Physician Assistant; Visit Provider Physician Assistant Surgical
DX: R35.0 Frequency of micturition (principal)
CPT/HCPCS: 87086; 87088; 87186